=== PATIENT | female | born 1955 | race Caucasian/White ===

== ENCOUNTER → 2016-09-26 | Outpatient (CLI) | payer OTHER ==
[~2016-09-26] MED LIST: ABL/5 PO; ALBUAER2 INH; ARIP1TAB14 PO; ASPCH81X PO; ATV1 PO; BACL10TA PO; BUDE180I INH; CYM/30 PO; CYM30 PO; CYM60 PO; DICL1GEL12 TP; DULO60CA44 PO; GABA-112 PO; LAMO100T16 PO; LAMO150T PO; LEVO100T7 PO; LRS10 PO; MELO15TA10 PO; MELO15TA4 PO; MEMA1TAB4 PO; MISCCAP80 PO; NMN10 PO; OMEP20CA9 PO; OXYC-57 PO; PLQ200 PO; POTA1080 PO; RANI150T2 PO; SIMV40TA4 PO; TOPI100T20 PO; TPM100 PO; TRAM-10 PO; TRAZ100T29 PO; VITAMIN C PO; VNTHFA/IN INH; WARF2TAB PO; ZCR40 PO; ZNTT/150 PO
[2016-09-26 17:32] LABS: URINE APPEARANCE CLEAR (CLEAR); URINE BILIRUBIN NEG (NEG); URINE COLOR YELLOW; URINE EPITHELIAL CELL AUTO >30 /lpf (0-5); URINE NITRITE NEG (NEG); URINE PH 6.5 (4.5-7.5); UROBILINOGEN NEG (NEG)
[2016-09-26 17:40] LABS: MANUAL MICROSCOPIC REQUIRED? NO; REVIEW REQ? YES
== END | disposition home or self-care (01) ==
LOC: C.LABSPEC 16:36
PROVIDERS: ATTEND Family Medicine
DX: D64.9 Anemia, unspecified (principal); N39.0 Urinary tract infection, site not specified

== ENCOUNTER → 2016-09-27 | Outpatient (CLI) | payer OTHER ==
[2016-09-27 16:43] LABS: BASO % 0.3 %; BASO ABS # 0.03 K/uL (0-0.2); COMPLETE YES; HEMATOCRIT 40.3 % (37-47); IG% 0.1 %; LYMPH % 33.3 %; LYMPH ABS # 2.89 K/uL (1.2-3.4); MEAN CORPUSCULAR HEMOGLOBIN 31.6 pg (25-34); MEAN CORPUSCULAR HGB CONC 33.3 g/dl (32-36); MEAN PLATELET VOLUME 9.6 fL (7.4-10.4); MONO % 6.2 %; NEUT % 58.1 %; PLATELET COUNT 250 K/uL (130-400); RED BLOOD COUNT 4.24 M/uL (4.2-5.4); WHITE BLOOD COUNT 8.67 K/uL (4.8-10.8)
[2016-09-27 17:28] LABS: FERRITIN 28.3 ng/ml (8.0-388.0); THYROID STIMULATING HORMONE 0.595 uIu/ml (0.300-4.500)
--- NOTE | 2016-10-01 10:43 | CODING QUERY MEDICAL NECESSITY ---
SUPPORTING DIAGNOSIS NEEDED A supporting diagnosis is required for the test/procedure performed on this patient in order for us to be reimbursed by the patient's insurance. Please provide a supporting diagnosis for the following test/procedure listed below next to the test name along with your signature. *If there is no additional diagnosis for this patient that would support the following test/procedure please document that below next to the test/procedure. Test(s)/Procedure(s) that require a supporting diagnosis: DOS 09/27 * Vitamin B12 DIAGNOSIS: * Folic Acid DIAGNOSIS: Provider Signature: Date: Thank you Renée Barry Health Information Management Once completed, please kindly fax back to [phone] For questions please call [phone]
== END | disposition home or self-care (01) ==
LOC: C.LAB 15:21
PROVIDERS: ATTEND Family Medicine
DX: D64.9 Anemia, unspecified (principal); G47.19 Other hypersomnia

== ENCOUNTER → 2016-10-10 | Outpatient (CLI) | payer OTHER ==
[~2016-10-10] VITALS: Ht 160 cm; Wt 93.2 kg
[~2016-10-10] MED LIST changes: -ARIP1TAB14 PO; -ATV1 PO; -BUDE180I INH; +BUDE180I PO; -CYM30 PO; -CYM60 PO; -LAMO150T PO; -LRS10 PO; -MELO15TA4 PO; -MEMA1TAB4 PO; -POTA1080 PO; -RANI150T2 PO; -TPM100 PO; -VNTHFA/IN INH; -ZCR40 PO
[2016-10-10 11:42] VITALS: BP 118/79; PULSE 88; Ht 160 cm; Wt 93.2 kg
== END | disposition home or self-care (01) ==
LOC: C.NEUR 11:21
PROVIDERS: ATTEND Internal Medicine Pulmonary Disease
DX: G47.33 Obstructive sleep apnea (adult) (pediatric) (principal); G25.81 Restless legs syndrome

== ENCOUNTER → 2016-10-15 | Outpatient (CLI) | payer OTHER | END | disposition home or self-care (01) | LOC: C.RDSM 13:17 | PROVIDERS: ATTEND Physical Medicine & Rehabilitation Sports Medicine | DX: M25.561 Pain in right knee (principal) ==

== ENCOUNTER → 2016-10-19 | Outpatient (CLI) | payer OTHER ==
--- NOTE | 2016-10-19 08:43 | DIAGNOSTIC IMAGING REPORT ---
MRI OF THE RIGHT KNEE CLINICAL HISTORY: Osteoarthritis. Fall. COMPARISON STUDY: MRI of the right knee dated 04/25/2016. TECHNIQUE: MRI of the right knee was performed utilizing proton density, T1, and T2-weighted sequences in the axial, sagittal, coronal planes. IV contrast was not administered for this examination. The examination is degraded by motion artifact. FINDINGS: Menisci: There is degenerative tearing seen involving the body and posterior horn of the medial meniscus. The medial meniscus is medially extruded. The lateral meniscus appears Intact. Ligaments: The anterior and posterior cruciate ligaments are intact. The medial and lateral collateral ligaments are within normal limits. Extensor mechanism: The extensor mechanism is intact. Hoffa's fat pad is normal in appearance. Articular cartilage and bone: There is minimal degenerative fissuring identified in the articular cartilage along the lateral patellar facet. There is nearly full-thickness cartilage loss seen in the underlying femoral trochlea. There is degenerative thinning of the articular cartilage in the medial compartment with nearly full-thickness loss along the weightbearing surface. No reactive marrow edema is seen. There is mild (less than 50%) of thinning of the articular cartilage in the lateral compartment. There are medial marginal osteophytes. Joint effusion: There is a small to moderate joint effusion. Soft tissues: The musculature surrounding the knee joint demonstrates diffuse atrophy. No intramuscular edema is seen. A small popliteal cyst is identified and measures up to 2.6 cm. IMPRESSION: 1. There is significant degenerative tearing identified involving the body and posterior horn of the medial meniscus which is medially extruded. 2. The lateral meniscus, the cruciate ligaments, and the collateral ligaments appear intact. 3. Joint effusion and small popliteal cyst. 4. Arthritic change as above, greatest in the medial compartment. Electronically signed by: Liam Zazueta M.D. 10/19/2016 8:41 AM Dictated Date/Time: 10/19/2016 8:35 AM
== END | disposition home or self-care (01) ==
LOC: C.MRI 07:29
PROVIDERS: ATTEND Physical Medicine & Rehabilitation Sports Medicine
DX: M17.11 Unilateral primary osteoarthritis, right knee (principal)

== ENCOUNTER → 2016-11-19 | Outpatient (CLI) | payer OTHER ==
--- NOTE | 2016-11-20 06:31 | PAP/PSG TECHNICIAN REPORT ---
[facility] Hydraulic Strainer Operator Polysomnogram Report Study name: None Report date: 11/20/2016 Study date: 11/19/2016 Referring Physician: MT CARRILLO DO, DO Name: GUILLERMO NUNES Interpreting Physician: Mt Carrillo D.O. Date of : 1955 Hydraulic Strainer Operator: Debbie Puente [facility]. Sex: Female Age: 61 StudyType: PSG Weight: 303 lbs Height: 61 years, Height 5' 3" BMI: 53.67 Medications: Abilify 5 mg, Aspirin 81 mg, Baclofen 10 mg, Duloxrtine 60 mg, Duloxetine 30 mg, Lamotrigine 100 mg, Levothyroxine 100 MCG, Meloxicam 15 mg, Memantine 10 mg, Omeprazole 20 mg, Plaquenil 200 mg, Pulmicort 180 MCG, Ranitidine 150 mg, Simvastatin 40 mg, Topiramate 100 mg, Tramadol 50 mg, Trazodone 50 mg, Ventolin HFA 108 ( 90 base) Patient History 61 yr. old female here for a diagnostic sleep study. Patient complains of EDS, and loud snoring. Patients [place] Sleepiness Scale Score is 20/24. Parameters Monitored NPSG: E1-M2, E2-M1, Fp1-M2, Fp2-M1, F3-M2, F4-M2, F4-M1, C3-M2, C4-M2, C4-M1, O1-M2, O2-M2, O2-M1, T3-M2, T4-M1, P3-M2, P4-M1, CHIN1, CHIN2, HR, EKG, Legs, PFLOW, SNOR, FLOW, CFLOW, Tidal Volume, THOR, ABDO, SpO2, PLTH, CPRESS, ETCO2 Wave, ETCO2, pH Sleep Architecture Sleep Stages Time at Lights Off 10:44:27 PM STAGES Time (min.) TST (%) Time at Lights On 5:46:57 AM Wake 61.0 -- Total Recording Time (TRT) 422.50 min. N1 12.5 3 Total Sleep Period (TSP) 390.0 min. N2 148.0 41 Total Sleep Time (TST) 361.5min. N3 126.5 35 Awake Time 61.0 min. REM 74.5 21 Wake after Sleep Onset 28.5 min. Sleep Efficiency (SE) 86 % Sleep Onset Latency (COLIN) 32.5 min. Number of Stage 1 Shifts None Awakenings 14 Stage Changes 55 Number of REM periods 2 REM 74.5 21 REM Latency 157.0 min. NREM 287.0 79 Body Position Analysis Supine Right Left Side Prone Vertical Total Sleep Time (min.) 219.4 0.0 194.5 194.49 0.0 0.0 Total Sleep Time (%) 46% 0% 54% 54 0% N/A% Total Sleep Time REM (min.) 74.5 0.0 0.0 None 0.0 0.0 Total Sleep Time NREM (min.) 92.5 0.0 194.5 None 0.0 0.0 Intermittent Wake (min.) 52.4 0.0 8.6 None 0.0 0.0 Total Sleep Period (%) 48% None None None None None Arousals Myoclonus (PLM) * Events Count Index Events Count Index Spontaneous 2 0 Events Awake (PLMW) 39 38.4 Respiratory 1 0.2 Events Asleep w/ Arousal (PLMA) 8 1.3 PLM 8 1 Events Asleep w/o Arousal (PLMS) 41 6.8 Snoring 5 1 Total Asleep 49 8.1 Total 15 2 Total 88 12 Respiratory Analysis * CA OA MA CH H RERA Total Count 0 0 0 0 38 0 38 Index 0.0 0.0 0.0 0 6.3 0 6.3 Mean Duration 0.0 0.0 0.0 0.00 25.4 0.0 25.4 Longest Duration 0.0 0.0 0.0 0.00 0.0 0.0 46.0 Respiratory Event Summary Total Supine ~Supine Right Left Prone REM NREM Apneas Count 0 0 0 N/A 0 N/A 0 0 Index 0.0 0 0 N/A 0.0 N/A 0 0 Hypopneas (4% Desat) Count 38 37 1 N/A 1 N/A 11 27 Index 6.3 13.3 0 N/A 0.3 N/A 8.9 5.6 Apneas & All Hypopneas Count 38 37 1 N/A 1 N/A 11 27 Index 6.3 13 0 N/A 0 N/A 8.9 5.6 Respiratory Events (Clinical Team Lead+All Hyp+RERA) Count 38 37 1 N/A 1 N/A 11 27 Index 6.3 13 0 N/A 0.3 N/A 8.9 5.6 Respiratory Related Arousal Count 1 37 0 N/A 0 N/A 0 1 Index 0.2 0 0 N/A 0 N/A 0 0 Snoring Analysis Supine Right Left Prone REM NREM Total Snore duration 61.1 min Snores count 704 N/A 1,486 N/A 359 1,831 2,190 Snore mean duration 1.7 Sec Snores index 253 N/A 458 N/A 289.1 382.8 363.5 TST with snoring (%) 16.9% Desaturation Event Summary: Minimum %SpO2 Event Count Mean/Min/Max Duration(sec.) Desaturation Index % Time In Bed > 90 51 27.7 / 6.8 / 60.0 24.1 30.7 86 - 90 39 26.8 / 6.8 / 60.0 8.2 68.5 81 - 85 0 N/A 0.0 0.8 76 - 80 0 N/A 0.0 0.0 71 - 75 0 N/A 0.0 0.0 66 - 70 0 N/A 0.0 0.0 61 - 65 0 N/A 0.0 0.0 56 - 60 0 N/A 0.0 0.0 51 - 55 0 N/A 0.0 0.0 < 50 0 N/A 0.0 0.0 Total REM NREM Awake <50% 0.0 min. 0.0 min. 0.0 min. 0.0 min. 51 - 60% 0.0 min. 0.0 min. 0.0 min. 0.0 min. 61 - 70% 0.0 min. 0.0 min. 0.0 min. 0.0 min. 71 - 80% 0.0 min. 0.0 min. 0.0 min. 0.0 min. 81 - 90% 287.4 min. 70.2 min. 186.3 min. 30.8 min. 91 - 100% 127.1 min. 4.3 min. 100.7 min. 22.2 min. Average 89 88 89 90 Minimum SpO2 81 84 81 82 Desaturation Event Index 8.5 9.7 6.7 15.7 # Desat. Events below 89% 56 12 32 12 Time(%) with Saturation below 89% 41.3 10.8 26.6 3.9 Time(min.) with Saturation below 89% 171.2 44.8 110.2 16.2 Time (mins) REM (mins) NREM (mins) % of TST SpO2 Below 90% 44 12 N32 60.0 SpO2 Below 88% 21 0 0 22 Heart Rate Analysis Min (bpm) Max (bpm) Average (bpm) Awake 65 94 78 NREM 64 82 71 REM 63 76 71 Overall 63 82 71 Supplemental O2 Values Minimum O2 level: None Value Start Time End Time Hydraulic Strainer Operator Comments MS. Nunes slept in the right and supine positions. Cardiac arrhythmia and PLMs noted. No bruxism noted. Snoring was noted and scored as a 4 on a scale of 0 through 5. (0=no snoring, 5=snoring loud enough to be heard through a closed door or down the gaytan way) MS. Nunes awoke to use the restroom two times during the night. MS. Nunes stated, I got up less to pee. The final report will be interpreted and signed by a sleep physician. The completed physician report will then be placed in the patient medical record. Therapy (cm H2O) 0 TIB (min.) 422.5 TST (min.) 361.5 Sleep Onset (min.) 32.5 REM Onset From Sleep (min.) 157.0 Sleep Efficiency % 86 Wakefulness (%) 14 Wakefulness (min.) 61.0 NREM 1 (%) 3 NREM 1 (min.) 12.5 NREM 2 (%) 41 NREM 2 (min.) 148.0 NREM 3 (%) 35 NREM 3 (min.) 126.5 REM (%) 21 REM (min.) 74.5 # Arousals 15 Arousal Index 2 # Snore 2,190 Snore Index 363.5 AHI 6.3 AHI Supine 13 AHI Non-Supine 0 NREM AHI 5.6 REM AHI 8.9 RDI 6.3 # Obstructive Apnea 0 # Central Apnea 0 # Mixed Apnea 0 # Hypopneas 38 RERAs 0 Total Respiratory Events 39 Time Below SpO2 89% (min.) 155.0 Mean NREM SpO2 (%) 89 Mean REM SpO2 (%) 88 Mean Sleep SpO2 (%) 89 Min NREM SpO2 (%) 81 Min REM SpO2 (%) 84 Position Supine (min.) 219.4 Position Non-supine (min.) 194.5 LM Index Sleep 8.1 LM Index NREM 6.5 LM Index REM 14.5 Mean Heart Rate (bpm) 71 Min Heart Rate (bpm) 63
--- NOTE | 2016-11-22 13:49 | POLYSOMNOGRAPH REPORT ---
CLINICAL DATA: The patient is a 61-year-old female with a BMI elevated at 53.67. She has been referred by Dr. Somers. Her symptoms include snoring, disturbed nocturnal sleep, and excessive daytime somnolence. She completed the [place] sleepiness scale and had a score of 20 out of a possible 24. This was an overnight sleep study in the sleep lab. SLEEP ARCHITECTURE: The total sleep period was 390.0 minutes. Total sleep time was 361.5 minutes. The sleep efficiency was 86%. The sleep onset latency was prolonged to 32.5 minutes. The REM latency was prolonged to 157.0 minutes. There were 2 REM periods during the night. Wake after sleep onset was 28.5 minutes. Sleep consisted of stage N1 3%, stage N2 41%, stage N3 35%, and stage REM 21%. AROUSAL DATA: The patient had a total of 15 arousals including 2 spontaneous arousals, 1 respiratory arousal, 8 PLM arousals, 5 snoring arousals. The arousal index was only 2. PLM DATA: The patient had a total of 49 periodic limb movements of sleep for a PLM index of 8.1 events per hour. There were 8 periodic limb movements with arousals for a PLM arousal index of 1.3. RESPIRATORY DATA: The patient had a total of 38 respiratory events during the night, all of which were hypopneas. The apnea hypopnea index is mildly elevated at 6.3 events per hour. The longest hypopnea was 46 seconds with a mean hypopnea of 25.4 seconds. OXIMETRY DATA: The patient had an average saturation of 89%. The minimum saturation was 81%. There was a total of 21 minutes with saturations less than 88%. EKG: The patient had an underlying normal sinus rhythm. There was a modest number of PVCs throughout the night. There were no runs of couplets or V-tach. The minimum heart rate was 63 and the maximum was 94. ROCK WORKER COMMENTS: The patient slept in the right and supine positions. Cardiac arrhythmia and PLMs were noted. No bruxism noted. Snoring was noted and scored as a 4 on a scale of 0 through 5. IMPRESSION: Obstructive sleep apnea -- mild. COMMENTS: The patient had mild sleep apnea as assessed by the apnea-hypopnea index of only 6.3 events per hour. It is difficult to determine if this mild apneas accounting for her severe daytime somnolence. She is on a number of medications which could contribute to daytime somnolence including Abilify, Cymbalta, lamotrigine, topiramate, and tramadol. She had a modest number of PVCs during the study. Most of the events occurred after 4:00 a.m. and all the events occurred in the supine position. RECOMMENDATIONS: 1. Consideration is given to treatment with nasal CPAP. Although she has very mild apnea she has severe symptoms. At times, even with mild apnea patients may notice a significant improvement in daytime somnolence with treatment. 2. It is suggested that the patient initiate a weight reduction program in light of the severe elevation of body mass index at 53.67. 3. It is advised that the patient avoid sleeping in the supine position. During this study she clearly had increased events when supine. 4. The patient should be advised of the appropriate principles of sleep hygiene including having a regular sleep-wake schedule and allowing sufficient sleep time. SANDRITA
== END | disposition home or self-care (01) ==
LOC: C.NEUR 20:00
PROVIDERS: ATTEND Internal Medicine Pulmonary Disease
DX: G47.33 Obstructive sleep apnea (adult) (pediatric) (principal)

== ENCOUNTER → 2016-12-05 | Outpatient (CLI) | payer OTHER ==
[~2016-12-05] MED LIST changes: -DULO60CA44 PO
[2016-12-05 10:05] VITALS: BP 110/73; PULSE 96; Ht 160 cm
== END | disposition home or self-care (01) ==
LOC: C.NEUR 09:56
PROVIDERS: ATTEND Internal Medicine Pulmonary Disease
DX: G47.33 Obstructive sleep apnea (adult) (pediatric) (principal)

== ENCOUNTER 2016-12-26 05:16 | Inpatient (IN) | payer OTHER ==
[2016-11-30 13:20] VITALS: BMI 36.0
[2016-11-30 13:56] LABS: BASO % 0.5 %; BASO ABS # 0.03 K/uL (0-0.2); COMPLETE YES; EOS % 1.9 %; HEMATOCRIT 39.5 % (37-47); IG% 0.2 %; LYMPH % 32.9 %; LYMPH ABS # 2.13 K/uL (1.2-3.4); MEAN CELL VOLUME 96.3 fL (80-100); MEAN CORPUSCULAR HEMOGLOBIN 31.5 pg (25-34); MEAN CORPUSCULAR HGB CONC 32.7 g/dl (32-36); MEAN PLATELET VOLUME 10.1 fL (7.4-10.4); MONO % 5.4 %; NEUT % 59.1 %; PLATELET COUNT 212 K/uL (130-400); WHITE BLOOD COUNT 6.48 K/uL (4.8-10.8)
[2016-11-30 13:57] LABS: URINE APPEARANCE CLEAR (CLEAR); URINE BILIRUBIN NEG (NEG); URINE COLOR YELLOW; URINE NITRITE NEG (NEG); URINE SPECIFIC GRAVITY 1.006 (1.000-1.030); UROBILINOGEN NEG (NEG); ZZUR CULT IF INDIC CLEAN CATCH NO
--- NOTE | 2016-11-30 13:57 | PAT Medication Instructions ---
Service Date Nov 30, 2016. Current Home Medication List Albuterol (Ventolin Hfa), 1 PUFF INH Q4 PRN for Shortness of Breath Aripiprazole (Abilify), 5 MG PO HS Aspirin (Aspirin Chewable), 81 MG PO QAM Baclofen (Lioresal), 10 MG PO QID Budesonide (Inhalation) (Pulmicort Flexhaler), 1 PUFF PO AMHS Diclofenac Sodium (Topical) (Voltaren 1% Top Gel), 1 DOSE TP PRN Duloxetine Hcl (Cymbalta), 90 MG PO QAM Gabapentin (Neurontin), 100 MG PO TID Hydroxychloroquine Sulfate (Hydroxychloroquine Sulfat), 200 MG PO BID Lamotrigine (Lamictal), 300 MG PO HS Levothyroxine Sodium (Levothyroxine Sodium), 100 MCG PO QAM Meloxicam (Mobic), 15 MG PO QPM Memantine (Namenda), 10 MG PO BID Omeprazole (Prilosec), 20 MG PO QAM Probiotic Product (Probiotic), 1 TAB PO QAM Ranitidine (Zantac), 150 MG PO HS Simvastatin (Zocor), 40 MG PO HS Topiramate (Topamax), 100 MG PO BID Tramadol (Ultram), 50 MG PO BID Trazodone Hcl (Trazodone), 100 MG PO HS PRN for Sleep [Vitamin C], 1 DOSE PO QAM Medication Instructions For Your Scheduled Surgery - Check with surgeon for instructions: Meloxicam (Mobic), 15 MG PO QPM - Check with elder counselor for instructions: Hydroxychloroquine Sulfate (Hydroxychloroquine Sulfat), 200 MG PO BID - Hold the following medications 24 hours prior to surgery: Diclofenac Sodium (Topical) (Voltaren 1% Top Gel), 1 DOSE TP PRN - Hold the following medications the morning of surgery: Probiotic Product (Probiotic), 1 TAB PO QAM [Vitamin C], 1 DOSE PO QAM Baclofen (Lioresal), 10 MG PO QID - Take the following medications the morning of surgery with a sip of water: Topiramate (Topamax), 100 MG PO BID Omeprazole (Prilosec), 20 MG PO QAM Memantine (Namenda), 10 MG PO BID Levothyroxine Sodium (Levothyroxine Sodium), 100 MCG PO QAM Gabapentin (Neurontin), 100 MG PO TID Duloxetine Hcl (Cymbalta), 90 MG PO QAM Budesonide (Inhalation) (Pulmicort Flexhaler), 1 PUFF PO AMHS Aspirin (Aspirin Chewable), 81 MG PO QAM (okay per surgeon instructions) Albuterol (Ventolin Hfa), 1 PUFF INH Q4 PRN for Shortness of Breath (bring with you to hospital morning of surgery) Tramadol (Ultram), 50 MG PO BID (okay to take up to 4 hours prior to surgery if needed) - Take the following medications as scheduled the night before surgery: Trazodone Hcl (Trazodone), 100 MG PO HS PRN for Sleep Topiramate (Topamax), 100 MG PO BID Simvastatin (Zocor), 40 MG PO HS Ranitidine (Zantac), 150 MG PO HS Memantine (Namenda), 10 MG PO BID Lamotrigine (Lamictal), 300 MG PO HS Gabapentin (Neurontin), 100 MG PO TID Budesonide (Inhalation) (Pulmicort Flexhaler), 1 PUFF PO AMHS Baclofen (Lioresal), 10 MG PO QID Aripiprazole (Abilify), 5 MG PO HS Albuterol (Ventolin Hfa), 1 PUFF INH Q4 PRN for Shortness of Breath Tramadol (Ultram), 50 MG PO BID If you have any questions please call us at [phone] (Pascale Aponte PA-C) or [phone] or [phone]
[2016-11-30 13:58] LABS: MANUAL MICROSCOPIC REQUIRED? NO; REVIEW REQ? NO
[2016-11-30 14:01] LABS: INR 0.9 (0.9-1.1); PARTIAL THROMBOPLASTIN RATIO 1.1
[2016-11-30 14:23] LABS: BUN/CREATININE RATIO 20.1 (10-20); CALCIUM 8.5 mg/dl (8.5-10.1); CREATININE 0.78 mg/dl (0.60-1.20); POTASSIUM 3.9 mmol/L (3.5-5.1)
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
[2016-12-26] VITALS (9 sets, daily range): BP systolic 96–135; BP diastolic 62–88; PULSE 75–90; TEMP 36.6–37; O2SAT 93–100; Ht 160 cm; Wt 93.9 kg
[~2016-12-26] VITALS: Ht 160 cm; Wt 93.9 kg
[~2016-12-26 05:16] MED LIST changes: -ASPCH81X PO; -BUDE180I PO; -LEVO100T7 PO; -OMEP20CA9 PO; -OXYC-57 PO; -PLQ200 PO; -TRAZ100T29 PO; -WARF2TAB PO
[2016-12-26] MEDS ORDERED: ROPIVACAINE 5MG/ML 30 ML 150 MG, BUPIVACAINE/EPINEPHR 0.5% MPF 30 ML, KETOROLAC TROMETH... INFIL SCH ×7 (06:00)
[2016-12-26] MEDS ORDERED: LACTATED RINGER'S 1000ML 1,000 ML IV SCH (06:00)
[2016-12-26] MEDS ORDERED: LACTATED RINGER'S 1000ML IV SCH (06:00)
[2016-12-26] MEDS ORDERED: TRANEXAMIC ACID INJ 1,000 MG in SODIUM CHLORIDE 0.9% 100ML 100 ML IV SCH ×2 (06:00→14:30)
[2016-12-26] MEDS ORDERED: CEFAZOLIN 2000 MG/60 ML D5W 60 ML IV SCH (06:00)
[2016-12-26] MEDS ORDERED: LACTATED RINGER'S 1000ML 500 ML IV ONE (06:00)
--- NOTE | 2016-12-26 06:27 | History & Physical Bridge Note ---
H&P Re-Evaluation Bridge Note: I have examined the patient, reviewed the History & Physical and in the interval since the performance of the History & Physical I have noted the following changes of clinical significance: No changes noted
[2016-12-26] MEDS ORDERED: BUPIVACAINE 0.5 % 5 MG/1 ML PF 10ML VIAL ONE (06:32)
[2016-12-26] MEDS ORDERED: BUPIVACAINE/EPINEPHRINE 0.25% 1:200,000 30 ML VIAL ONE (06:32)
[2016-12-26] MEDS ORDERED: DEXAMETHASONE SOD INJ 4 MG/ML VIAL ONE (06:33)
[2016-12-26] MEDS ORDERED: ORTHO JOINT ANESTHETIC ONE (06:37)
[2016-12-26] MEDS ORDERED: POVIDONE-IODINE OP SOLN 30 ML BTL ONE (06:37)
[2016-12-26] MEDS ORDERED: PROPOFOL IV EMULSION 10 MG/ML 20 ML VIAL IV ONE ×2 (06:40→07:55)
[2016-12-26] MEDS ORDERED: LIDOCAINE HCL 2% 2 ML VIAL (20MG/ML) ONE (06:40)
[2016-12-26] MEDS ORDERED: FENTANYL CITRATE INJ 50 MCG/1 ML 2 ML VIAL ONE (06:41)
[2016-12-26] MEDS ORDERED: MIDAZOLAM HCL 1 MG/ML 2ML VIAL ONE ×3 (06:41→09:23)
[2016-12-26] MEDS ORDERED: ONDANSETRON INJ 2 MG/ML 2 ML VIAL ONE (07:23)
[2016-12-26] MEDS ORDERED: EpHEDrine SULFATE INJ 50 MG/ML AMP IV PRN (08:15)
[2016-12-26] MEDS ORDERED: ATROPINE SULFATE 0.1 MG/ML 5ML SYR IV PRN (08:15)
[2016-12-26] MEDS ORDERED: ONDANSETRON INJ 2 MG/ML 2 ML VIAL IV PRN ×2 (08:15→08:45)
[2016-12-26] MEDS ORDERED: FENTANYL CITRATE INJ 50 MCG/1 ML 2 ML VIAL IV PRN (08:15)
--- NOTE | 2016-12-26 08:25 | [facility] Post Operative Brief Note ---
Immediate Operative Summary Operative Date Dec 26, 2016. Pre-Operative Diagnosis Right Knee Degnerative Joint Disease Post-Operative Diagnosis Right Knee Degnerative Joint Disease Procedure(s) Performed Right Total Knee Arthroplasty Surgeon Dr. Uribe Tie Fastener Surgeon(s) GISEL Cosme Estimated Blood Loss 25 ml Findings medial disease grade 3-4/lateral grade 3 Fluids (cc crystalloids) 1200cc Specimens A. Right Knee Bone and Tissue Drains none Anesthesia spinal Complication(s) None Disposition Recovery Room / PACU
[2016-12-26] MEDS ORDERED: ACETAMINOPHEN 325 MG TAB PO PRN (08:45)
[2016-12-26] MEDS ORDERED: ACETAMINOPHEN IV 100 ML IV PRN (08:45)
[2016-12-26] MEDS ORDERED: DiphenhydrAMINE HCL 50 MG/ML VIAL IV PRN (08:45)
[2016-12-26] MEDS ORDERED: BISACODYL 10 MG SUPP PR PRN (08:45)
[2016-12-26] MEDS ORDERED: ALBUTEROL HFA 8 GM INHALER INH PRN (08:45)
[2016-12-26] MEDS ORDERED: METOCLOPRAMIDE HCL INJ 5 MG/ML 2 ML VIAL IV PRN (08:45)
--- NOTE | 2016-12-26 08:55 | OPERATIVE REPORT ---
DATE OF OPERATION: 12/26/2016 SURGEON: Dr. Uribe. RESIDENTIAL SUPPORT WORKER: Adama Gonzalez PA-C. No resident or fellow available. PREOPERATIVE DIAGNOSIS: Osteoarthritis medial compartment with recurrent synovitis of the right knee. POSTOPERATIVE DIAGNOSIS: Same. OPERATION PERFORMED: Cemented right total knee replacement. PERIOPERATIVE SITUATION: Medically cleared female with intractable knee pain, has failed conservative management including arthroscopic debridement of her knee. At this point in time, has recurrent synovitis with physical exam, x-ray and repeat MRI scan significant for medial disease. She has an extruded meniscus and advancing articular lesions. Her x-ray criteria revealed joint space narrowing and varus alignment on the medial side. OPERATION: The patient was properly identified, site verified, consent verified, 2 grams of Ancef confirmed as being given. The leg was prepped and draped in usual routine fashion. Tourniquet inflated to 300 mmHg after exsanguination of limb with a rubber Esmarch bandage. Midline exposure utilized. Parapatellar arthrotomy performed. Appropriate synovectomy and soft tissue releases performed. Observation of the medial compartment revealed grade 4 posterior half of the tibia and posterior half of the femur, extruded meniscus. The patellofemoral joint was relatively healthy. The lateral compartment had a quarter-sized area with a grade 3 lesion on the weightbearing surface of the lateral femoral condyle and in the tibial plateau. The central zone laterally was completely soft and grade 3+. The distal femur was then resected 14 mm, proximal tibia 4 mm, and the extension gap was excellent. The femur was then sized between 4 and 3, was measured 4 cut 3. Once this was all cut, the trial implant slightly rocked anteriorly, so the cutting block was reapplied and the cuts were freshened up and then the femur fit well. The tibia was then broached and reamed to a size 2.5 and a size 3 spacer, 10 mm thick was placed and the knee tracked well and was very stable in all planes including full extension, mid range flexion and full flexion. The patella was sized to a 35. Appropriate resection made, leaving about 15 mm. The peg holes were drilled and then the trial seated and tracked well. All trial implants were then removed. The wound was irrigated with Betadine, Pulsavac, injected with the Orthomix. The permanents were cemented into position. After 12 minutes, the tourniquet deflated. Bleeding points controlled. After 14 minutes, the knee flexed. Minor cement removal. The knee irrigated with Betadine. The permanent liner then seated and the knee reduced. The wound was then closed with #1 Ethibond, #1 Vicryl, 2-0 Vicryl, and stainless steel clips. Appropriate soft tissue dressing applied. ESTIMATED BLOOD LOSS: 25 mL Crystalloid 1200 mL SUMMARY OF IMPLANTS: Right femur size 3 posterior cruciate substituting, 2.5 tray, rotating platform, oval domed 3-peg patella size 35, tibial insert size 3 matching the femur, 10 mm thick, posterior cruciate substituting 2 bags of Palacos G cement. DVT prophylaxis per protocol. I attest to the content of the Intraoperative Record and any orders documented therein. Any exceptio ns are noted below.
--- NOTE | 2016-12-26 09:10 | DIAGNOSTIC IMAGING REPORT ---
RIGHT KNEE 2 VIEWS History: Right total knee arthroplasty. Degenerative arthritis. Postop. FINDINGS: The patient is status post a right total knee arthroplasty. The hardware is intact. No fracture or dislocation. Skin benji and surgical drains are in place. IMPRESSION: Right total knee arthroplasty. No evidence for hardware complication. Electronically signed by: Hong Montague M.D. 12/26/2016 9:09 AM Dictated Date/Time: 12/26/2016 9:09 AM
--- NOTE | 2016-12-26 09:32 | Anesthesiology Progress Note ---
Anesthesia Post Op Note Date & Time Dec 26, 2016 at 09:32 Vital Signs Pain Intensity: 0 Vital Signs Past 12 Hours Date Time Temp Pulse Resp B/P Pulse Ox O2 Delivery O2 Flow Rate FiO2 12/26/16 09:16 82 12 95 12/26/16 09:16 82 12 12/26/16 09:15 102/60 12/26/16 09:11 82 12 91/58 94 12/26/16 09:11 83 12 12/26/16 09:06 85 16 97 12/26/16 09:06 85 16 12/26/16 09:05 86 12 115/65 96 12/26/16 09:05 86 12 12/26/16 09:03 36.8 85 20 115/65 100 Mask 10 12/26/16 09:00 87 12 126/63 95 12/26/16 09:00 88 12 12/26/16 08:55 90 25 12/26/16 08:55 90 25 112/69 96 12/26/16 08:50 93 17 113/58 97 12/26/16 08:50 94 17 12/26/16 08:45 96 21 12/26/16 08:45 96 21 117/59 97 12/26/16 08:40 96 17 12/26/16 08:40 95 17 126/60 100 12/26/16 08:35 95 15 12/26/16 08:35 36.1 98 20 117/65 100 Mask 10 12/26/16 08:35 95 15 117/65 100 12/26/16 05:37 36.7 78 20 135/88 98 Room Air Notes Mental Status: alert / awake / arousable, participated in evaluation Pt Amnestic to Procedure: Yes Nausea / Vomiting: adequately controlled Pain: adequately controlled Airway Patency, RR, SpO2: stable & adequate BP & HR: stable & adequate Hydration State: stable & adequate Neuraxial Anesthesia: was administered, sensory block is resolving Anesthetic Complications: no major complications apparent
[2016-12-26] MEDS ORDERED: D5W AND 1/2NSS + 20MEQ KCL 1,000 ML IV SCH (11:00)
--- NOTE | 2016-12-26 11:19 | Medical Consult ---
History General Date of Service: Dec 26, 2016. Stated Complaint: Degenerative Joint Disease Right Knee HPI The patient is a 61 year old female who presents to [facility] with complaints of Degenerative Joint Disease Right Knee. The patient's primary care provider is Sally Mariano DO. Pt is s/p Total knee replacement due to failed out pt management REsting comfortably with acceptable pain control Surgical service has restarted home meds appropriately Historian: patient, other (chart) Review of Systems Constitutional: denies: chills, diaphoresis Cardiovascular: denies: chest pain, chest pressure Respiratory: denies: cough, shortness of breath Gastrointestinal: denies: diarrhea, nausea Genitourinary - Female: denies: dysuria, hematuria Musculoskeletal: reports: arthralgias, joint pain Integumentary: denies: rash, redness Neurologic: denies: dizziness, headache Psychiatric: denies: anxiety, depression Past Medical History Past Medical History: degenerative disc disease, dementia, depression, diabetes , GERD, high cholesterol, hypothyroidism, kidney stones, migraines, osteoarthritis, other Past Surgical History: lithotripsy, ureteral stent Family History Cancer (Breast, prostate) FATHER (Prostate) MOTHER (Breast) Diabetes mellitus MOTHER SISTER Gallbladder disease Hypertension FATHER Kidney disease SISTER (CKD; renal transplant) Kidney stones Social History Hx Tobacco Use In Past Year?: No Smoking Status: Former Smoker Alcohol: never Marital status: , in relationship Housing status: lives alone Occupational Status: disabled Immunizations History of Influenza Vaccine: N/A Influenza Vaccine Date: Aug 25, 2006 History of Tetanus Vaccine?: Yes Tetanus Immunization Date: January 31, 2005 History of Pneumococcal: Yes Pneumococcal Date: Jul 03, 2008 History of Hepatitis B Vaccine: Unknown Hepatitis Immunization Date: Sep 25, 2004 History of MDRO History of MDRO: No Allergies Coded Allergies: Buprenorphine (Verified Allergy, Mild, RASH WITH USE OF PATCH, 12/26/16) Cyclobenzaprine (Verified Allergy, Unknown, UNK, 12/26/16) Magnesium Hydroxide (Verified Allergy, Unknown, HIVES, 12/26/16) Ibuprofen (Verified Adverse Reaction, Severe, GI BLEED, 12/26/16) Naproxen (Verified Adverse Reaction, Severe, GI BLEED, 12/26/16) Current Medications Reported Home Medications Medications Dose Route/Sig Max Daily Dose Days Date Category Dose Instructions [Vitamin C] 1 Dose PO QAM 11/30/16 Reported LIQUID Voltaren 1% Top Gel (Diclofenac Sodium (Topical)) 1 % Gel 1 Dose TP PRN 11/30/16 Reported Neurontin (Gabapentin) 100 Mg Cap 100 Mg PO TID 11/30/16 Reported Probiotic (Probiotic Product) 1 Cap Cap 1 Tab PO QAM 11/30/16 Reported Ultram (Tramadol HCl) 50 Mg Tab 50 Mg PO BID 06/18/16 Reported Mobic (Meloxicam) 15 Mg Tab 15 Mg PO QPM 06/18/16 Reported Hydroxychloroquine Sulfat (Hydroxychloroquine Sulfate) 200 Mg Tab 200 Mg PO BID 05/01/16 Reported Pulmicort Flexhaler (Budesonide (Inhalation)) 180 Mcg/Act Inh 1 Puff PO AMHS 05/01/16 Reported Aspirin Chewable (Aspirin) 81 Mg Chew 81 Mg PO QAM 12/22/15 Reported Ventolin Hfa (Albuterol) Aers 1 Puff INH Q4 PRN 12/22/15 Reported Trazodone (Trazodone HCl) 100 Mg Tab 100 Mg PO HS PRN 12/22/15 Reported Zantac (Ranitidine HCl) 150 Mg Tab 150 Mg PO HS 12/22/15 Reported Lamictal (Lamotrigine) 100 Mg Tab 300 Mg PO HS 12/22/15 Reported Abilify (Aripiprazole) 5 Mg Tab 5 Mg PO HS 12/22/15 Reported Topamax (Topiramate) 100 Mg Tab 100 Mg PO BID 12/22/15 Reported Namenda (Memantine) 10 Mg Tab 10 Mg PO BID 12/22/15 Reported Levothyroxine Sodium 100 Mcg Tab 100 Mcg PO QAM 12/22/15 Reported Cymbalta (Duloxetine Hcl) 30 Mg Cap 90 Mg PO QAM 12/22/15 Reported take with 30 mg Lioresal (Baclofen) 10 Mg Tab 10 Mg PO QID 09/20/15 Reported Prilosec (Omeprazole) 20 Mg Cap 20 Mg PO QAM 12/08/13 Reported Zocor (Simvastatin) 40 Mg Tab 40 Mg PO HS 12/08/13 Reported Physical Physical Exam Vital Signs: Date Time Temp Pulse Resp B/P Pulse Ox O2 Delivery O2 Flow Rate FiO2 12/26/16 10:50 36.6 85 17 106/67 99 Nasal Cannula 2.0 12/26/16 10:21 36.7 89 17 102/64 100 Nasal Cannula 2.0 12/26/16 09:50 99 Nasal Cannula 2.0 12/26/16 09:50 99 Nasal Cannula 2.0 12/26/16 09:45 116/64 12/26/16 09:41 85 13 97 12/26/16 09:41 86 13 12/26/16 09:40 110/64 12/26/16 09:36 90 19 12/26/16 09:36 90 19 98 12/26/16 09:35 119/70 12/26/16 09:32 94 25 95 12/26/16 09:32 98 25 12/26/16 09:30 108/68 12/26/16 09:27 91 22 12/26/16 09:27 92 22 97 12/26/16 09:25 106/60 12/26/16 09:22 95 20 12/26/16 09:22 95 20 98 12/26/16 09:20 101/70 12/26/16 09:17 82 13 12/26/16 09:17 82 13 94 12/26/16 09:16 82 12 95 12/26/16 09:16 82 12 12/26/16 09:15 102/60 12/26/16 09:11 82 12 91/58 94 12/26/16 09:11 83 12 12/26/16 09:06 85 16 97 12/26/16 09:06 85 16 12/26/16 09:05 86 12 115/65 96 12/26/16 09:05 86 12 12/26/16 09:03 36.8 85 20 115/65 100 Mask 10 12/26/16 09:00 87 12 126/63 95 12/26/16 09:00 88 12 12/26/16 08:55 90 25 12/26/16 08:55 90 25 112/69 96 12/26/16 08:50 93 17 113/58 97 12/26/16 08:50 94 17 12/26/16 08:45 96 21 12/26/16 08:45 96 21 117/59 97 12/26/16 08:40 96 17 12/26/16 08:40 95 17 126/60 100 12/26/16 08:35 95 15 12/26/16 08:35 36.1 98 20 117/65 100 Mask 10 12/26/16 08:35 95 15 117/65 100 12/26/16 05:37 36.7 78 20 135/88 98 Room Air General Appearance: WELL-APPEARING, uncomfortable Head: NORMOCEPHALIC, ATRAUMATIC Eyes: PERRLA, EOMI Neck: SUPPLE, NO THYROMEGALY Respiratory: BREATH SOUNDS NORMAL, CLEAR TO AUSCULTATION Cardiovasular: REGULAR RATE/RHYTHM, NORMAL S1S2 Abdomen: NON TENDER, NORMAL BOWEL SOUNDS, NO REBOUND Neuro: ALERT, ORIENTED x 3 Psychiatric: NORMAL AFFECT Diagnostics Radiology Interpretation: CXR NORMAL EKG Interpretation: NORMAL EKG Impression Assessment and Plan 61 F with total knee replacement by Dr Meyer 12/26 Home medication continued for hypothyroidism, synthroid 100mcg Dementia namenda 10 Depression, cymbalta 30, abilify 5, lamictal 300 trazadone 100hs Headaches topamax 100 bid Gerd zantac and ppi
[2016-12-26] MEDS: KETOROLAC TROMETHAMINE 30 MG/ML VIAL IV. SCH ×3 (11:26→23:49)
[2016-12-26] MEDS: OXYCODONE HCL IR 5 MG TAB (IMMEDIATE RELEASE) PO PRN ×2 (12:23→21:59)
[2016-12-26] MEDS: FERROUS GLUCONATE 324 MG TAB PO SCH ×2 (12:24→18:10)
--- NOTE | 2016-12-26 13:30 | OPERATIVE REPORT ---
DATE OF OPERATION: 12/26/2016 PREOPERATIVE DIAGNOSIS: Right knee end-stage degenerative joint disease. POSTOPERATIVE DIAGNOSIS: Right knee same. PROCEDURE: Right total knee arthroplasty using DePuy implants. SURGEON: Dr. Uribe. COAL FEEDER OPERATOR: Adama Gonzalez PA-C. HISTORY OF PRESENT ILLNESS: This 61-year-old white female presented to the office with complaints of intractable right knee pain. She had previously undergone arthroscopic debridement, activity modification, physical therapy, and viscosupplementation without success. She elected to proceed with surgical intervention after being educated about potential risks and outcomes. OPERATION: The patient was administered spinal anesthetic and then taken to the operating room where she was given sedation. She was prepped and draped in the usual sterile fashion. Please see Dr. Uribe's operative report for specifics of the procedure. I was present for the entire case from initial patient positioning through final wound closure. Assistance was provided in patient positioning, tissue retraction, hemostasis, trial implant placement, final implant placement, and final wound closure. The patient was taken to the recovery room in satisfactory condition. I attest to the content of the Intraoperative Record and any orders documented therein. Any exceptio ns are noted below.
--- NOTE | 2016-12-26 13:36 | PROGRESS NOTE ---
DATE: 12/26/2016 Postop check status post right total knee replacement. At this point in time, the patient denies chest pain, shortness of breath, fever, chills, nausea, vomiting or headache. Vital signs are stable. She is afebrile. Neurovascular check, femoral sciatic nerve is excellent. Wound dressing clean, dry and intact. Postop x-rays look excellent. ASSESSMENT: Status post right total knee replacement. PT and OT today. Mobilize XOCHITL. She can do a straight leg raise and she can wiggle her toes well. She can be weightbearing as tolerated and get up and move. DVT prophylaxis per Coumadin protocol. MTDD
[2016-12-26] MEDS: MoRPHine SULFATE 4 MG/ML 1 ML CARP\\VIAL IV PRN ×3 (13:41→20:34)
[2016-12-26] MEDS: CEFAZOLIN IV 2,000 MG in DEXTROSE 5% 50ML 50 ML IV SCH ×2 (13:41→22:02)
[2016-12-26] MEDS: GABAPENTIN 100 MG CAP PO SCH ×2 (13:42→20:41)
[2016-12-26] MEDS ORDERED: WARF2TAB PO (15:22)
[2016-12-26] MEDS ORDERED: OXYC-57 PO (15:22)
[2016-12-26] MEDS ORDERED: WARFARIN SOD 5 MG TAB PO SCH (16:00)
[2016-12-26] MEDS: DOCUSATE SODIUM 100 MG CAP PO SCH (20:41)
[2016-12-26] MEDS: ARIPIprazole TAB 5 MG TAB PO SCH (20:41)
[2016-12-26] MEDS: RANITIDINE HCL 150 MG TAB PO SCH (20:41)
[2016-12-26] MEDS: TOPIRAMATE 100 MG TAB PO SCH (20:41)
[2016-12-26] MEDS: SIMVASTATIN 40 MG TAB PO SCH (20:41)
[2016-12-26] MEDS: BUDESONIDE 90 MCG INH INH SCH (20:41)
[2016-12-26] MEDS: HYDROXYCHLOROQUINE SULFATE 200 MG TAB PO SCH (20:41)
[2016-12-26] MEDS: MEMANTINE 10 MG TAB PO SCH (20:42)
[2016-12-26] MEDS: TRAZODONE HCL 100 MG TAB PO PRN (22:05)
[2016-12-27] MEDS: MoRPHine SULFATE 2 MG/ML CARP IV PRN ×2 (00:58→23:23)
[2016-12-27] MEDS: MoRPHine SULFATE 4 MG/ML 1 ML CARP\\VIAL IV PRN ×5 (02:47→17:52)
[2016-12-27 03:41] VITALS: BP 104/65; PULSE 72; TEMP 36.6; O2SAT 94
[2016-12-27] MEDS: LEVOTHYROXINE 100 MCG TAB PO SCH (05:44)
[2016-12-27] MEDS: KETOROLAC TROMETHAMINE 30 MG/ML VIAL IV. SCH (05:44)
[2016-12-27 06:23] LABS: INR 1.1 (0.9-1.1); PROTHROMBIN TIME (PATIENT) 11.6 SECONDS (9.0-12.0)
[2016-12-27 06:46] LABS: BUN/CREATININE RATIO 21.7 (10-20); CALCIUM 8.5 mg/dl (8.5-10.1); CREATININE 0.8 mg/dl (0.60-1.20); POTASSIUM 3.7 mmol/L (3.5-5.1)
[2016-12-27] MEDS: OXYCODONE HCL IR 5 MG TAB (IMMEDIATE RELEASE) PO PRN ×4 (07:27→20:25)
[2016-12-27 07:30] LABS: HEMATOCRIT 32.8 % (37-47); MEAN CELL VOLUME 93.7 fL (80-100); MEAN CORPUSCULAR HGB CONC 34.1 g/dl (32-36); MEAN PLATELET VOLUME 10.2 fL (7.4-10.4); PLATELET COUNT 213 K/uL (130-400); WHITE BLOOD COUNT 12.49 K/uL (4.8-10.8)
[2016-12-27] MEDS ORDERED: DEXAMETHASONE INJ 10 MG in SYRINGE 0 ML IV ONE (07:30)
[2016-12-27 07:34] VITALS: BP 97/65; PULSE 63; TEMP 36.5; O2SAT 95
[2016-12-27] MEDS ORDERED: ENOXAPARIN 30 MG/0.3 ML SYR SQ ONE (08:00)
--- NOTE | 2016-12-27 08:18 | PROGRESS NOTE ---
DATE: 12/27/2016 DATE: 12/27/2016. Postop day 1 status post right total knee replacement: The patient denies chest pain, shortness of breath, fever, chills, nausea, vomiting, headache. Vital signs are stable. She is afebrile. Neurovascular check is normal. Wound dressing is changed. Wound is intact. No evidence of DVT by calf exam. Hematocrit is stable in the 32 range. INR is subtherapeutic at 1.1. Chemistry is excellent. ASSESSMENT: Overall doing well. The patient is not confident to be discharged today. Will do PT, OT 2 sessions today and discharge tomorrow. Coumadin per nomogram today, 1 dose of Lovenox today.
--- NOTE | 2016-12-27 08:20 | Orthopedic Progress Note ---
Orthopedic Progress Note Date of Service Dec 27, 2016. Subjective Post OP Day: 1 Reports: feeling well, Denies: SOB, calf pain, chest pain, complaints, light headedness, nausea / vomiting Additional Notes: States she had severe pain last night, controlled currently. Objective calves soft nontender, N/V intact, splint C/D/I, capillary refill less than 2 sec., dressing C/D/I, incision C/D/I, A&O x3, toes mobile, CMS intact No active drainage this morning. Moving knee well. Has intact SLR. Date Time Temp Pulse Resp B/P Pulse Ox O2 Delivery O2 Flow Rate FiO2 12/27/16 08:02 Room Air 12/27/16 07:34 36.5 63 17 97/65 95 Room Air 12/27/16 03:41 36.6 72 16 104/65 94 Room Air 12/26/16 23:45 Room Air 12/26/16 23:20 37.0 75 18 98/62 96 Room Air 12/26/16 19:58 36.9 77 16 96/62 93 Room Air 12/26/16 16:45 Nasal Cannula 2.0 Humidified Oxygen 12/26/16 15:20 36.6 79 16 98/63 96 Nasal Cannula 2.0 Humidified Oxygen 12/26/16 12:50 37.0 90 18 115/71 94 Nasal Cannula 2.0 12/26/16 11:53 37.0 88 18 112/72 98 2.0 12/26/16 10:50 36.6 85 17 106/67 99 Nasal Cannula 2.0 12/26/16 10:21 36.7 89 17 102/64 100 Nasal Cannula 2.0 12/26/16 09:50 99 Nasal Cannula 2.0 12/26/16 09:50 99 Nasal Cannula 2.0 12/26/16 09:45 116/64 12/26/16 09:41 85 13 97 12/26/16 09:41 86 13 12/26/16 09:40 110/64 12/26/16 09:36 90 19 12/26/16 09:36 90 19 98 12/26/16 09:35 119/70 12/26/16 09:32 94 25 95 12/26/16 09:32 98 25 12/26/16 09:30 108/68 12/26/16 09:27 91 22 4/5/17 09:27 92 22 97 12/26/16 09:25 106/60 12/26/16 09:22 95 20 12/26/16 09:22 95 20 98 12/26/16 09:20 101/70 12/26/16 09:17 82 13 12/26/16 09:17 82 13 94 12/26/16 09:16 82 12 95 12/26/16 09:16 82 12 12/26/16 09:15 102/60 12/26/16 09:11 82 12 91/58 94 12/26/16 09:11 83 12 12/26/16 09:06 85 16 97 12/26/16 09:06 85 16 12/26/16 09:05 86 12 115/65 96 12/26/16 09:05 86 12 12/26/16 09:03 36.8 85 20 115/65 100 Mask 10 12/26/16 09:00 87 12 126/63 95 12/26/16 09:00 88 12 12/26/16 08:55 90 25 12/26/16 08:55 90 25 112/69 96 12/26/16 08:50 93 17 113/58 97 12/26/16 08:50 94 17 12/26/16 08:45 96 21 12/26/16 08:45 96 21 117/59 97 12/26/16 08:40 96 17 12/26/16 08:40 95 17 126/60 100 12/26/16 08:35 95 15 12/26/16 08:35 36.1 98 20 117/65 100 Mask 10 12/26/16 08:35 95 15 117/65 100 Laboratory Results 24 Hours: Test 12/27/16 05:40 Hematocrit 32.8 % Hemoglobin 11.2 g/dL Prothromb Time International Ratio 1.1 Prothrombin Time 11.6 SECONDS Assessment & Plan Assessment: Right knee post op day 1, s/p total knee arthroplasty Plan: PT/OT this morning D/C to home with home health likely tomorrow Dressing changed today by me, wound looks very good. coumadin today per nomogram continue total knee precautions with immobilizer. Discharge Planning Discharge Planning: home with home health Pain Management: Percocet DVT Prophylaxis: TEDs, SCDs, Coumadin Therapy: Physical Therapy
[2016-12-27] MEDS: BUDESONIDE 90 MCG INH INH SCH ×2 (09:03→20:36)
[2016-12-27] MEDS: DOCUSATE SODIUM 100 MG CAP PO SCH ×2 (09:04→20:38)
[2016-12-27] MEDS: MEMANTINE 10 MG TAB PO SCH ×2 (09:04→20:37)
[2016-12-27] MEDS: MULTIVITAMIN TAB PO SCH (09:04)
[2016-12-27] MEDS: ASPIRIN 81 MG ECTAB PO SCH (09:04)
[2016-12-27] MEDS: DULOXETINE (CYMBALTA) 30 MG CAP PO SCH (09:04)
[2016-12-27] MEDS: TOPIRAMATE 100 MG TAB PO SCH ×2 (09:04→20:36)
[2016-12-27] MEDS: FERROUS GLUCONATE 324 MG TAB PO SCH ×3 (09:04→17:23)
[2016-12-27] MEDS: HYDROXYCHLOROQUINE SULFATE 200 MG TAB PO SCH ×2 (09:05→20:36)
[2016-12-27] MEDS: GABAPENTIN 100 MG CAP PO SCH ×3 (09:05→20:36)
[2016-12-27] MEDS: PANTOprazole SOD 40 MG TAB PO SCH (09:06)
[2016-12-27] MEDS ORDERED: PSYLLIUM 58.6% PWD PACK S\\F PO ONE (09:52)
--- NOTE | 2016-12-27 09:57 | Progress Note ---
Subjective Date of Service: Dec 27, 2016. Subjective Pt evaluation today including: conversation w/ patient, physical exam, lab review, conversation w/ information security consultant, review of inpatient medication list Pain: knee pain PO Intake: adequate Voiding: no voiding problems patient c/o knee pain and constipation no chest pain, no shortness of breath, no nausea asks for Metamucil which I ordered no BM for a few days, discussed laxative or stool softener, she refuses said that orthopedics aware of her pain, defer to them Problem List Medical Problems: (1) Acute/Unspec Hepatitis C W/O Hepatic Coma Status: Chronic (2) Allergic reaction Status: Acute (3) Chest tightness or pressure Status: Acute (4) Dementia In Conditions W/O Behavioral Disturb Status: Chronic (5) Depressive Disorder Nec Status: Chronic (6) Disc Dis Nec/Nos-Lumbar Status: Chronic (7) Esophageal Reflux Status: Chronic (8) Hyperlipidemia Nec/Nos Status: Chronic (9) Hypothyroidism Nos Status: Chronic (10) Migraine Unspecified W/O Intractable Migraine Status: Chronic (11) Osteoarthros Nos-Unspec Status: Chronic (12) Right ureteral calculus Status: Acute (13) Tobacco Use Disorder Status: Chronic (14) Ureteral colic Status: Acute Review of Systems Constitutional: + weakness Abdomen: + constipation Musculoskeletal: + joint pain (knee) All Other Systems: Reviewed and Negative Medications Current Inpatient Medications Medications (Trade) Dose Ordered Sig/Elsa Route Start Time Stop Time Status Last Admin Dose Admin Ketorolac Tromethamine (Toradol Inj) 30 mg Q6 IV. 12/26/16 12:00 12/27/16 11:59 12/27/16 05:44 30 MG Oxycodone HCl (Roxicodone Immediate Rel Tab) 1 TABLET FOR PAIN RATING... Q4H PRN PO 12/26/16 08:45 01/09/17 08:44 12/27/16 07:27 10 MG Morphine Sulfate (MoRPHine SULFATE INJ) 2 mg Q1H PRN IV 12/26/16 08:45 01/09/17 08:44 12/27/16 00:58 2 MG Acetaminophen (Tylenol Tab) 650 mg Q6H PRN PO 12/26/16 08:45 01/25/17 08:44 Bisacodyl (Dulcolax Supp) 10 mg DAILY PRN IA 12/26/16 08:45 01/25/17 08:44 Docusate Sodium (coLACE CAP) 100 mg BID PO 12/26/16 21:00 01/25/17 20:59 12/27/16 09:04 100 MG Diphenhydramine HCl (Benadryl Inj) 25 mg Q8H PRN IV 12/26/16 08:45 01/25/17 08:44 Multivitamins (Multivitamin Tab) 1 tab QAM PO 12/27/16 09:00 01/26/17 08:59 12/27/16 09:04 1 TAB Ondansetron HCl (Zofran Inj) 4 mg Q6H PRN IV 12/26/16 08:45 01/25/17 08:44 Metoclopramide HCl (Reglan Inj) 10 mg Q6H PRN IV 12/26/16 08:45 01/25/17 08:44 Ferrous Gluconate (Ferrous Gluconate Tab) 324 mg TIDM PO 12/26/16 12:30 01/25/17 12:29 12/27/16 09:04 324 MG Pantoprazole Sodium (Protonix Tab) 40 mg QAM PO 12/27/16 09:00 01/26/17 08:59 12/27/16 09:06 40 MG Albuterol (Ventolin Hfa Inhaler) 2 puffs Q4 PRN INH 12/26/16 08:45 01/25/17 08:44 Aripiprazole (Abilify Tab) 5 mg HS PO 12/26/16 21:00 01/25/17 20:59 12/26/16 20:41 5 MG Aspirin (Ecotrin Tab) 81 mg QAM PO 12/27/16 09:00 01/26/17 08:59 12/27/16 09:04 81 MG Duloxetine HCl (Cymbalta Cap) 90 mg QAM PO 12/27/16 09:00 01/26/17 08:59 12/27/16 09:04 90 MG Gabapentin (Neurontin Cap) 100 mg TID PO 12/26/16 14:00 01/25/17 13:59 12/27/16 09:05 100 MG Hydroxychloroquine Sulfate (Plaquenil Tab) 200 mg BID PO 12/26/16 21:00 01/25/17 20:59 12/27/16 09:05 200 MG Lamotrigine (Lamictal Tab) 300 mg HS PO 12/26/16 21:00 01/25/17 20:59 12/26/16 20:41 300 MG Levothyroxine Sodium (Synthroid Tab) 100 mcg DAILYBB PO 12/27/16 06:00 01/26/17 05:59 12/27/16 05:44 100 MCG Memantine (Namenda Tab) 10 mg BID PO 12/26/16 21:00 01/25/17 20:59 12/27/16 09:04 10 MG Ranitidine HCl (zANTac TAB) 150 mg HS PO 12/26/16 21:00 01/25/17 20:59 12/26/16 20:41 150 MG Simvastatin (Zocor Tab) 40 mg HS PO 12/26/16 21:00 01/25/17 20:59 12/26/16 20:41 40 MG Topiramate (Topamax Tab) 100 mg BID PO 12/26/16 21:00 01/25/17 20:59 12/27/16 09:04 100 MG Trazodone HCl (Desyrel Tab) 100 mg HS PRN PO 12/26/16 08:45 01/25/17 08:44 12/26/16 22:05 100 MG Budesonide 2 puffs 2 puffs BID INH 12/26/16 21:00 01/25/17 20:59 12/27/16 09:03 2 PUFFS Acetaminophen (Ofirmev Iv) 100 ml @ 400 mls/hr Q8H PRN IV 12/26/16 08:45 01/25/17 08:44 Morphine Sulfate (MoRPHine SULFATE INJ) 4 mg Q1H PRN IV 12/26/16 10:00 01/09/17 09:59 12/27/16 09:12 4 MG Warfarin Sodium (Coumadin Tab) 5 mg TODAY@1000 PO 12/27/16 10:00 12/27/16 13:59 12/27/16 09:06 5 MG Objective Vital Signs Date Time Temp Pulse Resp B/P Pulse Ox O2 Delivery O2 Flow Rate FiO2 12/27/16 08:02 Room Air 12/27/16 07:34 36.5 63 17 97/65 95 Room Air 12/27/16 03:41 36.6 72 16 104/65 94 Room Air 12/26/16 23:45 Room Air 12/26/16 23:20 37.0 75 18 98/62 96 Room Air 12/26/16 19:58 36.9 77 16 96/62 93 Room Air 12/26/16 16:45 Nasal Cannula 2.0 Humidified Oxygen 12/26/16 15:20 36.6 79 16 98/63 96 Nasal Cannula 2.0 Humidified Oxygen 12/26/16 12:50 37.0 90 18 115/71 94 Nasal Cannula 2.0 12/26/16 11:53 37.0 88 18 112/72 98 2.0 12/26/16 10:50 36.6 85 17 106/67 99 Nasal Cannula 2.0 12/26/16 10:21 36.7 89 17 102/64 100 Nasal Cannula 2.0 Physical Exam General Appearance: WD/WN, no apparent distress Eyes: normal inspection, EOMI, sclerae normal ENT: normal ENT inspection, hearing grossly normal, pharynx normal Neck: supple, no adenopathy, no JVD, trachea midline Respiratory/Chest: chest non-tender, lungs clear, normal breath sounds, no respiratory distress, no accessory muscle use Cardiovascular: regular rate, rhythm, no edema, no gallop, no JVD, no murmur Abdomen: normal bowel sounds, non tender, soft, no organomegaly Extremities: no pedal edema, no calf tenderness, pelvis stable, + pertinent finding (right knee tender, immobilized) Neurologic/Psychiatric: clinical auditor II-XII nml as tested, no motor/sensory deficits, alert, normal mood/affect, oriented x 3 Skin: normal color, warm/dry, no rash Laboratory Results Last 24 Hours Test 12/27/16 05:40 White Blood Count 12.49 K/uL Red Blood Count 3.50 M/uL Hemoglobin 11.2 g/dL Hematocrit 32.8 % Mean Corpuscular Volume 93.7 fL Mean Corpuscular Hemoglobin 32.0 pg Mean Corpuscular Hemoglobin Concent 34.1 g/dl RDW Standard Deviation 46.2 fL RDW Coefficient of Variation 13.5 % Platelet Count 213 K/uL Mean Platelet Volume 10.2 fL Prothrombin Time 11.6 SECONDS Prothromb Time International Ratio 1.1 Sodium Level 143 mmol/L Potassium Level 3.7 mmol/L Chloride Level 110 mmol/L Carbon Dioxide Level 23 mmol/L Anion Gap 10.0 mmol/L Blood Urea Nitrogen 17 mg/dl Creatinine 0.80 mg/dl Est Creatinine Clear Calc Drug Dose 80.4 ml/min Estimated GFR () 92.2 Estimated GFR (Non- 79.6 BUN/Creatinine Ratio 21.7 Random Glucose 118 mg/dl Calcium Level 8.5 mg/dl Assessment and Plan 61 F with right total knee replacement by Dr Meyer 4/5 pain was bad last night, ortho aware, will make adjustments constipation, started on Metamucil, patient refuses laxative/stool softener encouraged PO intake, hydration, and increase activity as allowed good bowel sounds on exam, no pain, no distension hypothyroidism, synthroid 100mcg Dementia namenda 10 Depression, cymbalta 30, abilify 5, lamictal 300 trazadone 100hs Headaches topamax 100 bid Gerd zantac and ppi BP low normal but making adequate urine, good PO intake, no need for IV fluids currently will sign off, please contact for any acute medical issues, please continue all prior medications on discharge
[2016-12-27] MEDS ORDERED: WARFARIN SOD 5 MG TAB PO SCH (10:00)
--- NOTE | 2016-12-27 10:40 | Anesthesiology Progress Note ---
Anesthesia Post Op Note Date & Time Dec 27, 2016 at 10:40 Vital Signs Vital Signs Past 12 Hours Date Time Temp Pulse Resp B/P Pulse Ox O2 Delivery O2 Flow Rate FiO2 12/27/16 08:02 Room Air 12/27/16 07:34 36.5 63 17 97/65 95 Room Air 12/27/16 03:41 36.6 72 16 104/65 94 Room Air 12/26/16 23:45 Room Air 12/26/16 23:20 37.0 75 18 98/62 96 Room Air Notes Mental Status: alert / awake / arousable, participated in evaluation Pt Amnestic to Procedure: Yes Nausea / Vomiting: adequately controlled Pain: adequately controlled Airway Patency, RR, SpO2: stable & adequate BP & HR: stable & adequate Hydration State: stable & adequate Neuraxial Anesthesia: was administered, sensory block resolved Anesthetic Complications: no major complications apparent
[2016-12-27 11:48] VITALS: BP 101/66; PULSE 75; TEMP 37; O2SAT 95
[2016-12-27 15:20] VITALS: BP 108/72; PULSE 73; TEMP 36.8; O2SAT 96
--- NOTE | 2016-12-27 17:41 | DISCHARGE SUMMARY ---
CHIEF COMPLAINT: Right knee pain. HISTORY OF PRESENT ILLNESS: A 61-year-old female admitted for elective right total knee replacement based on progressive synovitis and recurrent pain in the right knee despite arthroscopic debridement of a partial meniscectomy. She developed significant continued erosive changes of her articular surfaces of the medial compartment and the lateral femoral condyle. She has failed conservative management including aspirations and injections with corticosteroids and viscosupplementation series At this point in time, she elected to proceed with total knee replacement. She was advised that this may not eliminated all of her pain based on her chronic pain syndromes. PAST MEDICAL HISTORY: Remarkable for fibromyalgia, sarcoidosis, depression, anxiety, elevated lipids, GERD, obesity, constipation and hypothyroidism. PAST SURGICAL HISTORY: Include partial hysterectomy, bowel resection, right and left breast biopsies, TMJ surgery, herniorrhaphy and knee arthroscopy. ALLERGIES: KNOWN TO IBUPROFEN, NAPROSYN, AND CYCLOBENZAPRINE. She does take Mobic without an issue. PREADMISSION MEDICATIONS: Include Abilify, aspirin, baclofen, duloxetine, fluoxetine, lamotrigine, Synthroid, Meloxicam, Metamucil, Namenda, Neurontin, omeprazole, Allison-Colace, Plaquenil, probiotic, Pulmicort, ranitidine, topiramate, tramadol, trazodone, Voltaren gel, and Zocor. She will discontinue any anti-inflammatory. Add p.r.n. Percocet and Coumadin to keep INR 1.8-2.2. She will be discharged on 4 mg a day. FAMILY HISTORY: Remarkable for cancer, diabetes, elevated lipids and fibromyalgia. SOCIAL HISTORY: Reveals she is unemployed. No tobacco or alcohol use. REVIEW OF SYSTEMS: Reveals no chest pain, shortness of breath, fever, chills, nausea, vomiting or headache. PHYSICAL EXAMINATION: Reveals healing incision. Neurovascular check is normal. Ambulating 80-100 feet. Range of motion 0-100 degrees. ASSESSMENT AND PLAN: Doing reasonably well with total knee replacement. Feeling a lot more comfortable and at this point in time going to be discharged tomorrow. She will have PT, OT tomorrow and be discharged at that point in time. Follow up in the office for staple removal in 2 weeks.
[2016-12-27] MEDS: ARIPIprazole TAB 5 MG TAB PO SCH (20:37)
[2016-12-27] MEDS: RANITIDINE HCL 150 MG TAB PO SCH (20:38)
[2016-12-27] MEDS: SIMVASTATIN 40 MG TAB PO SCH (20:38)
[2016-12-27 22:50] VITALS: BP 106/66; PULSE 78; TEMP 36.7; O2SAT 96
[2016-12-27] MEDS: TRAZODONE HCL 100 MG TAB PO PRN (23:23)
[2016-12-28] MEDS: OXYCODONE HCL IR 5 MG TAB (IMMEDIATE RELEASE) PO PRN ×3 (02:22→11:34)
[2016-12-28] MEDS: LEVOTHYROXINE 100 MCG TAB PO SCH (05:27)
[2016-12-28 05:54] LABS: INR 2.5 (0.9-1.1); PROTHROMBIN TIME (PATIENT) 27.9 SECONDS (9.0-12.0)
[2016-12-28 07:07] VITALS: BP 143/82; PULSE 84; TEMP 36.6; O2SAT 96
--- NOTE | 2016-12-28 07:39 | PROGRESS NOTE ---
DATE: 12/28/2016 DATE: 12/28/2016. Postop day #2 status post right total knee replacement. At this point in time the patient denies any chest pain, shortness of breath, fever, chills, nausea, vomiting or headache. She is requesting to be sent home on Roxicodone. OBJECTIVE: VITAL SIGNS: Stable. She is afebrile. EXTREMITIES: Neurovascular check femoral sciatic nerve is normal. Wound dressing is changed. Wound is clean and dry. Old drainage noted. Calves nontender. ABDOMEN: Soft, nontender. ASSESSMENT: Overall, doing well status post total knee replacement, postop day #2. Will discharge today. We will hold Coumadin today and discharged on 1 mg of Coumadin daily. Check INR on Saturday.
--- NOTE | 2016-12-28 07:41 | DISCHARGE SUMMARY ---
ADDENDUM TO DISCHARGE SUMMARY At this point in time, patient is ready for discharge on 12/29/2015. She will have her Coumadin held today and will be discharged on 1 mg for Saturday and Saturday. Check INR on Saturday. Also requesting Roxicodone. Prescriptions to be generated by the PA. Follow up in the office in 2 weeks. SANDRITA
[2016-12-28] MEDS ORDERED: WARF2TAB PO (08:19)
--- NOTE | 2016-12-28 08:20 | Discharge Instructions ---
Discharge Instructions Date of Service Dec 26, 2016. Admission Reason for Admission: Degenerative Joint Disease Right Knee Discharge Discharge Diagnosis / Problem: Right knee s/p total knee replacement Discharge Goals Goal(s): Decrease discomfort, Improve function, Increase independence Activity Recommendations Activity Limitations: as noted below Lifting Limitations: gradually increase as tolerated Exercise/Sports Limitations: until after follow-up appointment Shower/Bathe: keep incision dry Driving or Machine Use: No driving until cleared by Dr. Uribe Weightbearing Status: Right weightbearing (as tolerated) . Instructions / Follow-Up Instructions / Follow-Up New Medicine: * You will likely be taking one or more of these medications: 1. Percocet - Take, as directed, when you need it, every four to six hours to control your pain. 2. Coumadin - Thins your blood to lessen the chance of forming a blood clot. The dose of this is different for each person and is based on your blood tests that are done twice a week. * The most common side effects of pain medicine and iron are nausea and constipation. If nausea or constipation is too much of a problem or if you have any questions about your new medicines or doses, call [facility] at . We will try to help you manage these issues. VERY IMPORTANT TO READ AND REVIEW" Blood Clots and Blood Thinning Medicine: * You are given Coumadin during the immediate post-operative period to lessen the risk of blood clots forming in your legs and/or lungs. Coumadin is usually given for six weeks after surgery. * The prescription is for 2 mg tablets. At discharge, you should understand your dose and take it all at the same time every day, preferably after dinner. * You need to get your blood checked 1 - 2 times per week for six weeks or as directed. * If your dose needs to change, we will call you. Do not take your medication on the day of the blood test until we call you. Pain: * The immediate post-operative period after knee replacement surgery is often quite painful. * You are given a prescription for pain medicine. You should take it, as directed, when you need it, especially before physical therapy and before going to bed. Pain that interferes with sleep is very common and can last several months. * You will likely need pain medicine for the first four to six weeks. It will not stop all of the pain. The pain will lessen and as you feel better, you may change to milder pain medicine such as Tylenol. * The most common side effects of pain medicine are nausea and constipation, so don't take more than you need. Physical Therapy: * You will have physical therapy two or three times each week for four to six weeks after your surgery in order to regain your knee range of motion and to retrain your knee to work properly. * It is just as important to make sure you are getting your knee perfectly straight as it is to regain your knee bend. * Taking a pain pill an hour before therapy can help you have a more productive and comfortable therapy session if needed. Home Exercise: * You were shown a series of exercises (heel props, heel slides, etc.) in the hospital. Do these exercises three to four times each day including the exercises you were shown in physical therapy. Walking: * Get up and walk several times each day. For the first four weeks, try not to stand or walk for more than one hour at a time. If you do stand or walk for more than one hour, you will not hurt anything, but your knee and leg will likely swell. * As you feel comfortable, you may change from the walker or crutches to a cane and then to independent walking. SELF CARE INSTRUCTIONS AFTER TOTAL KNEE REPLACEMENT A. You may need to continue a physical therapy program after discharge from the hospital. There are several options available to you. Your doctor will assist you in selecting the best one for you. 1. An out-patient facility 2 to 3 times a week for therapy or home therapy. 2. Continue working on all exercises taught to you in the hospital. Your goals should be to increase bending of your knee to 90 degrees and beyond and to fully straighten your knee. B. You may progress at your own pace from walking with a walker or crutches to a cane; then to no assistive devices. C. Make walking a part of your daily routine. Be up as much as comfortable with rest periods throughout the day. Rest with leg elevation is very important. Use the ice wrap frequently for the first 3-4 weeks. D. There are no restrictions on activities. You may ride in a car, shop, participate in sand tester and all social activities. E. Wear the long elastic stockings (ANDIE hose) 20 hours a day for six weeks after surgery. They can be removed several times a day for laundering and for a shower. F. Do not place a pillow behind your knee when resting. A pillow at your ankle is okay. VERY IMPORTANT TO READ AND REVIEW A. Take Coumadin, Aspirin or Lovenox (blood thinning medications) as directed by your doctor. If on Coumadin, have a pro-time (blood test) drawn according to your doctor's instructions. This will tell the doctor how well the Coumadin is thinning your blood. 1. YOU WILL BE GIVEN AN ORDER AT DISCHARGE FOR PT/INR (BLOOD WORK). PLEASE HAVE THIS DONE INSTRUCTED. PLEASE CALL OUR OFFICE AFTER YOUR BLOODWORK IS COMPLETE SO WE CAN TRACK YOUR RESULTS. IF YOU ARE GOING TO OUTPATIENT PHYSICAL THERAPY, YOU WILL NEED TO GO TO OUTPATIENT TESTING TO HAVE IT DRAWN. B. There are a few signs you need to watch for after you are home. Call [facility] if you notice any of the followin. Increased severe knee pain. Some pain is expected especially when you exercise. 2. Increased swelling in your leg or knee; pain or swelling of the calf muscle in either lower leg. 3. Any fluid drainage from the incision. 4. Shortness of breath or chest pain. C. Please call [facility] at if you have any concerns or questions about your operation or recovery. The doctor or his nurse will return your call promptly. D. You must take antibiotics before dental work, bladder, bowel or other surgery. Call the office to obtain a prescription at least 2 days prior to your appointment. * CALL IF INCREASED PAIN, REDNESS, DRAINAGE OR FEVER GREATER THAT 101. * Sutures should be removed 12-14 days after surgery unless you are on chronic steriods, then it will be 14-18 days after surgery. Call your doctor if: * Temperature above 101 degrees F. * Pain not relieved by pain medicine ordered. * Increased drainage or redness from incision. * Notify your doctor with any questions or concerns. Current Hospital Diet Patient's current hospital diet: AHA Diet (Heart Healthy) Discharge Diet Recommended Diet: Regular Diet Procedures Procedures Performed: Right Total Knee Arthroplasty Pending Studies Studies pending at discharge: no Medical Emergencies . Who to Call and When: Medical Emergencies: If at any time you feel your situation is an emergency, please call 911 immediately. . Non-Emergent Contact Non-Emergency issues call your: Primary Care Provider, Surgeon Call Non-Emergent contact if: temperature is above 101, wound has increased drainage, wound has increased redness, wound has increased pain, you have any medication questions . "Provider Documentation" section prepared by Adama Gonzalez PA-C. VTE Core Measure Inpt VTE Proph given/why not?: Warfarin (Coumadin), T.E.D. Stockings, SCD's [place] Drug Monitoring Program Search Results: no issues identified
[2016-12-28] MEDS: TOPIRAMATE 100 MG TAB PO SCH (08:40)
[2016-12-28] MEDS: DOCUSATE SODIUM 100 MG CAP PO SCH (08:40)
[2016-12-28] MEDS: HYDROXYCHLOROQUINE SULFATE 200 MG TAB PO SCH (08:41)
[2016-12-28] MEDS: GABAPENTIN 100 MG CAP PO SCH (08:41)
[2016-12-28] MEDS: MULTIVITAMIN TAB PO SCH (08:41)
[2016-12-28] MEDS: FERROUS GLUCONATE 324 MG TAB PO SCH ×2 (08:41→12:30)
[2016-12-28] MEDS: DULOXETINE (CYMBALTA) 30 MG CAP PO SCH (08:41)
[2016-12-28] MEDS: ASPIRIN 81 MG ECTAB PO SCH (08:41)
[2016-12-28] MEDS: MEMANTINE 10 MG TAB PO SCH (08:41)
[2016-12-28] MEDS: PANTOprazole SOD 40 MG TAB PO SCH (08:41)
[2016-12-28] MEDS: BUDESONIDE 90 MCG INH INH SCH (08:42)
[2016-12-28] MEDS ORDERED: PSYLLIUM 58.6% PWD PACK S\\F PO SCH (09:00)
[2016-12-28 09:44] VITALS: BP 143/82; PULSE 84; TEMP 36.6; O2SAT 96
[2017-07-15] MEDS ORDERED: LEVO100T7 PO (10:13)
[2017-07-15] MEDS ORDERED: TRAZ100T29 PO (10:13)
[2017-07-15] MEDS ORDERED: ASPCH81X PO (10:14)
[2017-07-15] MEDS ORDERED: OMEP20CA9 PO (11:34)
== END 2016-12-28 13:54 | disposition home health service (06) | DRG 470 ==
LOC: ENRESERVTM → ENRESERVDT → C.ACU 05:16 → C.3E 06:22
PROVIDERS: ADMIT Physical Medicine & Rehabilitation Sports Medicine; ATTEND Physical Medicine & Rehabilitation Sports Medicine
PROC: 0SRC0J9 Replacement of Right Knee Joint with Synthetic Substitute, Cemented, Open Approach (ICD-10-PCS; principal; 2016-12-26 07:00)
DX: M17.11 Unilateral primary osteoarthritis, right knee (principal); K21.9 Gastro-esophageal reflux disease without esophagitis; E66.9 Obesity, unspecified; E03.9 Hypothyroidism, unspecified; F32.9 Major depressive disorder, single episode, unspecified; F41.9 Anxiety disorder, unspecified; E78.00 Pure hypercholesterolemia, unspecified; E78.5 Hyperlipidemia, unspecified; F03.90 Unspecified dementia, unspecified severity, without behavioral disturbance, psychotic disturbance, mood disturbance, and anxiety; M79.7 Fibromyalgia; G43.909 Migraine, unspecified, not intractable, without status migrainosus; E11.9 Type 2 diabetes mellitus without complications; G47.33 Obstructive sleep apnea (adult) (pediatric); M26.609 Unspecified temporomandibular joint disorder, unspecified side; M65.9 Synovitis and tenosynovitis, unspecified; D86.9 Sarcoidosis, unspecified; K59.00 Constipation, unspecified; Z79.82 Long term (current) use of aspirin; Z79.51 Long term (current) use of inhaled steroids; Z87.891 Personal history of nicotine dependence; Z79.1 Long term (current) use of non-steroidal anti-inflammatories (NSAID); Z68.36 Body mass index [BMI] 36.0-36.9, adult; Z79.899 Other long term (current) drug therapy; Z79.891 Long term (current) use of opiate analgesic

== ENCOUNTER → 2016-12-31 | Outpatient (CLI) | payer OTHER ==
[~2016-12-31] MED LIST changes: +ARIP1TAB14 PO; +ASPCH81X PO; +ATV1 PO; -BACL10TA PO; +BUDE180I INH; +CYM30 PO; +CYM60 PO; -DICL1GEL12 TP; +LAMO150T32 PO; +LEVO100T7 PO; +LRS10 PO; -MELO15TA10 PO; +MELO15TA4 PO; +MEMA1TAB4 PO; +OMEP20CA9 PO; +OXYC-57 PO; +PLQ200 PO; +POTA1080 PO; +RANI150T2 PO; +TPM100 PO; -TRAM-10 PO; +TRAZ100T29 PO; +VNTHFA/IN INH; +WARF2TAB PO; +ZCR40 PO
[2016-12-31 11:25] LABS: INR 1.4 (0.9-1.1); PROTHROMBIN TIME (PATIENT) 15.3 SECONDS (9.0-12.0)
== END | disposition home or self-care (01) ==
LOC: C.LABSPEC 10:47
PROVIDERS: ATTEND Physician Assistant
DX: Z51.81 Encounter for therapeutic drug level monitoring (principal); Z79.01 Long term (current) use of anticoagulants

== ENCOUNTER → 2017-02-11 | Outpatient (CLI) | payer OTHER | END | disposition home or self-care (01) | LOC: C.RDSM 12:44 | PROVIDERS: ATTEND Physical Medicine & Rehabilitation Sports Medicine | DX: M17.11 Unilateral primary osteoarthritis, right knee (principal) ==

== ENCOUNTER → 2017-04-23 | Outpatient (CLI) | payer OTHER ==
[~2017-04-23] MED LIST changes: -ARIP1TAB14 PO; -ATV1 PO; -BUDE180I INH; +BUDE180I PO; -CYM30 PO; -CYM60 PO; -LAMO150T32 PO; -LRS10 PO; -MELO15TA4 PO; -MEMA1TAB4 PO; -POTA1080 PO; -RANI150T2 PO; -TPM100 PO; -VNTHFA/IN INH; -ZCR40 PO
--- NOTE | 2017-04-23 09:12 | DIAGNOSTIC IMAGING REPORT ---
KUB CLINICAL HISTORY: N20.0 [id number] nephrocalcinosis COMPARISON STUDY: 07/20/2016 FINDINGS: Very poor visibility of the renal outlines due to extensive bowel content. Parasellar regions appear unremarkable. Multiple pelvic vascular calcifications unchanged IMPRESSION: Nondiagnostic evaluation of the kidneys due to extensive overlying fecal material. The above report was generated using voice recognition software. It may contain grammatical, syntax or spelling errors. Electronically signed by: Juancho Jacobs M.D. 04/23/2017 9:10 AM Dictated Date/Time: 04/23/2017 9:10 AM
== END | disposition home or self-care (01) ==
LOC: C.RAD 08:47
PROVIDERS: ATTEND Nurse Practitioner Adult Health
DX: N20.0 Calculus of kidney (principal)

== ENCOUNTER 2017-07-15 20:13 | Emergency (ER) | payer OTHER ==
[~2017-07-15] VITALS: Ht 160 cm; Wt 94.3 kg
[~2017-07-15 20:13] MED LIST changes: -BUDE180I PO; -OXYC-57 PO; -PLQ200 PO
[2017-07-15 20:18] VITALS: Ht 160 cm; Wt 94.3 kg
[2017-07-15] MEDS ORDERED: CYM60 PO (21:30)
[2017-07-15] MEDS ORDERED: POTA1080 PO (21:30)
[2017-07-15] MEDS ORDERED: MELO15TA4 PO (21:30)
[2017-07-15] MEDS ORDERED: MEMA1TAB4 PO (21:30)
[2017-07-15] MEDS ORDERED: RANI150T2 PO (21:30)
[2017-07-15] MEDS ORDERED: ARIP1TAB14 PO (21:30)
[2017-07-15] MEDS ORDERED: LAMO150T32 PO (21:30)
[2017-07-15] MEDS ORDERED: ZCR40 PO (21:30)
[2017-07-15] MEDS ORDERED: VNTHFA/IN INH (21:30)
[2017-07-15] MEDS ORDERED: CYM30 PO (21:30)
[2017-07-15] MEDS ORDERED: ATV1 PO (21:30)
[2017-07-15] MEDS ORDERED: LRS10 PO (21:30)
[2017-07-15] MEDS ORDERED: TPM100 PO (21:30)
[2017-07-15 22:00] VITALS: BP 110/76; PULSE 85; TEMP 36.9; O2SAT 98
[2017-07-15] MEDS ORDERED: PLQ200 PO (23:53)
[2017-07-15] MEDS ORDERED: BUDE180I INH (23:53)
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
== END 2017-07-15 22:01 | disposition home or self-care (01) ==
LOC: C.EDB 20:15 → C.EDC 22:01
DX: J02.9 Acute pharyngitis, unspecified (principal); Z86.19 Personal history of other infectious and parasitic diseases; E11.9 Type 2 diabetes mellitus without complications; K21.9 Gastro-esophageal reflux disease without esophagitis; E03.9 Hypothyroidism, unspecified; Z80.3 Family history of malignant neoplasm of breast; Z83.3 Family history of diabetes mellitus; Z82.49 Family history of ischemic heart disease and other diseases of the circulatory system; Z84.1 Family history of disorders of kidney and ureter; Z79.82 Long term (current) use of aspirin; Z79.1 Long term (current) use of non-steroidal anti-inflammatories (NSAID); Z79.891 Long term (current) use of opiate analgesic; Z72.0 Tobacco use

== ENCOUNTER → 2017-07-22 | Outpatient (CLI) | payer OTHER ==
[~2017-07-22] MED LIST changes: -ABL/5 PO; -ALBUAER2 INH; +ARIP1TAB14 PO; +ATV1 PO; +BUDE180I INH; -CYM/30 PO; +CYM30 PO; +CYM60 PO; -GABA-112 PO; -LAMO100T16 PO; +LAMO150T32 PO; +LRS10 PO; +MELO15TA4 PO; +MEMA1TAB4 PO; -MISCCAP80 PO; -NMN10 PO; +PLQ200 PO; +POTA1080 PO; +RANI150T2 PO; -SIMV40TA4 PO; -TOPI100T20 PO; +TPM100 PO; -VITAMIN C PO; +VNTHFA/IN INH; -WARF2TAB PO; +ZCR40 PO; -ZNTT/150 PO
== END | disposition home or self-care (01) ==
LOC: C.RDSM 14:12
PROVIDERS: ATTEND Physical Medicine & Rehabilitation Sports Medicine
DX: S80.01XA Contusion of right knee, initial encounter (principal); X58.XXXA Exposure to other specified factors, initial encounter

== ENCOUNTER → 2017-09-03 | Outpatient (CLI) | payer OTHER ==
[~2017-09-03] MED LIST changes: +LAMO150T PO; -LAMO150T32 PO
[2017-09-03 12:22] LABS: BASO % 0.6 %; BASO ABS # 0.04 K/uL (0-0.2); COMPLETE YES; EOS % 2.7 %; HEMATOCRIT 35.5 % (37-47); IG% 0.3 %; LYMPH % 30.6 %; LYMPH ABS # 2.05 K/uL (1.2-3.4); MEAN CELL VOLUME 92.7 fL (80-100); MEAN CORPUSCULAR HGB CONC 32.4 g/dl (32-36); MEAN PLATELET VOLUME 9.5 fL (7.4-10.4); MONO % 9.7 %; NEUT % 56.1 %; PLATELET COUNT 267 K/uL (130-400); RED BLOOD COUNT 3.83 M/uL (4.2-5.4)
[2017-09-03 13:09] LABS: ALB/GLOB RATIO 0.9 (0.9-2); ALKALINE PHOSPHATASE 124 U/L (45-117); ALT/SGPT 19 U/L (12-78); AST/SGOT 12 U/L (15-37); BLOOD UREA NITROGEN 24 mg/dl (7-18); CALCIUM 8.7 mg/dl (8.5-10.1); CARBON DIOXIDE 23 mmol/L (21-32); CHLORIDE 111 mmol/L (98-107); GLUCOSE 93 mg/dl (70-99); MAGNESIUM 2.2 mg/dl (1.8-2.4); POTASSIUM 3.8 mmol/L (3.5-5.1); SODIUM 140 mmol/L (136-145)
[2017-09-03 13:22] LABS: FERRITIN 6.9 ng/ml (8.0-388.0); THYROID STIMULATING HORMONE 0.707 uIu/ml (0.300-4.500)
== END | disposition home or self-care (01) ==
LOC: C.LAB1850 11:20
PROVIDERS: ATTEND Nurse Practitioner Family
DX: R53.83 Other fatigue (principal); E55.9 Vitamin D deficiency, unspecified

== ENCOUNTER → 2017-10-04 | Outpatient (CLI) | payer OTHER ==
--- NOTE | 2017-10-04 11:37 | DIAGNOSTIC IMAGING REPORT ---
RIGHT KNEE RADIOGRAPHS WITH COMPARISON STANDING AP RADIOGRAPH OF THE LEFT KNEE CLINICAL HISTORY: Right knee pain. COMPARISON: Right knee radiographs July 22, 2017. FINDINGS: Comparison standing AP radiograph of the left knee demonstrates no abnormality. Alignment of the total right knee arthroplasty is anatomic. There is no periprostatic fracture. No periprosthetic lucency is identified. There is a possible small right knee joint effusion. Spurring of the patella at the insertion of quadriceps is noted. IMPRESSION: 1. Status post total right knee arthroplasty. No periprosthetic fracture or lucency. 2. Possible small right knee joint effusion. Electronically signed by: Gunnar Thomas M.D. 10/04/2017 11:36 AM Dictated Date/Time: 10/04/2017 11:34 AM
== END | disposition home or self-care (01) ==
LOC: C.RDSM 11:27
PROVIDERS: ATTEND Physician Assistant
DX: R52 Pain, unspecified (principal)

== ENCOUNTER → 2017-10-10 | Outpatient (CLI) | payer OTHER ==
--- NOTE | 2017-10-10 14:37 | DIAGNOSTIC IMAGING REPORT ---
R KNEE 1 OR 2 VIEWS CLINICAL HISTORY: BILATERAL KNEE PAIN S/P FALL trauma. Pain. COMPARISON: None. DISCUSSION: The bones and joint spaces appear intact. There is no evidence of fracture, dislocation or bony disease. Patient is status post total right knee replacement. There is good contact between prosthetic and underlying bone. IMPRESSION: No acute process. Prior total right knee arthroplasty. The above report was generated using voice recognition software. It may contain grammatical, syntax or spelling errors. Electronically signed by: Juancho Jacobs M.D. 10/10/2017 2:36 PM Dictated Date/Time: 10/10/2017 2:35 PM
== END | disposition home or self-care (01) ==
LOC: C.RDSM 11:09
PROVIDERS: ATTEND Physician Assistant
DX: M25.561 Pain in right knee (principal); M25.562 Pain in left knee; Z96.651 Presence of right artificial knee joint

== ENCOUNTER 2017-10-26 22:00 | Emergency (ER) | payer OTHER ==
[~2017-10-26] VITALS: Ht 152.4 cm; Wt 99.5 kg
[2017-10-26 22:10] VITALS: TEMP 37; Ht 152.4 cm; Wt 99.5 kg
[2017-10-26] MEDS ORDERED: DiphenhydrAMINE HCL 50 MG/ML VIAL IV STA (22:22)
[2017-10-26] MEDS ORDERED: PROCHLORPERAZINE 5 MG/ML 2 ML VIAL IV STA (22:22)
[2017-10-26] MEDS ORDERED: SODIUM CHLORIDE 0.9% 1000ML 1,000 ML IV STA (22:22)
[2017-10-26] MEDS ORDERED: BIOT1CAP9 PO (23:04)
[2017-10-26] MEDS ORDERED: FERR1TAB23 PO (23:04)
[2017-10-26] MEDS ORDERED: VLTG TD (23:04)
[2017-10-26] MEDS ORDERED: CYAN100020 PO (23:04)
[2017-10-26] MEDS ORDERED: CHOLCAP5 PO (23:04)
[2017-10-26] MEDS ORDERED: TRAM-10 PO (23:04)
[2017-10-26] MEDS ORDERED: MoRPHine SULFATE 10 MG/ML CARP/VIAL IV STA (23:15)
[2017-10-26] MEDS ORDERED: DEXAMETHASONE CONC 1 MG/ML 30 ML PO STA (23:16)
[2017-10-27 00:06] VITALS: BP 106/63; PULSE 76; O2SAT 96
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
== END 2017-10-27 00:07 | disposition home or self-care (01) ==
LOC: C.EDB 22:02 → C.EDA 10-27 00:07
DX: G43.909 Migraine, unspecified, not intractable, without status migrainosus (principal); F03.90 Unspecified dementia, unspecified severity, without behavioral disturbance, psychotic disturbance, mood disturbance, and anxiety; F32.9 Major depressive disorder, single episode, unspecified; M51.86 Other intervertebral disc disorders, lumbar region; K21.9 Gastro-esophageal reflux disease without esophagitis; E78.5 Hyperlipidemia, unspecified; E03.9 Hypothyroidism, unspecified; E11.40 Type 2 diabetes mellitus with diabetic neuropathy, unspecified; M17.11 Unilateral primary osteoarthritis, right knee; F17.200 Nicotine dependence, unspecified, uncomplicated; Z87.442 Personal history of urinary calculi; Z80.3 Family history of malignant neoplasm of breast; Z80.42 Family history of malignant neoplasm of prostate; Z82.49 Family history of ischemic heart disease and other diseases of the circulatory system; Z83.3 Family history of diabetes mellitus; Z84.1 Family history of disorders of kidney and ureter; Z79.82 Long term (current) use of aspirin

== ENCOUNTER → 2017-12-05 | Outpatient (CLI) | payer OTHER ==
[~2017-12-05] MED LIST changes: -ATV1 PO; +BIOT1CAP9 PO; +CHOLCAP5 PO; +CYAN100020 PO; +FERR1TAB23 PO; +MELO-83 PO; -MELO15TA4 PO; +TRAM-10 PO; +VLTG TD
[2017-12-05 13:15] LABS: BASO % 0.1 %; BASO ABS # 0.01 K/uL (0-0.2); HEMATOCRIT 42.1 % (37-47); HEMOGLOBIN 13.7 g/dL (12.0-16.0); IG# 0.04 K/uL (0.00-0.02); LYMPH % 12.7 %; MEAN CELL VOLUME 90.7 fL (80-100); MEAN CORPUSCULAR HEMOGLOBIN 29.5 pg (25-34); MEAN CORPUSCULAR HGB CONC 32.5 g/dl (32-36); MEAN PLATELET VOLUME 9.8 fL (7.4-10.4); MONO % 2.4 %; MONO ABS # 0.25 K/uL (0.11-0.59); NEUT % 84.4 %; NEUT ABS # 8.62 K/uL (1.4-6.5); PLATELET COUNT 294 K/uL (130-400); RED CELL DISTRIBUTION WIDTH CV 14.6 % (11.5-14.5); RED CELL DISTRIBUTION WIDTH SD 48.5 fL (36.4-46.3); WHITE BLOOD COUNT 10.22 K/uL (4.8-10.8)
[2017-12-05 13:43] LABS: T3 FREE 2.82 pg/ml (2.30-4.20)
[2017-12-05 14:06] LABS: ALBUMIN 4.1 gm/dl (3.4-5.0); ALT/SGPT 28 U/L (12-78); AST/SGOT 13 U/L (15-37); BLOOD UREA NITROGEN 20 mg/dl (7-18); CARBON DIOXIDE 21 mmol/L (21-32); CREATININE 0.89 mg/dl (0.60-1.20); GLUCOSE 111 mg/dl (70-99); SODIUM 136 mmol/L (136-145)
[2017-12-05 14:14] LABS: ALKALINE PHOSPHATASE 119 U/L (45-117); CHOLESTEROL 191 mg/dl (0-200); LDL CHOLESTEROL CALCULATED 102 mg/dl; TOTAL PROTEIN 8.3 gm/dl (6.4-8.2)
[2017-12-06 06:52] LABS: HEMOGLOBIN A1C 5.7 % (4.5-5.6)
== END | disposition home or self-care (01) ==
LOC: C.LAB1850 11:43
PROVIDERS: ATTEND Nurse Practitioner Family
DX: Z79.899 Other long term (current) drug therapy (principal); E78.00 Pure hypercholesterolemia, unspecified; E03.9 Hypothyroidism, unspecified; R73.01 Impaired fasting glucose; D64.9 Anemia, unspecified; E53.8 Deficiency of other specified B group vitamins

== ENCOUNTER 2017-12-29 20:35 | Emergency (ER) | payer OTHER ==
[~2017-12-29] VITALS: Ht 157.5 cm; Wt 98.6 kg
[2017-12-29 20:41] VITALS: TEMP 36.9; Ht 157.5 cm; Wt 98.6 kg
[2017-12-29] MEDS ORDERED: SODIUM CHLORIDE 0.9% 1000ML 2,000 ML IV STA (21:01)
[2017-12-29] MEDS ORDERED: DiphenhydrAMINE HCL 50 MG/ML VIAL IV STA (21:01)
[2017-12-29] MEDS ORDERED: METOCLOPRAMIDE HCL INJ 5 MG/ML 2 ML VIAL IV STA (21:01)
[2017-12-29] MEDS ORDERED: FEXO1TAB54 PO (21:10)
[2017-12-29] MEDS ORDERED: MONT1TAB3 PO (21:10)
[2017-12-29] MEDS ORDERED: SUMA1INJ5 (21:10)
[2017-12-29] MEDS ORDERED: ARIP1TAB8 PO (21:10)
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
--- NOTE | 2017-12-29 21:19 | DIAGNOSTIC IMAGING REPORT ---
CHEST ONE VIEW PORTABLE CLINICAL HISTORY: Atypical chest pain COMPARISON STUDY: May 09, 2016 FINDINGS: The cardiac and mediastinal contours are normal. There is no evidence of focal pulmonary consolidation. There is no evidence of failure. No pleural effusions are visualized.[ Slight prominence of the basilar interstitial markings are felt to be secondary to overlying breast tissue. IMPRESSION: No active disease in the chest. Electronically signed by: Richard Stafford M.D. 12/29/2017 9:18 PM Dictated Date/Time: 12/29/2017 9:17 PM
[2017-12-29 21:40] VITALS: O2SAT 96
[2017-12-29 21:59] LABS: BASO % 0.4 %; BASO ABS # 0.03 K/uL (0-0.2); EOS % 2.9 %; HEMOGLOBIN 14.1 g/dL (12.0-16.0); IG# 0.01 K/uL (0.00-0.02); LYMPH % 36.6 %; MEAN CELL VOLUME 91.1 fL (80-100); MEAN CORPUSCULAR HEMOGLOBIN 30.6 pg (25-34); MEAN CORPUSCULAR HGB CONC 33.6 g/dl (32-36); MEAN PLATELET VOLUME 9.3 fL (7.4-10.4); MONO % 6.1 %; MONO ABS # 0.42 K/uL (0.11-0.59); NEUT % 53.9 %; NEUT ABS # 3.67 K/uL (1.4-6.5); PLATELET COUNT 238 K/uL (130-400); RED CELL DISTRIBUTION WIDTH CV 14.3 % (11.5-14.5); RED CELL DISTRIBUTION WIDTH SD 47.6 fL (36.4-46.3); WHITE BLOOD COUNT 6.83 K/uL (4.8-10.8)
[2017-12-29 22:16] LABS: ALBUMIN 3.8 gm/dl (3.4-5.0); ALT/SGPT 24 U/L (12-78); AST/SGOT 13 U/L (15-37); BLOOD UREA NITROGEN 20 mg/dl (7-18); CALCIUM 9.1 mg/dl (8.5-10.1); CARBON DIOXIDE 27 mmol/L (21-32); CREATININE 0.92 mg/dl (0.60-1.20); GLUCOSE 103 mg/dl (70-99); LIPASE 103 U/L (73-393); POTASSIUM 3.6 mmol/L (3.5-5.1); SODIUM 144 mmol/L (136-145)
[2017-12-29 22:21] LABS: ALKALINE PHOSPHATASE 117 U/L (45-117); TOTAL PROTEIN 7.6 gm/dl (6.4-8.2)
[2017-12-29] MEDS ORDERED: DEXAMETHASONE **PF** INJ 10 MG/ML VIAL IV ONE (22:45)
[2017-12-29] MEDS ORDERED: HALOPERIDOL LACTATE 5 MG/ML 1 ML VIAL IV STA (23:15)
[2017-12-30 00:15] VITALS: BP 119/73; PULSE 73; O2SAT 100
== END 2017-12-30 00:16 | disposition home or self-care (01) ==
LOC: C.EDB 20:36 → C.EDC 12-30 00:16
DX: G43.909 Migraine, unspecified, not intractable, without status migrainosus (principal); F32.9 Major depressive disorder, single episode, unspecified; K21.9 Gastro-esophageal reflux disease without esophagitis; E11.40 Type 2 diabetes mellitus with diabetic neuropathy, unspecified; E78.5 Hyperlipidemia, unspecified; D86.9 Sarcoidosis, unspecified; E03.9 Hypothyroidism, unspecified; Z87.442 Personal history of urinary calculi; M17.11 Unilateral primary osteoarthritis, right knee; Z87.891 Personal history of nicotine dependence; Z80.3 Family history of malignant neoplasm of breast; Z80.42 Family history of malignant neoplasm of prostate; Z83.3 Family history of diabetes mellitus; Z82.49 Family history of ischemic heart disease and other diseases of the circulatory system; Z84.1 Family history of disorders of kidney and ureter; Z83.79 Family history of other diseases of the digestive system; Z79.82 Long term (current) use of aspirin; Z79.899 Other long term (current) drug therapy; Z88.8 Allergy status to other drugs, medicaments and biological substances; Z88.6 Allergy status to analgesic agent

== ENCOUNTER 2018-02-07 10:02 | Emergency (ER) | payer OTHER ==
[~2018-02-07] VITALS: Ht 157.5 cm; Wt 94.1 kg
[~2018-02-07 10:02] MED LIST changes: -ARIP1TAB14 PO; +ARIP1TAB8 PO; +FEXO1TAB54 PO; +MONT1TAB3 PO; +SUMA1INJ5
[2018-02-07 10:13] VITALS: TEMP 36.8; Ht 157.5 cm; Wt 94.1 kg
[2018-02-07] MEDS ORDERED: SODIUM CHLORIDE 0.9% 1000ML 1,000 ML IV STA (10:29)
[2018-02-07] MEDS ORDERED: ONDANSETRON INJ 2 MG/ML 2 ML VIAL IV STA (10:29)
[2018-02-07] MEDS ORDERED: MoRPHine SULFATE 4 MG/ML 1 ML CARP\\VIAL IV PRN (10:30)
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
[2018-02-07 10:55] LABS: BASO % 0.2 %; BASO ABS # 0.03 K/uL (0-0.2); EOS % 0.6 %; EOS ABS # 0.08 K/uL (0-0.5); HEMATOCRIT 43.1 % (37-47); HEMOGLOBIN 14.5 g/dL (12.0-16.0); IG# 0.02 K/uL (0.00-0.02); LYMPH % 13.4 %; LYMPH ABS # 1.71 K/uL (1.2-3.4); MEAN CELL VOLUME 91.5 fL (80-100); MEAN CORPUSCULAR HEMOGLOBIN 30.8 pg (25-34); MEAN CORPUSCULAR HGB CONC 33.6 g/dl (32-36); MEAN PLATELET VOLUME 9.7 fL (7.4-10.4); MONO % 7.4 %; MONO ABS # 0.95 K/uL (0.11-0.59); NEUT % 78.2 %; NEUT ABS # 9.98 K/uL (1.4-6.5); PLATELET COUNT 208 K/uL (130-400); RED CELL DISTRIBUTION WIDTH CV 13.9 % (11.5-14.5); RED CELL DISTRIBUTION WIDTH SD 46.9 fL (36.4-46.3); WHITE BLOOD COUNT 12.77 K/uL (4.8-10.8)
[2018-02-07 11:20] LABS: ALBUMIN 3.9 gm/dl (3.4-5.0); ALKALINE PHOSPHATASE 127 U/L (45-117); ALT/SGPT 21 U/L (12-78); AST/SGOT 17 U/L (15-37); BLOOD UREA NITROGEN 25 mg/dl (7-18); CALCIUM 8.9 mg/dl (8.5-10.1); CARBON DIOXIDE 23 mmol/L (21-32); CREATININE 1.11 mg/dl (0.60-1.20); GLUCOSE 143 mg/dl (70-99); LIPASE 72 U/L (73-393); POTASSIUM 4.3 mmol/L (3.5-5.1); SODIUM 143 mmol/L (136-145); TOTAL PROTEIN 7.6 gm/dl (6.4-8.2)
--- NOTE | 2018-02-07 11:25 | DIAGNOSTIC IMAGING REPORT ---
ABDOMEN AND PELVIS CT WITHOUT CONTRAST CT DOSE: 996.35 mGycm HISTORY: Acute left lower quadrant and left-sided flank pain left flank pain TECHNIQUE: Multiaxial CT images of the abdomen and pelvis were performed without contrast. A dose lowering technique was utilized adhering to the principles of ALARA. COMPARISON STUDY: CT abdomen and pelvis 09/12/2016. FINDINGS: The lung bases are generally clear. There is no pneumatosis or pneumoperitoneum identified. Imaged inferior cardiac chambers are unremarkable. The liver, spleen, gallbladder and adrenal glands are within normal limits. At least moderate atrophy of the pancreas redemonstrated. Mild to moderate left-sided hydroureteronephrosis secondary to a 4 x 4 x 4 mm calculus of the proximal left ureter, approximately 2.0 cm distal to the ureteropelvic junction. Mild reactive left perinephric and periureteral inflammatory stranding. Decompressed urinary bladder. Punctate nonobstructing calculus of the inferior pole right kidney. Prior hysterectomy. No adnexal mass lesions. Phleboliths are seen within the pelvis. No aortic aneurysm or bulky adenopathy. There is no bowel obstruction or focal bowel wall thickening identified. Postsurgical changes of the sigmoid rectal junction with anastomotic sutures in place. Terminal ileum appears unremarkable. There is a suspected appendicolith noted without evidence of acute appendicitis. Prior ventral abdominal wall herniorrhaphy with small recurrent fat filled ventral abdominal wall hernia, diastases of approximately 1.5 cm along the midportion of the mass. Bones appear intact. Some arthrosis of the lower lumbar spine. IMPRESSION: 1. Mild to moderate left-sided hydroureteronephrosis secondary to a 4 mm calculus of the proximal left ureter, approximately 2.0 cm distal to the ureteropelvic junction. An additional punctate nonobstructing calculus involves the inferior pole right kidney. 2. At least moderate pancreatic atrophy. 3. No bowel obstruction or focal bowel wall thickening. Postoperative changes of the rectosigmoid junction. 4. Suggested appendicolith without evidence of acute appendicitis. 5. Prior ventral abdominal wall herniorrhaphy with small recurrent fat filled ventral abdominal wall hernia. Electronically signed by: Silverio Espinoza M.D. 02/07/2018 11:23 AM Dictated Date/Time: 02/07/2018 11:16 AM
[2018-02-07] MEDS ORDERED: ZOLM1TAB11 PO (11:54)
[2018-02-07] MEDS ORDERED: TAMS0.4C38 PO (12:17)
[2018-02-07] MEDS ORDERED: ONDA4TAB10 SL (12:17)
[2018-02-07] MEDS ORDERED: OXYC1TAB3 PO (12:17)
[2018-02-07 12:33] VITALS: BP 130/79; PULSE 71; O2SAT 96
== END 2018-02-07 12:35 | disposition home or self-care (01) ==
LOC: C.EDB 10:03 → C.EDC 12:35
DX: N13.2 Hydronephrosis with renal and ureteral calculous obstruction (principal); F32.9 Major depressive disorder, single episode, unspecified; K21.9 Gastro-esophageal reflux disease without esophagitis; E78.5 Hyperlipidemia, unspecified; E03.9 Hypothyroidism, unspecified; E11.40 Type 2 diabetes mellitus with diabetic neuropathy, unspecified; M19.90 Unspecified osteoarthritis, unspecified site; Z80.3 Family history of malignant neoplasm of breast; Z80.42 Family history of malignant neoplasm of prostate; Z83.3 Family history of diabetes mellitus; Z82.49 Family history of ischemic heart disease and other diseases of the circulatory system; Z84.1 Family history of disorders of kidney and ureter; Z83.79 Family history of other diseases of the digestive system; Z79.82 Long term (current) use of aspirin; Z79.899 Other long term (current) drug therapy; Z88.8 Allergy status to other drugs, medicaments and biological substances; Z88.6 Allergy status to analgesic agent

== ENCOUNTER → 2018-02-11 | Outpatient (CLI) | payer OTHER ==
[~2018-02-11] MED LIST changes: -FEXO1TAB54 PO; +ONDA4TAB10 SL; +OXYC1TAB3 PO; +TAMS0.4C38 PO; +ZOLM1TAB11 PO
--- NOTE | 2018-02-11 10:55 | DIAGNOSTIC IMAGING REPORT ---
KUB CLINICAL HISTORY: Mixed incontinence urge and stress. COMPARISON STUDY: CT of the abdomen and pelvis February 07, 2018. FINDINGS: The 4 mm left ureteral calculus shown on CT of February 07, 2018 is not identified on this exam although sensitivity is diminished given numerous phleboliths within the pelvis. No urinary calculi are identified. Bowel gas pattern is normal. IMPRESSION: Nonvisualization of the 4 mm left ureteral calculus shown on CT of February 07, 2018 although evaluation is difficult given numerous phleboliths within the pelvis. Electronically signed by: Gunnar Thomas M.D. 02/11/2018 10:54 AM Dictated Date/Time: 02/11/2018 10:49 AM
== END | disposition home or self-care (01) ==
LOC: C.RAD 10:17
PROVIDERS: ATTEND Urology
DX: N39.46 Mixed incontinence (principal)

== ENCOUNTER → 2018-05-05 | Outpatient (CLI) | payer OTHER ==
[~2018-05-05] MED LIST changes: +OXYC-737 PO; -OXYC1TAB3 PO; -TAMS0.4C38 PO
== END | disposition home or self-care (01) ==
LOC: C.RDSM 14:05
PROVIDERS: ATTEND Physical Medicine & Rehabilitation Sports Medicine
DX: M25.561 Pain in right knee (principal)

== ENCOUNTER 2020-03-22 16:29 | Inpatient (IN) ==
[2020-03-22] MEDS ORDERED: ACETAMINOPHEN 500 MG TAB PO STA (17:02)
[2020-03-22] MEDS ORDERED: MoRPHine SULFATE 4 MG/ML 1 ML CARP\\VIAL IV STA (17:02)
--- NOTE | 2020-03-22 17:07 | Emergency Department Note ---
Impression & Plan Syncope, Sarcoidosis, High serum chloride ED Provider Note NAME: GUILLERMO NUNES AGE: 65 SEX: F : 1955 ARRIVES VIA: Walk-In INFORMANT: Patient ED PROVIDER(S): Bruce Mcneill DO CHIEF COMPLAINT: Syncope HPI: Patient is a 65-year-old female with a past medical history of depression, insomnia, sarcoidosis, neuropathy who presents the ER for syncopal event. She notes that she has not been feeling well for the past 48 hours. She notes her lower legs have been feeling very weak and heavy for the past 24 hours. She notes that the best that she can describe it as of the past 48 hours she has been feeling lightheaded. She went to go to the garage and felt like the room was spinning and passed out. She does not remember anything else. After waking up she has a headache 8 out of 10 and lower midline lumbar pain which is an 8 out of 10. She describes as sharp stabbing in nature. Worse with movement. No other exacerbating or remitting factors. Denies any blood thinners. ROS: See above HPI for pertinent positives & negatives. A total of 10 systems reviewed and were otherwise negative. PAST MEDICAL HISTORY:See Below PAST SURGICAL HISTORY:See Below FAMILY HISTORY:See Below SOCIAL HISTORY:See Below HOME MEDICATIONS:See Below ALLERGIES:See Below VITALS:See Below PHYSICAL EXAMINATION: GENERAL: alert, disheveled, chronically ill-appearing, no acute distress HEAD: normal cephalic, atraumatic EYE EXAM: normal conjunctiva, PERRL and EOM's grossly intact OROPHARYNX: no exudate, no erythema, lips, buccal mucosa, and tongue normal and mucous membranes are moist NECK: supple, no nuchal rigidity, no adenopathy, non-tender CHEST: stable to compression anteriorly and posteriorly LUNGS: clear to auscultation. Normal chest wall mechanics HEART: no murmurs, S1 normal and S2 normal ABDOMEN: abdomen soft, non-tender, normo-active bowel sounds, no masses, no rebound or guarding. PELVIS: stable to compression anteriorly and posteriorly BACK: Back is symmetrical on inspection and there is no deformity, mild midline tenderness in the lower lumbar, no CVA tenderness. UPPER EXTREMITIES: full active and passive range of motion of all joints without tenderness to palpation LOWER EXTREMITIES: full active and passive range of motion of all joints without tenderness to palpation NEURO EXAM: Normal sensorium, cranial nerves II-XII intact, normal speech, no weakness of arms, no weakness of legs. No drift. [id number] intact. Jxxm-[id number] intact. Rapid alternating movements of upper extremities intact GCS: 15. MEDICAL DECISION MAKING: Patient is a 65-year-old female with extensive past medical history that presents the ER for dizziness and a syncopal event. She notes that she is having trouble walking as she is too weak. IV was established blood work was obtained. Labs show no significant leukocytosis or anemia. BMP with a slightly elevated chloride. LFTs bilirubin and troponin was negative. TSH was normal. UA with bacteria but no white cells.. This is not likely a UTI. CT head was negative. X-rays of the lumbar spine and chest were unremarkable. Patient was given IV fluids. She was updated bedside. She is completely neurologically intact. Nothing to suggest that this is a stroke. Patient was discussed with the hospitalist due to her persistent weakness, dizziness and a syncopal event. Triage Nursing notes reviewed. Prior medical records reviewed Vital Signs: reviewed and remarkable for HTN Differential diagnosis: Differential diagnosis includes etiologies such as vasovagal event, infection, hypoglycemia, electrolyte abnormalities, cardiac sources, intracerebral event, toxicologic, neurologic, as well as others were entertained. ER treatment provided: See below Diagnostics interpreted by me: ECG: Sinus rhythm rate of 72 Normal axis No PVCs Normal QTC DWI in lead III Cardiac Monitoring: An order was placed for continuous cardiac monitoring. The monitor shows a rate of 85 with sinus rhythm. Laboratory studies: As stated above and show below. Imaging studies: CT of the head shows no acute pathology Chest x-ray and x-ray of lumbar spine showed no acute fractures Consultation(s): Discussed with Dr. Kirill Ramachandran ED COURSE: Procedures: none Critical Care: None Past Med/Surg History Social History Preferred Language: [place]an Communication Ability: Effective Visual Impairment: No Limitations Hearing Ability: Normal Plastic Cutter Required: No Beliefs That Will Affect Care: None marital status: Single Current Living Situation: Alone current occupational status: unemployed and disabled Feels Safe at Home: Yes Smoking Status: Never smoker Second Hand Exposure: No ; Hx Alcohol Use: No Hx Substance Use: No Childhood Exposure to Second-Hand Smoke: Yes Dental Care, Regularly: Yes Physical Activity Frequency: Does not Exercise Seatbelt Use: always Sunscreen Use: No Allergies Allergies Allergy/AdvReac Type Severity Reaction Status Date / Time fentanyl Allergy Intermediate Rash Verified 03/22/20 18:12 magnesium hydroxide Allergy Intermediate hives Verified 03/22/20 18:12 buprenorphine Allergy Mild rash (with Verified 03/22/20 18:12 patch) cyclobenzaprine Allergy Unknown Unknown Verified 03/22/20 18:12 naproxen AdvReac Severe GI bleed Verified 03/22/20 18:12 nizatidine AdvReac Intermediate Diarrhea Verified 03/22/20 18:12 Home Meds Home Medications Medication Instructions Recorded Confirmed hydroxychloroquine [Plaquenil] 200 mg PO BID 08/08/18 03/22/20 lamotrigine [Lamictal] 300 mg PO HS 08/08/18 03/22/20 lorazepam 1 mg PO BID PRN 08/08/18 03/22/20 sumatriptan succinate 6 mg SUBCUT UD PRN 08/08/18 03/22/20 trazodone 100 mg PO HS 11/02/18 03/22/20 aspirin 81 mg PO QAM 11/05/18 03/22/20 albuterol sulfate 90 mcg/actuation 2 puff INHALATION Q6H PRN 03/16/19 03/22/20 aerosol inhaler bupropion HCl 200 mg tablet,12 hr 200 mg PO QAM ea 03/16/19 03/22/20 sustained-release brexpiprazole 2 mg tablet 2 mg PO HS 07/24/19 03/22/20 cholecalciferol (vitamin D3) 5,000 units PO QAM 08/05/19 03/22/20 rizatriptan 10 mg PO UD PRN 08/28/19 03/22/20 escitalopram oxalate 10 mg PO QAM 01/12/20 03/22/20 fluticasone furoate-vilanterol 1 inh INHALATION QAM 01/12/20 03/22/20 [Breo Ellipta] topiramate 200 mg PO BID 01/12/20 03/22/20 meloxicam 15 mg PO QAM 02/11/20 03/22/20 montelukast [Singulair] 10 mg PO HS 02/11/20 03/22/20 Previous Rx's Medication Instructions Recorded potassium citrate 10 mEq (1,080 10 meq PO TID #270 tab 06/24/19 mg) tablet,extended release baclofen 10 mg tablet 10 mg PO QID 90 Days #360 tab 09/28/19 albuterol sulfate 2.5 mg INH Q4H PRN #180 ml 11/03/19 nebulizer accessories #1 ea 11/24/19 omeprazole 40 mg capsule,delayed 40 mg PO BID #60 cap 01/04/20 release levothyroxine 88 mcg tablet 88 mcg PO QAM #90 tab 02/25/20 memantine 10 mg tablet 10 mg PO BID 30 Days #60 tab 02/25/20 simvastatin 40 mg tablet 40 mg PO HS #90 tab 02/25/20 tramadol 50 mg tablet 50 mg PO TID PRN #90 tab 03/18/20 Results & Data (ED) Vital Signs Vital Signs - 24 hr 03/22/20 16:38 03/22/20 17:41 03/22/20 18:00 Temperature 36.6 C Temperature Source Oral Pulse Rate 81 69 Pulse Rate [Apical] Pulse Rate from SpO2 Sensor 72 69 Respiratory Rate 18 16 17 Respiratory Depth Normal Blood Pressure 140/79 127/80 125/87 Blood Pressure [Right Arm] Blood Pressure Mean 99 98 100 Blood Pressure Mean [Right Arm] Pulse Oximetry 98 97 93 Oxygen Delivery Method Room Air Sepsis Recent Fever Within 48 Hours No Sepsis New/Unexplained Change in Mental Status No Sepsis Action Taken by Nursing No Action Required 03/22/20 18:30 03/22/20 20:48 Temperature Temperature Source Pulse Rate 67 Pulse Rate [Apical] 67 Pulse Rate from SpO2 Sensor Respiratory Rate 12 18 Respiratory Depth Blood Pressure 136/77 Blood Pressure [Right Arm] 144/79 H Blood Pressure Mean 85 Blood Pressure Mean [Right Arm] 100 Pulse Oximetry 93 97 Oxygen Delivery Method Room Air Sepsis Recent Fever Within 48 Hours Sepsis New/Unexplained Change in Mental Status Sepsis Action Taken by Nursing Laboratory Data Result diagrams: 03/22/20 17:12 03/22/20 17:12 Lab Results 03/22/20 03/22/20 03/22/20 Range/Units 17:12 17:12 17:12 WBC 7.24 (4.8-10.8) K/uL RBC 4.27 (4.2-5.4) M/uL Hgb 13.3 (12.0-16.0) g/dL Hct 40.8 (37-47) % MCV 95.6 (80-100) fL MCH 31.1 (25-34) pg MCHC 32.6 (32-36) g/dL RDW Std Deviation 46.1 (36.4-46.3) fL RDW Coeff of Charley 13.2 (11.5-14.5) % Plt Count 227 (130-400) K/uL MPV 9.7 (7.4-10.4) fL Immature Gran % (Auto) 0.1 % Neut % (Auto) 60.0 % Lymph % (Auto) 29.3 % [place] % (Auto) 8.3 % Eos % (Auto) 1.9 % Baso % (Auto) 0.4 % Neut # (Auto) 4.34 (1.4-6.5) K/uL Lymph # (Auto) 2.12 (1.2-3.4) K/uL [place] # (Auto) 0.60 H (0.11-0.59) K/uL Eos # (Auto) 0.14 (0-0.5) K/uL Baso # (Auto) 0.03 (0-0.2) K/uL Immature Gran # (Auto) 0.01 (0.00-0.02) K/uL RBC Morphology Unremarkable Sodium 144 (136-145) mmol/L Potassium 3.6 (3.5-5.1) mmol/L Chloride 113 H (98-107) mmol/L Carbon Dioxide 27 (21-32) mmol/L Anion Gap 4.0 (3-11) BUN 24 H (7-18) mg/dl Creatinine 0.90 (0.6-1.2) mg/dl Est Cr Clr Drug Dosing 64.8 ml/min Est GFR ( Amer) 77.8 Est GFR (Non-Af Amer) 67.1 BUN/Creatinine Ratio 27.3 H (10-20) Glucose 91 (70-99) mg/dl Calcium 9.0 (8.5-10.1) mg/dl Magnesium 2.3 (1.8-2.4) mg/dl Total Bilirubin 0.3 (0.2-1) mg/dl AST 10 L (15-37) U/L ALT 20 (12-78) U/L Alkaline Phosphatase 122 H (45-117) U/L Troponin I < 0.015 (0-0.045) ng/ml Total Protein 7.7 (6.4-8.2) gm/dl Albumin 3.7 (3.4-5.0) gm/dl Globulin 4.0 (2.5-4.0) gm/dl Albumin/Globulin Ratio 0.9 (0.9-2) TSH 1.320 (0.300-4.500) uIu/ml Urine Color Yellow Urine Appearance Clear (Clear) Urine pH 6.5 (4.5-7.5) Ur Specific [place] 1.010 (1.000-1.030) Urine Protein Negative (Negative) Urine Glucose (UA) Negative (Negative) Urine Ketones Negative (Negative) Urine Blood Trace H (Negative) Urine Nitrite Negative (Negative) Urine Bilirubin Negative (Negative) Urine Urobilinogen Negative (Negative) Ur Leukocyte Esterase Negative (Negative) Urine WBC (Auto) 1-5 (0-5) /hpf Urine RBC (Auto) 0-4 (0-4) /hpf U Hyaline Cast (Auto) 0 (0-5) /lpf U Epithel Cells (Auto) 0-5 (0-5) /lpf Urine Bacteria (Auto) 1+ H (Negative) Administered Medications Gadobutrol (Gadavist 65ml) 9 ml IV ONCE PRN PRN Reason: Interaction Checking Stop: 03/26/20 21:20 Last Admin: 03/22/20 21:21 Dose: 9 ml Documented by: [id number] Discontinued Medications Acetaminophen (Tylenol) 1,000 mg PO NOW STA Stop: 03/22/20 17:03 Last Admin: 03/22/20 17:21 Dose: 1,000 mg Documented by: [id number] Sodium Chloride (Nss 1000ml) 1,000 mls @ 999 mls/hr IV .Q1H1M RAMILA Stop: 03/22/20 18:15 Last Infusion: 03/22/20 18:28 Dose: 0 mls/hr Documented by: [id number] Admin: 03/22/20 17:21 Dose: 999 mls/hr Documented by: [id number] Morphine Sulfate (Morphine Sulfate) 4 mg IV NOW STA Stop: 03/22/20 17:03 Last Admin: 03/22/20 17:21 Dose: 4 mg Documented by: [id number] Discharge Plan Visit Data Chief Complaint: Referred by Doctor Stated Complaint: DIZZY,SYNCOPE,TALKING SLOW ED Provider: Bruce Mcneill Discharge Problem: Syncope, Sarcoidosis, High serum chloride Forms Stand Alone [facility]: [facility] Prescriptions Prescriptions: No Action potassium citrate 10 mEq (1,080 mg) tablet extended release 10 meq PO TID Qty: 270 RF: 3 albuterol sulfate 2.5 mg /3 mL (0.083 %) solution for nebulization 2.5 mg INH Q4H PRN (Reason: shortness of breath or wheezing) Qty: 180 RF: 5 omeprazole 40 mg capsule,delayed release(DR/EC) 40 mg PO BID Qty: 60 RF: 2 levothyroxine 88 mcg tablet 88 mcg PO QAM Qty: 90 RF: 1 simvastatin 40 mg tablet 40 mg PO HS Qty: 90 RF: 1 memantine 10 mg tablet 10 mg PO BID 30 Days Qty: 60 RF: 0 tramadol 50 mg tablet 50 mg PO TID PRN (Reason: pain) Qty: 90 RF: 2 bupropion HCl 200 mg tablet sustained-release 12 hr 200 mg PO QAM RF: 0 albuterol sulfate [ProAir HFA] 90 mcg/actuation HFA aerosol inhaler 2 puff INHALATION Q6H PRN (Reason: Shortness Of Breath Or Wheezing) RF: 0 (DME) nebulizer accessories Kit See Rx Instructions .ROUTE .MEDSUPPLY Qty: 1 RF: 0 baclofen 10 mg tablet 10 mg PO QID 90 Days Qty: 360 RF: 3 Rexulti 2 mg tablet 2 mg PO HS RF: 0 trazodone 100 mg tablet 100 mg PO HS RF: 0 cholecalciferol (vitamin D3) 5,000 unit capsule 5,000 units PO QAM RF: 0 lamotrigine [Lamictal] 150 mg Tablet 300 mg PO HS RF: 0 lorazepam 1 mg Tablet 1 mg PO BID PRN (Reason: Anxiety) RF: 0 hydroxychloroquine [Plaquenil] 200 mg Tablet 200 mg PO BID RF: 0 sumatriptan succinate 6 mg/0.5 mL Pen Injector 6 mg subcut UD PRN (Reason: Migraine Headache) RF: 0 aspirin 81 mg Tablet,Chewable 81 mg PO QAM RF: 0 rizatriptan 10 mg tablet 10 mg PO UD PRN (Reason: Migraine Headache) RF: 0 topiramate 200 mg tablet 200 mg PO BID RF: 0 escitalopram oxalate 5 mg tablet 10 mg PO QAM RF: 0 Breo Ellipta 200-25 mcg/dose blister with device 1 inh INHALATION QAM RF: 0 meloxicam 15 mg tablet 15 mg PO QAM RF: 0 montelukast [Singulair] 10 mg tablet 10 mg PO HS RF: 0 Discharge Problem: Syncope Qualifiers: Syncope type: unspecified Qualified Code(s): R55 - Syncope and collapse
[2020-03-22] MEDS ORDERED: SODIUM CHLORIDE 0.9% 1000ML 1,000 ML IV SCH (17:15)
[2020-03-22 17:30] LABS: Basophils # (auto) 0.03 K/uL (0-0.2); Basophils % (auto) 0.4 %; Eosinophils # (auto) 0.14 K/uL (0-0.5); Eosinophils % (auto) 1.9 %; Hematocrit (blood only) 40.8 % (37-47); Hemoglobin 13.3 g/dL (12.0-16.0); Immature Granulocytes # (auto) 0.01 K/uL (0.00-0.02); Immature Granulocytes % (auto) 0.1 %; Lymphocytes # (auto) 2.12 K/uL (1.2-3.4); Lymphocytes % (auto) 29.3 %; Mean Corpuscular Hemoglobin 31.1 pg (25-34); Mean Corpuscular Hgb Conc 32.6 g/dL (32-36); Mean Corpuscular Volume 95.6 fL (80-100); Mean Platelet Volume 9.7 fL (7.4-10.4); Monocytes % (auto) 8.3 %; Neutrophils # (auto) 4.34 K/uL (1.4-6.5); Platelet Count 227 K/uL (130-400); RDW Coefficient of Variation 13.2 % (11.5-14.5); RDW Standard Deviation 46.1 fL (36.4-46.3); Red Blood Count 4.27 M/uL (4.2-5.4); White Blood Count 7.24 K/uL (4.8-10.8)
[2020-03-22 17:47] LABS: Appearance Urine Clear (Clear); Bacteria Urine Automated 1+ (Negative); Bilirubin Urine Negative (Negative); Blood Urine Trace (Negative); Cast Urine Automated 0 /lpf (0-5); Color Urine Yellow; Epithelial Cell Urine Auto 0-5 /lpf (0-5); Glucose Urine UA Negative (Negative); Ketones Urine Negative (Negative); Leukocyte Esterase Urine Negative (Negative); Nitrite Urine Negative (Negative); Protein Urine Negative (Negative); RBC Urine Automated 0-4 /hpf (0-4); Urobilinogen Urine Negative (Negative); pH Urine 6.5 (4.5-7.5)
[2020-03-22 17:48] LABS: Alanine Aminotransferase 20 U/L (12-78); Albumin Level 3.7 gm/dl (3.4-5.0); Aspartate Aminotransferase 10 U/L (15-37); BUN Creatinine Ratio 27.3 (10-20); Blood Urea Nitrogen 24 mg/dl (7-18); Carbon Dioxide 27 mmol/L (21-32); Chloride 113 mmol/L (98-107); Creatinine Clr Calc Pharmacy 64.8 ml/min; Est GFR (African American) 77.8; Est GFR (Non-African American) 67.1; Glucose 91 mg/dl (70-99); Magnesium 2.3 mg/dl (1.8-2.4); Potassium 3.6 mmol/L (3.5-5.1); Sodium 144 mmol/L (136-145)
--- NOTE | 2020-03-22 17:49 | CT Scan Report ---
HEAD CT NONCONTRAST CT DOSE: 614.27 mGy.cm HISTORY: syncope TECHNIQUE: Multiaxial CT images of the head were performed without the use of intravenous contrast. A utomated exposure control was utilized for this study. A dose lowering technique was utilized adheri ng to the principles of ALARA. Comparison: Head CT 02/17/2020. Findings: The paranasal sinuses and mastoid air cells are clear. The calvarium and skull base are int act. The ventricles and sulci are within normal limits. There is no mass, hematoma, midline shift, or acute infarct. Left supraorbital soft tissue hematoma has decreased in size. Impression: No acute intracranial abnormality. Decrease in size in the left supraorbital soft tissue hematoma. ACT 112: Negative or not required by law. Electronically signed by: oHng Montague M.D. 03/22/2020 5:47 PM
[2020-03-22 17:53] LABS: RBC Morphology Unremarkable
[2020-03-22 17:59] LABS: Albumin Globulin Ratio 0.9 (0.9-2); Alkaline Phosphatase 122 U/L (45-117); Bilirubin,Total 0.3 mg/dl (0.2-1); Total Protein 7.7 gm/dl (6.4-8.2); Troponin I < 0.015 ng/ml (0-0.045)
--- NOTE | 2020-03-22 18:54 | XRay Report ---
LUMBAR SPINE 3 VIEWS HISTORY: Back pain. fall COMPARISON: None. FINDINGS: There is no fracture. No subluxation. The sacrum appears intact. Suture material within th e deep pelvis. Mild to moderate disc space narrowing throughout the lumbar spine. IMPRESSION: No fracture or subluxation within the lumbar spine. ACT 112: Negative or not required by law. Electronically signed by: Hong Montague M.D. 03/22/2020 6:53 PM
--- NOTE | 2020-03-22 18:56 | XRay Report ---
XR chest 1V portable HISTORY: syncope COMPARISON: Chest 03/30/2019. FINDINGS: The lungs are clear. Cardiac silhouette is normal in size. No pleural effusions. No pneumot horax. IMPRESSION: No acute process. ACT 112: Negative or not required by law. Electronically signed by: Hong Montague M.D. 03/22/2020 6:54 PM
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
[2020-03-22] MEDS ORDERED: GADOBUTROL 65ML VIAL IV PRN (21:21)
[2020-03-22] MEDS ORDERED: ACETAMINOPHEN 325 MG TAB ONE (22:23)
[2020-03-22] MEDS ORDERED: TRAMADOL HCL 50 MG TABLET ONE (22:23)
[2020-03-22] MEDS: SODIUM CHLORIDE 0.9% 1000ML 1,000 ML IV SCH (23:48)
[2020-03-23] MEDS ORDERED: ALBUTEROL HFA 8 GM INHALER INH PRN (00:58)
[2020-03-23] MEDS ORDERED: SUMAtriptan succinate 6 MG/0.5 ML VIAL SQ PRN (00:59)
[2020-03-23] MEDS: TRAZODONE HCL 100 MG TAB PO SCH ×2 (01:33→20:55)
[2020-03-23] MEDS: lamoTRIgine 100 MG TAB PO SCH ×2 (01:33→20:55)
[2020-03-23] MEDS: MEMANTINE HCL 10 MG TAB PO SCH ×3 (01:34→20:55)
[2020-03-23] MEDS: MONTELUKAST SODIUM 10 MG TABLET PO SCH ×2 (01:34→20:56)
[2020-03-23] MEDS: POTASSIUM CITRATE 10 MEQ TAB PO SCH ×4 (01:35→20:56)
[2020-03-23] MEDS: PANTOprazole 40 MG TAB PO SCH ×3 (01:35→20:55)
[2020-03-23] MEDS: SIMVASTATIN 40 MG TAB PO SCH ×2 (01:35→20:55)
[2020-03-23] MEDS: TOPIRAMATE 100 MG TAB PO SCH ×3 (01:35→20:56)
[2020-03-23] MEDS: SODIUM CHLORIDE 0.9% 1000ML 1,000 ML IV SCH ×3 (02:10→21:23)
[2020-03-23] MEDS: HYDROXYCHLOROQUINE SULFATE 200 MG TAB PO SCH ×3 (03:37→21:21)
[2020-03-23] MEDS: BACLOFEN 10 MG TAB PO SCH ×5 (03:37→21:22)
[2020-03-23] MEDS: LEVOTHYROXINE SODIUM 88 MCG TABLET PO SCH (06:05)
[2020-03-23 07:11] LABS: Lyme Ab IgG w/WB Rflx Negative (Negative)
[2020-03-23 07:40] LABS: Lyme Ab IgM w/WB Rflx Positive (Negative)
--- NOTE | 2020-03-23 07:45 | Magnetic Resonance Report ---
MR brain MS wo/w con CLINICAL HISTORY: multiple syncopal events COMPARISON STUDY: Head CT March 22, 2020. TECHNIQUE: Utilizing 1.5 Jen magnet and dedicated coil, multiplanar, multiecho imaging of the brain was performed pre and postcontrast administration according to multiple sclerosis protocol. Intraven ous injection of 9 cc of Gadavist was uneventful. FINDINGS: There are no foci of restricted diffusion to suggest acute infarct. No acute intracranial h emorrhage, midline shift or mass effect is present. Brain volume is normal for age. Ventricular syste m is unremarkable. The basilar cisterns are patent. There are no extra-axial collections. Flow-voids for the major intracranial vessels are present. There is no intracranial mass or pathologic enhanceme nt. There are multiple right matter T2 hyperintense foci, predominantly subcortical distribution. Antonio varial signal is normal. Sinuses are unremarkable. Orbits are unremarkable. IMPRESSION: 1. No acute intracranial findings. 2. No intracranial mass or pathologic enhancement. 3. Multiple white matter T2 hyperintense foci which favor small vessel disease. ACT 112: Negative or not required by law. Electronically signed by: Gunnar Thomas M.D. 03/23/2020 7:43 AM
[2020-03-23] MEDS: BuPROPion SR 100 MG TABCR PO SCH (08:05)
[2020-03-23] MEDS: ESCITALOPRAM OXALATE 10 MG TAB PO SCH (08:05)
[2020-03-23] MEDS: CHOLECALCIFEROL 1,000 UNITS 25 MCG TAB PO SCH (08:05)
[2020-03-23] MEDS: MELOXICAM 7.5 MG TAB PO SCH (08:06)
[2020-03-23] MEDS: ASPIRIN 81 MG ECTAB PO SCH (08:06)
[2020-03-23] MEDS: FLUTICASONE/VILANTEROL 200/25MCG 14 PUFFS/INHALER INH SCH (08:08)
[2020-03-23] MEDS ORDERED: DOXYCYCLINE HYCLATE 100 MG in DEXTROSE 5% 100 ML IV SCH (09:00)
[2020-03-23 09:09] LABS: Albumin Level 3.4 gm/dl (3.4-5.0); BUN Creatinine Ratio 22.9 (10-20); Calcium 8.6 mg/dl (8.5-10.1); Est GFR (African American) 100.2; Est GFR (Non-African American) 86.4; Potassium 3.6 mmol/L (3.5-5.1)
[2020-03-23 09:12] LABS: Bilirubin,Total 0.4 mg/dl (0.2-1); Globulin 3.3 gm/dl (2.5-4.0); Total Protein 6.7 gm/dl (6.4-8.2)
--- NOTE | 2020-03-23 09:36 | Neurology Consultation ---
Date of Consultation March 23, 2020 Assessment & Plan (1) Drop attack: It is not really clear if this patient experienced loss of consciousness or syncope. In fact, she denies any loss of consciousness and reports being completely aware of her fall while walking to the shed yesterday afternoon. In speaking with her, it sounds like her legs gave out from under her without warning and without associated presyncopal or syncopal symptomatology. She then crawled back to her house on her own. Her legs have been feeling weak which is a chronic problem for her and in fact she had a fall without loss of consciousness [place] market on February 11, 2020 prompting a visit to the emergency department at that time. Her symptoms could be related to lumbar spinal stenosis. Cervical spinal stenosis or cervical or thoracic myelopathy are not excluded. To what extent her previously identified sensory polyneuropathy explains her symptoms is not entirely clear but she could have an element of sensory ataxia as well. There are no clinical signs or symptoms to suggest seizure disorder at this time. She does have a moderate degree of chronic multifocal white matter hyperintensities on brain MRI probably consistent with small vessel ischemic disease. No evidence of normal pressure hydrocephalus or other significant structural disease. To what extent her brain MRI findings contribute to her clinical presentation is not entirely clear either. I would like her to have an MRI of the lumbar, thoracic, and cervical spine completed to evaluate for significant spinal stenosis or myelopathy. If she does have evidence of spinal cord demyelination would then follow-up with a lumbar puncture and additional testing for possible multiple sclerosis as queried by the admitting physician. I will also order a carotid ultrasound to evaluate vertebral artery flow and exclude a significant stenosis of either internal carotid artery. However, her symptoms are not highly suggestive of vertebrobasilar insufficiency and she has no evidence of acute stroke on MRI. Continue with topiramate and Namenda. These medications have been prescribed by Dr. Loving. I would recommend reducing her dosage of baclofen to 5 mg 4 times per day as this medication may contribute to weakness. I will make additional recommendations pending completion of the above MRIs. She will need additional outpatient follow-up with Dr. Loving after discharge. History of Present Illness Reason for Consultation: Recurrent falls (syncope?), MS? Requesting Physician: Lavon Victor MD Attending Physician: Karla Mittal MD History of Present Illness The patient is a 65-year-old female with a chief complaint of fall that occurred yesterday afternoon around 3:30. She indicates that she was walking to the shed to get a piece of wood when her leg suddenly gave out from under her. She d enies experiencing any warning signs such as dizziness, diaphoresis, vision change or vertigo prior to the episode. She denies loss of consciousness and indicates that she was awake, lying on the ground, but unable to get up on her own due to a feeling of generalized weakness, especially the legs. She indicates that she crawled back to the house on her own. The patient reports that she has been feeling off, as if she is floating, with a feeling of unsteadiness while walking for the past 2 to 3 days. She denies any associated vertigo or feeling of abnormal motion. Her symptoms are not triggered by standing up, lying back, or any particular change in position of the body or head or neck. She had presented to the emergency department 10 days ago on February 11, 2020 after a fall at a market related to tripping, without associated dizziness or syncope, but complicated by a mild contusion above the left eye. She was seen again in the emergency department on February 17, 2020 for headache. Past medical history notable for episodic migraine and cognitive dysfunction for which she has been following with Dr. Loving for several years. History also notable for chronic low back pain and fibromyalgia. Recent imaging evaluation over the past [address] of the cervical spine, facial bones,, [address], lumbar spine x-rays, and MRI of the brain have not revealed any overtly significant pathology and are described in further detail below. She has had multiple normal electrocardiograms recently. Her recent lab evaluation has been unremarkable as well. Allergies Allergy/AdvReac Type Severity Reaction Status Date / Time fentanyl Allergy Intermediate Rash Verified 03/22/20 18:12 magnesium hydroxide Allergy Intermediate hives Verified 03/22/20 18:12 buprenorphine Allergy Mild rash (with Verified 03/22/20 18:12 patch) cyclobenzaprine Allergy Unknown Unknown Verified 03/22/20 18:12 naproxen AdvReac Severe GI bleed Verified 03/22/20 18:12 nizatidine AdvReac Intermediate Diarrhea Verified 03/22/20 18:12 Home Medications Home Medications Medication Instructions Recorded Confirmed Type hydroxychloroquine [Plaquenil] 200 mg PO BID 08/08/18 03/22/20 History lamotrigine [Lamictal] 300 mg PO HS 08/08/18 03/22/20 History lorazepam 1 mg PO BID PRN 08/08/18 03/22/20 History sumatriptan succinate 6 mg SUBCUT UD PRN 08/08/18 03/22/20 History trazodone 100 mg PO HS 11/02/18 03/22/20 History aspirin 81 mg PO QAM 11/05/18 03/22/20 History albuterol sulfate 90 mcg/actuation 2 puff INHALATION Q6H PRN 03/16/19 03/22/20 History aerosol inhaler bupropion HCl 200 mg tablet,12 hr 200 mg PO QAM ea 03/16/19 03/22/20 History sustained-release potassium citrate 10 mEq (1,080 10 meq PO TID #270 tab 06/24/19 03/22/20 Rx mg) tablet,extended release brexpiprazole 2 mg tablet 2 mg PO HS 07/24/19 03/22/20 History cholecalciferol (vitamin D3) 5,000 units PO QAM 08/05/19 03/22/20 History rizatriptan 10 mg PO UD PRN 08/28/19 03/22/20 History baclofen 10 mg tablet 10 mg PO QID 90 Days #360 tab 09/28/19 03/22/20 Rx albuterol sulfate 2.5 mg INH Q4H PRN #180 ml 11/03/19 03/22/20 Rx nebulizer accessories #1 ea 11/24/19 11/24/19 Rx omeprazole 40 mg capsule,delayed 40 mg PO BID #60 cap 01/04/20 03/22/20 Rx release escitalopram oxalate 10 mg PO QAM 01/12/20 03/22/20 History fluticasone furoate-vilanterol 1 inh INHALATION QAM 01/12/20 03/22/20 History [Breo Ellipta] topiramate 200 mg PO BID 01/12/20 03/22/20 History meloxicam 15 mg PO QAM 02/11/20 03/22/20 History montelukast [Singulair] 10 mg PO HS 02/11/20 03/22/20 History levothyroxine 88 mcg tablet 88 mcg PO QAM #90 tab 02/25/20 03/22/20 Rx memantine 10 mg tablet 10 mg PO BID 30 Days #60 tab 02/25/20 03/22/20 Rx simvastatin 40 mg tablet 40 mg PO HS #90 tab 02/25/20 03/22/20 Rx tramadol 50 mg tablet 50 mg PO TID PRN #90 tab 03/18/20 03/22/20 Rx Patient History Medical History Anxiety Chronic back pain Depression Dermatitis, eczematoid (Inactive) Fibromyalgia GERD (gastroesophageal reflux disease) controlled History of kidney stones Hyperlipidemia Hypothyroidism Migraine, unspecified, not intractable, without status migrainosus (Inactive) Obesity Osteoarthritis PVCs (premature ventricular contractions) Sarcoidosis follows with [facility] (Dr. Satnam Piper)/[facility] Sleep apnea mild JADEN- unable to tolerate CPAP Temporomandibular joint disorder s/p corrective jaw procedure for TMJ/occasional clicking/no locking Surgical History H/O lithotripsy H/O nasal septoplasty History of bowel resection several years ago ? related to bowel obstruction (patient unsure) History of breast biopsy History of cataract surgery B/L History of colonoscopy History of herniorrhaphy umbilical History of partial hysterectomy History of surgery tmj corrective surgery History of total knee replacement rt Hx of lumpectomy Family History Mother Breast cancer, Onset Age: 71 Family history of reaction to anesthesia SLOW TO WAKE Family history of diabetes mellitus Father Prostate cancer Hypertension Sister Chronic kidney disease Renal transplant recipient Family history of diabetes mellitus Denies family history of Colon cancer Ovarian cancer Myocardial infarction Colorectal cancer Social History Preferred Language: Chinese Communication Ability: Effective Visual Impairment: No Limitations Hearing Ability: Normal General [employer] Supervisor Required: No Beliefs That Will Affect Care: None marital status: Single Current Living Situation: Alone current occupational status: unemployed and disabled Feels Safe at Home: Yes Smoking Status: Never smoker Second Hand Exposure: No ; Hx Alcohol Use: No Hx Substance Use: No Childhood Exposure to Second-Hand Smoke: Yes Dental Care, Regularly: Yes Physical Activity Frequency: Does not Exercise Seatbelt Use: always Sunscreen Use: No Review of Systems Constitutional: + fatigue and + daytime sleepiness; no fever and no chills Eyes: no blind spots and no diplopia Ear, Nose, Mouth, Throat: no hearing loss Respiratory: no cough and no dyspnea Cardiovascular: no chest pain and no palpitations Gastrointestinal: no nausea and no vomiting Genitourinary: + urinary incontinence Musculoskeletal: + back pain and + joint pain Integumentary: no rash and no lesions Neurologic: as per Subjective / HPI, + gait abnormality, + unsteadiness, + localized weakness, + headache(s) and + memory loss Psychiatric: + depression Hematologic / Lymphatic: no easy bleeding and no easy bruising Exam (Neuro) Constitutional: well developed and well nourished; no acute distress Eyes: normal visual das by confrontation, PERRL, normal accommodation and EOM intact bilaterally; no fundoscopic abnormality, no nystagmus and no papilledema Cardiovascular: Vessels: normal carotid upstroke; no carotid bruit Neurologic: Oriented to:: Person, Place and Time Memory: Short Term Intact and Remote Intact Attention: Span Intact and Concentration Intact Language: Naming Objects and Repeating Phrases Speech Fluency: negative Dysarthria Speech Aphasia: negative Aphasia Fund of Knowledge: Current Events, Past History and Vocabulary Cranial Nerves: Normal II (Visual das full to confrontation, visual acuity normal), III, IV, (Pupils equal round reactive to light and accommodation, eye movements normal), V (Facial sensation intact), VII (There is no facial droop or weakness), VIII (Hearing intact), IX, X (Palate elevates to midline), XI (Shoulder shrug intact) and XII (Tongue protrudes to midline) Motor Strength: Normal Lower Extremities and Normal Upper Extremities; negative Pronator Drift Motor Tone: Normal Lower Extremities and Normal Upper Extremities Muscle Bulk/Involuntary Movements: No Involuntary Movements; negative Muscle Atrophy Sensation: Light Touch Intact, Pain/Temperature Intact, Vibration Intact and Proprioception Intact Coordination: Normal and Finger-Nose Abnormal; negative Limited Balance, Dysdiadochokinesia and Heel-Samuels Abnormal Deep Tendon Reflexes: Rt Triceps: 2+, Lt Triceps: 2+, Rt Biceps: 2+, Lt Biceps: 2+, Rt Brachioradialis: 2+, Lt Brachioradialis: 2+, Rt Patellar: 2+, Lt Patellar: 2+, Rt Ankle: 2+ and Lt Ankle: 2+ Special Tests: negative Babinski Present Details: Gait not tested in the context of patient's current medical condition due to safety concerns. Patient is slow with [id number] bilaterally and consistently misses her nose with the right hand, there is no endpoint tremor or gross ataxia. She does not fix on the right with arm roll. There is no pronator drift. Results & Data ([facility]) Vital Signs (Past 12 Hours) Vital Signs Temp Pulse Pulse Pulse Resp BP BP 03/23/20 07:20 36.4 C L 69 16 111/73 03/23/20 04:15 36.3 C L 63 20 116/78 03/23/20 02:00 36.4 C L 60 16 128/82 03/23/20 01:38 76 15 132/79 03/23/20 01:00 68 15 126/77 03/23/20 00:20 36.7 C 03/23/20 00:15 67 12 132/75 03/22/20 23:30 67 21 131/76 03/22/20 23:18 127/80 03/22/20 23:00 157/76 H 03/22/20 22:30 124/93 03/22/20 22:00 152/96 H 03/22/20 21:31 18 153/89 H 03/22/20 20:48 67 18 BP Pulse Ox 03/23/20 07:20 97 03/23/20 04:15 94 03/23/20 02:00 97 03/23/20 01:38 03/23/20 01:00 03/23/20 00:20 03/23/20 00:15 96 03/22/20 23:30 98 03/22/20 23:18 97 03/22/20 23:00 93 03/22/20 22:30 03/22/20 22:00 96 03/22/20 21:31 96 03/22/20 20:48 144/79 H 97 Laboratory Results WBC 7.24, hemoglobin 13.3, hematocrit 40.8, platelet count 227, ESR 8, sodium 144, potassium 3.6, BUN 24, creatinine 0.90, glucose 91, calcium 9.0, magnesium 2.3, AST 10, ALT 20, troponin less than 0.015, TSH 1.320 Patient had a normal vitamin D level on October 08, 2019 and a normal vitamin B12 level on June 13, 2018 Diagnostic Findings MRI of the brain reveals multiple white matter T2 hyperintense foci, primarily subcortical distribution, both cerebral hemispheres, nonspecific but likely consistent with chronic cerebrovascular disease. Lumbar spine x-rays are negative for fracture or subluxation. There is moderate to space narrowing throughout the lumbar spine. A CT of the head suggest decreased size in the left supraorbital soft tissue hematoma compared with the previous study done February 17, 2020. No acute intracranial abnormality. CT of the head completed on February 16 in February 10 were both generally unremarkable and reveal an improving left supraorbital soft tissue hematoma. A CT of the face completed February 11, 2020 was negative for acute fracture. A CT of the cervical spine completed February 11, 2020 was negative for fracture or subluxation. There is multilevel to space narrowing most severe at C6-7, mild at C5-6, and moderate C7-T1. There is multilevel facet arthrosis. An MRI of the lumbar spine completed November 17, 2018 reveals moderate degenerative disc disease throughout the entire lumbar spine as well as a broad-based bulging disc at L5-S1 with minimal narrowing of the neuroforamina bilaterally. I reviewed the images as well as the radiologist's interpretation of these tests. Electrocardiogram completed March 22, 2020 reveals a normal sinus rhythm, 72 bpm. This patient has had 3 prior electrocardiograms as well, January 12, 2020, August 06, 2019, and August 11, 2018 that all revealed a normal sinus rhythm. A polysomnogram completed November 19, 2016 suggested mild obstructive sleep apnea. An EMG completed July 06, 2015 was remarkable for an underlying polyneuropathy involving predominantly sensory fibers. There was also evidence for a very mild acute lower lumbar radiculopathy on the left at that time. An EMG completed December 21, 2013 was remarkable for polyneuropathy involving predominantly sensory fibers. There was no evidence for lumbosacral radiculopathy bilaterally at that time. Dr. Loving's last clinic note from September 28, 2019 reviewed. Migraine frequency at that time less than 4 days/month. Depression stable. History of fibromyalgia noted as well. No changes in patient's medication regimen were made at that time. Coding Level of Care Code 26615 Initial In Care Lvl 3 Diagnoses Drop attack R55
--- NOTE | 2020-03-23 11:10 | Ultrasound Report ---
BILATERAL CAROTID DOPPLER STUDY HISTORY: cerebrovascular disease, drop attacks, r/o vertebrobasilar insufficiency COMPARISON: None. TECHNIQUE: Real-time, grayscale, and color Doppler sonography of the carotid arteries was performed. Imaging reviewed in the transverse and longitudinal planes. All measurements were calculated based on NASCET criteria. FINDINGS: Antegrade flow is seen in the bilateral vertebral arteries. The brachial pressures are hemodynamically similar. The peak systolic velocity within the right ICA is 96 cm/s. The right systolic ratio is 1.1. The peak systolic velocity within the left ICA is 80 cm/s. The left systolic ratio is 0.9. IMPRESSION: No hemodynamically significant stenosis seen within the carotid arteries. ACT 112: Negative or not required by law. Electronically signed by: Hong Montague M.D. 03/23/2020 11:09 AM
--- NOTE | 2020-03-23 12:08 | Magnetic Resonance Report ---
CERVICAL SPINE MRI HISTORY: Dizziness. Leg weakness. spinal stenosis, drop attacks TECHNIQUE: Multiplanar multisequence MRI of the cervical spine was performed without the use of contr ast. COMPARISON STUDY: None. FINDINGS: No fracture or subluxation within the cervical spine. Kgwz-oi-lsmkhupy facet degenerative c hanges throughout the cervical spine. Vertebral soft tissues and the C1-C2 interval are intact. The v isualized posterior fossa is unremarkable. The cervical spinal cord demonstrates a normal course, sharath iber, and signal intensity. There is moderate disc space narrowing at C6-C7 and mild disc space narro wing at C7-T1. There is a right C2-C3: No significant central canal or neural foraminal narrowing. C3-C4: No significant central canal narrowing. There is mild left-sided neural foraminal narrowing. C4-C5: No significant central canal narrowing. There is mild left-sided neural foraminal narrowing. C5-C6: Small broad-based posterior disc bulge with a focal central annular tear. This results in part ial effacement of the anterior thecal sac without cord deformity. There is mild bilateral neural fora frederick narrowing. C6-C7: No significant central canal or neural foraminal narrowing. A 5 mm left lateral ninth and sign al adjacent to the neural foramen. This is considered to be a normal variant. C7-T1: Small broad-based posterior disc bulge without significant central canal or neural foraminal n arrowing. IMPRESSION: 1. Mild degenerative changes as described above. However, no significant central canal narrowing. 2. The cervical spinal cord is normal in course, caliber, and signal intensity. ACT 112: Negative or not required by law. Electronically signed by: Hong Montague M.D. 03/23/2020 12:07 PM
--- NOTE | 2020-03-23 12:14 | Magnetic Resonance Report ---
THORACIC SPINE MRI HISTORY: Leg weakness. r/o myelopathy, drop attacks TECHNIQUE: Multiplanar multisequence MRI of the thoracic spine was performed without the use of contr ast. COMPARISON: None. FINDINGS: Mild motion artifact. No fracture or subluxation. Normal marrow signal intensity seen throughout the visualized osseous structures. Mild disc space narrowing within the upper to mid thoracic spine. No d isc herniations. No significant central canal or neural foraminal narrowing. No epidural or paraspina l abnormalities. A few small endplate osteophytes within the mid to lower thoracic spine. Slightly hy poplastic T3 and T4 vertebral bodies is likely congenital. There is partial fusion of the vertebral b odies and complete fusion of the posterior elements at this level. The thoracic spinal cord is normal and course, caliber, and signal intensity. IMPRESSION: 1. Normal thoracic spinal cord. 2. No fracture or subluxation within the thoracic spine. 3. Mild degenerative disc disease without significant central canal or neural foraminal narrowing. 4. 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 ACT 112: Negative or not required by law. Electronically signed by: Hong Montague M.D. 03/23/2020 12:13 PM
--- NOTE | 2020-03-23 12:17 | Hospitalist Progress Note ---
Date of Service March 23, 2020 Assessment & Plan (1) Weakness: * 65 yo F w/ PMH neuropathy, sarcoidosis, JADEN, hypothyroidism, fibromyalgia, depression, migraine without aura, asthma admitted for multiple syncopal events and bilateral weakness. UA negative for infection. TSH wnl. 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 Jones who does not believe findings to be very suggestive of MS * US Carotids negative for any significant stenosis * Discussed with him concerns for possible lyme as cause or neuro sarcoid given history Initially ordered Doxy IV AM 03/23 for positive lyme, but given concern for neurologic disease, will change to Rocephin 2gm IV Discussed with patient and son Liam on phone regarding LP in AM to further investigate CSF for lyme Ab's/PCR as well as ANGIE level and MS panel for completeness Spoke with Dr. 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 See above (5) Sarcoidosis: * Follows with [facility] --> most recently seen Oct [address] Piper. Lung and/or thoracic lymph node involvement per most recent note. CT Chest was free of infiltrates and PFTs without progressive changes and off all prednisone * Continue plaquenil 200 mg PO BID * Concerns for possible neuro sarcoid --> ANGIE level to be added to CSF from LP 03/24 * Continue home inhalers (6) Spondylosis of cervical region without myelopathy or radiculopathy: * Noted on imaging (7) Hypothyroidism: * Chronic. * TSH 1.320 * Continue home levothyroxine 88mcg (8) Hypercholesterolemia: * Chronic. Continue home simvastatin 40mg -- could also be contributory to weakness/fatigue. 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 Stable * Patient on omeprazole 40 mg BID as outpatient --> will be placed on protonix 40mg PO BID while inpatient (13) Major depression, recurrent: * Chronic. * Continue home Bupropion 200 mg, Escitalopram 10mg, Lamictal 300mg PO HS (14) Dementia: * Follows with Dr. Loving * Continue home memantine 10 mg PO BID (15) Elevated serum alkaline phosphatase level: * Alk phos elevated slightly at 122 on admission, now wnl (16) DVT prophylaxis: * Ordered SCDs * Chemoprophylaxis deferred for LP in AM Dispo: LP in AM Admission and Anticipated Discharge Date Admission Date: March 22, 2020 Supervising Physician Co-Signing Physician Notes PA Supervision Note: I did not personally see or examine the patient today, but I verified all meade points of GISEL Tipton's assessment and plan with the following exceptions/additions: None Subjective Patient evaluated this morning. Still with bilateral lower extremity weakness, but states she does feel slightly better. Had not worked with therapy as of yet. Somewhat conflicting stories when asked about LOC prior to admission, as patient states she was standing and the next thing she knew she was on the ground, but states she does not remember if she remembers falling. Patient admits to problems with her memory and follows with Dr. Loving for dementia. Patient states that she has been having this issue with weakness since January and had previously been in the ER for evaluation which did not show anything. Discussed that findings on imaging not consistent with MS, but could be related to positive Lyme or related to her sarcoid. Discussed obtaining an LP with patient and son Liam on speaker phone in the room (who will be out of town tomorrow and unavailable by phone until the [facility]). Patient and son agreeable. Patient is medical decision maker, but she states that if she were unable to make decisions, then it would be up to Liam at that time. Denies any fevers or chills at this time. States she does have pain in her legs, back, as well as most of her body secondary to her fibromyalgia, but that she was unable to comment if she felt like this pain was in one specific joint or just diffuse. She does admit to progressive course of weakness however and states that now when walking back her hallway at home she is needing to hold on to railing or the wall because she feels unsteady on her feet like they are going to go out on her like they did prior to admission. She states she does have a cane at home but does not typically use this device. Denies chest pain, abdominal pain, n/v, dysuria at this time. Back pain secondary to laying flat in MRI this morning and did request some of her tramadol. Mild headache which she typically takes tylenol and takes tramadol for chronic back pain. She did have concerns about follow up appointment with Dr. Loving tomorrow at 11:30 and was discussed that we will reach out to office to cancel that appointment and reschedule when she is discharged. All questions/concerns answered at this time. Review of Systems Review of Systems: All systems reviewed & are unremarkable except as noted in HPI & below Constitutional: + fatigue and + weakness Respiratory: + cough (chronic with her sarcoid) Cardiovascular: no chest pain and no palpitations Genitourinary: no dysuria and no hematuria Musculoskeletal: + back pain, + joint pain and + myalgia Neurologic: + gait abnormality, + unsteadiness, + falls, + syncope, + headache(s) and + confusion Physical Exam Constitutional: WD/WN, vitals as above no acute distress and + uncomfortable ENMT: Ears: no hearing impairment mmm Neck: trachea midline, no thyromegaly negative Brudzinski's sign and negative Kernig's sign Respiratory: normal respiratory effort; no respiratory distress and no labored breathing Auscultation: + diminished lung sounds and + crackles (fine); no rhonchi and no wheezes Cardiovascular: RRR, no murmur, no edema Gastrointestinal (Abdomen): normal bowel sounds, soft, nontender, no hepatosplenomegaly Musculoskeletal: 4/5 strength b/l LE Skin: no rashes, warm and dry Neurologic: patellar DTR's 2+ bilat, sensation intact slowed finger to nose Psychiatric: Orientation: alert, oriented to person, oriented to place and oriented to time periods of confusion with regards to recent memory Lymphatic: no cervical or axillary lymphadenopathy Results & Data Results & Data ([facility]) Vital Signs (Past 12 Hours) Vital Signs Temp Pulse Pulse Resp BP BP Pulse Ox 03/23/20 07:20 36.4 C L 69 16 111/73 97 03/23/20 04:15 36.3 C L 63 20 116/78 94 03/23/20 02:00 36.4 C L 60 16 128/82 97 03/23/20 01:38 76 15 132/79 03/23/20 01:00 68 15 126/77 03/23/20 00:20 36.7 C Laboratory Results 03/23/20 03/23/20 03/23/20 Range/Units 06:47 05:39 05:39 WBC (4.8-10.8) K/uL RBC (4.2-5.4) M/uL Hgb (12.0-16.0) g/dL Hct (37-47) % MCV (80-100) fL MCH (25-34) pg MCHC (32-36) g/dL RDW Std Deviation (36.4-46.3) fL RDW Coeff of Charley (11.5-14.5) % Plt Count (130-400) K/uL MPV (7.4-10.4) fL Immature Gran % (Auto) % Neut % (Auto) % Lymph % (Auto) % Carolina % (Auto) % Eos % (Auto) % Baso % (Auto) % Neut # (Auto) (1.4-6.5) K/uL Lymph # (Auto) (1.2-3.4) K/uL Carolina # (Auto) (0.11-0.59) K/uL Eos # (Auto) (0-0.5) K/uL Baso # (Auto) (0-0.2) K/uL Immature Gran # (Auto) (0.00-0.02) K/uL RBC Morphology ESR (0-21) mm/hr Sodium 144 (136-145) mmol/L Potassium 3.6 (3.5-5.1) mmol/L Chloride 115 H (98-107) mmol/L Carbon Dioxide 24 (21-32) mmol/L Anion Gap 4.0 (3-11) BUN 17 (7-18) mg/dl Creatinine 0.73 (0.6-1.2) mg/dl Est Cr Clr Drug Dosing 83.0 ml/min Est GFR ( Amer) 100.2 Est GFR (Non-Af Amer) 86.4 BUN/Creatinine Ratio 22.9 H (10-20) Glucose 89 (70-99) mg/dl Calcium 8.6 (8.5-10.1) mg/dl Magnesium (1.8-2.4) mg/dl Total Bilirubin 0.4 (0.2-1) mg/dl AST 10 L (15-37) U/L ALT 17 (12-78) U/L Alkaline Phosphatase 96 (45-117) U/L Troponin I (0-0.045) ng/ml Total Protein 6.7 (6.4-8.2) gm/dl Albumin 3.4 (3.4-5.0) gm/dl Globulin 3.3 (2.5-4.0) gm/dl Albumin/Globulin Ratio 1.0 (0.9-2) TSH (0.300-4.500) uIu/ml Urine Color Urine Appearance (Clear) Urine pH (4.5-7.5) Ur Specific Champion (1.000-1.030) Urine Protein (Negative) Urine Glucose (UA) (Negative) Urine Ketones (Negative) Urine Blood (Negative) Urine Nitrite (Negative) Urine Bilirubin (Negative) Urine Urobilinogen (Negative) Ur Leukocyte Esterase (Negative) Urine WBC (Auto) (0-5) /hpf Urine RBC (Auto) (0-4) /hpf U Hyaline Cast (Auto) (0-5) /lpf U Epithel Cells (Auto) (0-5) /lpf Urine Bacteria (Auto) (Negative) KAYA Screen Pending Lyme Disease IgG Ab (Negative) Lyme IgG (Western Blot) Pending Lyme IgG 18 kDa Band Pending Lyme IgG 23 kDa Band Pending Lyme IgG 28 kDa Band Pending Lyme IgG 30 kDa Band Pending Lyme IgG 39 kDa Band Pending Lyme IgG 41 kDa Band Pending Lyme IgG 45 kDa Band Pending Lyme IgG 58 kDa Band Pending Lyme IgG 66 kDa Band Pending Lyme IgG 93 kDa Band Pending Lyme IgM Ab (WB) Pending Lyme Disease IgM Ab (Negative) Lyme IgM 23 kDa Band Pending Lyme IgM 39 kDa Band Pending Lyme IgM 41 kDa Band Pending 03/23/20 03/22/20 03/22/20 Range/Units 05:39 17:12 17:12 WBC (4.8-10.8) K/uL RBC (4.2-5.4) M/uL Hgb (12.0-16.0) g/dL Hct (37-47) % MCV (80-100) fL MCH (25-34) pg MCHC (32-36) g/dL RDW Std Deviation (36.4-46.3) fL RDW Coeff of Charley (11.5-14.5) % Plt Count (130-400) K/uL MPV (7.4-10.4) fL Immature Gran % (Auto) % Neut % (Auto) % Lymph % (Auto) % Carolina % (Auto) % Eos % (Auto) % Baso % (Auto) % Neut # (Auto) (1.4-6.5) K/uL Lymph # (Auto) (1.2-3.4) K/uL Carolina # (Auto) (0.11-0.59) K/uL Eos # (Auto) (0-0.5) K/uL Baso # (Auto) (0-0.2) K/uL Immature Gran # (Auto) (0.00-0.02) K/uL RBC Morphology ESR 8 (0-21) mm/hr Sodium (136-145) mmol/L Potassium (3.5-5.1) mmol/L Chloride (98-107) mmol/L Carbon Dioxide (21-32) mmol/L Anion Gap (3-11) BUN (7-18) mg/dl Creatinine (0.6-1.2) mg/dl Est Cr Clr Drug Dosing ml/min Est GFR ( Amer) Est GFR (Non-Af Amer) BUN/Creatinine Ratio (10-20) Glucose (70-99) mg/dl Calcium (8.5-10.1) mg/dl Magnesium (1.8-2.4) mg/dl Total Bilirubin (0.2-1) mg/dl AST (15-37) U/L ALT (12-78) U/L Alkaline Phosphatase (45-117) U/L Troponin I (0-0.045) ng/ml Total Protein (6.4-8.2) gm/dl Albumin (3.4-5.0) gm/dl Globulin (2.5-4.0) gm/dl Albumin/Globulin Ratio (0.9-2) TSH (0.300-4.500) uIu/ml Urine Color Yellow Urine Appearance Clear (Clear) Urine pH 6.5 (4.5-7.5) Ur Specific Champion 1.010 (1.000-1.030) Urine Protein Negative (Negative) Urine Glucose (UA) Negative (Negative) Urine Ketones Negative (Negative) Urine Blood Trace H (Negative) Urine Nitrite Negative (Negative) Urine Bilirubin Negative (Negative) Urine Urobilinogen Negative (Negative) Ur Leukocyte Esterase Negative (Negative) Urine WBC (Auto) 1-5 (0-5) /hpf Urine RBC (Auto) 0-4 (0-4) /hpf U Hyaline Cast (Auto) 0 (0-5) /lpf U Epithel Cells (Auto) 0-5 (0-5) /lpf Urine Bacteria (Auto) 1+ H (Negative) KAYA Screen Lyme Disease IgG Ab Negative (Negative) Lyme IgG (Western Blot) Lyme IgG 18 kDa Band Lyme IgG 23 kDa Band Lyme IgG 28 kDa Band Lyme IgG 30 kDa Band Lyme IgG 39 kDa Band Lyme IgG 41 kDa Band Lyme IgG 45 kDa Band Lyme IgG 58 kDa Band Lyme IgG 66 kDa Band Lyme IgG 93 kDa Band Lyme IgM Ab (WB) Lyme Disease IgM Ab Positive A (Negative) Lyme IgM 23 kDa Band Lyme IgM 39 kDa Band Lyme IgM 41 kDa Band 03/22/20 03/22/20 Range/Units 17:12 17:12 WBC 7.24 (4.8-10.8) K/uL RBC 4.27 (4.2-5.4) M/uL Hgb 13.3 (12.0-16.0) g/dL Hct 40.8 (37-47) % MCV 95.6 (80-100) fL MCH 31.1 (25-34) pg MCHC 32.6 (32-36) g/dL RDW Std Deviation 46.1 (36.4-46.3) fL RDW Coeff of Charley 13.2 (11.5-14.5) % Plt Count 227 (130-400) K/uL MPV 9.7 (7.4-10.4) fL Immature Gran % (Auto) 0.1 % Neut % (Auto) 60.0 % Lymph % (Auto) 29.3 % Carolina % (Auto) 8.3 % Eos % (Auto) 1.9 % Baso % (Auto) 0.4 % Neut # (Auto) 4.34 (1.4-6.5) K/uL Lymph # (Auto) 2.12 (1.2-3.4) K/uL Carolina # (Auto) 0.60 H (0.11-0.59) K/uL Eos # (Auto) 0.14 (0-0.5) K/uL Baso # (Auto) 0.03 (0-0.2) K/uL Immature Gran # (Auto) 0.01 (0.00-0.02) K/uL RBC Morphology Unremarkable ESR (0-21) mm/hr Sodium 144 (136-145) mmol/L Potassium 3.6 (3.5-5.1) mmol/L Chloride 113 H (98-107) mmol/L Carbon Dioxide 27 (21-32) mmol/L Anion Gap 4.0 (3-11) BUN 24 H (7-18) mg/dl Creatinine 0.90 (0.6-1.2) mg/dl Est Cr Clr Drug Dosing 64.8 ml/min Est GFR ( Amer) 77.8 Est GFR (Non-Af Amer) 67.1 BUN/Creatinine Ratio 27.3 H (10-20) Glucose 91 (70-99) mg/dl Calcium 9.0 (8.5-10.1) mg/dl Magnesium 2.3 (1.8-2.4) mg/dl Total Bilirubin 0.3 (0.2-1) mg/dl AST 10 L (15-37) U/L ALT 20 (12-78) U/L Alkaline Phosphatase 122 H (45-117) U/L Troponin I < 0.015 (0-0.045) ng/ml Total Protein 7.7 (6.4-8.2) gm/dl Albumin 3.7 (3.4-5.0) gm/dl Globulin 4.0 (2.5-4.0) gm/dl Albumin/Globulin Ratio 0.9 (0.9-2) TSH 1.320 (0.300-4.500) uIu/ml Urine Color Urine Appearance (Clear) Urine pH (4.5-7.5) Ur Specific Champion (1.000-1.030) Urine Protein (Negative) Urine Glucose (UA) (Negative) Urine Ketones (Negative) Urine Blood (Negative) Urine Nitrite (Negative) Urine Bilirubin (Negative) Urine Urobilinogen (Negative) Ur Leukocyte Esterase (Negative) Urine WBC (Auto) (0-5) /hpf Urine RBC (Auto) (0-4) /hpf U Hyaline Cast (Auto) (0-5) /lpf U Epithel Cells (Auto) (0-5) /lpf Urine Bacteria (Auto) (Negative) KAYA Screen Lyme Disease IgG Ab (Negative) Lyme IgG (Western Blot) Lyme IgG 18 kDa Band Lyme IgG 23 kDa Band Lyme IgG 28 kDa Band Lyme IgG 30 kDa Band Lyme IgG 39 kDa Band Lyme IgG 41 kDa Band Lyme IgG 45 kDa Band Lyme IgG 58 kDa Band Lyme IgG 66 kDa Band Lyme IgG 93 kDa Band Lyme IgM Ab (WB) Lyme Disease IgM Ab (Negative) Lyme IgM 23 kDa Band Lyme IgM 39 kDa Band Lyme IgM 41 kDa Band Diagnostic Findings MRI BRAIN IMPRESSION: 1. No acute intracranial findings. 2. No intracranial mass or pathologic enhancement. 3. Multiple white matter T2 hyperintense foci which favor small vessel disease. MRI Cervical Spine IMPRESSION: 1. Mild degenerative changes as described above. However, no significant central canal narrowing. 2. The cervical spinal cord is normal in course, caliber, and signal intensity. MRI Lumbar Spine IMPRESSION: 1. Mild degenerative disc disease as described above most pronounced at the L5- S1 level where there is mild bilateral neural foraminal narrowing. 2. No significant central canal narrowing. 3. No fracture or subluxation. MRI Thoracic Spine IMPRESSION: 1. Normal thoracic spinal cord. 2. No fracture or subluxation within the thoracic spine. 3. Mild degenerative disc disease without significant central canal or neural foraminal narrowing. 4. 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 Bilateral Carotid Doppler IMPRESSION: No hemodynamically significant stenosis seen within the carotid arteries. PG Care Time/CCT Total # of Minutes Spent Total Time Spent with Patient: Total time spent is greater than 50% in coordination of care (as documented) at patient's floor/unit and/or counseling patient: Prolonged Care Time Prolonged Care Time: Yes Total Prolonged Care Time: 135 Coding Level of Care Code 85496 Subseq Hosp Care Lvl 3 (25 - SIGNIFICANT, SEPARATELY IDENTIFIABLE ) Diagnoses Weakness R53.1 Drop attack R55 Lyme disease A69.20 Syncope R55 Syncope type: unspecified Sarcoidosis D86.9 Spondylosis of cervical region without myelopathy or radiculopathy M47.812 Hypothyroidism E03.9 Hypothyroidism type: acquired Hypercholesterolemia E78.00 Fibromyalgia M79.7 Common migraine without aura G43.009 Asthma with COPD J44.9 Gastro-esophageal reflux disease without esophagitis K21.9 Major depression, recurrent F33.9 Dementia F03.90 Elevated serum alkaline phosphatase level R74.8 DVT prophylaxis Z29.9 Additional Codes Prolonged Care Time - Prolonged Care Time: Yes ([id number]) (1) Hypothyroidism Hypothyroidism type: acquired Qualified Code(s): E03.9 - Hypothyroidism, unspecified (2) Syncope Syncope type: unspecified Qualified Code(s): R55 - Syncope and collapse
--- NOTE | 2020-03-23 13:18 | Magnetic Resonance Report ---
LUMBAR SPINE MRI HISTORY: spinal stenosis, drop attacks TECHNIQUE: Multiplanar multisequence MRI of the lumbar spine was performed without the use of contras t. COMPARISON: Lumbar spine MRI 11/17/2018. FINDINGS: For the purpose of the report the L5-S1 disc space will be located on axial image . No fracture or subluxation within the lumbar spine. Mild disc space narrowing throughout the lumbar s pine, unchanged. This is most pronounced at the L4-5 level. The conus terminates at the L1-L2 disc sp checo level. Paraspinal soft tissues are unremarkable. Subcentimeter T2 hyperintense lesion within the left kidney favors a cyst but is incompletely characterized on this noncontrast study. L1-L2: No significant central canal or neural foraminal narrowing. L2-L3: No significant central canal or neural foraminal narrowing. L3-L4: No significant central canal or neural foraminal narrowing. L4-L5: Small broad-based posterior disc bulge without significant central canal or neural foraminal n arrowing. There is a tiny left paracentral focal annular tear. L5-S1: Small broad-based posterior disc bulge without significant central canal narrowing. There is m ild bilateral neural foraminal narrowing, unchanged. IMPRESSION: 1. Mild degenerative disc disease as described above most pronounced at the L5-S1 level where there i s mild bilateral neural foraminal narrowing. 2. No significant central canal narrowing. 3. No fracture or subluxation. ACT 112: Negative or not required by law. Electronically signed by: Hong Montague M.D. 03/23/2020 1:16 PM
[2020-03-23] MEDS: TRAMADOL HCL 50 MG TABLET PO PRN (14:02)
--- NOTE | 2020-03-23 14:33 | Electrocardiogram Report ---
Test Reason : Blood Pressure : / mmHG Vent. Rate : 072 BPM Atrial Rate : 072 BPM P-R Int : 188 ms QRS Dur : 084 ms QT Int : 420 ms P-R-T Axes : 044 001 029 degrees QTc Int : 459 ms Normal sinus rhythm Normal ECG When compared with ECG of 12-JAN-2020 10:24, No significant change was found Confirmed by James Lowery ([id number]) on 03/23/2020 2:33:10 PM Referred By: REFERRED SELF Confirmed By:James Lowery
[2020-03-23] MEDS: ACETAMINOPHEN 325 MG TAB PO PRN (16:33)
[2020-03-23] MEDS: cefTRIAXone SODIUM 2,000 MG in DEXTROSE 5% 50 ML IV SCH (18:54)
--- NOTE | 2020-03-23 23:37 | Billing Data ---
Date of Service March 23, 2020 Coding Level of Care Code 44695 Initial Inpt Care Lvl 3
[2020-03-24] MEDS: ACETAMINOPHEN 325 MG TAB PO PRN (05:17)
[2020-03-24] MEDS: LEVOTHYROXINE SODIUM 88 MCG TABLET PO SCH (05:18)
[2020-03-24] MEDS: SODIUM CHLORIDE 0.9% 1000ML 1,000 ML IV SCH (05:18)
[2020-03-24 05:50] LABS: Basophils # (auto) 0.02 K/uL (0-0.2); Basophils % (auto) 0.4 %; Eosinophils # (auto) 0.13 K/uL (0-0.5); Eosinophils % (auto) 2.4 %; Hemoglobin 11.9 g/dL (12.0-16.0); Immature Granulocytes # (auto) 0.01 K/uL (0.00-0.02); Immature Granulocytes % (auto) 0.2 %; Lymphocytes # (auto) 1.88 K/uL (1.2-3.4); Mean Corpuscular Hemoglobin 31.4 pg (25-34); Mean Corpuscular Hgb Conc 33.1 g/dL (32-36); Neutrophils # (auto) 2.99 K/uL (1.4-6.5); Platelet Count 168 K/uL (130-400); RDW Coefficient of Variation 13.3 % (11.5-14.5); RDW Standard Deviation 45.9 fL (36.4-46.3); Red Blood Count 3.79 M/uL (4.2-5.4); White Blood Count 5.53 K/uL (4.8-10.8)
[2020-03-24 06:10] LABS: INR 1.1 (0.9-1.1); Partial Thromboplastin Ratio 0.9; Partial Thromboplastin Time 24.8 Seconds (21.0-31.0); Prothrombin Time 11.1 Seconds (9.0-12.0)
[2020-03-24 06:27] LABS: Albumin Level 3.1 gm/dl (3.4-5.0); BUN Creatinine Ratio 20.9 (10-20); Calcium 8.5 mg/dl (8.5-10.1); Creatinine Clr Calc Pharmacy 73.9 ml/min; Est GFR (Non-African American) 75.1; Potassium 3.8 mmol/L (3.5-5.1)
[2020-03-24 06:29] LABS: Bilirubin,Total 0.3 mg/dl (0.2-1); Globulin 3.2 gm/dl (2.5-4.0); Total Protein 6.3 gm/dl (6.4-8.2)
[2020-03-24] MEDS: ASPIRIN 81 MG ECTAB PO SCH (07:56)
[2020-03-24] MEDS: ESCITALOPRAM OXALATE 10 MG TAB PO SCH (07:56)
[2020-03-24] MEDS: MEMANTINE HCL 10 MG TAB PO SCH ×2 (07:56→21:48)
[2020-03-24] MEDS: MELOXICAM 7.5 MG TAB PO SCH (07:57)
[2020-03-24] MEDS: POTASSIUM CITRATE 10 MEQ TAB PO SCH ×3 (07:57→21:44)
[2020-03-24] MEDS: TOPIRAMATE 100 MG TAB PO SCH ×2 (07:57→22:24)
[2020-03-24] MEDS: BuPROPion SR 100 MG TABCR PO SCH (07:58)
[2020-03-24] MEDS: CHOLECALCIFEROL 1,000 UNITS 25 MCG TAB PO SCH (07:58)
[2020-03-24] MEDS: BACLOFEN 10 MG TAB PO SCH ×4 (08:00→21:47)
[2020-03-24] MEDS: FLUTICASONE/VILANTEROL 200/25MCG 14 PUFFS/INHALER INH SCH (08:03)
--- NOTE | 2020-03-24 08:44 | Neurology Progress Note ---
Date of Service March 24, 2020 Assessment & Plan (1) Drop attack: This patient has had a few falls recently with the most recent fall prompting her current hospitalization. She did not sustain any injuries with this recent fall, however and there was no associated loss of consciousness, presyncopal symptoms, or signs or symptoms suggestive of seizure activity. It is possible that her recent falls and feeling of generalized weakness could in part be related to baclofen which she has been taking 4 times per day for generalized musculoskeletal pain. I did recommend reducing the dosage of this medication to 5 mg 4 times per day yesterday. She does report feeling modestly improved this morning. Whether or not this medication adjustment is responsible for improvement thus far cannot really be determined. She does report that she was diagnosed with sarcoidosis by specialist at [place] several years ago although does not recall ever having a biopsy completed. I am not really convinced that she has FLEET DISPATCH MANAGER sarcoid as her brain MRI findings are quite nonspecific and could simply be related to cerebrovascular disease or her history of migraine. I did suggest completion of the lumbar puncture today to include an MS panel as well as testing for FLEET DISPATCH MANAGER Lyme and a CSF ANGIE level. She is also currently receiving ceftriaxone as empiric coverage for possible FLEET DISPATCH MANAGER Lyme disease on the basis of a positive serum IgM. The serum Lyme IgG was negative. Acute Lyme disease is possible. Follow-up with results of Lyme Western blot. Would also consider placement of a PICC line to continue with ceftriaxone after discharge for empiric treatment of possible FLEET DISPATCH MANAGER Lyme disease. Admission and Anticipated Discharge Date Admission Date: March 23, 2020 Subjective Follow-up for weakness/drop attacks The patient continues to complain of a feeling of weakness, especially affecting the legs with some associated muscle soreness, no numbness. She does admit that her weakness has been improving, however and she has been able to stand up out of the bed and walk to the commode with assistance. She continues to deny experiencing significant dizziness. No vertigo, diplopia, or dysarthria. The patient continues to deny experiencing loss of consciousness prior to this most recent hospitalization and denies any loss of consciousness associated with the episode 1 week [place] where [place] She denies a history of recurrent syncope. She denies a history of epilepsy or seizure disorder. She reports that she was diagnosed with sarcoidosis several years ago by a specialist at [place] based on the presence of a thoracic cavity granuloma but does not recall having a biopsy completed. As described previously, she has a history of episodic migraine, generalized musculoskeletal pain/fibromyalgia, and nonspecific cognitive dysfunction for which she has been following with Dr. Loving and is prescribed topiramate, sumatriptan, and baclofen. I did suggest reducing her dosage of baclofen yesterday as this medication may contribute to her feeling of generalized weakness. She did complete the requested complete spinal MRIs including cervical, thoracic, and lumbar spine yesterday. She also completed the requested carotid Doppler. I reviewed the images and radiologist's interpretation of these tests. In summary, there is no evidence of a significant spinal cord lesion or evidence of spinal demyelinating disease. No evidence of significant spinal stenosis. She does have a chronic degenerated L5-S1 disc which results in mild bilateral neural foraminal narrowing but without associated central canal stenosis. The carotid Doppler is unremarkable and reveals antegrade flow for both vertebral arteries and no hemodynamically significant stenosis within either carotid artery. Review of Systems Constitutional: + fatigue Neurologic: as per Subjective / HPI, + gait abnormality and + generalized weakness; no loss of sensation, no tremor(s), no abnormal movements, no seizure- like activity and no syncope Results & Data ([facility]) Vital Signs (Past 12 Hours) Vital Signs Temp Pulse Pulse Resp BP Pulse Ox 03/24/20 08:04 36.8 C 66 17 126/79 95 03/24/20 04:35 36.6 C 71 18 128/79 94 03/24/20 00:39 64 03/23/20 23:07 36.7 C 70 16 134/82 94 03/23/20 20:30 36.8 C 70 16 128/74 94 Laboratory Results Recent labs of note: ESR 8, hemoglobin A1c 5.5, CK 74, TSH 1.320, vitamin B12 level 411, vitamin D level 37.3. Exam (Neuro) Physical Exam: The patient is alert and attentive. She exhibits a normal spontaneous speech pattern. Eye movements are intact. There is no nystagmus. There is no facial droop. Strength is normal for all 4 limbs proximally and distally. There is no foot drop. Patient is able to stand up out of bed on her own. Station normal. Deep tendon reflexes are 2+ for the arms and legs bilaterally. There is no spasticity. There are no tremors or other abnormal movements. Coding Level of Care Code 27875 Subseq Hosp Care Lvl 2 Diagnoses Drop attack R55
[2020-03-24] MEDS: RIZATRIPTAN BENZOATE 10 MG TAB PO PRN ×2 (08:47→11:08)
[2020-03-24] MEDS: HYDROXYCHLOROQUINE SULFATE 200 MG TAB PO SCH ×2 (08:48→22:23)
[2020-03-24] MEDS: PANTOprazole 40 MG TAB PO SCH ×2 (08:48→21:48)
[2020-03-24] MEDS: ONDANSETRON INJ 2 MG/ML 2 ML VIAL IV PRN (08:52)
--- NOTE | 2020-03-24 09:43 | Fluoroscopy Report ---
FLUOROSCOPICALLY GUIDED LUMBAR PUNCTURE CLINICAL HISTORY: possible neurosarcoid vs neurogenic lyme. Dizziness. FLUOROSCOPY TIME: 0.2 minutes. A single fluoroscopic spot image of the lumbar spine submitted. PROCEDURE: The procedure, risks and benefits were discussed with the patient including the risk of s chepe headache, bleeding and infection. The patient agreed to the procedure and informed written cons ent was obtained. The procedure was performed by Dr. Montague following a timeout. The left L4-L5 in terlaminar space was targeted. Skin overlying the space was prepped and draped in the usual sterile f ashion and local anesthesia was achieved with 1% lidocaine. Under intermittent fluoroscopic guidance, a 20-gauge x 4.75 in. Sprotte needle was inserted into the thecal sac. A total of 10 cc of clear, co lorless cerebral spinal fluid was obtained and spread amongst 4 vials. The patient tolerated the proc edure well. There were no immediate complications. The specimens were sent to the laboratory at the r equest of the referring physician. IMPRESSION: Successful fluoroscopic guided lumbar puncture with removal of 10 cc of clear, colorless cerebral spinal fluid. No immediate complications. ACT 112: Negative or not required by law. Electronically signed by: Hong Montague M.D. 03/24/2020 9:42 AM
[2020-03-24 10:08] LABS: CSF Glucose 61 mg/dl (40-70)
[2020-03-24 10:12] LABS: Appearance CSF Clear; CSF Count Tube # 3; CSF Xanthrochromic No xanthochromia; Color CSF Colorless; Red Blood Cell CSF (A) 0 /uL (0-); Red Blood Cell CSF (B) 0 /uL (0-); White Blood Cell CSF (A) 2 /uL (0-5); White Blood Cell CSF (B) 0 /uL (0-5)
--- NOTE | 2020-03-24 10:42 | Hospitalist Progress Note ---
Date of Service March 24, 2020 Assessment & Plan (1) Weakness: * 65 yo F w/ PMH neuropathy, sarcoidosis, JADEN, hypothyroidism, fibromyalgia, depression, migraine without aura, asthma admitted for multiple syncopal events and bilateral weakness. UA negative for infection. TSH wnl. Trop <0.015 * Neurology consulted -- appreciate assistance Rec for possibly reducing dosage of baclofen to 5mg QID vs 10mg QID [employer] [employer]ER * CT Head negative for acute process --> MRI with multiple white matter T2 hyperintense foci, favoring small vessel disease For concerns of MS, Cervical/Lumbar/Thoracic spine MRI were completed -- discussed with Dr. Jones who does not believe findings to be very suggestive of MS * US Carotids negative for any significant stenosis * Discussed with him concerns for possible lyme as cause or neuro sarcoid given history Initially ordered Doxy IV AM 03/23 for positive lyme, but given concern for neurologic disease, will change to Rocephin 2gm IV Discussed with patient and son Liam on phone regarding LP in AM to further investigate CSF for lyme Ab's/PCR as well as ANGIE level and MS panel for completeness, although sarcoid unlikely given imaging Spoke with Dr. Montague from radiology. Coag labs prior to procedure * PT/OT evaluations -- please continue while inpatient --> recommending possible acute rehab s/p LP this morning with radiology -- Clear, colorless. WBC 2, RBC 0, Glucose 61, Total protein 32.9 -- Pending CSF testing for MS, ANGIE, Lyme Per neurology, would consider PICC line with continuation of ceftriaxone after discharge to empirically treat for SLOT TAG INSERTER lyme -- I discussed this with CM. Will continue discussion with patient tomorrow (2) Drop attack: * Unclear if LOC or syncope given patients history * See above -- does have history of sensory polyneuropathy (3) Lyme disease: * IgM positive, IgG negative * Initially ordered doxy as above and switched to Rocephin for neurological disease (4) Syncope: * Unclear if drop attack vs syncope. See above. US carotids negative (5) Sarcoidosis: * Follows with [facility] --> most recently seen Oct [address] Piper. Lung and/or thoracic lymph node involvement per most recent note. CT Chest was free of infiltrates and PFTs without progressive changes and off all prednisone * Continue plaquenil 200 mg PO BID * Concerns for possible neuro sarcoid (although unlikely per neuro given imaging) --> ANGIE level to be added to CSF from LP 03/24 * Continue home inhalers (6) Spondylosis of cervical region without myelopathy or radiculopathy: * Noted on imaging (7) Hypothyroidism: * Chronic. * TSH 1.320 * Continue home levothyroxine 88mcg (8) Hypercholesterolemia: * Chronic. Continue home simvastatin 40mg. 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 Stable * Patient on omeprazole 40 mg BID as outpatient --> will be placed on protonix 40mg PO BID while inpatient (13) Major depression, recurrent: * Chronic. * Continue home Bupropion 200 mg, Escitalopram 10mg, Lamictal 300mg PO HS (14) Dementia: * Follows with Dr. Loving * Continue home memantine 10 mg PO BID (15) Elevated serum alkaline phosphatase level: * Alk phos elevated slightly at 122 on admission, now wnl (16) Headache: * hx migraines. * possibly related to rexulti 2mg PO HS -- non-formulary and did not receive since admission --> friend brought in to be given tonight (17) DVT prophylaxis: * Ordered SCDs * Chemoprophylaxis deferred for LP in AM Dispo: possible discharge tomorrow -- need to discuss PICC/IV abx, possible acute rehab Admission and Anticipated Discharge Date Admission Date: March 23, 2020 Supervising Physician Co-Signing Physician Notes PA Supervision Note: I did not personally see or examine the patient today, but I verified all meade points of GISEL Tipton's assessment and plan with the following exceptions/additions: None Subjective Patient evaluated this morning following LP. She states she has pain in her back from lying flat typically but that it is worse today. She has a mild headache, located throughout. History of migraines and requesting medication at this time. Admits to some nausea and mild improvement with zofran. Weakness minimally improved but difficult to say given currently having to lie flat. Denies visual changes, fevers, chills, chest pain, shortness of breath, dysuria at this time. Upon revisiting room, nausea much improved. Patient currently on bedpan. Continuing to treat with IV rocephin for possible neuro-lyme. Patient states son tyler not available until after 7 and that he should be available tomorrow. Per nursing, patient with headache later in afternoon requesting imitrex. Patient previously on rexulti but had not had it since admission. Friend bringing in tonight for use. Review of Systems Review of Systems: All systems reviewed & are unremarkable except as noted in HPI & below Physical Exam Constitutional: WD/WN, vitals as above no acute distress and + uncomfortable ENMT: Ears: no hearing impairment Neck: trachea midline, no thyromegaly negative Kernig's sign Respiratory: normal respiratory effort; no respiratory distress and no labored breathing Auscultation: + diminished lung sounds and + crackles (fine); no rhonchi and no wheezes Cardiovascular: RRR, no murmur, no edema Gastrointestinal (Abdomen): normal bowel sounds, soft, nontender, no hepatosplenomegaly Musculoskeletal: Head/Neck/Chest: normocephalic and head atraumatic 5/5 throughout although unable to test all areas given patient s/p LP and lying flat Skin: no rashes, warm and dry Neurologic: patellar DTR's 2+ bilat, sensation intact Psychiatric: Orientation: alert, oriented to person, oriented to place and oriented to time Lymphatic: no cervical or axillary lymphadenopathy Results & Data Results & Data ([facility]) Vital Signs (Past 12 Hours) Vital Signs Temp Pulse Pulse Resp BP Pulse Ox 03/24/20 08:04 36.8 C 66 17 126/79 95 03/24/20 04:35 36.6 C 71 18 128/79 94 03/24/20 00:39 64 03/23/20 23:07 36.7 C 70 16 134/82 94 Laboratory Results 03/24/20 03/24/20 03/24/20 Range/Units 11:20 09:28 09:28 WBC (4.8-10.8) K/uL RBC (4.2-5.4) M/uL Hgb (12.0-16.0) g/dL Hct (37-47) % MCV (80-100) fL MCH (25-34) pg MCHC (32-36) g/dL RDW Std Deviation (36.4-46.3) fL RDW Coeff of Charley (11.5-14.5) % Plt Count (130-400) K/uL MPV (7.4-10.4) fL Immature Gran % (Auto) % Neut % (Auto) % Lymph % (Auto) % [place] % (Auto) % Eos % (Auto) % Baso % (Auto) % Neut # (Auto) (1.4-6.5) K/uL Lymph # (Auto) (1.2-3.4) K/uL [place] # (Auto) (0.11-0.59) K/uL Eos # (Auto) (0-0.5) K/uL Baso # (Auto) (0-0.2) K/uL Immature Gran # (Auto) (0.00-0.02) K/uL PT (9.0-12.0) Seconds INR (0.9-1.1) APTT (21.0-31.0) Seconds PTT Ratio Sodium (136-145) mmol/L Potassium (3.5-5.1) mmol/L Chloride (98-107) mmol/L Carbon Dioxide (21-32) mmol/L Anion Gap (3-11) BUN (7-18) mg/dl Creatinine (0.6-1.2) mg/dl Est Cr Clr Drug Dosing ml/min Est GFR ( Amer) Est GFR (Non-Af Amer) BUN/Creatinine Ratio (10-20) Glucose (70-99) mg/dl Calcium (8.5-10.1) mg/dl Total Bilirubin (0.2-1) mg/dl AST (15-37) U/L ALT (12-78) U/L Alkaline Phosphatase (45-117) U/L Total Creatine Kinase (26-192) U/L Total Protein (6.4-8.2) gm/dl Albumin (3.4-5.0) gm/dl Globulin (2.5-4.0) gm/dl Albumin/Globulin Ratio (0.9-2) Fld Lyme DNA (PCR) Pending CSF Appearance CSF Color Xanthrochromic CSF WBC (0-5) /uL CSF RBC (0-) /uL CSF Cell Count Tube # CSF Mononuclear WBCs % % CSF Chemistry Tube # CSF Glucose (40-70) mg/dl CSF Total Protein 32.9 (15-45) mg/dl CSF Albumin Pending CSF IgG Pending CSF IgG Index Pending CSF IgG Synthesis Rate Pending CSF Myelin Basic Protein Pending CSF IgG Oligoclonal Bnd Pending CSF Lyme IgG (Immblot) Pending Cancelled CSF Lyme IgG Bands Det Pending Cancelled CSF Lyme IgM (Immblot) Pending Cancelled CSF Lyme IgM Bands Det Pending Cancelled IgG Pending Albumin (MARVIN) Pending KAYA Screen (NEGATIVE) Lyme Specimen Source Pending Lyme IgG (Western Blot) (NEGATIVE) Lyme IgG 18 kDa Band Lyme IgG 23 kDa Band Lyme IgG 28 kDa Band Lyme IgG 30 kDa Band Lyme IgG 39 kDa Band Lyme IgG 41 kDa Band Lyme IgG 45 kDa Band Lyme IgG 58 kDa Band Lyme IgG 66 kDa Band Lyme IgG 93 kDa Band Lyme IgM Ab (WB) (NEGATIVE) Lyme IgM 23 kDa Band Lyme IgM 39 kDa Band Lyme IgM 41 kDa Band Miscellaneous Test 2 03/24/20 03/24/20 03/24/20 Range/Units 09:28 09:28 09:28 WBC (4.8-10.8) K/uL RBC (4.2-5.4) M/uL Hgb (12.0-16.0) g/dL Hct (37-47) % MCV (80-100) fL MCH (25-34) pg MCHC (32-36) g/dL RDW Std Deviation (36.4-46.3) fL RDW Coeff of Charley (11.5-14.5) % Plt Count (130-400) K/uL MPV (7.4-10.4) fL Immature Gran % (Auto) % Neut % (Auto) % Lymph % (Auto) % [place] % (Auto) % Eos % (Auto) % Baso % (Auto) % Neut # (Auto) (1.4-6.5) K/uL Lymph # (Auto) (1.2-3.4) K/uL [place] # (Auto) (0.11-0.59) K/uL Eos # (Auto) (0-0.5) K/uL Baso # (Auto) (0-0.2) K/uL Immature Gran # (Auto) (0.00-0.02) K/uL PT (9.0-12.0) Seconds INR (0.9-1.1) APTT (21.0-31.0) Seconds PTT Ratio Sodium (136-145) mmol/L Potassium (3.5-5.1) mmol/L Chloride (98-107) mmol/L Carbon Dioxide (21-32) mmol/L Anion Gap (3-11) BUN (7-18) mg/dl Creatinine (0.6-1.2) mg/dl Est Cr Clr Drug Dosing ml/min Est GFR ( Amer) Est GFR (Non-Af Amer) BUN/Creatinine Ratio (10-20) Glucose (70-99) mg/dl Calcium (8.5-10.1) mg/dl Total Bilirubin (0.2-1) mg/dl AST (15-37) U/L ALT (12-78) U/L Alkaline Phosphatase (45-117) U/L Total Creatine Kinase (26-192) U/L Total Protein (6.4-8.2) gm/dl Albumin (3.4-5.0) gm/dl Globulin (2.5-4.0) gm/dl Albumin/Globulin Ratio (0.9-2) Fld Lyme DNA (PCR) CSF Appearance Clear CSF Color Colorless Xanthrochromic No xanthochromia CSF WBC 2 (0-5) /uL CSF RBC 0 (0-) /uL CSF Cell Count Tube # 3 CSF Mononuclear WBCs % % CSF Chemistry Tube # 1 CSF Glucose 61 (40-70) mg/dl CSF Total Protein (15-45) mg/dl CSF Albumin CSF IgG CSF IgG Index CSF IgG Synthesis Rate CSF Myelin Basic Protein CSF IgG Oligoclonal Bnd CSF Lyme IgG (Immblot) CSF Lyme IgG Bands Det CSF Lyme IgM (Immblot) CSF Lyme IgM Bands Det IgG Albumin (MARVIN) KAYA Screen (NEGATIVE) Lyme Specimen Source Lyme IgG (Western Blot) (NEGATIVE) Lyme IgG 18 kDa Band Lyme IgG 23 kDa Band Lyme IgG 28 kDa Band Lyme IgG 30 kDa Band Lyme IgG 39 kDa Band Lyme IgG 41 kDa Band Lyme IgG 45 kDa Band Lyme IgG 58 kDa Band Lyme IgG 66 kDa Band Lyme IgG 93 kDa Band Lyme IgM Ab (WB) (NEGATIVE) Lyme IgM 23 kDa Band Lyme IgM 39 kDa Band Lyme IgM 41 kDa Band Miscellaneous Test 2 Pending 03/24/20 03/24/20 03/24/20 Range/Units 05:30 05:30 05:30 WBC 5.53 (4.8-10.8) K/uL RBC 3.79 L (4.2-5.4) M/uL Hgb 11.9 L (12.0-16.0) g/dL Hct 36.0 L (37-47) % MCV 95.0 (80-100) fL MCH 31.4 (25-34) pg MCHC 33.1 (32-36) g/dL RDW Std Deviation 45.9 (36.4-46.3) fL RDW Coeff of Charley 13.3 (11.5-14.5) % Plt Count 168 (130-400) K/uL MPV 10.0 (7.4-10.4) fL Immature Gran % (Auto) 0.2 % Neut % (Auto) 54.0 % Lymph % (Auto) 34.0 % [place] % (Auto) 9.0 % Eos % (Auto) 2.4 % Baso % (Auto) 0.4 % Neut # (Auto) 2.99 (1.4-6.5) K/uL Lymph # (Auto) 1.88 (1.2-3.4) K/uL [place] # (Auto) 0.50 (0.11-0.59) K/uL Eos # (Auto) 0.13 (0-0.5) K/uL Baso # (Auto) 0.02 (0-0.2) K/uL Immature Gran # (Auto) 0.01 (0.00-0.02) K/uL PT 11.1 (9.0-12.0) Seconds INR 1.1 (0.9-1.1) APTT 24.8 (21.0-31.0) Seconds PTT Ratio 0.9 Sodium 144 (136-145) mmol/L Potassium 3.8 (3.5-5.1) mmol/L Chloride 119 H (98-107) mmol/L Carbon Dioxide 22 (21-32) mmol/L Anion Gap 3.0 (3-11) BUN 17 (7-18) mg/dl Creatinine 0.82 (0.6-1.2) mg/dl Est Cr Clr Drug Dosing 73.9 ml/min Est GFR ( Amer) 87.0 Est GFR (Non-Af Amer) 75.1 BUN/Creatinine Ratio 20.9 H (10-20) Glucose 98 (70-99) mg/dl Calcium 8.5 (8.5-10.1) mg/dl Total Bilirubin 0.3 (0.2-1) mg/dl AST 9 L (15-37) U/L ALT 15 (12-78) U/L Alkaline Phosphatase 91 (45-117) U/L Total Creatine Kinase 74 (26-192) U/L Total Protein 6.3 L (6.4-8.2) gm/dl Albumin 3.1 L (3.4-5.0) gm/dl Globulin 3.2 (2.5-4.0) gm/dl Albumin/Globulin Ratio 1.0 (0.9-2) Fld Lyme DNA (PCR) CSF Appearance CSF Color Xanthrochromic CSF WBC (0-5) /uL CSF RBC (0-) /uL CSF Cell Count Tube # CSF Mononuclear WBCs % % CSF Chemistry Tube # CSF Glucose (40-70) mg/dl CSF Total Protein (15-45) mg/dl CSF Albumin CSF IgG CSF IgG Index CSF IgG Synthesis Rate CSF Myelin Basic Protein CSF IgG Oligoclonal Bnd CSF Lyme IgG (Immblot) CSF Lyme IgG Bands Det CSF Lyme IgM (Immblot) CSF Lyme IgM Bands Det IgG Albumin (MARVIN) KAYA Screen (NEGATIVE) Lyme Specimen Source Lyme IgG (Western Blot) (NEGATIVE) Lyme IgG 18 kDa Band Lyme IgG 23 kDa Band Lyme IgG 28 kDa Band Lyme IgG 30 kDa Band Lyme IgG 39 kDa Band Lyme IgG 41 kDa Band Lyme IgG 45 kDa Band Lyme IgG 58 kDa Band Lyme IgG 66 kDa Band Lyme IgG 93 kDa Band Lyme IgM Ab (WB) (NEGATIVE) Lyme IgM 23 kDa Band Lyme IgM 39 kDa Band Lyme IgM 41 kDa Band Miscellaneous Test 2 03/23/20 03/23/20 Range/Units 05:39 05:39 WBC (4.8-10.8) K/uL RBC (4.2-5.4) M/uL Hgb (12.0-16.0) g/dL Hct (37-47) % MCV (80-100) fL MCH (25-34) pg MCHC (32-36) g/dL RDW Std Deviation (36.4-46.3) fL RDW Coeff of Charley (11.5-14.5) % Plt Count (130-400) K/uL MPV (7.4-10.4) fL Immature Gran % (Auto) % Neut % (Auto) % Lymph % (Auto) % [place] % (Auto) % Eos % (Auto) % Baso % (Auto) % Neut # (Auto) (1.4-6.5) K/uL Lymph # (Auto) (1.2-3.4) K/uL [place] # (Auto) (0.11-0.59) K/uL Eos # (Auto) (0-0.5) K/uL Baso # (Auto) (0-0.2) K/uL Immature Gran # (Auto) (0.00-0.02) K/uL PT (9.0-12.0) Seconds INR (0.9-1.1) APTT (21.0-31.0) Seconds PTT Ratio Sodium (136-145) mmol/L Potassium (3.5-5.1) mmol/L Chloride (98-107) mmol/L Carbon Dioxide (21-32) mmol/L Anion Gap (3-11) BUN (7-18) mg/dl Creatinine (0.6-1.2) mg/dl Est Cr Clr Drug Dosing ml/min Est GFR ( Amer) Est GFR (Non-Af Amer) BUN/Creatinine Ratio (10-20) Glucose (70-99) mg/dl Calcium (8.5-10.1) mg/dl Total Bilirubin (0.2-1) mg/dl AST (15-37) U/L ALT (12-78) U/L Alkaline Phosphatase (45-117) U/L Total Creatine Kinase (26-192) U/L Total Protein (6.4-8.2) gm/dl Albumin (3.4-5.0) gm/dl Globulin (2.5-4.0) gm/dl Albumin/Globulin Ratio (0.9-2) Fld Lyme DNA (PCR) CSF Appearance CSF Color Xanthrochromic CSF WBC (0-5) /uL CSF RBC (0-) /uL CSF Cell Count Tube # CSF Mononuclear WBCs % % CSF Chemistry Tube # CSF Glucose (40-70) mg/dl CSF Total Protein (15-45) mg/dl CSF Albumin CSF IgG CSF IgG Index CSF IgG Synthesis Rate CSF Myelin Basic Protein CSF IgG Oligoclonal Bnd CSF Lyme IgG (Immblot) CSF Lyme IgG Bands Det CSF Lyme IgM (Immblot) CSF Lyme IgM Bands Det IgG Albumin (MARVIN) KAYA Screen NEGATIVE (NEGATIVE) Lyme Specimen Source Lyme IgG (Western Blot) NEGATIVE (NEGATIVE) Lyme IgG 18 kDa Band NON-REACTIVE Lyme IgG 23 kDa Band NON-REACTIVE Lyme IgG 28 kDa Band NON-REACTIVE Lyme IgG 30 kDa Band NON-REACTIVE Lyme IgG 39 kDa Band NON-REACTIVE Lyme IgG 41 kDa Band NON-REACTIVE Lyme IgG 45 kDa Band NON-REACTIVE Lyme IgG 58 kDa Band NON-REACTIVE Lyme IgG 66 kDa Band NON-REACTIVE Lyme IgG 93 kDa Band NON-REACTIVE Lyme IgM Ab (WB) NEGATIVE (NEGATIVE) Lyme IgM 23 kDa Band REACTIVE A Lyme IgM 39 kDa Band NON-REACTIVE Lyme IgM 41 kDa Band NON-REACTIVE Miscellaneous Test 2 Diagnostic Findings FLUOROSCOPICALLY GUIDED LUMBAR PUNCTURE IMPRESSION: Successful fluoroscopic guided lumbar puncture with removal of 10 cc of clear, colorless cerebral spinal fluid. No immediate complications. PG Care Time/CCT Total # of Minutes Spent Total Time Spent with Patient: Total time spent is greater than 50% in coordination of care (as documented) at patient's floor/unit and/or counseling patient: Coding Level of Care Code 34967 Subseq Hosp Care Lvl 3 Diagnoses Weakness R53.1 Drop attack R55 Lyme disease A69.20 Syncope R55 Syncope type: unspecified Sarcoidosis D86.9 Spondylosis of cervical region without myelopathy or radiculopathy M47.812 Hypothyroidism E03.9 Hypothyroidism type: acquired Hypercholesterolemia E78.00 Fibromyalgia M79.7 Common migraine without aura G43.009 Asthma with COPD J44.9 Gastro-esophageal reflux disease without esophagitis K21.9 Major depression, recurrent F33.9 Dementia F03.90 Elevated serum alkaline phosphatase level R74.8 Headache R51 DVT prophylaxis Z29.9 (1) Hypothyroidism Hypothyroidism type: acquired Qualified Code(s): E03.9 - Hypothyroidism, unspecified (2) Syncope Syncope type: unspecified Qualified Code(s): R55 - Syncope and collapse
[2020-03-24] MEDS: LORazepam 1 MG TAB PO PRN (11:07)
[2020-03-24 11:24] LABS: Anti Nuclear Antibody Screen NEGATIVE (NEGATIVE)
[2020-03-24 12:43] LABS: CSF Chemistry Tube # 1
[2020-03-24] MEDS: TRAMADOL HCL 50 MG TABLET PO PRN (12:57)
[2020-03-24 16:39] LABS: 18KDIGG Band NON-REACTIVE; 23KDIGG Band NON-REACTIVE; 23KDIGM Band REACTIVE; 28KDIGG Band NON-REACTIVE; 30KDIGG Band NON-REACTIVE; 39KDIGG Band NON-REACTIVE; 39KDIGM Band NON-REACTIVE; 41KDIGG Band NON-REACTIVE; 41KDIGM Band NON-REACTIVE; 45KDIGG Band NON-REACTIVE; 58KDIGG Band NON-REACTIVE; 66KDIGG Band NON-REACTIVE; 93KDIGG Band NON-REACTIVE; Lyme Antibodies, WB IgG NEGATIVE (NEGATIVE); Lyme Antibodies, WB IgM NEGATIVE (NEGATIVE)
[2020-03-24] MEDS: POLYETHYLENE (MIRALAX) 17 GM PACK PO PRN (17:55)
[2020-03-24] MEDS: cefTRIAXone SODIUM 2,000 MG in DEXTROSE 5% 50 ML IV SCH (18:11)
[2020-03-24] MEDS ORDERED: BREXPIPRAZOLE PO SCH (21:00)
[2020-03-24] MEDS: lamoTRIgine 100 MG TAB PO SCH (21:48)
[2020-03-24] MEDS: MONTELUKAST SODIUM 10 MG TABLET PO SCH (21:48)
[2020-03-24] MEDS: SIMVASTATIN 40 MG TAB PO SCH (21:48)
[2020-03-24] MEDS: TRAZODONE HCL 100 MG TAB PO SCH (21:48)
[2020-03-24] MEDS: BREXPIPRAZOLE PO SCH (22:24)
[2020-03-25] MEDS: ACETAMINOPHEN 325 MG TAB PO PRN (00:01)
[2020-03-25] MEDS: TRAMADOL HCL 50 MG TABLET PO PRN (02:33)
[2020-03-25] MEDS: LEVOTHYROXINE SODIUM 88 MCG TABLET PO SCH (05:50)
[2020-03-25 06:31] LABS: Hematocrit (blood only) 40.1 % (37-47); Hemoglobin 12.6 g/dL (12.0-16.0); Mean Corpuscular Hemoglobin 30.4 pg (25-34); Mean Corpuscular Hgb Conc 31.4 g/dL (32-36); Mean Corpuscular Volume 96.9 fL (80-100); Mean Platelet Volume 9.9 fL (7.4-10.4); Platelet Count 199 K/uL (130-400); RDW Coefficient of Variation 13.2 % (11.5-14.5); RDW Standard Deviation 46.3 fL (36.4-46.3); Red Blood Count 4.14 M/uL (4.2-5.4); White Blood Count 6.09 K/uL (4.8-10.8)
[2020-03-25 07:04] LABS: Calcium 8.9 mg/dl (8.5-10.1); Creatinine Clr Calc Pharmacy 59.8 ml/min; Est GFR (Non-African American) 61.3; Potassium 3.8 mmol/L (3.5-5.1)
[2020-03-25] MEDS: FLUTICASONE/VILANTEROL 200/25MCG 14 PUFFS/INHALER INH SCH (08:41)
[2020-03-25] MEDS: POTASSIUM CITRATE 10 MEQ TAB PO SCH ×3 (08:41→20:47)
[2020-03-25] MEDS: BuPROPion SR 100 MG TABCR PO SCH (08:42)
[2020-03-25] MEDS: PANTOprazole 40 MG TAB PO SCH ×2 (08:42→20:44)
[2020-03-25] MEDS: ASPIRIN 81 MG ECTAB PO SCH (08:42)
[2020-03-25] MEDS: MELOXICAM 7.5 MG TAB PO SCH (08:42)
[2020-03-25] MEDS: BACLOFEN 10 MG TAB PO SCH ×4 (08:42→20:40)
[2020-03-25] MEDS: TOPIRAMATE 100 MG TAB PO SCH ×2 (08:42→20:46)
[2020-03-25] MEDS: MEMANTINE HCL 10 MG TAB PO SCH ×2 (08:42→20:41)
[2020-03-25] MEDS: ESCITALOPRAM OXALATE 10 MG TAB PO SCH (08:42)
[2020-03-25] MEDS: CHOLECALCIFEROL 1,000 UNITS 25 MCG TAB PO SCH (08:42)
[2020-03-25] MEDS: HYDROXYCHLOROQUINE SULFATE 200 MG TAB PO SCH ×2 (08:46→20:54)
--- NOTE | 2020-03-25 10:04 | Hospitalist Progress Note ---
Date of Service March 25, 2020 Assessment & Plan (1) Weakness: * 65 yo F w/ PMH neuropathy, sarcoidosis, JADEN, hypothyroidism, fibromyalgia, depression, migraine without aura, asthma admitted for multiple syncopal events and bilateral weakness. UA negative for infection. TSH wnl. Trop <0.015 * Neurology consulted -- appreciate assistance. 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 Jones who does not believe findings to be very suggestive of MS * US Carotids negative for any significant stenosis * Discussed with him concerns for possible lyme as cause or neuro sarcoid given history s/p LP on 03/24 * CSF Clear, colorless. WBC 2, RBC 0, Glucose 61, Total protein 32.9 * Pending CSF testing for MS, ANGIE, Lyme * Initially ordered Doxy IV AM 03/23 for positive lyme, but given concern for neurologic disease, changed to Rocephin 2gm IV --> although WB technically negative, CSF lyme still not back --> will continue IV Rocephin for now and transition to DOxy PO at discharge if negative PT/OT -- continue while inpatient (2) Drop attack: * Unclear if LOC or syncope given patients history * See above -- does have history of sensory polyneuropathy --> will need outpatient follow up with her Neurologist, Dr. Loving (3) Lyme disease: * IgM positive, IgG negative however only band 23 positive on WB * Initially ordered doxy as above and switched to Rocephin for neurological disease. See above (4) Syncope: * Unclear if drop attack vs syncope. See above. US carotids negative (5) Sarcoidosis: * Follows with [facility] --> most recently seen Oct [address] Piper. Lung and/or thoracic lymph node involvement per most recent note. CT Chest was free of infiltrates and PFTs without progressive changes and off all prednisone * Continue plaquenil 200 mg PO BID * Concerns for possible neuro sarcoid (although unlikely per neuro given imaging) --> ANGIE level to be added to CSF from LP 03/24 * Continue home inhalers (6) Spondylosis of cervical region without myelopathy or radiculopathy: * Noted on imaging (7) Hypothyroidism: * Chronic. * TSH 1.320 * Continue home levothyroxine 88mcg (8) Hypercholesterolemia: * Chronic. Continue home simvastatin 40mg. CK 74 (9) Fibromyalgia: * Chronic * Continue home tramadol 50 mg PO TID PRN, baclofen 10 mg PO QID --> decreased baclofen per neurology to 5mg PO QID. 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 Stable * Patient on omeprazole 40 mg BID as outpatient --> on protonix 40mg PO BID while inpatient (13) Major depression, recurrent: * Chronic. * Continue home Bupropion 200 mg, Escitalopram 10mg, Lamictal 300mg PO HS (14) Dementia: * Follows with Dr. Loving * Continue home memantine 10 mg PO BID (15) Elevated serum alkaline phosphatase level: * Alk phos elevated slightly at 122 on admission, now wnl (16) Headache: * hx migraines. * possibly related to rexulti 2mg PO HS -- non-formulary and did not receive since admission --> friend brought in to be given tonight * IMPROVED -- no longer with "migraine", but dull headache (17) DVT prophylaxis: * Ordered SCDs * Chemoprophylaxis deferred in setting of recent LP Dispo: possible discharge home with home PT and PO Doxy pending CSF results Admission and Anticipated Discharge Date Admission Date: March 23, 2020 Supervising Physician Co-Signing Physician Notes GISEL Supervision Note: I did not personally see or examine the patient today, but I verified all meade points of GISEL Tipton's assessment and plan with the following exceptions/additions: None Subjective Patient evaluated this morning. No further migraine. Mild headache tolerable with PO medications but would like extra dose of baclofen if possible. Feeling much better today. Requesting to have activity upgraded so that she can get up out of bed by herself. Comfortable with walker and states she has one at home. (Although per CM she did not have rolling walker and rx provided). Discussed findings of blood lyme test and that we may be able to discharge her on oral antibiotics but we will wait for final testing from CSF. Patient requested something for BM and would like to have heart monitor discontinued if possible. Discussed that her heart rate had been 60-70s on monitor in a normal rhythm and that we will discontinue at this time. Patient would like to return home and resume PT through [facility]" which she had previously been set up with. She feels hopeful that she will feel ready for discharge tomorrow. Denies fevers, chills, chest pain, shortness of breath, abdominal pain, n/v at this time. Review of Systems Review of Systems: All systems reviewed & are unremarkable except as noted in HPI & below Physical Exam Constitutional: WD/WN, vitals as above comfortable; no acute distress ENMT: Ears: no hearing impairment Neck: trachea midline, no thyromegaly negative Brudzinski's sign and negative Kernig's sign Respiratory: normal respiratory effort; no respiratory distress and no labored breathing Auscultation: + diminished lung sounds and + crackles (fine); no rhonchi and no wheezes Cardiovascular: RRR, no murmur, no edema Gastrointestinal (Abdomen): normal bowel sounds, soft, nontender, no hepatosplenomegaly Musculoskeletal: Head/Neck/Chest: normocephalic and head atraumatic Skin: no rashes, warm and dry Neurologic: patellar DTR's 2+ bilat, sensation intact Psychiatric: Orientation: alert, oriented to person, oriented to place and oriented to time Lymphatic: no cervical or axillary lymphadenopathy Results & Data Results & [facility] ([facility]) Vital Signs (Past 12 Hours) Vital Signs Temp Pulse Pulse Resp BP Pulse Ox 03/25/20 09:15 62 03/25/20 07:30 36.5 C 69 17 111/74 95 03/25/20 07:13 62 03/25/20 04:40 70 03/25/20 03:39 36.6 C 68 18 102/68 94 03/24/20 23:43 36.9 C 65 20 113/76 92 Laboratory Results 03/25/20 03/25/20 03/24/20 Range/Units 05:41 05:41 11:20 WBC 6.09 (4.8-10.8) K/uL RBC 4.14 L (4.2-5.4) M/uL Hgb 12.6 (12.0-16.0) g/dL Hct 40.1 (37-47) % MCV 96.9 (80-100) fL MCH 30.4 (25-34) pg MCHC 31.4 L (32-36) g/dL RDW Std Deviation 46.3 (36.4-46.3) fL RDW Coeff of Charley 13.2 (11.5-14.5) % Plt Count 199 (130-400) K/uL MPV 9.9 (7.4-10.4) fL Sodium 144 (136-145) mmol/L Potassium 3.8 (3.5-5.1) mmol/L Chloride 114 H (98-107) mmol/L Carbon Dioxide 28 (21-32) mmol/L Anion Gap 2.0 L (3-11) BUN 19 H (7-18) mg/dl Creatinine 0.97 (0.6-1.2) mg/dl Est Cr Clr Drug Dosing 59.8 ml/min Est GFR ( Amer) 71.0 Est GFR (Non-Af Amer) 61.3 BUN/Creatinine Ratio 20.0 (10-20) Glucose 96 (70-99) mg/dl Calcium 8.9 (8.5-10.1) mg/dl Fld Lyme DNA (PCR) Pending CSF Appearance CSF Color Xanthrochromic CSF WBC (0-5) /uL CSF RBC (0-) /uL CSF Cell Count Tube # CSF Mononuclear WBCs % % CSF Chemistry Tube # CSF Glucose (40-70) mg/dl CSF Total Protein (15-45) mg/dl CSF Albumin Pending CSF IgG Pending CSF IgG Index Pending CSF IgG Synthesis Rate Pending CSF Myelin Basic Protein Pending CSF IgG Oligoclonal Bnd Pending CSF Lyme IgG (Immblot) Pending CSF Lyme IgG Bands Det Pending CSF Lyme IgM (Immblot) Pending CSF Lyme IgM Bands Det Pending IgG Pending Albumin (MARVIN) Pending KAYA Screen (NEGATIVE) Lyme Specimen Source Pending Lyme IgG (Western Blot) (NEGATIVE) Lyme IgG 18 kDa Band Lyme IgG 23 kDa Band Lyme IgG 28 kDa Band Lyme IgG 30 kDa Band Lyme IgG 39 kDa Band Lyme IgG 41 kDa Band Lyme IgG 45 kDa Band Lyme IgG 58 kDa Band Lyme IgG 66 kDa Band Lyme IgG 93 kDa Band Lyme IgM Ab (WB) (NEGATIVE) Lyme IgM 23 kDa Band Lyme IgM 39 kDa Band Lyme IgM 41 kDa Band 03/24/20 03/24/20 03/24/20 Range/Units 09:28 09:28 09:28 WBC (4.8-10.8) K/uL RBC (4.2-5.4) M/uL Hgb (12.0-16.0) g/dL Hct (37-47) % MCV (80-100) fL MCH (25-34) pg MCHC (32-36) g/dL RDW Std Deviation (36.4-46.3) fL RDW Coeff of Charley (11.5-14.5) % Plt Count (130-400) K/uL MPV (7.4-10.4) fL Sodium (136-145) mmol/L Potassium (3.5-5.1) mmol/L Chloride (98-107) mmol/L Carbon Dioxide (21-32) mmol/L Anion Gap (3-11) BUN (7-18) mg/dl Creatinine (0.6-1.2) mg/dl Est Cr Clr Drug Dosing ml/min Est GFR ( Amer) Est GFR (Non-Af Amer) BUN/Creatinine Ratio (10-20) Glucose (70-99) mg/dl Calcium (8.5-10.1) mg/dl Fld Lyme DNA (PCR) CSF Appearance Clear CSF Color Colorless Xanthrochromic No xanthochromia CSF WBC 2 (0-5) /uL CSF RBC 0 (0-) /uL CSF Cell Count Tube # 3 CSF Mononuclear WBCs % % CSF Chemistry Tube # 1 CSF Glucose 61 (40-70) mg/dl CSF Total Protein 32.9 (15-45) mg/dl CSF Albumin CSF IgG CSF IgG Index CSF IgG Synthesis Rate CSF Myelin Basic Protein CSF IgG Oligoclonal Bnd CSF Lyme IgG (Immblot) CSF Lyme IgG Bands Det CSF Lyme IgM (Immblot) CSF Lyme IgM Bands Det IgG Albumin (MARVIN) KAYA Screen (NEGATIVE) Lyme Specimen Source Lyme IgG (Western Blot) (NEGATIVE) Lyme IgG 18 kDa Band Lyme IgG 23 kDa Band Lyme IgG 28 kDa Band Lyme IgG 30 kDa Band Lyme IgG 39 kDa Band Lyme IgG 41 kDa Band Lyme IgG 45 kDa Band Lyme IgG 58 kDa Band Lyme IgG 66 kDa Band Lyme IgG 93 kDa Band Lyme IgM Ab (WB) (NEGATIVE) Lyme IgM 23 kDa Band Lyme IgM 39 kDa Band Lyme IgM 41 kDa Band 03/23/20 03/23/20 Range/Units 05:39 05:39 WBC (4.8-10.8) K/uL RBC (4.2-5.4) M/uL Hgb (12.0-16.0) g/dL Hct (37-47) % MCV (80-100) fL MCH (25-34) pg MCHC (32-36) g/dL RDW Std Deviation (36.4-46.3) fL RDW Coeff of Charley (11.5-14.5) % Plt Count (130-400) K/uL MPV (7.4-10.4) fL Sodium (136-145) mmol/L Potassium (3.5-5.1) mmol/L Chloride (98-107) mmol/L Carbon Dioxide (21-32) mmol/L Anion Gap (3-11) BUN (7-18) mg/dl Creatinine (0.6-1.2) mg/dl Est Cr Clr Drug Dosing ml/min Est GFR ( Amer) Est GFR (Non-Af Amer) BUN/Creatinine Ratio (10-20) Glucose (70-99) mg/dl Calcium (8.5-10.1) mg/dl Fld Lyme DNA (PCR) CSF Appearance CSF Color Xanthrochromic CSF WBC (0-5) /uL CSF RBC (0-) /uL CSF Cell Count Tube # CSF Mononuclear WBCs % % CSF Chemistry Tube # CSF Glucose (40-70) mg/dl CSF Total Protein (15-45) mg/dl CSF Albumin CSF IgG CSF IgG Index CSF IgG Synthesis Rate CSF Myelin Basic Protein CSF IgG Oligoclonal Bnd CSF Lyme IgG (Immblot) CSF Lyme IgG Bands Det CSF Lyme IgM (Immblot) CSF Lyme IgM Bands Det IgG Albumin (MARVIN) KAYA Screen NEGATIVE (NEGATIVE) Lyme Specimen Source Lyme IgG (Western Blot) NEGATIVE (NEGATIVE) Lyme IgG 18 kDa Band NON-REACTIVE Lyme IgG 23 kDa Band NON-REACTIVE Lyme IgG 28 kDa Band NON-REACTIVE Lyme IgG 30 kDa Band NON-REACTIVE Lyme IgG 39 kDa Band NON-REACTIVE Lyme IgG 41 kDa Band NON-REACTIVE Lyme IgG 45 kDa Band NON-REACTIVE Lyme IgG 58 kDa Band NON-REACTIVE Lyme IgG 66 kDa Band NON-REACTIVE Lyme IgG 93 kDa Band NON-REACTIVE Lyme IgM Ab (WB) NEGATIVE (NEGATIVE) Lyme IgM 23 kDa Band REACTIVE A Lyme IgM 39 kDa Band NON-REACTIVE Lyme IgM 41 kDa Band NON-REACTIVE PG Care Time/CCT Total # of Minutes Spent Total Time Spent with Patient: Total time spent is greater than 50% in coordination of care (as documented) at patient's floor/unit and/or counseling patient: Coding Level of Care Code 13803 Subseq Hosp Care Lvl 3 Diagnoses Weakness R53.1 Drop attack R55 Lyme disease A69.20 Syncope R55 Syncope type: unspecified Sarcoidosis D86.9 Spondylosis of cervical region without myelopathy or radiculopathy M47.812 Hypothyroidism E03.9 Hypothyroidism type: acquired Hypercholesterolemia E78.00 Fibromyalgia M79.7 Common migraine without aura G43.009 Asthma with COPD J44.9 Gastro-esophageal reflux disease without esophagitis K21.9 Major depression, recurrent F33.9 Dementia F03.90 Elevated serum alkaline phosphatase level R74.8 Headache R51 DVT prophylaxis Z29.9 (1) Hypothyroidism Hypothyroidism type: acquired Qualified Code(s): E03.9 - Hypothyroidism, unspecified (2) Syncope Syncope type: unspecified Qualified Code(s): R55 - Syncope and collapse
[2020-03-25] MEDS ORDERED: BACLOFEN 10 MG TAB PO STA (10:20)
[2020-03-25] MEDS: DOCUSATE SODIUM/SENNA 50/8.6MG TAB PO SCH (10:51)
[2020-03-25] MEDS: LORazepam 1 MG TAB PO PRN (15:39)
[2020-03-25] MEDS: RIZATRIPTAN BENZOATE 10 MG TAB PO PRN (16:17)
[2020-03-25] MEDS: cefTRIAXone SODIUM 2,000 MG in DEXTROSE 5% 50 ML IV SCH (16:55)
[2020-03-25] MEDS ORDERED: bisacodyL 5 MG TABEC PO ONE (17:50)
[2020-03-25] MEDS: lamoTRIgine 100 MG TAB PO SCH (20:41)
[2020-03-25] MEDS: MONTELUKAST SODIUM 10 MG TABLET PO SCH (20:42)
[2020-03-25] MEDS: TRAZODONE HCL 100 MG TAB PO SCH (20:43)
[2020-03-25] MEDS: BREXPIPRAZOLE PO SCH (20:45)
[2020-03-25] MEDS: SIMVASTATIN 40 MG TAB PO SCH (20:47)
[2020-03-26] MEDS: ALBUTEROL 0.083% NEBU SOLN 3 ML VIAL INH PRN ×2 (03:13→11:15)
[2020-03-26] MEDS: LEVOTHYROXINE SODIUM 88 MCG TABLET PO SCH (05:26)
[2020-03-26 07:40] LABS: BUN Creatinine Ratio 23.3 (10-20); Creatinine Clr Calc Pharmacy 60.4 ml/min; Est GFR (African American) 71.9; Est GFR (Non-African American) 62.1; Potassium 3.7 mmol/L (3.5-5.1)
[2020-03-26] MEDS: POTASSIUM CITRATE 10 MEQ TAB PO SCH ×3 (08:21→20:22)
[2020-03-26] MEDS: CHOLECALCIFEROL 1,000 UNITS 25 MCG TAB PO SCH (08:21)
[2020-03-26] MEDS: FLUTICASONE/VILANTEROL 200/25MCG 14 PUFFS/INHALER INH SCH (08:21)
[2020-03-26] MEDS: MEMANTINE HCL 10 MG TAB PO SCH ×2 (08:21→20:24)
[2020-03-26] MEDS: ESCITALOPRAM OXALATE 10 MG TAB PO SCH (08:22)
[2020-03-26] MEDS: ASPIRIN 81 MG ECTAB PO SCH (08:22)
[2020-03-26] MEDS: DOCUSATE SODIUM/SENNA 50/8.6MG TAB PO SCH (08:22)
[2020-03-26] MEDS: MELOXICAM 7.5 MG TAB PO SCH (08:22)
[2020-03-26] MEDS: BACLOFEN 10 MG TAB PO SCH ×4 (08:22→20:24)
[2020-03-26] MEDS: BuPROPion SR 100 MG TABCR PO SCH (08:22)
[2020-03-26] MEDS: PANTOprazole 40 MG TAB PO SCH ×2 (08:23→20:19)
[2020-03-26] MEDS: TOPIRAMATE 100 MG TAB PO SCH ×2 (08:23→20:13)
[2020-03-26] MEDS: HYDROXYCHLOROQUINE SULFATE 200 MG TAB PO SCH ×2 (08:32→20:14)
[2020-03-26] MEDS: SODIUM CHLORIDE 0.9% 1000ML 1,000 ML IV SCH ×2 (14:26→21:47)
[2020-03-26] MEDS: ONDANSETRON INJ 2 MG/ML 2 ML VIAL IV PRN (14:26)
[2020-03-26] MEDS: POLYETHYLENE (MIRALAX) 17 GM PACK PO PRN (14:36)
[2020-03-26] MEDS ORDERED: BACLOFEN 10 MG TAB PO ONE (16:24)
[2020-03-26] MEDS ORDERED: MAGNESIUM HYDROXIDE SUSP 30 ML UDC PO PRN (16:36)
--- NOTE | 2020-03-26 16:41 | Hospitalist Progress Note ---
Date of Service March 26, 2020 Assessment & Plan (1) Weakness: Improving * 65 yo F w/ PMH neuropathy, sarcoidosis, JADEN, hypothyroidism, fibromyalgia, depression, migraine without aura, asthma admitted for multiple syncopal events and bilateral weakness. UA negative for infection. TSH wnl. Trop <0.015 * Neurology consulted -- appreciate assistance. 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 Jones who does not believe findings to be very suggestive of MS. Also with possibility of sarcoid but not conclusive on imaging. Lyme possible despite negarti * US Carotids negative for any significant stenosis * Discussed with him concerns for possible lyme as cause or neuro sarcoid given history s/p LP on 03/24 * CSF Clear, colorless. WBC 2, RBC 0, Glucose 61, Total protein 32.9 * Initially ordered Doxy IV AM 03/23 for positive lyme, but given concern for neurologic disease, changed to Rocephin 2gm IV --> although WB technically negative, CSF lyme still not back --> will continue IV Rocephin for now and transition to DOxy PO at discharge if negative * Pending CSF testing for MS, ANGIE, Lyme --> PCR lyme not to be back until Saturday, immunoblot on Saturday per turnaround times for [facility]/those specific studies -- consider discharge on IV with switch to doxy if negative vs sending on doxy and awaiting results as patient would prefer to avoid IV abx if possible Some dizziness when standing today --> Orthostatic vitals ordered: * Lying 117/75, Sitting 103/69, Standing 91/62 * Ordered additional IVF for now, BUN/Cr slightly elevated at 23.3 and mm dry this afternoon * Repeat in AM PT/OT -- please continue while inpatient (2) Drop attack: * Unclear if LOC or syncope given patients history * See above -- does have history of sensory polyneuropathy --> will need outpatient follow up with her Neurologist, Dr. Loving (3) Lyme disease: * IgM positive, IgG negative however only band 23 positive on WB * Initially ordered doxy as above and switched to Rocephin for neurological disease. See above (4) Syncope: * Unclear if drop attack vs syncope. See above. US carotids negative (5) Sarcoidosis: * Follows with [facility] --> most recently seen Oct [address] Piper. Lung and/or thoracic lymph node involvement per most recent note. CT Chest was free of infiltrates and PFTs without progressive changes and off all prednisone * Continue plaquenil 200 mg PO BID * Concerns for possible neuro sarcoid (although unlikely per neuro given imaging) --> ANGIE level to be added to CSF from LP 03/24, pending * Continue home inhalers (6) Spondylosis of cervical region without myelopathy or radiculopathy: * Noted on imaging (7) Hypothyroidism: * Chronic. * TSH 1.320 * Continue home levothyroxine 88mcg (8) Hypercholesterolemia: * Chronic. Continue home simvastatin 40mg. CK 74 (9) Fibromyalgia: * Chronic * Continue home tramadol 50 mg PO TID PRN, baclofen 10 mg PO QID --> decreased baclofen per neurology to 5mg PO QID. Did have to have 1x dose 03/24 5mg and will order additional 5mg today * Patient may need Baclofen 5mg QID with additional 5mg prn as outpatient to prevent increased weakness but still keeping muscle spasms/pain under control (10) Common migraine without aura: * Continue home rizatriptan 10mg PO prn (11) Asthma with COPD: * also with sarcoidosis as above * Continue home albuterol prn, Breo QAM * No SOB reported -- currently 97% on RA (12) Gastro-esophageal reflux disease without esophagitis: * Chronic. Stable * Patient on omeprazole 40 mg BID as outpatient --> on protonix 40mg PO BID while inpatient (13) Major depression, recurrent: * Chronic. * Continue home Bupropion 200 mg, Escitalopram 10mg, Lamictal 300mg PO HS (14) Dementia: * Follows with Dr. Loving * Continue home memantine 10 mg PO BID (15) Elevated serum alkaline phosphatase level: * Alk phos elevated slightly at 122 on admission, now wnl (16) Headache: * hx migraines. * possibly related to rexulti 2mg PO HS -- non-formulary and had not receive since admission --> friend brought in and resumed on 03/24 * IMPROVED -- no longer with "migraine", but dull headache (17) Constipation: * Reported no BM --> receiving miralax, added senna. Passing gas, +BS on exam * Given prune juice personally, will also add milk of mag * Continue to monitor (18) DVT prophylaxis: * Ordered SCDs * Chemoprophylaxis deferred in setting of recent LP Dispo: possible discharge home with home PT and PO Doxy pending CSF results Admission and Anticipated Discharge Date Admission Date: March 23, 2020 Supervising Physician Co-Signing Physician Notes GISEL Supervision Note: I did not personally see or examine the patient today, but I verified all meade points of GISEL Tipton's assessment and plan with the following exceptions/additions: None Subjective Patient evaluated this morning. States her leg weakness/unsteadiness is about the same today but improved from when she got to the hospital. Still without BM and would like prune juice but not if she is going home today. Discussed that labs not back yet on CSF Lyme and that we will continue IV for now prior to discharging home with possible PO doxycycline as patient would like to avoid IV antibiotics if possible. Patient with no headache this morning but did start to have one later in the afternoon. 1x dose of baclofen helpful yesterday since we decreased home dose from 10mg QID to 5mg QID to help with weakness. Ordered K-pad but was brought faulty machine. Asked nursing to obtain new one. 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 Will order additional dose of baclofen today to see if she gets additional relief for neck spasms. Denies any fevers or chills this morning but states she felt chills this afternoon. No chest pain, shortness of breath, abdominal pain (although with constipation). No nausea this morning but later with headache did have some nausea and requested imitrex. Discussed orthostatic vitals and giving additional IVF today with possible discharge tomorrow with home PT through her previously established [facility] Discussed that I provided case management department with script for wheeled walker as per our discussion yesterday she has a walker at home but without wheels. All questions/concerns addressed at this time. Review of Systems Review of Systems: All systems reviewed & are unremarkable except as noted in HPI & below Physical Exam Constitutional: WD/WN, vitals as above no acute distress ENMT: Ears: no hearing impairment dry mm Neck: trachea midline, no thyromegaly negative Brudzinski's sign and negative Kernig's sign Respiratory: normal respiratory effort; no respiratory distress and no labored breathing Auscultation: + diminished lung sounds; no crackles, no rhonchi and no wheezes Cardiovascular: RRR, no murmur, no edema Gastrointestinal (Abdomen): normal bowel sounds, soft, nontender, no hepatosplenomegaly Musculoskeletal: Head/Neck/Chest: normocephalic and head atraumatic Skin: no rashes, warm and dry Neurologic: patellar DTR's 2+ bilat, sensation intact Psychiatric: Orientation: alert, oriented to person, oriented to place and oriented to time Lymphatic: no cervical or axillary lymphadenopathy Results & Data Results & Data ([facility]) Vital Signs (Past 12 Hours) Vital Signs Temp Pulse Resp BP BP Pulse Ox 03/26/20 15:00 36.8 C 72 18 110/73 97 03/26/20 11:17 76 18 94 03/26/20 11:00 37.2 C 80 18 98/63 L 90 03/26/20 08:16 36.7 C 70 16 95/58 L 95 Laboratory Results 03/26/20 Range/Units 06:49 Sodium 144 (136-145) mmol/L Potassium 3.7 (3.5-5.1) mmol/L Chloride 113 H (98-107) mmol/L Carbon Dioxide 25 (21-32) mmol/L Anion Gap 6.0 (3-11) BUN 23 H (7-18) mg/dl Creatinine 0.96 (0.6-1.2) mg/dl Est Cr Clr Drug Dosing 60.4 ml/min Est GFR ( Amer) 71.9 Est GFR (Non-Af Amer) 62.1 BUN/Creatinine Ratio 23.3 H (10-20) Glucose 102 H (70-99) mg/dl Calcium 9.0 (8.5-10.1) mg/dl PG Care Time/CCT Total # of Minutes Spent Total Time Spent with Patient: Total time spent is greater than 50% in coordination of care (as documented) at patient's floor/unit and/or counseling patient: Coding Level of Care Code 27397 Subseq Hosp Care Lvl 3 Diagnoses Weakness R53.1 Drop attack R55 Lyme disease A69.20 Syncope R55 Syncope type: unspecified Sarcoidosis D86.9 Spondylosis of cervical region without myelopathy or radiculopathy M47.812 Hypothyroidism E03.9 Hypothyroidism type: acquired Hypercholesterolemia E78.00 Fibromyalgia M79.7 Common migraine without aura G43.009 Asthma with COPD J44.9 Gastro-esophageal reflux disease without esophagitis K21.9 Major depression, recurrent F33.9 Dementia F03.90 Elevated serum alkaline phosphatase level R74.8 Headache R51 Constipation K59.00 DVT prophylaxis Z29.9 (1) Hypothyroidism Hypothyroidism type: acquired Qualified Code(s): E03.9 - Hypothyroidism, unspecified (2) Syncope Syncope type: unspecified Qualified Code(s): R55 - Syncope and collapse
[2020-03-26] MEDS: cefTRIAXone SODIUM 2,000 MG in DEXTROSE 5% 50 ML IV SCH (16:58)
[2020-03-26] MEDS: TRAMADOL HCL 50 MG TABLET PO PRN (20:14)
[2020-03-26] MEDS: TRAZODONE HCL 100 MG TAB PO SCH (20:16)
[2020-03-26] MEDS: SIMVASTATIN 40 MG TAB PO SCH (20:16)
[2020-03-26] MEDS: MONTELUKAST SODIUM 10 MG TABLET PO SCH (20:17)
[2020-03-26] MEDS: lamoTRIgine 100 MG TAB PO SCH (20:18)
[2020-03-26] MEDS: BREXPIPRAZOLE PO SCH (20:22)
[2020-03-26] MEDS: ALBUTEROL HFA 8 GM INHALER INH PRN (22:42)
[2020-03-27] MEDS: LEVOTHYROXINE SODIUM 88 MCG TABLET PO SCH (05:30)
[2020-03-27] MEDS: SODIUM CHLORIDE 0.9% 1000ML 1,000 ML IV SCH (05:34)
[2020-03-27] MEDS: FLUTICASONE/VILANTEROL 200/25MCG 14 PUFFS/INHALER INH SCH (07:31)
[2020-03-27] MEDS: ESCITALOPRAM OXALATE 10 MG TAB PO SCH (07:35)
[2020-03-27] MEDS: BACLOFEN 10 MG TAB PO SCH ×4 (07:35→20:31)
[2020-03-27] MEDS: ASPIRIN 81 MG ECTAB PO SCH (07:35)
[2020-03-27] MEDS: MELOXICAM 7.5 MG TAB PO SCH (07:36)
[2020-03-27] MEDS: PANTOprazole 40 MG TAB PO SCH ×2 (07:36→20:30)
[2020-03-27] MEDS: MEMANTINE HCL 10 MG TAB PO SCH ×2 (07:36→20:29)
[2020-03-27] MEDS: TOPIRAMATE 100 MG TAB PO SCH ×2 (07:37→20:32)
[2020-03-27] MEDS: DOCUSATE SODIUM/SENNA 50/8.6MG TAB PO SCH (07:37)
[2020-03-27] MEDS: BuPROPion SR 100 MG TABCR PO SCH (07:37)
[2020-03-27] MEDS: CHOLECALCIFEROL 1,000 UNITS 25 MCG TAB PO SCH (07:37)
[2020-03-27] MEDS: POTASSIUM CITRATE 10 MEQ TAB PO SCH ×3 (07:37→20:34)
[2020-03-27] MEDS: HYDROXYCHLOROQUINE SULFATE 200 MG TAB PO SCH ×2 (07:48→20:26)
[2020-03-27] MEDS: POLYETHYLENE (MIRALAX) 17 GM PACK PO PRN (07:48)
[2020-03-27] MEDS: POLYETHYLENE (MIRALAX) 17 GM PACK PO SCH (10:10)
[2020-03-27 10:12] LABS: BUN Creatinine Ratio 20.8 (10-20); Calcium 8.5 mg/dl (8.5-10.1); Creatinine Clr Calc Pharmacy 64.4 ml/min; Est GFR (African American) 77.8; Est GFR (Non-African American) 67.1
[2020-03-27] MEDS: TRAMADOL HCL 50 MG TABLET PO PRN ×2 (10:22→20:26)
[2020-03-27 10:23] LABS: Hematocrit (blood only) 37.9 % (37-47); Hemoglobin 12.3 g/dL (12.0-16.0); Mean Corpuscular Hemoglobin 31.1 pg (25-34); Mean Corpuscular Volume 95.9 fL (80-100); Mean Platelet Volume 9.6 fL (7.4-10.4); Platelet Count 182 K/uL (130-400); RDW Coefficient of Variation 13.1 % (11.5-14.5); RDW Standard Deviation 46.1 fL (36.4-46.3); Red Blood Count 3.95 M/uL (4.2-5.4); White Blood Count 6.22 K/uL (4.8-10.8)
[2020-03-27 10:29] LABS: Mean Corpuscular Hgb Conc 32.5 g/dL (32-36)
[2020-03-27] MEDS ORDERED: MAGNESIUM CITRATE 296 ML/BTL PO STA (12:51)
[2020-03-27] MEDS ORDERED: BACLOFEN 10 MG TAB PO PRN (12:52)
[2020-03-27] MEDS: LIDOCAINE 5% 1 PATCH TD SCH (14:16)
--- NOTE | 2020-03-27 14:43 | Hospitalist Progress Note ---
Date of Service March 27, 2020 Assessment & Plan (1) Weakness: Improving * 65 yo F w/ PMH neuropathy, sarcoidosis, JADEN, hypothyroidism, fibromyalgia, depression, migraine without aura, asthma admitted for multiple syncopal events and bilateral weakness. UA negative for infection. TSH wnl. Trop <0.015 * Neurology consulted -- appreciate assistance. Reduced dosage of baclofen to 5mg QID vs 10mg QID [place] * CT Head negative for acute process --> MRI with multiple white matter T2 hyperintense foci, favoring small vessel disease * For concerns of MS, Cervical/Lumbar/Thoracic spine MRI were completed -- discussed with Dr. Jones who does not believe findings to be very suggestive of MS. Also with possibility of sarcoid but not conclusive on imaging. Lyme possible despite negarti * US Carotids negative for any significant stenosis * Discussed with him concerns for possible lyme as cause or neuro sarcoid given history s/p LP on 03/24 * CSF Clear, colorless. WBC 2, RBC 0, Glucose 61, Total protein 32.9 * Initially ordered Doxy IV AM 03/23 for positive lyme, but given concern for neurologic disease, changed to Rocephin 2gm IV --> although WB technically negative, CSF lyme still not back --> will continue IV Rocephin for now and transition to Doxy PO on Saturday if negative * Pending CSF testing for MS, ANGIE, Lyme --> PCR lyme not to be back until Saturday, immunoblot on Saturday per turnaround times for [facility]/those specific studies Some dizziness when standing on 03/26 --> Orthostatic vitals ordered: * Lying 117/75, Sitting 103/69, Standing 91/62. Given IVF. 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 Loving (3) Lyme disease: * IgM positive, IgG negative however only band 23 positive on WB * Initially ordered doxy as above and switched to Rocephin for neurological disease. See above (4) Syncope: * Unclear if drop attack vs syncope. See above. US carotids negative (5) Sarcoidosis: * Follows with [facility] --> most recently seen Oct [address] Piper. Lung and/or thoracic lymph node involvement per most recent note. CT Chest was free of infiltrates and PFTs without progressive changes and off all prednisone * Continue plaquenil 200 mg PO BID * Concerns for possible neuro sarcoid (although unlikely per neuro given imaging) --> ANGIE level to be added to CSF from LP 03/24, pending * Continue home inhalers (6) Spondylosis of cervical region without myelopathy or radiculopathy: * Noted on imaging (7) Hypothyroidism: * Chronic. * TSH 1.320 * Continue home levothyroxine 88mcg (8) Hypercholesterolemia: * Chronic. Continue home simvastatin 40mg. CK 74 (9) Fibromyalgia: * Chronic * Continue home tramadol 50 mg PO TID PRN, baclofen 10 mg PO QID --> decreased baclofen per neurology to 5mg PO QID. Did have to have 1x dose 03/24 5mg and will order additional 5mg today * Patient may need Baclofen 5mg QID with additional 5mg prn as outpatient to prevent increased weakness but still keeping muscle spasms/pain under control * Will add lidocaine patch to neck for muscle spasms * Continue to monitor (10) Common migraine without aura: * Continue home rizatriptan 10mg PO prn (11) Asthma with COPD: * also with sarcoidosis as above * Continue home albuterol prn, Breo QAM * No SOB reported -- currently 96% on RA (12) Gastro-esophageal reflux disease without esophagitis: * Chronic. Stable * Patient on omeprazole 40 mg BID as outpatient --> on protonix 40mg PO BID while inpatient (13) Major depression, recurrent: * Chronic. * Continue home Bupropion 200 mg, Escitalopram 10mg, Lamictal 300mg PO HS (14) Dementia: * Follows with Dr. Loving * Continue home memantine 10 mg PO BID (15) Elevated serum alkaline phosphatase level: * Alk phos elevated slightly at 122 on admission, now wnl (16) Headache: * hx migraines. * possibly related to rexulti 2mg PO HS -- non-formulary and had not receive si nce admission --> friend brought in and resumed on 03/24 * RESOLVED -- no further headache. Only with reported paraspinal muscle tenderness (17) Constipation: * Reported no BM --> receiving miralax, added senna. * Given prune juice personally, will also add milk of mag * Given some mag citrate today -- active bowel sounds this afternoon on exam * Continue to monitor -- may need to add suppository if unsuccessful with above (18) DVT prophylaxis: * Ordered SCDs * Chemoprophylaxis deferred in setting of recent LP -- will order lovenox today Dispo: possible discharge home with home PT and PO Doxy pending CSF results Admission and Anticipated Discharge Date Admission Date: March 23, 2020 Supervising Physician Co-Signing Physician Notes PA Supervision Note: I did not personally see or examine the patient today, but I verified all meade points of GISEL Tipton's assessment and plan with the following exceptions/additions: None Subjective Patient evaluated this morning. Feeling slightly better but still without a bowel movement. Passing gas. Will add additional agent to see if we can get her bowels moving today. Has been ambulating with wheeled walker. She states she does have some increased strength but that it is difficult to stand for extended periods of time without feeling weak. Discussed waiting for testing to result tomorrow prior to switching to oral antibiotics. Patient agreeable to this plane. She states she does not have a headache today but does note some discomfort in her neck. Still did not get heating pad. Discussed that we will trial a lidocaine patch and additional baclofen as needed to see if we can achieve a balance of pain control while trying to avoid increased weakness/falls. Plans for discharge tomorrow with home health through [facility]. Rx to [facility] for wheeled walker. Denies fevers, chills, cp, sob, abd pain, n/v at this time. Review of Systems Review of Systems: All systems reviewed & are unremarkable except as noted in HPI & below Physical Exam Constitutional: WD/WN, vitals as above no acute distress ENMT: Ears: no hearing impairment paraspinal muscles tender to palpation minimally Neck: trachea midline, no thyromegaly negative Brudzinski's sign and negative Kernig's sign Respiratory: normal respiratory effort; no respiratory distress and no labored breathing Auscultation: + diminished lung sounds; no rhonchi and no wheezes Cardiovascular: RRR, no murmur, no edema Gastrointestinal (Abdomen): Inspection/Auscultation: + abdomen distended and normal bowel sounds Percussion/Palpation: abdomen nontender, no guarding and abdomen not rigid Musculoskeletal: Head/Neck/Chest: normocephalic and head atraumatic strength equal bilaterally Skin: no rashes, warm and dry Neurologic: patellar DTR's 2+ bilat, sensation intact Psychiatric: Orientation: alert, oriented to person, oriented to place and oriented to time Lymphatic: no cervical or axillary lymphadenopathy Results & Data Results & Data ([facility]) Vital Signs (Past 12 Hours) Vital Signs Temp Pulse Resp BP Pulse Ox 03/27/20 11:00 36.5 C 59 L 18 134/72 96 03/27/20 07:06 36.7 C 66 18 116/75 96 Laboratory Results 03/27/20 03/27/20 03/27/20 Range/Units 10:13 09:36 09:36 WBC 6.22 Cancelled RBC 3.95 L Cancelled Hgb 12.3 Cancelled Hct 37.9 Cancelled MCV 95.9 Cancelled MCH 31.1 Cancelled MCHC 32.5 Cancelled RDW Std Deviation 46.1 Cancelled RDW Coeff of Charley 13.1 Cancelled Plt Count 182 Cancelled MPV 9.6 Cancelled Absolute Nucleated RBC Cancelled Nucleated RBC % (auto) Cancelled Platelet Estimate Cancelled Sodium 142 (136-145) mmol/L Potassium 4.0 (3.5-5.1) mmol/L Chloride 115 H (98-107) mmol/L Carbon Dioxide 22 (21-32) mmol/L Anion Gap 6.0 (3-11) BUN 19 H (7-18) mg/dl Creatinine 0.90 (0.6-1.2) mg/dl Est Cr Clr Drug Dosing 64.4 ml/min Est GFR ( Amer) 77.8 Est GFR (Non-Af Amer) 67.1 BUN/Creatinine Ratio 20.8 H (10-20) Glucose 102 H (70-99) mg/dl Calcium 8.5 (8.5-10.1) mg/dl PG Care Time/CCT Total # of Minutes Spent Total Time Spent with Patient: Total time spent is greater than 50% in coordination of care (as documented) at patient's floor/unit and/or counseling patient: Coding Level of Care Code 88888 Subseq Hosp Care Lvl 3 Diagnoses Weakness R53.1 Drop attack R55 Lyme disease A69.20 Syncope R55 Syncope type: unspecified Sarcoidosis D86.9 Spondylosis of cervical region without myelopathy or radiculopathy M47.812 Hypothyroidism E03.9 Hypothyroidism type: acquired Hypercholesterolemia E78.00 Fibromyalgia M79.7 Common migraine without aura G43.009 Asthma with COPD J44.9 Gastro-esophageal reflux disease without esophagitis K21.9 Major depression, recurrent F33.9 Dementia F03.90 Elevated serum alkaline phosphatase level R74.8 Headache R51 Constipation K59.00 DVT prophylaxis Z29.9 (1) Hypothyroidism Hypothyroidism type: acquired Qualified Code(s): E03.9 - Hypothyroidism, unspecified (2) Syncope Syncope type: unspecified Qualified Code(s): R55 - Syncope and collapse
[2020-03-27] MEDS: cefTRIAXone SODIUM 2,000 MG in DEXTROSE 5% 50 ML IV SCH (16:36)
[2020-03-27] MEDS: ALBUTEROL HFA 8 GM INHALER INH PRN (16:39)
[2020-03-27] MEDS: BREXPIPRAZOLE PO SCH (20:26)
[2020-03-27] MEDS: TRAZODONE HCL 100 MG TAB PO SCH (20:28)
[2020-03-27] MEDS: lamoTRIgine 100 MG TAB PO SCH (20:28)
[2020-03-27] MEDS: MONTELUKAST SODIUM 10 MG TABLET PO SCH (20:31)
[2020-03-27] MEDS: SIMVASTATIN 40 MG TAB PO SCH (20:33)
[2020-03-27] MEDS: LORazepam 1 MG TAB PO PRN (23:35)
[2020-03-28] MEDS: LEVOTHYROXINE SODIUM 88 MCG TABLET PO SCH (05:25)
[2020-03-28 06:22] LABS: BUN Creatinine Ratio 20.7 (10-20); Calcium 8.7 mg/dl (8.5-10.1); Creatinine Clr Calc Pharmacy 64.6 ml/min; Est GFR (African American) 77.8; Est GFR (Non-African American) 67.1; Potassium 4.1 mmol/L (3.5-5.1)
[2020-03-28] MEDS: ASPIRIN 81 MG ECTAB PO SCH (08:36)
[2020-03-28] MEDS: POTASSIUM CITRATE 10 MEQ TAB PO SCH ×3 (08:36→21:43)
[2020-03-28] MEDS: BuPROPion SR 100 MG TABCR PO SCH (08:36)
[2020-03-28] MEDS: DOCUSATE SODIUM/SENNA 50/8.6MG TAB PO SCH (08:37)
[2020-03-28] MEDS: TOPIRAMATE 100 MG TAB PO SCH ×2 (08:37→21:40)
[2020-03-28] MEDS: CHOLECALCIFEROL 1,000 UNITS 25 MCG TAB PO SCH (08:37)
[2020-03-28] MEDS: MELOXICAM 7.5 MG TAB PO SCH (08:37)
[2020-03-28] MEDS: ESCITALOPRAM OXALATE 10 MG TAB PO SCH (08:37)
[2020-03-28] MEDS: FLUTICASONE/VILANTEROL 200/25MCG 14 PUFFS/INHALER INH SCH (08:38)
[2020-03-28] MEDS: MEMANTINE HCL 10 MG TAB PO SCH ×2 (08:38→21:42)
[2020-03-28] MEDS: BACLOFEN 10 MG TAB PO SCH ×4 (08:38→21:41)
[2020-03-28] MEDS: POLYETHYLENE (MIRALAX) 17 GM PACK PO SCH (08:38)
[2020-03-28] MEDS: PANTOprazole 40 MG TAB PO SCH ×2 (08:38→21:40)
[2020-03-28] MEDS: ENOXAPARIN INJ 40 MG/0.4 ML SYR SQ SCH (08:39)
[2020-03-28] MEDS: LIDOCAINE 5% 1 PATCH TD SCH (08:39)
[2020-03-28] MEDS: HYDROXYCHLOROQUINE SULFATE 200 MG TAB PO SCH ×2 (08:46→21:46)
--- NOTE | 2020-03-28 11:04 | Neurology Progress Note ---
Date of Service March 28, 2020 Assessment & Plan (1) Weakness: (2) Polyneuropathy: (3) Common migraine without aura: (4) Fibromyalgia: (5) Depressive disorder, not elsewhere classified: (6) Dementia: Patient has weakness and myalgias with tenderness in her legs bilaterally. This gives her a gait disturbance. She has a known history of polyneuropathy involving predominantly sensory fibers and a longstanding diagnosis of fibromyalgia. She has a significant depressive disorder and some mild underlying dementia. Migraines have been a significant problem in the past. Overall, she has myalgia and weakness in a proximal greater than distal pattern. Although I cannot exclude myopathy I suspect fibromyalgia on top of her underlying neuropathy is responsible. Excess baclofen could make her legs feel weak also and this has been cut back to 5 mg 4 times daily. Recommendations: 1. I would like to do EMG and nerve conduction study on both legs and 1 arm as an outpatient. We will look for myopathy versus other. 2. Continue with baclofen 5 mg 4 times a day. 3. If not already obtained, check a CK and aldolase. Overall, I spent a total of 25 minutes with this case including review of records, direct evaluation patient at bedside, and discussion of the case with the patient at bedside as well as Dr. Mcgarry, including differential diagnosis and treatment options. Admission and Anticipated Discharge Date Admission Date: March 23, 2020 Subjective Patient still feels that her legs are weak and that her proximal muscles are tender. She was out walking with a walker this morning with physical therapy. Patient had MRIs of her brain, cervical, thoracic, and lumbar spine. All of these showed no acute changes and some nonspecific degenerative changes. Lumbar puncture showed 2 white cells in 30 to protein. CSF shows no growth so far. Special protein studies are pending. Laboratory studies show no other significant abnormalities. She is afebrile and blood pressures 114/75. Results & Data ([facility]) Vital Signs (Past 12 Hours) Vital Signs Temp Pulse Resp BP Pulse Ox 03/28/20 07:00 36.8 C 72 18 114/75 98 Exam (Neuro) Physical Exam: She is awake and alert. Speech is without aphasia or dysarthria. Mood is reasonable and affect is appropriate. Thought processes are intact to conversation. Extraocular eye muscles are intact without nystagmus. There is no facial droop. Tongue is midline. With outstretched arms there is no drift. There is no ataxia with [id number] testing. Motor strength is 4+/5 proximally distally in the arms bilaterally. Strength is 4/5 proximally and distally in the legs bilaterally. There is giveaway weakness on exam. She is mildly tender to palpation in her biceps and triceps. She has considerable tenderness in her quadriceps and gastrocnemius muscles to palpation. PG Care Time/CCT Total # of Minutes Spent Total Time Spent with Patient: Total time spent is greater than 50% in coordination of care (as documented) at patient's floor/unit and/or counseling patient: Coding Level of Care Code 76571 Subseq Hosp Care Lvl 2 Diagnoses Weakness R53.1 Polyneuropathy G62.9 Common migraine without aura G43.009 Fibromyalgia M79.7 Depressive disorder, not elsewhere classified F32.9 Dementia F03.90 Time Spent (min) 25
[2020-03-28] MEDS: TRAMADOL HCL 50 MG TABLET PO PRN (13:31)
[2020-03-28] MEDS: cefTRIAXone SODIUM 2,000 MG in DEXTROSE 5% 50 ML IV SCH (16:45)
--- NOTE | 2020-03-28 21:37 | Hospitalist Progress Note ---
Date of Service March 28, 2020 Assessment & Plan (1) Weakness: Improving * 65 yo F w/ PMH neuropathy, sarcoidosis, JADEN, hypothyroidism, fibromyalgia, depression, migraine without aura, asthma admitted for multiple syncopal events and bilateral weakness. UA negative for infection. TSH wnl. Trop <0.015 * Neurology consulted -- appreciate assistance. Reduced dosage of baclofen to 5mg QID vs 10mg QID [place] * CT Head negative for acute process --> MRI with multiple white matter T2 hyperintense foci, favoring small vessel disease * For concerns of MS, Cervical/Lumbar/Thoracic spine MRI were completed -- discussed with Dr. Jones who does not believe findings to be very suggestive of MS. Also with possibility of sarcoid but not conclusive on imaging. Lyme possible despite negarti * US Carotids negative for any significant stenosis * Discussed with him concerns for possible lyme as cause or neuro sarcoid given history s/p LP on 03/24 * CSF Clear, colorless. WBC 2, RBC 0, Glucose 61, Total protein 32.9 * Initially ordered Doxy IV AM 03/23 for positive lyme, but given concern for neurologic disease, changed to Rocephin 2gm IV --> although WB technically negative, CSF lyme still not back --> will continue IV Rocephin for now and transition to Doxy PO on Saturday if negative * Pending CSF testing for MS, ANGIE, Lyme --> PCR lyme not to be back until Saturday, immunoblot on Saturday per turnaround times for [facility]/those specific studies Some dizziness when standing on 03/26 --> Orthostatic vitals ordered: * Lying 117/75, Sitting 103/69, Standing 91/62. Given IVF. Symptoms resolved but will repeat orthostatic vitals this afternoon PT/OT -- please continue while inpatient Likely discharge on 03/29, discussed with Neuro, can likely be discharged on oral antibiotics: doxy. Hoping lyme from CSF is back, but Neuro believes this WILL be negative. (2) Drop attack: * Unclear if LOC or syncope given patients history * See above -- does have history of sensory polyneuropathy --> will need outpatient follow up with her Neurologist, Dr. Loving (3) Lyme disease: * IgM positive, IgG negative however only band 23 positive on WB * Initially ordered doxy as above and switched to Rocephin for neurological disease. See above (4) Syncope: * Unclear if drop attack vs syncope. See above. US carotids negative (5) Sarcoidosis: * Follows with [facility] --> most recently seen Oct [address] Piper. Lung and/or thoracic lymph node involvement per most recent note. CT Chest was free of infiltrates and PFTs without progressive changes and off all prednisone * Continue plaquenil 200 mg PO BID * Concerns for possible neuro sarcoid (although unlikely per neuro given imaging) --> ANGIE level to be added to CSF from LP 03/24, pending * Continue home inhalers (6) Spondylosis of cervical region without myelopathy or radiculopathy: * Noted on imaging (7) Hypothyroidism: * Chronic. * TSH 1.320 * Continue home levothyroxine 88mcg (8) Hypercholesterolemia: * Chronic. Continue home simvastatin 40mg. CK 74 (9) Fibromyalgia: * Chronic * Continue home tramadol 50 mg PO TID PRN, baclofen 10 mg PO QID --> decreased baclofen per neurology to 5mg PO QID. Did have to have 1x dose 03/24 5mg and will order additional 5mg today * Patient may need Baclofen 5mg QID with additional 5mg prn as outpatient to prevent increased weakness but still keeping muscle spasms/pain under control * Will add lidocaine patch to neck for muscle spasms * Continue to monitor (10) Common migraine without aura: * Continue home rizatriptan 10mg PO prn (11) Asthma with COPD: * also with sarcoidosis as above * Continue home albuterol prn, Breo QAM * No SOB reported -- currently 96% on RA (12) Gastro-esophageal reflux disease without esophagitis: * Chronic. Stable * Patient on omeprazole 40 mg BID as outpatient --> on protonix 40mg PO BID while inpatient (13) Major depression, recurrent: * Chronic. * Continue home Bupropion 200 mg, Escitalopram 10mg, Lamictal 300mg PO HS (14) Dementia: * Follows with Dr. Loving * Continue home memantine 10 mg PO BID (15) Elevated serum alkaline phosphatase level: * Alk phos elevated slightly at 122 on admission, now wnl (16) Headache: * hx migraines. * possibly related to rexulti 2mg PO HS -- non-formulary and had not receive since admission --> friend brought in and resumed on 03/24 * RESOLVED -- no further headache. Only with reported paraspinal muscle tenderness (17) Constipation: * Reported no BM --> receiving miralax, added senna. * Given prune juice personally, will also add milk of mag * Given some mag citrate today -- active bowel sounds this afternoon on exam * Continue to monitor -- may need to add suppository if unsuccessful with above (18) DVT prophylaxis: * Ordered SCDs * Chemoprophylaxis deferred in setting of recent LP -- will order lovenox today Dispo: possible discharge home with home PT and PO Doxy pending CSF results Admission and Anticipated Discharge Date Admission Date: March 23, 2020 Subjective 65 yo female reports she is having lower extremity pain after being seen by Neuro. She reports her pain has been on and off since she has been here. She describes it as moderate "cramping" pain. Patient reports less weakness today. Review of Systems Review of Systems: All systems reviewed & are unremarkable except as noted in HPI & below Physical Exam Physical Exam: Constitutional: WD/WN, vitals as above no acute distress ENMT: Ears: no hearing impairment paraspinal muscles tender to palpation minimally Neck: trachea midline, no thyromegaly negative Brudzinski's sign and negative Kernig's sign Respiratory: normal respiratory effort; no respiratory distress and no labored breathing Auscultation: + diminished lung sounds; no rhonchi and no wheezes Cardiovascular: RRR, no murmur, no edema Gastrointestinal (Abdomen): Inspection/Auscultation: + abdomen distended and normal bowel sounds Percussion/Palpation: abdomen nontender, no guarding and abdomen not rigid Musculoskeletal: Head/Neck/Chest: normocephalic and head atraumatic strength equal bilaterally Skin: no rashes, warm and dry Neurologic: patellar DTR's 2+ bilat, sensation intact Psychiatric: Orientation: alert, oriented to person, oriented to place and oriented to time Lymphatic: no cervical or axillary lymphadenopathy Results & Data Results & Data ([facility] [place]) Vital Signs (Past 12 Hours) Vital Signs Temp Pulse Resp BP BP Pulse Ox 03/28/20 15:35 37.0 C 76 18 103/67 95 03/28/20 11:00 36.8 C 88 18 126/76 97 PG Care Time/CCT Total # of Minutes Spent Total Time Spent with Patient: Total time spent is greater than 50% in coordination of care (as documented) at patient's floor/unit and/or counseling patient: Coding Level of Care Code 54677 Subseq Hosp Care Lvl 3 Diagnoses Weakness R53.1 Drop attack R55 Lyme disease A69.20 Syncope R55 Syncope type: unspecified Sarcoidosis D86.9 Spondylosis of cervical region without myelopathy or radiculopathy M47.812 Hypothyroidism E03.9 Hypothyroidism type: acquired Hypercholesterolemia E78.00 Fibromyalgia M79.7 Common migraine without aura G43.009 Asthma with COPD J44.9 Gastro-esophageal reflux disease without esophagitis K21.9 Major depression, recurrent F33.9 Dementia F03.90 Elevated serum alkaline phosphatase level R74.8 Headache R51 Constipation K59.00 DVT prophylaxis Z29.9 Time Spent (min) 35 Comment chart review (1) Hypothyroidism Hypothyroidism type: acquired Qualified Code(s): E03.9 - Hypothyroidism, unspecified (2) Syncope Syncope type: unspecified Qualified Code(s): R55 - Syncope and collapse
[2020-03-28] MEDS: lamoTRIgine 100 MG TAB PO SCH (21:39)
[2020-03-28] MEDS: TRAZODONE HCL 100 MG TAB PO SCH (21:42)
[2020-03-28] MEDS: MONTELUKAST SODIUM 10 MG TABLET PO SCH (21:42)
[2020-03-28] MEDS: BREXPIPRAZOLE PO SCH (21:42)
[2020-03-28] MEDS: SIMVASTATIN 40 MG TAB PO SCH (21:43)
[2020-03-29] MEDS: TRAMADOL HCL 50 MG TABLET PO PRN (01:55)
[2020-03-29] MEDS: ALBUTEROL HFA 8 GM INHALER INH PRN (02:18)
[2020-03-29] MEDS: LEVOTHYROXINE SODIUM 88 MCG TABLET PO SCH (05:50)
[2020-03-29] MEDS: ESCITALOPRAM OXALATE 10 MG TAB PO SCH (09:11)
[2020-03-29] MEDS: DOCUSATE SODIUM/SENNA 50/8.6MG TAB PO SCH (09:11)
[2020-03-29] MEDS: POTASSIUM CITRATE 10 MEQ TAB PO SCH ×2 (09:11→13:55)
[2020-03-29] MEDS: MELOXICAM 7.5 MG TAB PO SCH (09:12)
[2020-03-29] MEDS: BuPROPion SR 100 MG TABCR PO SCH (09:12)
[2020-03-29] MEDS: CHOLECALCIFEROL 1,000 UNITS 25 MCG TAB PO SCH (09:12)
[2020-03-29] MEDS: ASPIRIN 81 MG ECTAB PO SCH (09:12)
[2020-03-29] MEDS: TOPIRAMATE 100 MG TAB PO SCH (09:13)
[2020-03-29] MEDS: BACLOFEN 10 MG TAB PO SCH ×2 (09:13→13:55)
[2020-03-29] MEDS: PANTOprazole 40 MG TAB PO SCH (09:13)
[2020-03-29] MEDS: LIDOCAINE 5% 1 PATCH TD SCH (09:14)
[2020-03-29] MEDS: POLYETHYLENE (MIRALAX) 17 GM PACK PO SCH (09:14)
[2020-03-29] MEDS: MEMANTINE HCL 10 MG TAB PO SCH (09:14)
[2020-03-29] MEDS: FLUTICASONE/VILANTEROL 200/25MCG 14 PUFFS/INHALER INH SCH (09:15)
[2020-03-29] MEDS: ENOXAPARIN INJ 40 MG/0.4 ML SYR SQ SCH (09:15)
[2020-03-29] MEDS: HYDROXYCHLOROQUINE SULFATE 200 MG TAB PO SCH (10:59)
--- NOTE | 2020-03-29 18:54 | Discharge Summary ---
Date of Service March 29, 2020 Principal Diagnosis lyme Discharge Exam gen aao pleasant nad heent nc at mmm breathing unlabored no accessory muscles good effort skin no rashes no pallor or icterus neuro no focal deficits slow but steady gait w walker Discharge Data Allergies Allergy/AdvReac Type Severity Reaction Status Date / Time fentanyl Allergy Intermediate Rash Verified 03/22/20 18:12 magnesium hydroxide Allergy Intermediate hives Verified 03/22/20 18:12 buprenorphine Allergy Mild rash (with Verified 03/22/20 18:12 patch) cyclobenzaprine Allergy Unknown Unknown Verified 03/22/20 18:12 naproxen AdvReac Severe GI bleed Verified 03/22/20 18:12 nizatidine AdvReac Intermediate Diarrhea Verified 03/22/20 18:12 Consultations 03/22/20 19:17 ED Decision to Admit Stat 03/23/20 00:47 Consult Neurology Routine Ordered Studies 03/22/20 17:02 CT head/brain wo con Stat 03/22/20 20:20 MR brain MS wo/w con Stat 03/23/20 09:36 MR cervical spine wo con Routine MR lumbar spine wo con Routine MR thoracic spine wo con Routine 03/23/20 10:30 US carotid doppler BI Routine 03/24/20 07:22 FL lumbar puncture diagnostic Routine Hospital Course (1) Weakness: Improving * 65 yo F w/ PMH neuropathy, sarcoidosis, JADEN, hypothyroidism, fibromyalgia, depression, migraine without aura, asthma admitted for multiple syncopal events and bilateral weakness. UA negative for infection. TSH wnl. Trop <0.015 * CT Head negative for acute process --> MRI with multiple white matter T2 hyperintense foci, favoring small vessel disease * For concerns of MS, Cervical/Lumbar/Thoracic spine MRI were completed -- neurology consulted - does not believe findings to be very suggestive of MS. Also with possibility of sarcoid but not conclusive on imaging. Lyme possible --only 1 IgM positive but we are in a VERY endemic area for this. treat as such. * US Carotids negative for any significant stenosis * CSF Clear, colorless. WBC 2, RBC 0, Glucose 61, Total protein 32.9 * CSF for lyme still pending - was on ceftriaxone x6 days, but now safe/stable for discharge - anticipate [employer] lyme being negative, but if positive pt aware of need for completing course w IV instead - she is comfortable with this being "work in progress" as she goes home * finish course for presumed lyme w doxycycline. . (2) Drop attack: * Unclear if LOC or syncope given patients history * See above -- does have history of sensory polyneuropathy --> will need outpatient follow up with her Neurologist, Dr. Loving (3) Lyme disease: * IgM positive, IgG negative however only band 23 positive on WB * Initially ordered doxy as above and switched to Rocephin for neurological disease. See above (4) Syncope: * Unclear if drop attack vs syncope. See above. (5) Sarcoidosis: * Follows with [facility] --> most recently seen Oct [address] Piper. Lung and/or thoracic lymph node involvement per most recent note. CT Chest was free of infiltrates and PFTs without progressive changes and off all prednisone * Continue plaquenil 200 mg PO BID * Concerns for possible neuro sarcoid (although unlikely per neuro given imaging) --> ANGIE level to be added to CSF from LP 03/24, pending * Continue home inhalers (6) Spondylosis of cervical region without myelopathy or radiculopathy: * Noted on imaging (7) Hypothyroidism: * Chronic. * TSH 1.320 * Continue home levothyroxine 88mcg (8) Hypercholesterolemia: * Chronic. Continue home simvastatin 40mg. 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 Stable * Patient on omeprazole 40 mg BID as outpatient --> on protonix 40mg PO BID while inpatient (13) Major depression, recurrent: * Chronic. * Continue home Bupropion 200 mg, Escitalopram 10mg, Lamictal 300mg PO HS (14) Dementia: * Follows with Dr. Loving * Continue home memantine 10 mg PO BID (15) Elevated serum alkaline phosphatase level: * Alk phos elevated slightly at 122 on admission, now wnl (16) Headache: * hx migraines. (17) Constipation: * outpt f/u (18) DVT prophylaxis: Total Time Total Time Spent Total Time Spent (In Minutes): >30 Discharge Plan Discharge Items Patient Disposition: Home - Self-Care Reason For Visit: SYNCOPE Discharge Diagnosis: weakness, lyme (see below) Activity: Resume your previous activity Non-emergency contact: Primary Care Provider and Neurologist Call non-emergency contact if: you have any medication questions and your symptoms worsen Follow-up/Referrals: Jose Luis Loving MD [Physician] - 04/13/20 1:30 pm (Please, follow up at Dr. Loving's office with his associate, Gissell Davenport PA-C, on SaturdayApril 13 at 1:30 pm. *The office is located at [address] [place] [address] in [place]. If you need to change this appointment, call their office at [phone].) Niall Fields III, CRNP [Primary Care Provider] - 04/05/20 9:15 am (Please, follow up with Niall BEAVER on SaturdayApril 05 at 9:15 am. *If you need to change this appointment, call the office at [phone].) Diet: Regular Addtl Attending Provider Instructions: lyme -fortunately lyme is generally fairly easy to treat. you've had almost a week of the IV ceftriaxone, to ensure that we treat this through, we'll finish out treatment with 14 days of doxycycline 100mg twice a day - next dose tonight. as we discussed, the main side effect to watch for with doxycyline (especially this time of year) is that it can make you more sun sensitive -- sometimes even 15 minutes could lead to a blistering sunburn -- so definitely wear sunblock/protective clothing/etc. it also is occassionally a little nauseating - if that's the case it's OK to take with food -as we discussed, there is a lot of "myth and urban legend" that comes with lyme - most of it is not at all true. that said, there is one entity - post lyme syndrome - that appears to have some validity - it's mostly manifest as joint pains/aches that just seem to take a while to go away after the lyme has resolved - i only bring this up because i unfortunately do see a reasonable number of people who find there way to dangerous regimens like chronic/indefinite antibiotics/etc and i always like to try to separate "fact from fiction" to keep people safe from less proven or scientific thoughts that are out there. even though it's highly unlikely to occur, should you have anything that looks like post-lyme, some people will occasionally use plaquenil to treat it (which you're already on) and most everyone gets better on their own - it just takes time. -take the doxycycline 100mg twice a day next dose tonight -follow up with Dr Loving -your lyme study on the spinal tap fluid is still pending - on the very remote chance this comes back positive, we would need to arrange another few weeks of the IV rocephin (the same antibiotic you've been on here) - but if that's needed we'll work on getting that set up. Pending Studies at Discharge: Yes (lyme test on [employer]) Stand-Alone Forms: My [facility] Expressions, Smoking Cessation Medications and DC Order Prescriptions: New doxycycline hyclate 100 mg capsule 100 mg PO BID 14 Days Qty: 28 RF: 0 Continued potassium citrate 10 mEq (1,080 mg) tablet extended release 10 meq PO TID Qty: 270 RF: 3 albuterol sulfate 2.5 mg /3 mL (0.083 %) solution for nebulization 2.5 mg INH Q4H PRN (Reason: shortness of breath or wheezing) Qty: 180 RF: 5 omeprazole 40 mg capsule,delayed release(DR/EC) 40 mg PO BID Qty: 60 RF: 2 levothyroxine 88 mcg tablet 88 mcg PO QAM Qty: 90 RF: 1 simvastatin 40 mg tablet 40 mg PO HS Qty: 90 RF: 1 memantine 10 mg tablet 10 mg PO BID 30 Days Qty: 60 RF: 0 tramadol 50 mg tablet 50 mg PO TID PRN (Reason: pain) Qty: 90 RF: 2 bupropion HCl 200 mg tablet sustained-release 12 hr 200 mg PO QAM RF: 0 albuterol sulfate [ProAir HFA] 90 mcg/actuation HFA aerosol inhaler 2 puff INHALATION Q6H PRN (Reason: Shortness Of Breath Or Wheezing) RF: 0 (DME) nebulizer accessories Kit See Rx Instructions .ROUTE .MEDSUPPLY Qty: 1 RF: 0 baclofen 10 mg tablet 10 mg PO QID 90 Days Qty: 360 RF: 3 Rexulti 2 mg tablet 2 mg PO HS RF: 0 trazodone 100 mg tablet 100 mg PO HS RF: 0 cholecalciferol (vitamin D3) 5,000 unit capsule 5,000 units PO QAM RF: 0 lamotrigine [Lamictal] 150 mg Tablet 300 mg PO HS RF: 0 lorazepam 1 mg Tablet 1 mg PO BID PRN (Reason: Anxiety) RF: 0 hydroxychloroquine [Plaquenil] 200 mg Tablet 200 mg PO BID RF: 0 sumatriptan succinate 6 mg/0.5 mL Pen Injector 6 mg subcut UD PRN (Reason: Migraine Headache) RF: 0 aspirin 81 mg Tablet,Chewable 81 mg PO QAM RF: 0 rizatriptan 10 mg tablet 10 mg PO UD PRN (Reason: Migraine Headache) RF: 0 topiramate 200 mg tablet 200 mg PO BID RF: 0 escitalopram oxalate 5 mg tablet 10 mg PO QAM RF: 0 Breo Ellipta 200-25 mcg/dose blister with device 1 inh INHALATION QAM RF: 0 meloxicam 15 mg tablet 15 mg PO QAM RF: 0 montelukast [Singulair] 10 mg tablet 10 mg PO HS RF: 0 Discharge Orders: Discharge Order (Routine); Ordered 03/29/20 Ordered By: Bruce Eisenberg Admission Data Admit Date/Time: 03/23/20 17:30 Attending Provider: Bruce Eisenberg Admit Provider: Kayleigh Doll Primary Care Provider: Niall Fields III Other Providers: Kirill Chaudhari ; Callum Jones ; Tod Mcgarry Other Interventions: Discharge Summary Assessment (RN) Last Done: 03/29/20 14:07 DC Date/Time DO NOT enter until pt leaves facility: 03/29/20 14:41 Coding Level of Care Code D/C Day Management >30 mins Diagnoses Weakness R53.1 Drop attack R55 Lyme disease A69.20 Syncope R55 Syncope type: unspecified Sarcoidosis D86.9 Spondylosis of cervical region without myelopathy or radiculopathy M47.812 Hypothyroidism E03.9 Hypothyroidism type: acquired Hypercholesterolemia E78.00 Fibromyalgia M79.7 Common migraine without aura G43.009 Asthma with COPD J44.9 Gastro-esophageal reflux disease without esophagitis K21.9 Major depression, recurrent F33.9 Dementia F03.90 Elevated serum alkaline phosphatase level R74.8 Headache R51 Constipation K59.00 DVT prophylaxis Z29.9
[2020-04-01 15:45] LABS: Albumin 3.8 g/dL (3.2-4.6); IgG CSF 1.4 mg/dL (0.8-7.7); IgG Index, CSF 0.43 (<0.66); IgG Serum 831 mg/dL (600-1540); Lyme DNA PCR CSF or Synovial Not detected (Not Detected); Lyme DNA Source CSF; Lyme IgG Band Pattern CSF DNR; Lyme IgG CSF NO BANDS DETECTED; Lyme IgM Band Pattern CSF DNR; Lyme IgM CSF NO BANDS DETECTED; Myelin Basic Protein <2.0 mcg/L (2.0-4.0); Synthesis Rate, IgG CSF -3.5 mg/24 h (-9.9-3.3)
== END 2020-03-29 14:41 | disposition home or self-care (01) | DRG 641 ==
LOC: ED 16:29 → EDINP 16:29 → SUATTDRO 20:34 → EDINP 23:17 → 2N 03-23 02:25 → SUATTDRO 03-23 17:30

== ENCOUNTER 2024-10-04 10:02 | Observation (INO) ==
--- NOTE | 2024-10-04 10:12 | Emergency Department Note ---
Impression & Plan Hydroureteronephrosis, Ureteral colic, Acute left flank pain, Hematuria ED Provider Note NAME: GUILLERMO NUNES AGE: 69 SEX: F : 1955 ARRIVES VIA: Ambulance INFORMANT: Patient, nursing report ED PROVIDER(S): Lei Patterson MD CHIEF COMPLAINT: Flank pain MEDICAL DECISION MAKING: Patient presents due to concern for left-sided flank pain. IV was established and blood work was obtained. Patient was ordered IV morphine and IV Zofran. CT abdomen pelvis performed. No clinic sign patient with a normal white count H&H and platelet count. The patient's kidney function is unremarkable. Mild elevation in glucose at 135 nonfasting and not DKA. Urinalysis does show blood but no signs of obvious infection. Urine WBCs noted but no other signs. Patient CT abdomen pelvis does show proximal ureteral stone with associated hydroureteronephrosis. Patient was informed of the findings. Did receive additional IV morphine. Upon subsequent reassessment the patient was still having intractable pain did not think that she would be suitable for home at this time. Given this I did consider escalation of care and admission for pain control. As such I did speak the on-call hospitalist service. Patient was ordered additional IV morphine 4 mg IV Tylenol as well as IV fluids. Patient was admitted to medicine service by Dr. Storm. Discussion w/ other healthcare providers: Amira Baptiste PA-C and Dr. Storm inpatient medicine service Prior /Outside records reviewed: None Differential diagnosis: Renal colic, UTI, pyelonephritis, appendicitis, diverticulitis, strain, sprain, fracture among others were considered. Diagnostics, as interpreted by me: ECG: Normal sinus rhythm, rate of 72, normal intervals, normal axis no ST elevations. Cardiac monitoring: An order was placed for continuous cardiac monitoring. The monitor shows a rate of 72 with sinus rhythm. Patient was placed on pulse oximetry Medical decision rules: None Imaging studies: I informally interpreted the patient's CT abdomen pelvis does show a left-sided ureteral stone with formal report to follow. HPI: Patient presents due to concern for left-sided flank pain. The patient states that he is in the left flank and abdomen beginning around 2300 last evening. Patient states that was his bed is 10 out of 10 but has improved to 7 out of 10 after receiving Toradol and Zofran prior to arrival. The patient states she has had associated nausea but no vomiting. Prior history of kidney stones but states that this was so long ago that is unsure as to whether or not the symptoms are similar. Patient denies any chest pains or shortness of breath no upper respiratory symptoms cough or fever. Patient denies any dysuria or hematuria no hematochezia. PAST MEDICAL HISTORY: See Below PAST SURGICAL HISTORY: See Below SOCIAL HISTORY: See Below HOME MEDICATIONS: See Below ALLERGIES: See Below VITALS: See Below PHYSICAL EXAMINATION: GENERAL: NAD, non-toxic. EYE EXAM: Normal conjunctiva. PERRL, no anisocoria and EOM's grossly intact w/o pain. OROPHARYNX: Moist mucus membranes, grossly normal dentition. NECK: Trachea midline, no stridor. LUNGS: Clear to auscultation. Normal chest wall mechanics. HEART: NSR, no MRG. ABDOMEN: Abdomen soft, non-tender, no masses, no rebound or guarding. BACK: Left-sided CVA TTP. SKIN: No rashes and no bruising. UPPER EXTREMITIES: Upper extremities are grossly normal. LOWER EXTREMITIES: Grossly normal, no edema. NEURO EXAM: A&O x3, cranial nerves II-XII grossly intact, normal speech, moves all 4 extremities. 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) Sarcoidosis (Chronic) Restless legs syndrome (Chronic) Polyneuropathy (Chronic) Osteoarthrosis, unspecified whether generalized or localized, forearm (Chronic) Obstructive sleep apnea of adult (Chronic) Non-allergic rhinitis (Chronic) Nasal septal deviation (Chronic) Multilevel degenerative disc disease (Chronic) Mixed incontinence urge and stress (Chronic) Major depression, recurrent (Chronic) Insomnia (Chronic) Hypothyroidism (Chronic) Hypertrophy of nasal turbinates (Chronic) Hypercholesterolemia (Chronic) Gastro-esophageal reflux disease without esophagitis (Chronic) Fibromyalgia (Chronic) Depressive disorder, not elsewhere classified (Chronic) Common migraine without aura (Chronic) Chronic sinusitis (Chronic) Asthma with COPD (Chronic) Anemia (Chronic) Allergic conjunctivitis (Chronic) Dementia Elevated serum alkaline phosphatase level Headache Constipation Lumbosacral radiculopathy Breast pain Urinary incontinence Migraine without aura, not intractable, without status migrainosus Nephrolithiasis Prediabetes Obstructive sleep apnea Asthma Cough Hypersomnolence disorder, with medical condition, persistent, moderate Urinary symptom or sign Lower extremity weakness Arthralgia of multiple joints Muscle spasm Lower back pain Medical History Migraines REASON FOR MEDICATION/DENIES HX SEIZURES Poor historian Mild early onset Alzheimer's dementia ? details/ dr peterson Overactive bladder Asthma seasonal/no current meds for Dyspnea on exertion COVID-19 hx 2021 Mild cognitive impairment PVCs (premature ventricular contractions) Obesity Chronic back pain Temporomandibular joint disorder s/p corrective jaw procedure for TMJ/occasional clicking/no locking Sleep apnea mild JADEN- unable to tolerate CPAP Migraine, unspecified, not intractable, without status migrainosus History of kidney stones Osteoarthritis Hyperlipidemia Anxiety GERD (gastroesophageal reflux disease) controlled Sarcoidosis [place] [facility] (Dr. Satnam Piper[place] [place] Fibromyalgia Depression Hypothyroidism Surgical History History of colonoscopy History of cataract surgery B/L H/O nasal septoplasty H/O lithotripsy History of surgery tmj corrective surgery History of bowel resection several years ago ? related to bowel obstruction (patient unsure) History of herniorrhaphy umbilical History of total knee replacement rt Hx of lumpectomy History of breast biopsy History of partial hysterectomy ~1984. No oophorectomy Family History Mother Breast cancer, Onset Age: 71 Family history of reaction to anesthesia SLOW TO WAKE Family history of diabetes mellitus Father Prostate cancer Hypertension Sister Chronic kidney disease Renal transplant recipient Family history of diabetes mellitus Denies family history of Colon cancer Ovarian cancer Myocardial infarction Colorectal cancer Social History Smoking Status: Never smoker Second Hand Exposure: No; Do You Dip or Chew Tobacco: No; Hx Alcohol Use: No Hx Substance Use: No Preferred Language: Icelandic Communication Ability: Effective Communication Ability Comment: EARLY [employer] APPROPRIATE FOR PAT PHONE. 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: No Beliefs That Will Affect Care: None marital status: / Current Living Situation: Alone Current Living Situation Comment: AND DOG current occupational status: unemployed and disabled How many Children do You have: 3 Feels Safe at Home: Yes Childhood Exposure to Second-Hand Smoke: Yes Diet: regular caffeine: No during the past year weight has: decreased > 10 lbs Dental Care, Regularly: Yes Physical Activity Frequency: Does not Exercise Seatbelt Use: always Sunscreen Use: No Assistive Devices: None Allergies Allergies Allergy/AdvReac Type Severity Reaction Status Date / Time buprenorphine Allergy Unknown rash (with Verified 09/17/24 11:15 patch) cyclobenzaprine Allergy Unknown Unknown Verified 09/17/24 11:15 fentanyl Allergy Unknown Rash Verified 09/17/24 11:15 magnesium hydroxide Allergy Unknown hives Verified 09/17/24 11:15 ezetimibe [From Zetia] AdvReac Intermediate Headache Verified 09/17/24 11:15 naproxen AdvReac Unknown GI bleed Verified 09/17/24 11:15 nizatidine AdvReac Unknown pt not sure Verified 09/17/24 11:15 SANDERS Allergy Intermediate HIVES Uncoded 09/17/24 11:15 Home Meds Home Medications Medication Instructions Recorded Confirmed lorazepam 1 mg tablet 1 mg PO BID PRN Anxiety 08/08/18 10/04/24 desvenlafaxine succinate 50 mg 50 mg PO DAILY 05/28/24 10/04/24 tablet,extended release 24 hr (Pristiq) bupropion HCl 300 mg 24 hr tablet, 300 mg PO QAM 10/04/24 10/04/24 extended release rimegepant 75 mg disintegrating 75 mg PO .COMPLEX PRN Migraine 10/04/24 10/04/24 tablet (Nurtec ODT) Headache trazodone 300 mg tablet 300 mg PO HS 10/04/24 10/04/24 Previous Rx's Medication Instructions Recorded azelastine 137 mcg (0.1 %) nasal 2 spray intranasal BID PRN allergy 03/11/23 spray symptoms #30 mL fluticasone propionate 50 2 spray intranasal DAILY #16 grams 03/11/23 mcg/actuation nasal spray,suspension ipratropium bromide 21 mcg (0.03 2 spray intranasal BID #30 mL 03/11/23 %) nasal spray famotidine 20 mg tablet 20 mg PO QPM #30 tabs 03/13/23 brexpiprazole 3 mg tablet (Rexulti) 3 mg PO HS #30 tabs 08/22/23 lamotrigine 150 mg tablet 300 mg (2 x 150 mg) PO HS #90 tabs 08/22/23 (Lamictal) memantine 10 mg tablet 10 mg PO BID 90 days #180 tabs 11/25/23 topiramate 200 mg tablet 200 mg PO BID 90 days #180 tabs 11/25/23 tramadol 50 mg tablet 50 mg PO TID PRN pain #90 tabs 12/16/23 Prolia 60 mg/mL subcutaneous 60 mg subcut ONCE #1 mL 12/20/23 syringe (denosumab) cyanocobalamin (vitamin B-12) 1,000 mcg PO DAILY #90 caps 01/08/24 1,000 mcg capsule aspirin 81 mg chewable tablet 81 mg PO QAM #90 tabs 04/01/24 cholecalciferol (vitamin D3) 125 5,000 unit PO QAM #90 caps 04/01/24 mcg (5,000 unit) capsule montelukast 10 mg tablet 10 mg PO HS #90 tabs 04/01/24 omeprazole 40 mg capsule,delayed 40 mg PO BID #180 caps 04/01/24 release potassium citrate 10 mEq (1,080 10 meq PO TID #270 tabs 04/01/24 mg) tablet,extended release levothyroxine 137 mcg tablet 137 mcg PO DAILY #90 tabs 07/20/24 (Synthroid) albuterol sulfate 90 mcg/actuation See Rx Instructions inhalation 09/14/24 aerosol inhaler (Ventolin HFA) .COMPLEX PRN shortness of breath or wheezing #8.5 grams Results & Data (ED) Vital Signs Vital Signs - 24 hr 10/04/24 10:11 10/04/24 10:11 10/04/24 10:18 Temperature 37.4 C Temperature Source Oral Pulse Rate 72 65 Pulse Rate [Left Finger] Respiratory Rate 20 Respiratory Effort / Characteristics Non-Labored Non-Labored Respiratory Depth Normal Normal Respiratory Pattern Blood Pressure 131/73 Blood Pressure [Left Arm] Blood Pressure Mean 92 Blood Pressure Mean [Left Arm] Pulse Oximetry 94 Oxygen Delivery Method Room Air Sepsis Recent Fever Within 48 Hours No Sepsis New/Unexplained Change in Mental Status No Sepsis Action Taken by Nursing No Action Required 10/04/24 10:48 10/04/24 11:58 10/04/24 13:00 Temperature Temperature Source Pulse Rate Pulse Rate [Left Finger] 62 61 Respiratory Rate 18 16 Respiratory Effort / Characteristics Non-Labored Spontaneous Non-Labored Respiratory Depth Normal Normal Respiratory Pattern Regular Blood Pressure Blood Pressure [Left Arm] 143/97 H 143/97 H Blood Pressure Mean Blood Pressure Mean [Left Arm] 112 112 Pulse Oximetry 97 95 Oxygen Delivery Method Room Air Room Air Room Air Sepsis Recent Fever Within 48 Hours Sepsis New/Unexplained Change in Mental Status Sepsis Action Taken by Nursing 10/04/24 13:27 10/04/24 13:35 10/04/24 14:50 Temperature Temperature Source Pulse Rate Pulse Rate [Left Finger] 62 69 Respiratory Rate 18 18 Respiratory Effort / Characteristics Non-Labored Non-Labored Respiratory Depth Normal Normal Respiratory Pattern Blood Pressure Blood Pressure [Left Arm] 132/70 148/81 H 126/66 Blood Pressure Mean Blood Pressure Mean [Left Arm] 90 103 86 Pulse Oximetry 94 98 Oxygen Delivery Method Room Air Room Air Sepsis Recent Fever Within 48 Hours Sepsis New/Unexplained Change in Mental Status Sepsis Action Taken by Longterm Medications Current Medication List: was personally reviewed by me Laboratory Data Attestation: I reviewed the patient's lab results. 10/04/24 10:20 10/04/24 10:20 Lab Results 10/04/24 10/04/24 Range/Units 10:20 14:26 WBC 8.28 (4.8-10.8) K/ul RBC 4.35 (4.20-5.40) M/uL Hgb 14.0 (12.0-16.0) g/dl Hct 41.6 (37.0-47.0) % MCV 95.6 (80.0-100.0) fL MCH 32.2 (25.0-34.0) pg MCHC 33.7 (32.0-36.0) g/dL RDW Std Deviation 42.9 (36.4-46.3) fL RDW Coeff of Charley 12.2 (11.5-14.5) % Plt Count 224 (130-400) K/uL MPV 9.9 (9.4-12.4) fL Immature Gran % (Auto) 0.4 % Neut % (Auto) 76.7 % Lymph % (Auto) 16.4 % Dukes % (Auto) 5.3 % Eos % (Auto) 0.7 % Baso % (Auto) 0.5 % Neut # (Auto) 6.35 (1.40-6.50) K/uL Lymph # (Auto) 1.36 (1.20-3.40) K/uL Dukes # (Auto) 0.44 (0.11-0.59) K/uL Eos # (Auto) 0.06 (0.00-0.50) K/uL Baso # (Auto) 0.04 (0.00-0.20) K/uL Immature Gran # (Auto) 0.03 (0.01-0.20) K/uL Sodium 142 (136-145) mmol/L Potassium 3.9 (3.5-5.1) mmol/L Chloride 111 H (98-107) mmol/L Carbon Dioxide 25 (21-32) mmol/L Anion Gap 6 (3-11) BUN 17 (6-23) mg/dl Creatinine 0.90 (0.6-1.2) mg/dl Est Cr Clr Drug Dosing 56.6 ml/min eGFR 69.20 BUN/Creatinine Ratio 18.9 (10-20) Glucose 135 H (70-99(Fasting)) mg/dl Calcium 9.0 (8.6-10.3) mg/dl Total Bilirubin 0.3 (0.2-1.0) mg/dl AST 12 L (13-39) U/L ALT 10 (7-52) U/L Alkaline Phosphatase 69 (34-104) U/L Troponin I High Sens 7.1 (0-14) pg/ml Total Protein 7.1 (6.0-8.3) gm/dl Albumin 4.3 (3.4-5.0) gm/dl Globulin 2.8 (2.5-4.0) gm/dl Albumin/Globulin Ratio 1.5 (0.9-2) Lipase 4 L (11-82) U/L Urine Color Yellow Urine Appearance Clear (Clear) Urine pH 7.0 (4.5-7.5) Ur Specific [place] > 1.045 H (1.000-1.030) Urine Protein Negative (Negative) Urine Glucose (UA) Negative (Negative) Urine Ketones Negative (Negative) Urine Blood Trace H (Negative) Urine Nitrite Negative (Negative) Urine Bilirubin Negative (Negative) Urine Urobilinogen Negative (Negative) Ur Leukocyte Esterase Negative (Negative) Urine WBC (Auto) 6-10 H (0-5) /hpf Urine RBC (Auto) 11-20 H (0-2) /hpf U Hyaline Cast (Auto) 0-2 (0-2) /lpf U Epithel Cells (Auto) 0-2 (0-2) /hpf Urine Bacteria (Auto) None Seen (None Seen) Administered Medications Sodium Chloride (Nss) 1,000 mls @ 80 mls/hr IV .[id number] RAMILA Stop: 10/05/24 13:59 Last Admin: 10/04/24 14:17 Dose: 80 mls/hr Documented By: YOANA Discontinued Medications Cefazolin Sodium (Cefazolin 2,000 Mg/15 Ml Iv Push) Confirm Administered Dose 2,000 mg IV .STK-MED ONE Stop: 10/04/24 14:16 Last Admin: 10/04/24 14:17 Dose: Not Given Documented By: YOANA Acetaminophen (Ofirmev) 1,000 mg in 100 mls @ 400 mls/hr IV NOW STA Stop: 10/04/24 13:38 Last Infusion: 10/04/24 13:50 Dose: Infused Documented By: Admin: 10/04/24 13:33 Dose: 400 mls/hr Documented By: MANDO Sodium Chloride (Nss) 500 mls @ 999 mls/hr IV .Q31M ONE Stop: 10/04/24 13:54 Last Infusion: 10/04/24 14:12 Dose: Infused Documented By: Admin: 10/04/24 13:33 Dose: 999 mls/hr Documented By: MANDO Cefazolin Sodium (Ancef 2000mg) 2,000 mg in 15 mls @ 3.75 mls/min IV PREOP ONE; Protocol Stop: 10/04/24 14:05 Last Admin: 10/04/24 14:17 Dose: 3.75 mls/min Documented By: YOANA Ioversol (Optiray 320 100ml) 94 ml IV ONCE ONE Stop: 10/04/24 11:19 Last Admin: 10/04/24 11:18 Dose: 94 ml Documented By: MARGUERITEK Morphine Sulfate (Morphine Sulfate 4 Mg/Ml 1 Ml Carp\Vial) 4 mg IV NOW STA Stop: 10/04/24 10:31 Last Admin: 10/04/24 10:41 Dose: 4 mg Documented By: MMG Morphine Sulfate (Morphine Sulfate 4 Mg/Ml 1 Ml Carp\Vial) 4 mg IV NOW STA Stop: 10/04/24 11:52 Last Admin: 10/04/24 12:00 Dose: 4 mg Documented By: NRB Morphine Sulfate (Morphine Sulfate 4 Mg/Ml 1 Ml Carp\Vial) 4 mg IV NOW STA Stop: 10/04/24 13:25 Last Admin: 10/04/24 13:33 Dose: 4 mg Documented By: MMG Ondansetron HCl (Ondansetron Inj 2 Mg/Ml 2 Ml Vial) 4 mg IV NOW STA Stop: 10/04/24 10:31 Last Admin: 10/04/24 10:41 Dose: 4 mg Documented By: MMG Ondansetron HCl (Ondansetron Inj 2 Mg/Ml 2 Ml Vial) 4 mg IV NOW STA Stop: 10/04/24 11:51 Last Admin: 10/04/24 11:59 Dose: 4 mg Documented By: NRB Tamsulosin HCl (Tamsulosin Hcl 0.4 Mg Cap) 0.4 mg PO NOW ONE Stop: 10/04/24 13:25 Last Admin: 10/04/24 13:33 Dose: 0.4 mg Documented By: MMG Imaging Data Radiologist's Impression: Abdomen/Pelvis CT 10/04/24 10:31 CT abd pelvis IV con only CLINICAL HISTORY: LLQ and b/l flank pain TECHNIQUE: Helical axial images of the abdomen and pelvis were obtained and displayed. Automated dose lowering techniques and/or adjustment according to patient size were utilized for this exam. This exam was performed with intravenous contrast. CT DOSE: 904.37 mGy.cm COMPARISON: Comparison is made to CT abdomen pelvis 11/08/2022 FINDINGS: Lower chest: No acute abnormality. Liver: Unremarkable. No focal lesions are seen. Gallbladder and biliary tree: No calcified gallstones. Normal caliber wall. No intra- or extrahepatic biliary ductal dilation. Pancreas: Fatty replacement of the pancreas is seen. Spleen: Unremarkable. Adrenals: Unremarkable. Kidneys and ureters: A 5 mm obstructive stone is seen in the small left ureter with associated hydroureter or hydronephrosis. Renal hypodensities are seen which are too small to characterize but favored to represent cysts. Bladder: Limited evaluation due to underdistention. Reproductive organs: Unremarkable. Bowel: The appendix is normal. A duodenal diverticulum is seen. Lymph nodes Retroperitoneal: Unremarkable. Pelvic: Unremarkable. Mesenteric: Unremarkable. Peritoneum: Normal. Vessels: Unremarkable. Abdominal wall: Fat-containing midline hernia is seen. Bones: Degenerative changes in the visualized spine. IMPRESSION: There is an obstructive left proximal ureteral stone with associated hydroureter and hydronephrosis. No right-sided stone seen. ACT 112: Negative or not required by law. Electronically signed by: Satnam Ramey M.D. 10/04/2024 11:41 AM Discharge Plan Visit Data Chief Complaint: Flank Pain Stated Complaint: FLANK PAIN ED Provider: Lei Patterson Discharge Problem: Hydroureteronephrosis, Ureteral colic, Acute left flank pain, Hematuria Patient Disposition: Admitted As Inpatient Discharge Instructions Interventions: ED Discharge Assessment Last Done: 10/04/24 14:54 Forms Stand Alone Forms: [facility] Prescriptions Prescriptions: No Action desvenlafaxine succinate [Pristiq] 50 mg tablet extended release 24 hr 50 mg PO DAILY ipratropium bromide 21 mcg (0.03 %) spray,non-aerosol 2 spray intranasal BID Qty: 30 6RF Rx Instructions: administer into each nostril azelastine 137 mcg (0.1 %) aerosol,spray 2 spray intranasal BID PRN (Reason: allergy symptoms) Qty: 30 11RF Rx Instructions: administer into each nostril fluticasone propionate 50 mcg/actuation spray,suspension 2 spray intranasal DAILY Qty: 16 11RF Rx Instructions: administer into each nostril famotidine 20 mg tablet 20 mg PO QPM Qty: 30 6RF Rexulti 3 mg tablet 3 mg PO HS Qty: 30 5RF lamotrigine [Lamictal] 150 mg tablet 300 mg PO HS Qty: 90 0RF tramadol 50 mg tablet 50 mg PO TID PRN (Reason: pain) Qty: 90 2RF Prolia 60 mg/mL syringe 60 mg subcut ONCE Qty: 1 1RF Rx Instructions: inject every 180 days Buy and Bill Auth# [id number] From 12/19/23-12/18/24 cyanocobalamin (vitamin B-12) 1,000 mcg capsule 1,000 mcg PO DAILY Qty: 90 3RF potassium citrate 10 mEq (1,080 mg) tablet extended release 10 meq PO TID Qty: 270 3RF montelukast 10 mg tablet 10 mg PO HS Qty: 90 3RF Rx Instructions: TAKE 1 TABLET BY MOUTH AT BEDTIME aspirin 81 mg tablet,chewable 81 mg PO QAM Qty: 90 3RF Rx Instructions: TAKE 1 TABLET BY MOUTH ONCE DAILY AT NOON omeprazole 40 mg capsule,delayed release(DR/EC) 40 mg PO BID Qty: 180 3RF Rx Instructions: TAKE ONE CAPSULE BY MOUTH TWICE DAILY cholecalciferol (vitamin D3) 125 mcg (5,000 unit) capsule 5,000 unit PO QAM Qty: 90 3RF Rx Instructions: TAKE 1 CAPSULE BY MOUTH ONCE DAILY IN THE MORNING levothyroxine [Synthroid] 137 mcg tablet 137 mcg PO DAILY Qty: 90 3RF albuterol sulfate [Ventolin HFA] 90 mcg/actuation HFA aerosol inhaler See Rx Instructions inhalation .COMPLEX PRN (Reason: shortness of breath or wheezing) Qty: 8.5 2RF Rx Instructions: 1-2 INH 4-6 PRN; memantine 10 mg tablet 10 mg PO BID 90 Days Qty: 180 3RF topiramate 200 mg tablet 200 mg PO BID 90 Days Qty: 180 3RF lorazepam 1 mg Tablet 1 mg PO BID PRN (Reason: Anxiety) trazodone 300 mg tablet 300 mg PO HS bupropion HCl 300 mg tablet extended release 24 hr 300 mg PO QAM Nurtec ODT 75 mg tablet,disintegrating 75 mg PO .COMPLEX PRN (Reason: Migraine Headache) Rx Instructions: 75 mg PO ONCE A DAY PRN. MAX DOSE 1 PER 24 HOURS; Referrals Referrals: Niall Fields III, CRNP [Primary Care Provider] - Discharge Problem: Hematuria Qualifiers: Hematuria type: other microscopic Qualified Code(s): R31.29 - Other microscopic hematuria
[2024-10-04] MEDS: MoRPHine SULFATE 4 MG/ML 1 ML CARP\\VIAL IV STA ×3 (10:41→13:33)
[2024-10-04] MEDS: ONDANSETRON INJ 2 MG/ML 2 ML VIAL IV STA ×2 (10:41→11:59)
[2024-10-04 10:44] LABS: Basophils # (auto) 0.04 K/uL (0.00-0.20); Basophils % (auto) 0.5 %; Eosinophils # (auto) 0.06 K/uL (0.00-0.50); Eosinophils % (auto) 0.7 %; Hematocrit (blood only) 41.6 % (37.0-47.0); Immature Granulocytes # (auto) 0.03 K/uL (0.01-0.20); Immature Granulocytes % (auto) 0.4 %; Lymphocytes # (auto) 1.36 K/uL (1.20-3.40); Lymphocytes % (auto) 16.4 %; Mean Corpuscular Hemoglobin 32.2 pg (25.0-34.0); Mean Corpuscular Hgb Conc 33.7 g/dL (32.0-36.0); Mean Corpuscular Volume 95.6 fL (80.0-100.0); Mean Platelet Volume 9.9 fL (9.4-12.4); Monocytes # (auto) 0.44 K/uL (0.11-0.59); Monocytes % (auto) 5.3 %; Neutrophils # (auto) 6.35 K/uL (1.40-6.50); Neutrophils % (auto) 76.7 %; Platelet Count 224 K/uL (130-400); RDW Coefficient of Variation 12.2 % (11.5-14.5); RDW Standard Deviation 42.9 fL (36.4-46.3); Red Blood Count 4.35 M/uL (4.20-5.40); White Blood Count 8.28 K/ul (4.8-10.8)
[2024-10-04 11:02] LABS: Albumin Globulin Ratio 1.5 (0.9-2); Albumin Level 4.3 gm/dl (3.4-5.0); BUN Creatinine Ratio 18.9 (10-20); Bilirubin,Total 0.3 mg/dl (0.2-1.0); Creatinine Clr Calc Pharmacy 56.6 ml/min; Globulin 2.8 gm/dl (2.5-4.0); Potassium 3.9 mmol/L (3.5-5.1); Total Protein 7.1 gm/dl (6.0-8.3)
[2024-10-04 11:06] LABS: Troponin I High Sensitivity 7.1 pg/ml (0-14)
[2024-10-04] MEDS: OPTIRAY 320 100ml IV ONE (11:18)
--- NOTE | 2024-10-04 11:43 | CT Scan Report ---
CT abd pelvis IV con only CLINICAL HISTORY: LLQ and b/l flank pain TECHNIQUE: Helical axial images of the abdomen and pelvis were obtained and displayed. Automated dose lowering techniques and/or adjustment according to patient size were utilized for this exam. This e xam was performed with intravenous contrast. CT DOSE: 904.37 mGy.cm COMPARISON: Comparison is made to CT abdomen pelvis 11/08/2022 FINDINGS: Lower chest: No acute abnormality. Liver: Unremarkable. No focal lesions are seen. Gallbladder and biliary tree: No calcified gallstones. Normal caliber wall. No intra- or extrahepatic biliary ductal dilation. Pancreas: Fatty replacement of the pancreas is seen. Spleen: Unremarkable. Adrenals: Unremarkable. Kidneys and ureters: A 5 mm obstructive stone is seen in the small left ureter with associated hydrou reter or hydronephrosis. Renal hypodensities are seen which are too small to characterize but favored to represent cysts. Bladder: Limited evaluation due to underdistention. Reproductive organs: Unremarkable. Bowel: The appendix is normal. A duodenal diverticulum is seen. Lymph nodes Retroperitoneal: Unremarkable. Pelvic: Unremarkable. Mesenteric: Unremarkable. Peritoneum: Normal. Vessels: Unremarkable. Abdominal wall: Fat-containing midline hernia is seen. Bones: Degenerative changes in the visualized spine. IMPRESSION: There is an obstructive left proximal ureteral stone with associated hydroureter and hydronephrosis. No right-sided stone seen. ACT 112: Negative or not required by law. Electronically signed by: Satnam Ramey M.D. 10/04/2024 11:41 AM
[2024-10-04] MEDS: SODIUM CHLORIDE 0.9% 500 ML IV ONE (13:33)
[2024-10-04] MEDS: TAMSULOSIN HCL 0.4 MG CAP PO ONE (13:33)
[2024-10-04] MEDS: ACETAMINOPHEN 1,000 MG/100 ML VIAL IV STA (13:33)
--- NOTE | 2024-10-04 13:51 | History & Physical Report ---
Date of Service October 04, 2024 Assessment & Plan (1) Left ureteral calculus: Plan: This is a 69-year-old female with past medical history of constipation, nephrolithiasis, back pain, allergic conjunctivitis, anemia, asthma, COPD who presented to the emergency department on 10/04/2024 with a chief complaint of flank pain. CBC without leukocytosis BMP w/ stable electrolytes and renal function CTAP with 5 mm obstructive left proximal ureteral stone with associated hydroureter and hydronephrosis. No right sided stone seen urinalysis pending, await collection prior to starting antibiotics s/p 500 IV NSS bolus s/p Flomax given in ED Pain control with Tylenol and Morphine Zofran prn for antiemetics urology consulted, appreciate recommendations. - maintain NPO status pending this consultation. 1L NSS @ 80ml/hr AM CBC, BMP Plan Chronic conditions: Asthma/COPD: continue inhalers, montelukast Mental health: bupropion, lamotrigine, lorazepam prn insomnia: trazodone GERD: PPI Hypothyroidism: levothyroxine. Code status: full code Disposition: medical hold DVT prophylaxis pending urology evaluation. Case was discussed with Dr. Storm at time of admission. History of Present Illness Primary Care Provider: Niall Fields III, SARANYA This is a 69-year-old female with past medical history of constipation, nephrolithiasis, back pain, allergic conjunctivitis, anemia, asthma, COPD who presented to the emergency department on 10/04/2024 with a chief complaint of flank pain. The patient was seen and examined at bedside. Patient reports that yesterday evening she started to develop left lower quadrant abdominal pain and left flank pain. States that it has been persistent. She admits to feeling nauseous but denies any vomiting. States that she does have a history of constipation has not had a bowel movement yet today. She denies any urinary frequency, urgency, burning, or hematuria. She has not urinated since presenting to the ED. She does report that the morphine that was given to her was helpful but short lasting. She notes that the Zofran took away her feeling of nauseousness. She denies any chest pain, shortness of breath, or lower extremity edema. Denies fevers or chills. patient reports she has not ate anything since yesterday evening. Reports she did not take her AM medications this morning. While in the emergency department she did undergo a CBC that was unremarkable and a stable BMP. She had a CT scan that did show a 5 mm obstructive left proxi mal ureteral stone with associated hydroureter and hydronephrosis. Allergies Allergy/AdvReac Type Severity Reaction Status Date / Time troy Allergy Intermediate Hives Verified 10/04/24 15:38 buprenorphine Allergy Unknown rash (with Verified 09/17/24 11:15 patch) cyclobenzaprine Allergy Unknown Unknown Verified 09/17/24 11:15 fentanyl Allergy Unknown Rash Verified 09/17/24 11:15 magnesium hydroxide Allergy Unknown hives Verified 09/17/24 11:15 ezetimibe [From Zetia] AdvReac Intermediate Headache Verified 09/17/24 11:15 naproxen AdvReac Unknown GI bleed Verified 09/17/24 11:15 nizatidine AdvReac Unknown pt not sure Verified 09/17/24 11:15 Home Medications Medication Instructions Recorded Confirmed Type lorazepam 1 mg tablet 1 mg PO BID PRN Anxiety 08/08/18 10/04/24 History azelastine 137 mcg (0.1 %) nasal 2 spray intranasal BID PRN allergy 03/11/23 10/04/24 Rx spray symptoms #30 mL fluticasone propionate 50 2 spray intranasal DAILY #16 grams 03/11/23 10/04/24 Rx mcg/actuation nasal spray,suspension ipratropium bromide 21 mcg (0.03 2 spray intranasal BID #30 mL 03/11/23 10/04/24 Rx %) nasal spray famotidine 20 mg tablet 20 mg PO QPM #30 tabs 03/13/23 10/04/24 Rx brexpiprazole 3 mg tablet (Rexulti) 3 mg PO HS #30 tabs 08/22/23 10/04/24 Rx lamotrigine 150 mg tablet 300 mg (2 x 150 mg) PO HS #90 tabs 08/22/23 10/04/24 Rx (Lamictal) memantine 10 mg tablet 10 mg PO BID 90 days #180 tabs 11/25/23 10/04/24 Rx topiramate 200 mg tablet 200 mg PO BID 90 days #180 tabs 11/25/23 10/04/24 Rx tramadol 50 mg tablet 50 mg PO TID PRN pain #90 tabs 12/16/23 10/04/24 Rx Prolia 60 mg/mL subcutaneous 60 mg subcut ONCE #1 mL 12/20/23 10/04/24 Rx syringe (denosumab) cyanocobalamin (vitamin B-12) 1,000 mcg PO DAILY #90 caps 01/08/24 10/04/24 Rx 1,000 mcg capsule aspirin 81 mg chewable tablet 81 mg PO QAM #90 tabs 04/01/24 10/04/24 Rx cholecalciferol (vitamin D3) 125 5,000 unit PO QAM #90 caps 04/01/24 10/04/24 Rx mcg (5,000 unit) capsule montelukast 10 mg tablet 10 mg PO HS #90 tabs 04/01/24 10/04/24 Rx omeprazole 40 mg capsule,delayed 40 mg PO BID #180 caps 04/01/24 10/04/24 Rx release potassium citrate 10 mEq (1,080 10 meq PO TID #270 tabs 04/01/24 10/04/24 Rx mg) tablet,extended release desvenlafaxine succinate 50 mg 50 mg PO DAILY 05/28/24 10/04/24 History tablet,extended release 24 hr (Pristiq) levothyroxine 137 mcg tablet 137 mcg PO DAILY #90 tabs 07/20/24 10/04/24 Rx (Synthroid) albuterol sulfate 90 mcg/actuation See Rx Instructions inhalation 09/14/24 10/04/24 Rx aerosol inhaler (Ventolin HFA) .COMPLEX PRN shortness of breath or wheezing #8.5 grams bupropion HCl 300 mg 24 hr tablet, 300 mg PO QAM 10/04/24 10/04/24 History extended release rimegepant 75 mg disintegrating 75 mg PO .COMPLEX PRN Migraine 10/04/24 10/04/24 History tablet (Nurtec ODT) Headache trazodone 300 mg tablet 300 mg PO HS 10/04/24 10/04/24 History Past Med/Surg History Problem List Hematuria (Acute) Acute left flank pain (Acute) Ureteral colic (Acute) Hydroureteronephrosis (Acute) Left ureteral calculus Osteoporosis Lumbar facet joint syndrome Chronic cough reason for upcoming procedure Chronic rhinitis Allergic rhinitis Esophageal dysphagia Neuropathy (Chronic) Right knee DJD (Chronic) Vitamin D deficiency (Chronic) Tobacco use disorder (Chronic) 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) Sarcoidosis (Chronic) Restless legs syndrome (Chronic) Polyneuropathy (Chronic) Osteoarthrosis, unspecified whether generalized or localized, forearm (Chronic) Obstructive sleep apnea of adult (Chronic) Non-allergic rhinitis (Chronic) Nasal septal deviation (Chronic) Multilevel degenerative disc disease (Chronic) Mixed incontinence urge and stress (Chronic) Major depression, recurrent (Chronic) Insomnia (Chronic) Hypothyroidism (Chronic) Hypertrophy of nasal turbinates (Chronic) Hypercholesterolemia (Chronic) Gastro-esophageal reflux disease without esophagitis (Chronic) Fibromyalgia (Chronic) Depressive disorder, not elsewhere classified (Chronic) Common migraine without aura (Chronic) Chronic sinusitis (Chronic) Asthma with COPD (Chronic) Anemia (Chronic) Allergic conjunctivitis (Chronic) Dementia Elevated serum alkaline phosphatase level Headache Constipation Lumbosacral radiculopathy Breast pain Urinary incontinence Migraine without aura, not intractable, without status migrainosus Nephrolithiasis Prediabetes Obstructive sleep apnea Asthma Cough Hypersomnolence disorder, with medical condition, persistent, moderate Urinary symptom or sign Lower extremity weakness Arthralgia of multiple joints Muscle spasm Lower back pain Medical History Migraines REASON FOR MEDICATION/DENIES HX SEIZURES Poor historian Mild early onset Alzheimer's dementia ? details/ dr peterson Overactive bladder Asthma seasonal/no current meds for Dyspnea on exertion COVID-19 hx 2021 Mild cognitive impairment PVCs (premature ventricular contractions) Obesity Chronic back pain Temporomandibular joint disorder s/p corrective jaw procedure for TMJ/occasional clicking/no locking Sleep apnea mild JADEN- unable to tolerate CPAP Migraine, unspecified, not intractable, without status migrainosus History of kidney stones Osteoarthritis Hyperlipidemia Anxiety GERD (gastroesophageal reflux disease) controlled Sarcoidosis follows with [facility] (Dr. Satnam Piper)/[facility] pulmonary Fibromyalgia Depression Hypothyroidism Surgical History History of colonoscopy History of cataract surgery B/L H/O nasal septoplasty H/O lithotripsy History of surgery tmj corrective surgery History of bowel resection several years ago ? related to bowel obstruction (patient unsure) History of herniorrhaphy umbilical History of total knee replacement rt Hx of lumpectomy History of breast biopsy History of partial hysterectomy ~1984. No oophorectomy Family History Mother Breast cancer, Onset Age: 71 Family history of reaction to anesthesia SLOW TO WAKE Family history of diabetes mellitus Father Prostate cancer Hypertension Sister Chronic kidney disease Renal transplant recipient Family history of diabetes mellitus Denies family history of Colon cancer Ovarian cancer Myocardial infarction Colorectal cancer Social History Smoking Status: Former smoker Second Hand Exposure: No; Do You Dip or Chew Tobacco: No; Hx Alcohol Use: No Hx Substance Use: No Preferred Language: Belarusian Communication Ability: Effective Communication Ability Comment: EARLY [employer] APPROPRIATE FOR PAT PHONE. 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 Visual Impairment: No Limitations Hearing Ability: Normal Phlebotomist Supervisor/Instructor Required: No Beliefs That Will Affect Care: None marital status: / Current Living Situation: Alone Current Living Situation Comment: [facility] DOG current occupational status: unemployed and disabled How many Children do You have: 3 Feels Safe at Home: Yes Safety Concerns: Feels Safe At This Time Childhood Exposure to Second-Hand Smoke: Yes Diet: regular caffeine: No during the past year weight has: decreased > 10 lbs Dental Care, Regularly: Yes Physical Activity Frequency: Does not Exercise Seatbelt Use: always Sunscreen Use: No Assistive Devices: Denture - Upper Assistive Devices Comment: Has partial upper but did not bring. Physical Exam Constitutional: WD/WN, vitals as above Eyes: PERRL, conjunctivae normal, anicteric sclerae Respiratory: normal respiratory effort, lungs clear to auscultation Cardiovascular: RRR, no murmur, no edema Gastrointestinal (Abdomen): +LLQ tenderness. + BS. + CVA tenderness on left side Psychiatric: A+Ox3, euthymic affect Results & Data Results & Data Vital Signs (Past 12 Hours) Vital Signs Temp Pulse Pulse Resp BP BP Pulse Ox 10/04/24 13:27 132/70 10/04/24 13:00 61 16 143/97 H 95 10/04/24 11:58 62 18 143/97 H 97 10/04/24 10:48 10/04/24 10:18 65 10/04/24 10:11 37.4 C 72 20 131/73 94 O2 Del Method 10/04/24 13:27 10/04/24 13:00 Room Air 10/04/24 11:58 Room Air 10/04/24 10:48 Room Air 10/04/24 10:18 10/04/24 10:11 Room Air Supervising Physician Co-Signing Physician Notes I personally saw and examined the patient. I independently reviewed the labs, imaging, problem list, medication list, past medical history and family history. I verified all meade points and agree with Amira Calzada PA-C with the following exceptions and/or additions: 69 year old presents to the ER with left sided flank and abdominal pain. No urinary frequency, dysuria prior to this. O/E HS RRR, no murmurs, Chest CTAB, left sided abdominal pain on palpation, left CVA tenderness A/P Obstructive left proximal ureteral stone - a/p post ureteral stent insertion, IV fluids, pain medication PG Care Time/CCT Total # of Minutes Spent Total Time Spent with Patient: Total time spent is greater than 50% in coordination of care (as documented) at patient's floor/unit and/or counseling patient: Coding Level of Care Code 06473 INT INP/OBS CARE 2/55MIN Diagnoses Left ureteral calculus N20.1
[2024-10-04] MEDS: SODIUM CHLORIDE 0.9% 1,000 ML IV SCH (14:17)
[2024-10-04] MEDS: ceFAZolin 2000MG 2,000 MG/15 ML SYR IV ONE (14:17)
[2024-10-04] MEDS: ceFAZolin 2,000 MG/15 ML IV PUSH IV ONE (14:17)
[2024-10-04 14:45] LABS: Appearance Urine Clear (Clear); Bacteria Urine Automated None Seen (None Seen); Bilirubin Urine Negative (Negative); Blood Urine Trace (Negative); Cast Urine Automated 0-2 /lpf (0-2); Color Urine Yellow; Epithelial Cell Urine Auto 0-2 /hpf (0-2); Glucose Urine UA Negative (Negative); Ketones Urine Negative (Negative); Leukocyte Esterase Urine Negative (Negative); Nitrite Urine Negative (Negative); Protein Urine Negative (Negative); Specific Gravity Urine > 1.045 (1.000-1.030); Urobilinogen Urine Negative (Negative)
--- NOTE | 2024-10-04 15:09 | Anesthesiology Consultation ---
Date of Service October 04, 2024 Assessment & Plan Chart Review Chart Review: Acceptable Risk for Surgery and Patient NOT seen in Pre Admission Testing Consults Requested none ASA [id number] Proposed Anesthesia Anesthesia Type: MAC History Surgery Operation Date: 10/04/24 14:05 Proposed Procedures p Cystoscopy Retrograde(Left) - Shar Peña MD s Ureteral Stent Insertion/Removal(Left) - Shar Peña MD Height/Weight Height: 5 ft 2 in Weight: 76.8 kg Allergies Allergy/AdvReac Type Severity Reaction Status Date / Time buprenorphine Allergy Unknown rash (with Verified 09/17/24 11:15 patch) cyclobenzaprine Allergy Unknown Unknown Verified 09/17/24 11:15 fentanyl Allergy Unknown Rash Verified 09/17/24 11:15 magnesium hydroxide Allergy Unknown hives Verified 09/17/24 11:15 ezetimibe [From Zetia] AdvReac Intermediate Headache Verified 09/17/24 11:15 naproxen AdvReac Unknown GI bleed Verified 09/17/24 11:15 nizatidine AdvReac Unknown pt not sure Verified 09/17/24 11:15 SANDERS Allergy Intermediate HIVES Uncoded 09/17/24 11:15 Medications Home Medications Medication Instructions Recorded Confirmed Last Taken lorazepam 1 mg tablet 1 mg PO BID PRN Anxiety 08/08/18 10/04/24 05/08/21 azelastine 137 mcg (0.1 %) nasal 2 spray intranasal BID PRN allergy 03/11/23 10/04/24 Unknown spray symptoms #30 mL fluticasone propionate 50 2 spray intranasal DAILY #16 grams 03/11/23 10/04/24 10/03/24 mcg/actuation nasal spray,suspension ipratropium bromide 21 mcg (0.03 2 spray intranasal BID #30 mL 03/11/23 10/04/24 10/03/24 %) nasal spray famotidine 20 mg tablet 20 mg PO QPM #30 tabs 03/13/23 10/04/24 10/03/24 brexpiprazole 3 mg tablet (Rexulti) 3 mg PO HS #30 tabs 08/22/23 10/04/24 10/03/24 lamotrigine 150 mg tablet 300 mg (2 x 150 mg) PO HS #90 tabs 08/22/23 10/04/24 10/03/24 (Lamictal) memantine 10 mg tablet 10 mg PO BID 90 days #180 tabs 11/25/23 10/04/24 10/03/24 topiramate 200 mg tablet 200 mg PO BID 90 days #180 tabs 11/25/23 10/04/24 10/03/24 tramadol 50 mg tablet 50 mg PO TID PRN pain #90 tabs 12/16/23 10/04/24 Unknown Prolia 60 mg/mL subcutaneous 60 mg subcut ONCE #1 mL 12/20/23 10/04/24 Unknown syringe (denosumab) cyanocobalamin (vitamin B-12) 1,000 mcg PO DAILY #90 caps 01/08/24 10/04/24 10/03/24 1,000 mcg capsule aspirin 81 mg chewable tablet 81 mg PO QAM #90 tabs 04/01/24 10/04/24 10/03/24 cholecalciferol (vitamin D3) 125 5,000 unit PO QAM #90 caps 04/01/24 10/04/24 10/03/24 mcg (5,000 unit) capsule montelukast 10 mg tablet 10 mg PO HS #90 tabs 04/01/24 10/04/24 10/03/24 omeprazole 40 mg capsule,delayed 40 mg PO BID #180 caps 04/01/24 10/04/24 10/03/24 release potassium citrate 10 mEq (1,080 10 meq PO TID #270 tabs 04/01/24 10/04/24 10/03/24 mg) tablet,extended release desvenlafaxine succinate 50 mg 50 mg PO DAILY 05/28/24 10/04/24 10/03/24 tablet,extended release 24 hr (Pristiq) levothyroxine 137 mcg tablet 137 mcg PO DAILY #90 tabs 07/20/24 10/04/24 10/03/24 (Synthroid) albuterol sulfate 90 mcg/actuation See Rx Instructions inhalation 09/14/24 10/04/24 Unknown aerosol inhaler (Ventolin HFA) .COMPLEX PRN shortness of breath or wheezing #8.5 grams bupropion HCl 300 mg 24 hr tablet, 300 mg PO QAM 10/04/24 10/04/24 10/03/24 extended release rimegepant 75 mg disintegrating 75 mg PO .COMPLEX PRN Migraine 10/04/24 10/04/24 Unknown tablet (Nurtec ODT) Headache trazodone 300 mg tablet 300 mg PO HS 10/04/24 10/04/24 10/03/24 Active Medications Generic Name Dose Route Start Last Admin Trade Name Georgette PRN Reason Stop Dose Admin Sodium Chloride 1,000 mls @ 80 mls/hr 10/04/24 14:00 10/04/24 14:17 Nss IV 10/05/24 13:59 80 mls/hr .[id number] RAMILA Administration Past Medical History Medical History Migraines REASON FOR MEDICATION/DENIES HX SEIZURES Poor historian Mild early onset Alzheimer's dementia ? details/ dr peterson Overactive bladder Asthma seasonal/no current meds for Dyspnea on exertion COVID-19 hx 2021 Mild cognitive impairment PVCs (premature ventricular contractions) Obesity Chronic back pain Temporomandibular joint disorder s/p corrective jaw procedure for TMJ/occasional clicking/no locking Sleep apnea mild JADEN- unable to tolerate CPAP Migraine, unspecified, not intractable, without status migrainosus History of kidney stones Osteoarthritis Hyperlipidemia Anxiety GERD (gastroesophageal reflux disease) controlled Sarcoidosis follows with [facility] (Dr. Satnam Piper)/[facility] pulmonary Fibromyalgia Depression Hypothyroidism ASCVD Ao RLS + tobacco Exercise / Class Metabolic Activity III < 4 Walking/Shop/Light housework Past Family History Family History Mother Breast cancer, Onset Age: 71 Family history of reaction to anesthesia SLOW TO WAKE Family history of diabetes mellitus Father Prostate cancer Hypertension Sister Chronic kidney disease Renal transplant recipient Family history of diabetes mellitus Denies family history of Colon cancer Ovarian cancer Myocardial infarction Colorectal cancer Past Surgical History Surgical History History of colonoscopy History of cataract surgery B/L H/O nasal septoplasty H/O lithotripsy History of surgery tmj corrective surgery History of bowel resection several years ago ? related to bowel obstruction (patient unsure) History of herniorrhaphy umbilical History of total knee replacement rt Hx of lumpectomy History of breast biopsy History of partial hysterectomy ~1984. No oophorectomy Past Anesthesia History No Hx of Anesthesia Complications and No Family Hx of Anesthesia Complications History of PONV No Hx of PONV and No Hx of Motion Sickness Social History Smoking Status: Former smoker Do You Dip or Chew Tobacco: No Hx Alcohol Use: No Hx Substance Use: No substance use type: does not use Physical Exam Vital Signs Last Vital Signs Temp 37.4 C 10/04/24 10:11 Pulse 71 10/04/24 14:54 Resp 18 10/04/24 14:54 BP 126/66 10/04/24 14:54 Pulse Ox 98 10/04/24 14:54 O2 Del Method Room Air 10/04/24 14:54 Testing Laboratory Results 10/04/24 10:20 10/04/24 10:20 Urine Color Yellow 10/04/24 14:26 Urine Appearance Clear (Clear) 10/04/24 14:26 Urine pH 7.0 (4.5-7.5) 10/04/24 14:26 Ur Specific Pioneer > 1.045 (1.000-1.030) H 10/04/24 14:26 Urine Protein Negative (Negative) 10/04/24 14:26 Urine Glucose (UA) Negative (Negative) 10/04/24 14:26 Urine Ketones Negative (Negative) 10/04/24 14:26 Urine Nitrite Negative (Negative) 10/04/24 14:26 Ur Leukocyte Esterase Negative (Negative) 10/04/24 14:26 Urine WBC (Auto) 6-10 /hpf (0-5) H 10/04/24 14:26 Urine RBC (Auto) 11-20 /hpf (0-2) H 10/04/24 14:26 U Hyaline Cast (Auto) 0-2 /lpf (0-2) 10/04/24 14:26 U Epithel Cells (Auto) 0-2 /hpf (0-2) 10/04/24 14:26 Urine Bacteria (Auto) None Seen (None Seen) 10/04/24 14:26 Electrocardiogram Date: 10/04/24 Findings: + NSR @ (@ 72;? anter. infarct,age /) Chest X-Ray Date: 08/10/22 Findings: + NAD and + atherosclerosis of thoracic aorta Stress Test Date: 10/24/22 Type: DSE Findings: + WNL and + did not achieved max HR (83%) Resting EF: > 70% hyperdynamic Resting LV Function: normal Resting RWMA: + none Valvular Disease: no significant valvular disease Grade 1 DD
--- NOTE | 2024-10-04 15:19 | Urology Consultation ---
Date of Consultation October 04, 2024 Assessment & Plan (1) Hydroureteronephrosis: (2) Left ureteral calculus: Plan 69-year-old female who was admitted due to left flank pain. Independently reviewed his CT scan which shows a 7 mm left proximal obstructing ureteral calculus. Plan to go to the OR for cystoscopy, left retrograde pyelogram and left ureteral stent placement. Explained that she will need a separate procedure to have the stone treated Consent obtained and patient marked Ancef to the OR History of Present Illness History of Present Illness 69-year-old female who was admitted due to left flank pain. Independently reviewed his CT scan which shows a 7 mm left proximal obstructing ureteral calculus. She is afebrile with stable vitals. Labs show white count of 8.2, creatinine of 0.9 and urinalysis that showed 6-10 WBCs and 11-20 RBCs. She is a previous patient of Dr. Marlow's. Allergies Allergy/AdvReac Type Severity Reaction Status Date / Time troy Allergy Intermediate Hives Verified 10/04/24 15:38 buprenorphine Allergy Unknown rash (with Verified 09/17/24 11:15 patch) cyclobenzaprine Allergy Unknown Unknown Verified 09/17/24 11:15 fentanyl Allergy Unknown Rash Verified 09/17/24 11:15 magnesium hydroxide Allergy Unknown hives Verified 09/17/24 11:15 ezetimibe [From Zetia] AdvReac Intermediate Headache Verified 09/17/24 11:15 naproxen AdvReac Unknown GI bleed Verified 09/17/24 11:15 nizatidine AdvReac Unknown pt not sure Verified 09/17/24 11:15 Home Medications Medication Instructions Recorded Confirmed Type lorazepam 1 mg tablet 1 mg PO BID PRN Anxiety 08/08/18 10/04/24 History azelastine 137 mcg (0.1 %) nasal 2 spray intranasal BID PRN allergy 03/11/23 10/04/24 Rx spray symptoms #30 mL fluticasone propionate 50 2 spray intranasal DAILY #16 grams 03/11/23 10/04/24 Rx mcg/actuation nasal spray,suspension ipratropium bromide 21 mcg (0.03 2 spray intranasal BID #30 mL 03/11/23 10/04/24 Rx %) nasal spray famotidine 20 mg tablet 20 mg PO QPM #30 tabs 03/13/23 10/04/24 Rx brexpiprazole 3 mg tablet (Rexulti) 3 mg PO HS #30 tabs 08/22/23 10/04/24 Rx lamotrigine 150 mg tablet 300 mg (2 x 150 mg) PO HS #90 tabs 08/22/23 10/04/24 Rx (Lamictal) memantine 10 mg tablet 10 mg PO BID 90 days #180 tabs 11/25/23 10/04/24 Rx topiramate 200 mg tablet 200 mg PO BID 90 days #180 tabs 11/25/23 10/04/24 Rx tramadol 50 mg tablet 50 mg PO TID PRN pain #90 tabs 12/16/23 10/04/24 Rx Prolia 60 mg/mL subcutaneous 60 mg subcut ONCE #1 mL 12/20/23 10/04/24 Rx syringe (denosumab) cyanocobalamin (vitamin B-12) 1,000 mcg PO DAILY #90 caps 01/08/24 10/04/24 Rx 1,000 mcg capsule aspirin 81 mg chewable tablet 81 mg PO QAM #90 tabs 04/01/24 10/04/24 Rx cholecalciferol (vitamin D3) 125 5,000 unit PO QAM #90 caps 04/01/24 10/04/24 Rx mcg (5,000 unit) capsule montelukast 10 mg tablet 10 mg PO HS #90 tabs 04/01/24 10/04/24 Rx omeprazole 40 mg capsule,delayed 40 mg PO BID #180 caps 04/01/24 10/04/24 Rx release potassium citrate 10 mEq (1,080 10 meq PO TID #270 tabs 04/01/24 10/04/24 Rx mg) tablet,extended release desvenlafaxine succinate 50 mg 50 mg PO DAILY 05/28/24 10/04/24 History tablet,extended release 24 hr (Pristiq) levothyroxine 137 mcg tablet 137 mcg PO DAILY #90 tabs 07/20/24 10/04/24 Rx (Synthroid) albuterol sulfate 90 mcg/actuation See Rx Instructions inhalation 09/14/24 10/04/24 Rx aerosol inhaler (Ventolin HFA) .COMPLEX PRN shortness of breath or wheezing #8.5 grams bupropion HCl 300 mg 24 hr tablet, 300 mg PO QAM 10/04/24 10/04/24 History extended release rimegepant 75 mg disintegrating 75 mg PO .COMPLEX PRN Migraine 10/04/24 10/04/24 History tablet (Nurtec ODT) Headache trazodone 300 mg tablet 300 mg PO HS 10/04/24 10/04/24 History Patient History Medical History Migraines REASON FOR MEDICATION/DENIES HX SEIZURES Poor historian Mild early onset Alzheimer's dementia ? details/ dr peterson Overactive bladder Asthma seasonal/no current meds for Dyspnea on exertion COVID-19 hx 2021 Mild cognitive impairment PVCs (premature ventricular contractions) Obesity Chronic back pain Temporomandibular joint disorder s/p corrective jaw procedure for TMJ/occasional clicking/no locking Sleep apnea mild JADEN- unable to tolerate CPAP Migraine, unspecified, not intractable, without status migrainosus History of kidney stones Osteoarthritis Hyperlipidemia Anxiety GERD (gastroesophageal reflux disease) controlled Sarcoidosis follows with [facility] (Dr. Satnam Piper)/[facility] pulmonary Fibromyalgia Depression Hypothyroidism Surgical History History of colonoscopy History of cataract surgery B/L H/O nasal septoplasty H/O lithotripsy History of surgery tmj corrective surgery History of bowel resection several years ago ? related to bowel obstruction (patient unsure) History of herniorrhaphy umbilical History of total knee replacement rt Hx of lumpectomy History of breast biopsy History of partial hysterectomy ~1984. No oophorectomy Family History Mother Breast cancer, Onset Age: 71 Family history of reaction to anesthesia SLOW TO WAKE Family history of diabetes mellitus Father Prostate cancer Hypertension Sister Chronic kidney disease Renal transplant recipient Family history of diabetes mellitus Denies family history of Colon cancer Ovarian cancer Myocardial infarction Colorectal cancer Social History Smoking Status: Former smoker Second Hand Exposure: No; Do You Dip or Chew Tobacco: No; Hx Alcohol Use: No Hx Substance Use: No Preferred Language: Ukrainian Communication Ability: Effective Communication Ability Comment: EARLY [employer] APPROPRIATE FOR PAT PHONE. 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 Visual Impairment: No Limitations Hearing Ability: Normal Operator Receptionist Required: No Beliefs That Will Affect Care: None marital status: / Current Living Situation: Alone Current Living Situation Comment: AND DOG current occupational status: unemployed and disabled How many Children do You have: 3 Feels Safe at Home: Yes Childhood Exposure to Second-Hand Smoke: Yes Diet: regular caffeine: No during the past year weight has: decreased > 10 lbs Dental Care, Regularly: Yes Physical Activity Frequency: Does not Exercise Seatbelt Use: always Sunscreen Use: No Assistive Devices: None Physical Exam Physical Exam: General: Alert and oriented, no acute distress HEENT: Normocephalic, mucous membranes moist Pulmonary: Nonlabored respirations Abdomen: Nondistended Extremities: Moves all 4 spontaneously Neuro: No gross deficits Skin: Warm, dry, no rashes noted Results & Data Vital Signs (Past 12 Hours) Vital Signs Temp Pulse Pulse Resp BP BP Pulse Ox 10/04/24 14:54 71 18 126/66 98 10/04/24 14:50 69 18 126/66 98 10/04/24 13:35 62 18 148/81 H 94 10/04/24 13:27 132/70 10/04/24 13:00 61 16 143/97 H 95 10/04/24 11:58 62 18 143/97 H 97 10/04/24 10:48 10/04/24 10:18 65 10/04/24 10:11 37.4 C 72 20 131/73 94 O2 Del Method 10/04/24 14:54 Room Air 10/04/24 14:50 Room Air 10/04/24 13:35 Room Air 10/04/24 13:27 10/04/24 13:00 Room Air 10/04/24 11:58 Room Air 10/04/24 10:48 Room Air 10/04/24 10:18 10/04/24 10:11 Room Air PG Care Time/CCT Total # of Minutes Spent Total Time Spent with Patient: Total time spent is greater than 50% in coordination of care (as documented) at patient's floor/unit and/or counseling patient: Coding Level of Care Code 37614 INT INP/OBS CARE 2/55MIN Diagnoses Hydroureteronephrosis N13.30 Left ureteral calculus N20.1
[2024-10-04] MEDS ORDERED: LORazepam 1 MG TAB PO PRN (15:33)
[2024-10-04] MEDS ORDERED: ACETAMINOPHEN 1,000 MG/100 ML VIAL IV PRN (15:33)
[2024-10-04] MEDS ORDERED: AZELASTINE HCL 0.1% NASAL 200 SPRAYS/27,400 MCG BTL NAE PRN (15:33)
[2024-10-04] MEDS ORDERED: ALBUTEROL HFA 8 GM INHALER INH PRN (15:33)
[2024-10-04] MEDS: MoRPHine SULFATE 2 MG/ML CARP IV PRN (16:04)
[2024-10-04] MEDS ORDERED: ePHEDrine sulfate 50 MG/ML AMP IV PRN (16:22)
[2024-10-04] MEDS ORDERED: ATROPINE SULFATE 0.1 MG/ML 10ML SYR IV PRN (16:22)
[2024-10-04] MEDS ORDERED: fentaNYL citrate PF 100 MCG/2 ML VIAL IV PRN (16:22)
[2024-10-04] MEDS ORDERED: NALOXONE HCL 0.4 MG/1 ML VIAL/CARP IV PRN (16:22)
[2024-10-04] MEDS ORDERED: ONDANSETRON INJ 2 MG/ML 2 ML VIAL IV PRN (16:22)
[2024-10-04] MEDS ORDERED: PROMETHAZINE HCL 6.25 MG in SODIUM CHLORIDE 0.9% 50 ML IV PRN (16:22)
[2024-10-04] MEDS ORDERED: FLUMAZENIL 0.1 MG/1 ML 10 ML VIAL IV PRN (16:22)
--- NOTE | 2024-10-04 16:24 | Communication Note ---
Date of Service: October 04, 2024 Reaction to FENTANYL patch hive,not to iv fentanyl
[2024-10-04] MEDS ORDERED: PROPOFOL IV EMULSION 10 MG/ML 20 ML VIAL IV ONE (16:25)
[2024-10-04] MEDS ORDERED: MIDAZOLAM HCL 1 MG/ML 2ML VIAL ONE (16:27)
[2024-10-04] MEDS ORDERED: fentaNYL citrate PF 100 MCG/2 ML VIAL ONE (16:28)
--- NOTE | 2024-10-04 17:00 | Operative Report ---
PG Post Operative Report Pre & Post Diagnosis Left ureteral calculus Operation Date: 10/04/24 14:05 <No data on this case meets the specified criteria> Left ureteral calculus I identified the patient and participated in the time-out.: Yes Procedure Cystoscopy, left retrograde pyelogram with radiographic interpretation, left stent placement Operation Date: 10/04/24 14:05 <No data on this case meets the specified criteria> Surgeon Shar Peña MD Geothermal Hvac Technician None Estimated Blood Loss 0 Findings See Below Moderate left hydro, stent in good position Specimens None Drains 6x24 L stent Anesthesia Type MAC Complications none Indications 60 yo F with left proximal obstructing stone and intractable pain Description of Procedure After informed consent was obtained, the patient was transported operative suite. MAC anesthesia was induced. The patient was placed in dorsal lithotomy position prepped and draped in a sterile fashion. They received preoperative Ancef for antibiotic prophylaxis. An appropriate surgical timeout was performed. A 22 Slovak rigid scope was inserted per urethra into the bladder. Chamberlain cystoscopy revealed no stones or lesions. I turned my attention the left u reteral orifice and intubated this with a 5 Slovak open-ended catheter. A left retrograde pyelogram was shot which showed moderate hydronephrosis. A sensor wire was advanced into the kidney and confirmed fluoroscopically. A 6 Slovak by 24 cm left ureteral stent was deployed with a good proximal coil in the renal pelvis and a good distal coil noted in the bladder. These were confirmed fluoroscopically and under direct visualization, respectively. The bladder was emptied and the scope was removed. This concluded the end of the case. All counts were correct at the end of the case. I was present, scrubbed, and actively participated for the entirety of the procedure. I attest to the content of the Intraoperative Record and any orders documented therein. Any exceptions are noted below.
[2024-10-04] MEDS: DIATRIZOATE MEGLUMINE 30% 100ML VIAL INSTIL PRN (17:09)
--- NOTE | 2024-10-04 17:42 | Anesthesiology Progress Note ---
Date of Service October 04, 2024 Anesthesia Post Procedure Vital Signs Vital Signs: Temp Pulse Pulse Pulse Resp BP BP 10/04/24 17:35 61 12 10/04/24 17:25 36.6 C 62 18 10/04/24 17:15 60 13 10/04/24 17:05 36 C L 67 15 10/04/24 15:33 37.0 C 96 H 18 107/66 10/04/24 14:54 71 18 126/66 10/04/24 14:50 69 18 126/66 10/04/24 13:35 62 18 148/81 H 10/04/24 13:27 132/70 10/04/24 13:00 61 16 143/97 H 10/04/24 11:58 62 18 143/97 H 10/04/24 10:48 10/04/24 10:18 65 10/04/24 10:11 37.4 C 72 20 131/73 BP Pulse Ox O2 Del Method O2 Flow Rate 10/04/24 17:35 92/56 L 98 Room Air 10/04/24 17:25 93/51 L 96 Room Air 10/04/24 17:15 94/49 L 96 Room Air 10/04/24 17:05 96/52 L 100 Nasal Cannula 4 10/04/24 15:33 96 Room Air 10/04/24 14:54 98 Room Air 10/04/24 14:50 98 Room Air 10/04/24 13:35 94 Room Air 10/04/24 13:27 10/04/24 13:00 95 Room Air 10/04/24 11:58 97 Room Air 10/04/24 10:48 Room Air 10/04/24 10:18 10/04/24 10:11 94 Room Air Pain Intensity Left Flank: Pain Intensity: 2 Transfer of Care Handoff Completed per policy Notes Mental Status: alert / awake / arousable Patient Amnestic to Procedure: Yes Nausea / Vomiting: adequately controlled Pain: adequately controlled Airway Patency, RR, SpO2: stable & adequate BP & HR: stable & adequate Hydration State: stable & adequate Anesthetic Complications: no major complications apparent
[2024-10-04] MEDS: MoRPHine SULFATE 4 MG/ML 1 ML CARP\\VIAL IV PRN (18:34)
[2024-10-04] MEDS: ONDANSETRON INJ 2 MG/ML 2 ML VIAL IV PRN (21:05)
[2024-10-04] MEDS: SODIUM CHLORIDE 0.9% 1,000 ML IV ONE (21:05)
[2024-10-04] MEDS: MEMANTINE HCL 10 MG TAB PO SCH (21:16)
[2024-10-04] MEDS: MONTELUKAST SODIUM 10 MG TABLET PO SCH (21:16)
[2024-10-04] MEDS: FAMOTIDINE 20 MG TAB PO SCH (21:16)
[2024-10-04] MEDS: lamoTRIgine 100 MG TAB PO SCH (21:16)
[2024-10-04] MEDS: PANTOprazole 40 MG TAB PO SCH (21:16)
[2024-10-04] MEDS: IPRATROPIUM BROMIDE NASAL SPRAY 0.06% 15ML NAE SCH (21:17)
[2024-10-04] MEDS: TOPIRAMATE 100 MG TAB PO SCH (21:17)
[2024-10-04] MEDS: traZODone HCL 100 MG TAB PO SCH (21:17)
[2024-10-05] MEDS: LEVOTHYROXINE SODIUM 137 MCG TABLET PO SCH (05:51)
--- NOTE | 2024-10-05 06:02 | Electrocardiogram Report ---
Test Reason : Blood Pressure : */* mmHG Vent. Rate : 72 BPM Atrial Rate : 72 BPM P-R Int : 188 ms QRS Dur : 76 ms QT Int : 400 ms P-R-T Axes : 43 27 56 degrees QTcB Int : 438 ms Normal sinus rhythm Cannot rule out Anterior infarct , age undetermined Abnormal ECG When compared with ECG of 08-Nov-2022 16:16, T wave amplitude has decreased in Anterior leads Confirmed by William Ahn ([id number]) on 10/05/2024 6:02:10 AM Referred By: REFERRED SELF Confirmed By: William Ahn
--- NOTE | 2024-10-05 06:36 | Fluoroscopy Report ---
FL retrograde includes kub CLINICAL HISTORY: Cystoleft-sided cystourethrogram COMPARISON STUDY: CT 10/04/2024 FLUOROSCOPY TIME: 8.2 seconds FLUOROSCOPY IMAGES: 1 EXPOSURE DOSE: 1.81 mGy FINDINGS: Proximal portion of a left ureteral stent appears to be within satisfactory positioning. Di stal portion was not imaged. Mild left-sided hydronephrosis. IMPRESSION: Fluoroscopic assistance as above. ACT 112: Negative or not required by law. Electronically signed by: Rakesh Espinoza M.D. 10/05/2024 6:34 AM
--- NOTE | 2024-10-05 07:47 | Hospitalist Progress Note ---
Date of Service October 05, 2024 Assessment & Plan (1) Hydroureteronephrosis: (2) Left ureteral calculus: Admission and Anticipated Discharge Date Admission Date: October 04, 2024 Results & Data Results & Data Vital Signs (Past 12 Hours) Vital Signs Temp Pulse Resp BP Pulse Ox O2 Del Method 10/05/24 07:42 37.8 C H 76 16 100/64 93 Room Air 10/05/24 06:00 37.1 C 76 18 98/62 L 93 Room Air 10/05/24 02:00 37.4 C 69 18 95/62 L 93 Room Air 10/04/24 21:30 36.6 C 65 18 96/64 L 99 Room Air 10/04/24 20:30 36.5 C 67 18 97/55 L 98 Room Air
[2024-10-05] MEDS: ASPIRIN 81 MG CHEW PO SCH (08:05)
[2024-10-05] MEDS: FLUTICASONE PROPIONATE NA SPR 16 GM BTL NAE SCH (08:06)
[2024-10-05] MEDS: POLYETHYLENE (MIRALAX) 17 GM PACK PO SCH (08:17)
[2024-10-05 08:22] LABS: Hematocrit (blood only) 32.3 % (37.0-47.0); Hemoglobin 10.5 g/dl (12.0-16.0); Mean Corpuscular Hemoglobin 31.8 pg (25.0-34.0); Mean Corpuscular Hgb Conc 32.5 g/dL (32.0-36.0); Mean Corpuscular Volume 97.9 fL (80.0-100.0); Mean Platelet Volume 9.8 fL (9.4-12.4); Platelet Count 168 K/uL (130-400); RDW Coefficient of Variation 12.6 % (11.5-14.5); RDW Standard Deviation 45.3 fL (36.4-46.3); White Blood Count 5.69 K/ul (4.8-10.8)
[2024-10-05 08:35] LABS: BUN Creatinine Ratio 15.2 (10-20); Calcium 7.2 mg/dl (8.6-10.3); Creatinine Clr Calc Pharmacy 64.5 ml/min; Potassium 3.4 mmol/L (3.5-5.1)
[2024-10-05] MEDS: buPROPion XL 300 MG TABCR PO SCH (08:57)
[2024-10-05] MEDS: POTASSIUM CHLORIDE CRTAB 20 MEQ TABCR PO STA (08:57)
--- NOTE | 2024-10-05 08:57 | Urology Progress Note ---
Date of Service October 05, 2024 Assessment & Plan (1) Left ureteral calculus: (2) Hydroureteronephrosis: Plan: - Pt POD#1 s/p cystoscopy and left ureteral stent placement with Dr. Peña - Doing well, progressing as expected - Afebrile, lab work reviewed - creatinine 0.79, no leukocytosis - Tolerating left ureteral stent with mild bother - Okay to d/c from perspective when medically stable - Recommend d/c with course Tamsulosin, prn Pyridium, prn oxybutynin, and prn pain medication for stent management - Expected clinical course reviewed, all questions answered - Will arrange outpatient follow-up with our service to set up definitive stone management - will sign off Admission and Anticipated Discharge Date Admission Date: October 04, 2024 Subjective Patient seen and examined at bedside this morning. She is awake and ambulating from the bathroom. No acute issues overnight. She reports some left flank discomfort. Voiding spontaneously without difficulty. No hematuria. Denies nausea, vomiting, fever or chills. Review of Systems Constitutional: as per Subjective / HPI Genitourinary: as per Subjective / HPI Physical Exam Constitutional: well developed and well nourished; no acute distress Respiratory: normal respiratory effort; no respiratory distress and no labored breathing Gastrointestinal (Abdomen): Inspection/Auscultation: abdomen normal to inspection Musculoskeletal: Head/Neck/Chest: normocephalic Neurologic: moves all extremities and awake Psychiatric: Orientation: alert and oriented x 3 Results & Data Vital Signs (Past 12 Hours) Vital Signs Temp Pulse Resp BP Pulse Ox O2 Del Method 10/05/24 07:42 37.8 C H 76 16 100/64 93 Room Air 10/05/24 06:00 37.1 C 76 18 98/62 L 93 Room Air 10/05/24 02:00 37.4 C 69 18 95/62 L 93 Room Air 10/04/24 21:30 36.6 C 65 18 96/64 L 99 Room Air PG Care Time/CCT Total # of Minutes Spent Total Time Spent with Patient: Total time spent is greater than 50% in coordination of care (as documented) at patient's floor/unit and/or counseling patient: Coding Level of Care Code 28887 SUB INP/OBS CARE 10/17MIN Diagnoses Left ureteral calculus N20.1 Hydroureteronephrosis N13.30
--- NOTE | 2024-10-05 09:20 | Hospitalist Progress Note ---
Date of Service October 05, 2024 Assessment & Plan (1) Left ureteral calculus: (2) Hydroureteronephrosis: Plan Nancy Daniel is a 69-year-old female with past medical history of constipation, nephrolithiasis, back pain, allergic conjunctivitis, anemia, asthma, COPD who presented to the emergency department on 10/04/2024 with a chief complaint of flank pain. #Left ureteral calculus #Hydroureteronephrosis - CBC/BMP on admission WNL - No signs/symptoms of UTI - CT abdomen and pelvis: 5 mm obstructive stone in the left ureter with hydroureter and hydronephrosis - 500 NSS IV bolus in ED with tamsulosin - NSS maintenance 80 mls/hr - Pain controlled with acetaminophen (1000 mg, TID PRN) and morphine (2 or 4 mg Q3h PRN) - Ondansetron 4mg QID PRN for nausea - Urology (Dr. Shar Peña) completed a left ureteral stent placement -- Post-Op Day 1: tolerated procedure well, progressing as expected, afebrile, no leukocytosis -- When medically stable, urology will sign off -- Recommendations on discharge: tamsulosin, PRN phenazopyridine, PRN oxybutyni n, PRN pain medication for stent, and out-patient follow-up #Left Flank Pain (Possibly Musculoskeletal) - Attending physician, Dr. Eisenberg, noted thoracic paraspinal tightness likely contributing to the persistent flank pain - 1 g IV magnesium for muscle relaxation - Topical diclofenac QID PRN for pain relief - PT/OT ordered - Ambulation encouraged #Chronic conditions - Asthma/COPD: continue inhalers, montelukast - Mental health: bupropion, lamotrigine, lorazepam prn - Insomnia: trazodone - GERD: PPI - Hypothyroidism: levothyroxine Code status: full code Disposition: medical DVT prophylaxis: pending urology okay Admission and Anticipated Discharge Date Admission Date: October 04, 2024 Supervising Physician Co-Signing Physician Notes I personally examined the patient and verified all meade points of history and exam, discussed case, and agree with decision making with Dr Rivera and Mariela Martini MS4 Ongoing left-sided flank pain. Does not change with urination. Seems to be worse with movement. Vitals noted, in general she is awake and alert pleasant but very fatigued. Breathing unlabored no accessory muscle use good effort. Skin without rashes pallor or icterus. Neuro without focal deficits. Musculoskeletal shows minimal CVA tenderness to percussion but a lot of paraspinal tenderness reproducible to palpation in the region. Gentle direct myofascial triedpatient was not able to relax well enough for her to have a meaningful impact. Ureterolithiasisstatus post cystoscopy and stenting. Stable for discharge from this standpoint. Flank paingiven her exam and historyI suspect this is actually more muscular at this point. Probably a viscerosomatic reflex from the kidney/ureteral pain, but at this point much more muscular in origin. Attempted gentle OMT. Will give IV mag, topical diclofenac. Encouraged activity. Hopefully home soon one-time low-grade tempseems to be asymptomatic from an infection standpoint. Continue to follow. Anemianonspecific, no signs of blood loss. Follow/possibly even simply follow-up as an outpatient abnormal thyroid labsas an outpatient, but once she is no longer acutely ill, follow-up lab work would be warranted as an outpatient. TSH has been slowly trending down and free T4 slowly trending upT4 still in a normal range, but Synthroid dose may need to be adjusted given low TSH Subjective Nancy Daniel was seen at bedside. She said that she tolerated the surgery well with only mid flank discomfort. She states that she has no fever, chills, pain with urination, and does have urgency (this is a chronic issue with overactive bladder per Nancy). She mentions that she has lower left quadrant pain, but it is less severe in intensity, though still has a sharp quality. She was curious about the next steps. We discussed that with the stent placed and IV fluids onboard, we are waiting for the stone to pass. In the absence of fever, chills, WBC bump, we will likely be able to discharge her. Otherwise, we will also follow the recommendations of urology. Other than this, she had no further questions, comments, or concerns. Nancy was seen this afternoon after the initiation of topical diclofenac and IV magnesium. She states that she is feeling relaxed, but otherwise her left lower quadrant pain radiating to her left flank is still present without an appreciable change in intensity. We discussed that she appears medically stable and could leave today, but she wanted to defer until tomorrow to monitor her pain during this admission. Otherwise, she has no further updates. Review of Systems Review of Systems: Per HPI Physical Exam Constitutional: Lying comfortably in bed In no apparent distress Eating breakfast during encounter Respiratory: Lungs are clear to ascultation No rhonchi, wheezes, or crackles appreciated No accessory respiratory muscle use Rate and depth of respiration appropriate Conversational without difficulty Cardiovascular: Regular rate and rhythm No rubs, murmurs or gallops S1 and S2 appreciated Gastrointestinal (Abdomen): Normoactive bowel sounds No organomegaly appreciated Tenderness to palpation of the LLQ Results & Data Results & Data Vital Signs (Past 12 Hours) Vital Signs Temp Pulse Resp BP Pulse Ox O2 Del Method 10/05/24 07:42 37.8 C H 76 16 100/64 93 Room Air 10/05/24 06:00 37.1 C 76 18 98/62 L 93 Room Air 10/05/24 02:00 37.4 C 69 18 95/62 L 93 Room Air 10/04/24 21:30 36.6 C 65 18 96/64 L 99 Room Air
[2024-10-05] MEDS ORDERED: MAG SULFATE 50% 1GM/2ML VIAL IV ONE (10:46)
[2024-10-05] MEDS: MAGNESIUM SULFATE / D5W 1 GM/100 ML BAG IV SCH (11:24)
[2024-10-05] MEDS: DICLOFENAC SOD 1% GEL 100 GM TUBE EXT SCH (14:02)
--- NOTE | 2024-10-05 18:48 | Billing Data ---
Date of Service October 05, 2024 Coding Level of Care Code 39476 SUB INP/OBS CARE MIN
[2024-10-05 20:30] VITALS: PULSE 72
[2024-10-05] MEDS: TAMSULOSIN HCL 0.4 MG CAP PO SCH (20:43)
[2024-10-06 07:56] VITALS: BP 98/64; RESP 16; TEMP 99.9; O2SAT 95
[2024-10-06 10:19] LABS: Basophils # (auto) 0.01 K/uL (0.00-0.20); Basophils % (auto) 0.2 %; Eosinophils # (auto) 0.14 K/uL (0.00-0.50); Eosinophils % (auto) 2.2 %; Hematocrit (blood only) 33.2 % (37.0-47.0); Immature Granulocytes # (auto) 0.01 K/uL (0.01-0.20); Immature Granulocytes % (auto) 0.2 %; Lymphocytes # (auto) 2.03 K/uL (1.20-3.40); Lymphocytes % (auto) 32.5 %; Mean Corpuscular Hemoglobin 32.1 pg (25.0-34.0); Mean Corpuscular Hgb Conc 33.1 g/dL (32.0-36.0); Mean Corpuscular Volume 96.8 fL (80.0-100.0); Mean Platelet Volume 9.4 fL (9.4-12.4); Monocytes # (auto) 0.46 K/uL (0.11-0.59); Monocytes % (auto) 7.4 %; Neutrophils # (auto) 3.59 K/uL (1.40-6.50); Neutrophils % (auto) 57.5 %; Platelet Count 168 K/uL (130-400); RDW Coefficient of Variation 12.5 % (11.5-14.5); RDW Standard Deviation 44.7 fL (36.4-46.3); Red Blood Count 3.43 M/uL (4.20-5.40); White Blood Count 6.24 K/ul (4.8-10.8)
[2024-10-06 10:37] LABS: BUN Creatinine Ratio 10.7 (10-20); C Reactive Protein 1.39 mg/dl (0-0.5); Calcium 7.8 mg/dl (8.6-10.3); Creatinine Clr Calc Pharmacy 60.6 ml/min
[2024-10-06] MEDS: KETOROLAC 30 MG/ML VIAL IV ONE (11:27)
--- NOTE | 2024-10-06 12:42 | Discharge Summary ---
Date of Service October 06, 2024 Admission HPI Per Admitting Provider This is a 69-year-old female with past medical history of constipation, nephrolithiasis, back pain, allergic conjunctivitis, anemia, asthma, COPD who presented to the emergency department on 10/04/2024 with a chief complaint of flank pain. The patient was seen and examined at bedside. Patient reports that yesterday evening she started to develop left lower quadrant abdominal pain and left flank pain. States that it has been persistent. She admits to feeling nauseous but denies any vomiting. States that she does have a history of constipation has not had a bowel movement yet today. She denies any urinary frequency, urgency, burning, or hematuria. She has not urinated since presenting to the ED. She does report that the morphine that was given to her was helpful but short lasting. She notes that the Zofran took away her feeling of nauseousness. She denies any chest pain, shortness of breath, or lower extremity edema. Denies fevers or chills. patient reports she has not ate anything since yesterday evening. Reports she did not take her AM medications this morning. While in the emergency department she did undergo a CBC that was unremarkable and a stable BMP. She had a CT scan that did show a 5 mm obstructive left proximal ureteral stone with associated hydroureter and hydronephrosis. Admission Exam Per Admitting Provider GENERAL: NAD, non-toxic. EYE EXAM: Normal conjunctiva. PERRL, no anisocoria and EOM's grossly intact w/o pain. OROPHARYNX: Moist mucus membranes, grossly normal dentition. NECK: Trachea midline, no stridor. LUNGS: Clear to auscultation. Normal chest wall mechanics. HEART: NSR, no MRG. ABDOMEN: Abdomen soft, non-tender, no masses, no rebound or guarding. BACK: Left-sided CVA TTP. SKIN: No rashes and no bruising. UPPER EXTREMITIES: Upper extremities are grossly normal. LOWER EXTREMITIES: Grossly normal, no edema. NEURO EXAM: A&O x3, cranial nerves II-XII grossly intact, normal speech, moves all 4 extremities. Principal Diagnosis Left ureteral calculus with resultant hydroureteronephrosis Discharge Exam Constitutional Lying comfortably in bed In no apparent distress Respiratory Lungs are clear to ascultation bilaterally No wheezes, rhochi, or crackles appreciated Respiratory rate and effort appropriate Conversational without shortness of breath Cardiovascular Regular rate and rhythm No rubs, murmurs or gallops S1 and S2 appreciated Gastrointestinal (Abdomen) Normoactive bowel sounds No organomegaly appreciated Tenderness to palpation of the LLQ Discharge Data Allergies Allergy/AdvReac Type Severity Reaction Status Date / Time troy Allergy Intermediate Hives Verified 10/04/24 15:38 buprenorphine Allergy Unknown rash (with Verified 09/17/24 11:15 patch) cyclobenzaprine Allergy Unknown Unknown Verified 09/17/24 11:15 fentanyl Allergy Unknown Rash Verified 09/17/24 11:15 magnesium hydroxide Allergy Unknown hives Verified 09/17/24 11:15 ezetimibe [From Zetia] AdvReac Intermediate Headache Verified 09/17/24 11:15 naproxen AdvReac Unknown GI bleed Verified 09/17/24 11:15 nizatidine AdvReac Unknown pt not sure Verified 09/17/24 11:15 Consultations 10/04/24 13:27 ED Decision to Admit Stat 10/04/24 13:34 Consult Urology Routine Procedures Performed Operation Date: 10/04/24 14:05 Actual Procedures p Ureteral Stent Insertion, Cystoscopy Retrograde(Left) - Shar Peañ MD Ordered Studies 10/04/24 10:31 CT abd pelvis IV con only Stat 10/04/24 14:10 FL retrograde includes kub Routine Hospital Course (1) Hydroureteronephrosis: (2) Left ureteral calculus: (3) Acute left flank pain: Yahaira Daniel is a 69-year-old female with past medical history of constipation, nephrolithiasis, back pain, allergic conjunctivitis, anemia, asthma, COPD who presented to the emergency department on 10/04/2024 with a chief complaint of flank pain. #Left ureteral calculus #Hydroureteronephrosis - CBC/BMP on admission WNL - No signs/symptoms of UTI - CT abdomen and pelvis: 5 mm obstructive stone in the left ureter with hydroureter and hydronephrosis - 500 NSS IV bolus in ED with tamsulosin - NSS maintenance 80 mls/hr - Pain controlled with acetaminophen (1000 mg, TID PRN) and morphine (2 or 4 mg Q3h PRN) - Ondansetron 4mg QID PRN for nausea - Urology (Dr. Shar Peña) completed a left ureteral stent placement -- Post-Op Day 1: tolerated procedure well, progressing as expected, afebrile, no leukocytosis -- Recommendations: tamsulosin, PRN phenazopyridine, PRN oxybutynin, PRN pain medication for stent, and out-patient follow-up - Discharged with oxycodone 5 mg PRN QID + diclofenac gel PRN QID for pain - Urology discharged with Azo Urinary Pain Relief 99.5 mg TID PRN + Tamsulosin 0.4 mg at bedtime + follow-up for ureterolithiasis #Left Flank Pain (Possibly Musculoskeletal) - Attending physician, Dr. Eisenberg, noted thoracic paraspinal tightness likely contributing to the persistent flank pain - 1 g IV magnesium for muscle relaxation - Topical diclofenac QID PRN for pain relief -- Continue topical diclofenac with oral oxycodone (per above) on discharge - Ambulation encouraged #Chronic conditions - Asthma/COPD: continue inhalers, montelukast - Mental health: bupropion, lamotrigine, lorazepam prn - Insomnia: trazodone - GERD: PPI - Hypothyroidism: levothyroxine Total Time Total Time Spent Total Time Spent (In Minutes): >45 minutes spent in patient encounter and discharge planning Discharge Plan Discharge Items Patient Disposition: Home - Self-Care Reason For Visit: FLANK PAIN Discharge Diagnosis: left kidney stone Activity: Per Instructions section Non-emergency contact: Primary Care Provider and Urologist Call non-emergency contact if: you have any medication questions, your pain is not controlled and your pain is worsening Follow-up/Referrals: Niall Fields III, CRNP [Primary Care Provider] - 10/09/24 9:40 am Shar Peña MD [Physician] - 10/13/24 10:00 am Diet: Regular Addtl Attending Provider Instructions: You were admitted to the hospital for left flank pain and found to have a kidney stone. You were treated with a ureteral stent placed on your left side. A discharge summary will be sent to your primary care physician to ensure continuity of care. Please bring this discharge summary with you to your next office appointment so that your provider can review it at that time. Medications: Your medication list has been reviewed and reconciled upon discharge to ensure accuracy and continuity of care. An updated list of all your medications is included with your hospital discharge paperwork. Please review this list closely and make note of any changes to your medications. - You should take tamsulosin, 1 pill, each night. This helps facilitate stone passage, but you will ultimately need urologic intervention. - You may take pyridium as needed for urinary pain/burning. You may take the oxycodone 5 mg tablet as needed for back/flank pain up to 4x per day. - You have also been sent diclofenac gel that you make apply 4x per day for back/flank pain. This works similar to ibuprofen but is topical so it has less side effects. Follow up appointments: - Make a follow up appointment with your PCP within the next week. It is very important that you follow up with them shortly after discharge from the hospital. - You will also need to follow up with urology for definitive stone management. - Keep all of your follow up appointments as already scheduled. If you cannot make an appointment, notify your provider. CONTACT YOUR PRIMARY CARE PROVIDER if you experience any of the following: - Difficulty following your treatment plan - Difficulty taking any of your medications CALL 911 OR GO TO THE EMERGENCY DEPARTMENT if you experience any of the following: - Fevers (>100F) or chills/rigors - Sudden, severe abdominal pain or nausea/vomiting - Severe chest pain or chest pain that radiates to your jaw or arm - Sudden, severe shortness of breath or difficulty breathing Pending Studies at Discharge: No Stand-Alone Forms: My [facility] [employer], Smoking Cessation Medications and DC Order Prescriptions: New tamsulosin 0.4 mg Capsule 0.4 mg PO HS Qty: 30 0RF Azo Urinary Pain Relief 99.5 mg tablet 99.5 mg PO Q8H PRN (Reason: urinary pain) Qty: 20 0RF oxycodone 5 mg tablet 5 mg PO Q6H PRN (Reason: pain) Qty: 7 0RF diclofenac sodium [Voltaren Arthritis Pain] 1 % gel 4 g topical QID Qty: 100 0RF Rx Instructions: Apply to back/flank area of pain Continued desvenlafaxine succinate [Pristiq] 50 mg tablet extended release 24 hr 50 mg PO DAILY ipratropium bromide 21 mcg (0.03 %) spray,non-aerosol 2 spray intranasal BID Qty: 30 6RF Rx Instructions: administer into each nostril azelastine 137 mcg (0.1 %) aerosol,spray 2 spray intranasal BID PRN (Reason: allergy symptoms) Qty: 30 11RF Rx Instructions: administer into each nostril fluticasone propionate 50 mcg/actuation spray,suspension 2 spray intranasal DAILY Qty: 16 11RF Rx Instructions: administer into each nostril famotidine 20 mg tablet 20 mg PO QPM Qty: 30 6RF Rexulti 3 mg tablet 3 mg PO HS Qty: 30 5RF lamotrigine [Lamictal] 150 mg tablet 300 mg PO HS Qty: 90 0RF tramadol 50 mg tablet 50 mg PO TID PRN (Reason: pain) Qty: 90 2RF Prolia 60 mg/mL syringe 60 mg subcut ONCE Qty: 1 1RF Rx Instructions: inject every 180 days Marisabel Auth# [id number] From 12/19/23-12/18/24 cyanocobalamin (vitamin B-12) 1,000 mcg capsule 1,000 mcg PO DAILY Qty: 90 3RF potassium citrate 10 mEq (1,080 mg) tablet extended release 10 meq PO TID Qty: 270 3RF montelukast 10 mg tablet 10 mg PO HS Qty: 90 3RF Rx Instructions: TAKE 1 TABLET BY MOUTH AT BEDTIME aspirin 81 mg tablet,chewable 81 mg PO QAM Qty: 90 3RF Rx Instructions: TAKE 1 TABLET BY MOUTH ONCE DAILY AT NOON omeprazole 40 mg capsule,delayed release(DR/EC) 40 mg PO BID Qty: 180 3RF Rx Instructions: TAKE ONE CAPSULE BY MOUTH TWICE DAILY cholecalciferol (vitamin D3) 125 mcg (5,000 unit) capsule 5,000 unit PO QAM Qty: 90 3RF Rx Instructions: TAKE 1 CAPSULE BY MOUTH ONCE DAILY IN THE MORNING levothyroxine [Synthroid] 137 mcg tablet 137 mcg PO DAILY Qty: 90 3RF albuterol sulfate [Ventolin HFA] 90 mcg/actuation HFA aerosol inhaler See Rx Instructions inhalation .COMPLEX PRN (Reason: shortness of breath or wheezing) Qty: 8.5 2RF Rx Instructions: 1-2 INH 4-6 PRN; memantine 10 mg tablet 10 mg PO BID 90 Days Qty: 180 3RF topiramate 200 mg tablet 200 mg PO BID 90 Days Qty: 180 3RF lorazepam 1 mg Tablet 1 mg PO BID PRN (Reason: Anxiety) trazodone 300 mg tablet 300 mg PO HS bupropion HCl 300 mg tablet extended release 24 hr 300 mg PO QAM Nurtec ODT 75 mg tablet,disintegrating 75 mg PO .COMPLEX PRN (Reason: Migraine Headache) Rx Instructions: 75 mg PO ONCE A DAY PRN. MAX DOSE 1 PER 24 HOURS; Discharge Orders: Discharge Order (Routine); Ordered 10/06/24 Ordered By: Silvino Camejo/Other Patient Handouts: ED Kidney Stone with Pain Admission Data Admit Date/Time: 10/04/24 13:35 Attending Provider: Bruce Eisenberg Admit Provider: Amira Calzada Primary Care Provider: Niall Fields III Other Providers: Jose Storm; David Ramesh; Radha Vasquez; Liam Easley; Ruma Gardiner; Amelia Garcia; Claus Holm; Fabiana Hart; Rodger Somers; Ayah Larose; Shar Peña Other Interventions: Discharge Summary Assessment (RN) Last Done: 10/06/24 09:15 Supervising Physician Co-Signing Physician Notes Chart reviewed, and case discussed with Dr Rivera and Mariela Martini MS4 case discussed multiple times with resident physician and medical student. Lab work sent and reviewed by resident and myself. Discussed patient's overall situation today. Was clear that it was safe for patient to be discharged to [facility]. Order for discharge entered by resident physician at my instruction, and while I intended to see patient shortly thereafter, unfortunately other situations throughout the hospital pulled me in different directions and by the time I was able to see her she had physically left the building. Fortunately she sounded to be quite stable to both resident and student review and felt up to getting home. Ureterolithiasisstatus post cystoscopy and stenting. Stable for discharge from this standpoint. Flank paingiven her exam and history was likely predominantly muscular a viscerosomatic reflex from kidney/ureteral pain. Sounds to have improved enough that she felt safe going home today. Short course of oxycodone to assist with pain as she transitions to home. low-grade temp No urinary infection symptoms, no infectious signs or symptoms, UA without bacteria. Suspect this is all situational/procedural. Obviously return with any worsening of symptoms Anemianonspecific, no signs of blood loss. Hemoglobin stable. Outpatient follow-up abnormal thyroid labsas an outpatient, but once she is no longer acutely ill, follow-up lab work would be warranted as an outpatient. TSH has been slowly trending down and free T4 slowly trending upT4 still in a normal range, but Synthroid dose may need to be adjusted given low TSH urology, PCP both in the next few weeks
--- NOTE | 2024-10-06 18:23 | Billing Data ---
Date of Service October 06, 2024 Coding Level of Care Code 63885 IN/OBS DISCH 30 MIN/LESS
== END 2024-10-06 12:34 | disposition home or self-care (01) ==
LOC: 3W 10:02 → ED 10:02 → SUATTDRO 13:35 → 3W 14:54

== ENCOUNTER 2025-02-01 16:00 | Observation (INO) ==
[2025-02-01 16:51] LABS: Basophils # (auto) 0.04 K/uL (0.00-0.20); Basophils % (auto) 0.6 %; Eosinophils # (auto) 0.12 K/uL (0.00-0.50); Eosinophils % (auto) 1.8 %; Hematocrit (blood only) 38.2 % (37.0-47.0); Hemoglobin 12.7 g/dl (12.0-16.0); Immature Granulocytes # (auto) 0.02 K/uL (0.01-0.20); Immature Granulocytes % (auto) 0.3 %; Lymphocytes % (auto) 38.8 %; Mean Corpuscular Hgb Conc 33.2 g/dL (32.0-36.0); Mean Corpuscular Volume 96.2 fL (80.0-100.0); Mean Platelet Volume 9.7 fL (9.4-12.4); Monocytes # (auto) 0.57 K/uL (0.11-0.59); Monocytes % (auto) 8.5 %; Neutrophils # (auto) 3.35 K/uL (1.40-6.50); Platelet Count 189 K/uL (130-400); RDW Coefficient of Variation 11.4 % (11.5-14.5); RDW Standard Deviation 40.2 fL (36.4-46.3); Red Blood Count 3.97 M/uL (4.20-5.40)
[2025-02-01 17:18] LABS: BUN Creatinine Ratio 29.4 (10-20); Creatinine Clr Calc Pharmacy 74.4 ml/min
[2025-02-01 17:20] LABS: D Dimer 380 ug/L FEU (0-500); Partial Thromboplastin Time 27 Seconds (21-31); Prothrombin Time 10.4 Seconds (9.0-12.0)
[2025-02-01 17:22] LABS: Troponin I High Sensitivity 5.1 pg/ml (0-14)
--- NOTE | 2025-02-01 17:41 | XRay Report ---
Clinical History: Chest pain Technique: A frontal view of the chest was obtained Findings: There are no confluent pulmonary infiltrates. The heart size is within normal limits. No pleural effusion or pneumothorax is seen. There is no definite pulmonary nodule. No fracture is noted. No foreign body is seen Impression: No active disease Electronically signed by Quinton Vines 02-01-2025 5:23 PM
[2025-02-01] MEDS: ASPIRIN 81 MG CHEW PO STA (18:11)
[2025-02-01] MEDS: NITROGLYCERIN SL 0.4 MG/TAB TAB SL STA (18:19)
[2025-02-01] MEDS: SODIUM CHLORIDE 0.9% 1,000 ML IV SCH (18:22)
--- NOTE | 2025-02-01 19:37 | History & Physical Report ---
Date of Service February 01, 2025 Assessment & Plan (1) Chest pain: (2) Constipation: Plan 70-year-old female PMHx COPD/asthma, insomnia, GERD, hypothyroidism, migraine, depression, dementia, and neuropathy/radiculopathies presenting for onset of SOB and chest pain starting at 0700 the day of arrival. ED evaluation reveals no leukocytosis, stable H&H; normal PT/INR; D-dimer 380; CMP WNL with exception of BUN/creatinine ratio 29.4; troponin 5.1, pending repeat; lipase 13; CXR without acute findings; EKG NSR at 73 bpm.; Provided with 1L NSS, nitroglycerin 0.4 mg SL, and aspirin 324 mg p.o. in ED. #Chest pain Chest pain starting at 0700 the day of arrival, associated with shortness of breath and some nausea. No calf tenderness or size discrepancies. Low suspicion for PE or ACS at this time, however given duration of symptoms + ongoing chest discomfort that is pleuritic in nature, patient admitted to hospital for observation. ? GI source given some epigastric tenderness with deep palpation. Continue medications for GERD. - CBC, PT/INR, CMP without acute findings; lipase WNL; TSH pending - Troponin 5.1, pending repeat - D-dimer 380 - EKG NSR at 73 bpm and without ischemic changes - CXR without acute findings - Stress echo 10/2022 negative, with hyperdynamic LV systolic function, mild concentric LVH, trace MR, and EF >70%; pending repeat echo - Lipids 09/2024 total 267, LDL 169, HDL 42, TG 282; on rosuvastatin 5 mg p.o. -- increased to high intensity dosing of 20mg - A1c 12/2023 at 5.4% - Continue cardiac monitoring - Continue ASA daily #Constipation Last BM day of arrival, was not normal consistency per pt; unsure last normal BM. - MiraLAX prn, adjust regimen as necessary #COPD/asthma- Ventolin - continue #MDD/insomnia- Brexpiprazole, bupropion, desvenlafaxine, lamotrigine, lorazepam as needed; trazodone - continue #GERD- Famotidine, omeprazole - continue #Migraine- Ajovy monthly, rimegepant as needed, topiramate (weaning off topiramate per neurology note 11/23/2024) - continue daily meds #Hypothyroidism- Pending TSH; Levothyroxine - continue #Allergies- Montelukast, ipratropium bromide nasal spray, azelastine nasal spray - continue #Dementia- Memantine - continue #OP- Prolia q6mo Dispo: Admit, med/tele VTE Prophylaxis: Lovenox This document was dictated utilizing [employer]. Please excuse any grammatical errors that may be secondary to use of this software. Admission and Anticipated Discharge Date Admission Date: 02/01/2025 History of Present Illness Chief Complaint: Chest pain Primary Care Provider: Niall Fields III, A R [employer]LE[employer] REP 70-year-old female PMHx COPD/asthma, insomnia, GERD, hypothyroidism, migraine, depression, dementia, and neuropathy/radiculopathies presenting for onset of SOB and chest pain starting at 0700 the day of arrival. Patient states that she awoke the morning of arrival with bilateral chest pain. States that it was a 10 out of 10 on the pain scale and was a heaviness in her chest on both sides. Reports it did radiate to her back with the same sensation, but did not radiate to her arms or neck. She had some SOB with the onset of the chest pain, but no associated coughing. Had nausea whenever this began, but no vomiting. Admits to some constipation at baseline, most recent bowel movement was the day of arrival but it was not normal consistency for patient. Unsure of when her last normal bowel movement was. States that her current pain is a 4 out of 10 on the pain scale and is present when she takes a deep breath but otherwise she is comfortable. She is not having any dizziness, syncope, lightheadedness. She does occasionally get edema in bilateral lower extremities. Reports that she gets migraines at baseline, and is admitting to a mild headache and posterior head following administration of nitroglycerin. Patient requested Dilaudid. Overall denying palpitations, vomiting/diarrhea, numbness/tingling, weakness, or fever/chills. No additional URI symptoms. Has never had this happen before. ED evaluation reveals no leukocytosis, stable H&H; normal PT/INR; D-dimer 380; CMP WNL with exception of BUN/creatinine ratio 29.4; troponin 5.1, pending repeat; lipase 13; CXR without acute findings; EKG NSR at 73 bpm.; Provided with 1L NSS, nitroglycerin 0.4 mg SL, and aspirin 324 mg p.o. in ED. Please see Dr. Wynn's attestation for adjustments/additions to treatment plan. Allergies Allergy/AdvReac Type Severity Reaction Status Date / Time troy Allergy Intermediate Hives Verified 02/01/25 18:19 buprenorphine Allergy Unknown rash (with Verified 02/01/25 18:19 patch) cyclobenzaprine Allergy Unknown Unknown Verified 02/01/25 18:19 fentanyl Allergy Unknown Rash Verified 02/01/25 18:19 magnesium hydroxide Allergy Unknown hives Verified 02/01/25 18:19 ezetimibe [From Zetia] AdvReac Intermediate Headache Verified 02/01/25 18:19 naproxen AdvReac Unknown GI bleed Verified 02/01/25 18:19 nizatidine AdvReac Unknown pt not sure Verified 02/01/25 18:19 Home Medications Medication Instructions Recorded Confirmed Type lorazepam 1 mg tablet 1 mg PO BID PRN Anxiety 08/08/18 02/01/25 History azelastine 137 mcg (0.1 %) nasal 2 spray intranasal BID PRN allergy 03/11/23 02/01/25 Rx spray symptoms #30 mL ipratropium bromide 21 mcg (0.03 2 spray intranasal BID #30 mL 03/11/23 02/01/25 Rx %) nasal spray brexpiprazole 3 mg tablet (Rexulti) 3 mg PO HS #30 tabs 08/22/23 02/01/25 Rx lamotrigine 150 mg tablet 300 mg (2 x 150 mg) PO HS #90 tabs 08/22/23 02/01/25 Rx (Lamictal) aspirin 81 mg chewable tablet 81 mg PO QAM #90 tabs 04/01/24 02/01/25 Rx cholecalciferol (vitamin D3) 125 5,000 unit PO QAM #90 caps 04/01/24 02/01/25 Rx mcg (5,000 unit) capsule montelukast 10 mg tablet 10 mg PO HS #90 tabs 04/01/24 02/01/25 Rx omeprazole 40 mg capsule,delayed 40 mg PO BID #180 caps 04/01/24 02/01/25 Rx release potassium citrate 10 mEq (1,080 10 meq PO TID #270 tabs 04/01/24 02/01/25 Rx mg) tablet,extended release desvenlafaxine succinate 50 mg 50 mg PO DAILY 05/28/24 02/01/25 History tablet,extended release 24 hr (Pristiq) bupropion HCl 300 mg 24 hr tablet, 300 mg PO QAM 10/04/24 02/01/25 History extended release trazodone 300 mg tablet 300 mg PO HS 10/04/24 02/01/25 History memantine 10 mg tablet 10 mg PO BID 90 days #180 tabs 10/13/24 02/01/25 Rx topiramate 200 mg tablet 200 mg PO BID 90 days #180 tabs 10/13/24 02/01/25 Rx albuterol sulfate 90 mcg/actuation 1 - 2 puff inhalation UD PRN 10/20/24 02/01/25 History aerosol inhaler (Ventolin HFA) shortness of breath or wheezing levothyroxine 137 mcg tablet 137 mcg PO QAM 10/20/24 02/01/25 History (Synthroid) rimegepant 75 mg disintegrating 75 mg PO UD PRN Migraine Headache 11/23/24 02/01/25 Rx tablet (Nurtec ODT) #9 tabs cyanocobalamin (vitamin B-12) 1,000 mcg PO DAILY #90 caps 01/05/25 02/01/25 Rx 1,000 mcg capsule denosumab 60 mg/mL subcutaneous 60 mg subcut .EVERY 6 MONTHS 02/01/25 02/01/25 History syringe (Prolia) famotidine 20 mg tablet 20 mg PO QPM 02/01/25 02/01/25 History fluticasone propionate 50 2 spray intranasal DAILY 02/01/25 02/01/25 History mcg/actuation nasal spray,suspension fremanezumab-vfrm 225 mg/1.5 mL 225 mg subcut MONTHLY 02/01/25 02/01/25 History subcutaneous auto-injector (Ajovy) rosuvastatin 5 mg tablet 5 mg PO QPM 02/01/25 02/01/25 History Past Med/Surg History Problem List (Updated 02/01/25 @ 20:16 by Sebastien Butt PA-C) Chest pain Hydroureteronephrosis (Acute) Left ureteral calculus Osteoporosis Lumbar facet joint syndrome Chronic rhinitis Allergic rhinitis Esophageal dysphagia Chronic cough reason for upcoming procedure Lower back pain Muscle spasm Arthralgia of multiple joints Lower extremity weakness Urinary symptom or sign Hypersomnolence disorder, with medical condition, persistent, moderate Cough Asthma Obstructive sleep apnea Prediabetes Nephrolithiasis Migraine without aura, not intractable, without status migrainosus Urinary incontinence Breast pain Lumbosacral radiculopathy Constipation Headache Elevated serum alkaline phosphatase level Dementia Allergic conjunctivitis (Chronic) Anemia (Chronic) Asthma with COPD (Chronic) Chronic sinusitis (Chronic) Common migraine without aura (Chronic) Depressive disorder, not elsewhere classified (Chronic) Fibromyalgia (Chronic) Gastro-esophageal reflux disease without esophagitis (Chronic) Hypercholesterolemia (Chronic) Hypertrophy of nasal turbinates (Chronic) Hypothyroidism (Chronic) Insomnia (Chronic) Major depression, recurrent (Chronic) Mixed incontinence urge and stress (Chronic) Multilevel degenerative disc disease (Chronic) Nasal septal deviation (Chronic) Non-allergic rhinitis (Chronic) Obstructive sleep apnea of adult (Chronic) Osteoarthrosis, unspecified whether generalized or localized, forearm (Chronic) Polyneuropathy (Chronic) Restless legs syndrome (Chronic) Sarcoidosis (Chronic) 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) Tobacco use disorder (Chronic) Vitamin D deficiency (Chronic) Right knee DJD (Chronic) Neuropathy (Chronic) Medical History Spondylosis of cervical region without myelopathy or radiculopathy ROM is limited to left side RLS (restless legs syndrome) Neuropathy Multilevel degenerative disc disease Mixed incontinence urge and stress Lumbar facet joint syndrome Lumbosacral radiculopathy Lower extremity weakness Insomnia History of dysphagia Chronic sinusitis Chronic rhinitis Chronic cough History of anemia Allergic rhinitis Migraines REASON FOR MEDICATION/DENIES HX SEIZURES Poor historian Mild early onset Alzheimer's dementia ? details/ dr peterson Overactive bladder Asthma seasonal/ prn inh Dyspnea on exertion COVID-19 hx 2021, no residual symptoms Mild cognitive impairment PVCs (premature ventricular contractions) hx Obesity Chronic back pain Temporomandibular joint disorder s/p corrective jaw procedure for TMJ/occasional clicking/no locking Sleep apnea mild JADEN- unable to tolerate CPAP Migraine, unspecified, not intractable, without status migrainosus History of kidney stones Osteoarthritis Hyperlipidemia Anxiety GERD (gastroesophageal reflux disease) controlled Sarcoidosis follows with [facility] (Dr. Satnam Piper)/[facility] [place] Fibromyalgia Depression Hypothyroidism Surgical History S/P cystoscopy with ureteral stent placement History of colonoscopy History of cataract surgery B/L H/O nasal septoplasty H/O lithotripsy History of surgery tmj corrective surgery>"not able to open her mouth very wide" History of bowel resection several years ago ? related to bowel obstruction (patient unsure) History of herniorrhaphy umbilical History of total knee replacement rt Hx of lumpectomy History of breast biopsy History of partial hysterectomy ~1984. No oophorectomy Family History Mother Breast cancer, Onset Age: 71 Family history of reaction to anesthesia SLOW TO WAKE Family history of diabetes mellitus Father Prostate cancer Hypertension Sister Chronic kidney disease Renal transplant recipient Family history of diabetes mellitus Denies family history of Colon cancer Ovarian cancer Myocardial infarction Colorectal cancer Social History Smoking Status: Never smoker Tobacco Type: Declines Second Hand Exposure: Yes (hx as child); Do You Dip or Chew Tobacco: No; Hx Alcohol Use: No Hx Substance Use: No Preferred Language: Faroese Communication Ability: Effective Communication Ability Comment: EARLY [employer] APPROPRIATE FOR PAT PHONE. 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 Justice Required: No Beliefs That Will Affect Care: None marital status: / Current Living Situation: Alone Current Living Situation Comment: AND DOG current occupational status: unemployed and disabled How many Children do You have: 3 Feels Safe at Home: Yes Childhood Exposure to Second-Hand Smoke: Yes Diet: regular caffeine: No during the past year weight has: decreased > 10 lbs Dental Care, Regularly: Yes Physical Activity Frequency: Does not Exercise Seatbelt Use: always Sunscreen Use: No Assistive Devices: Other Review of Systems Review of Systems: All systems reviewed & are unremarkable except as noted in Subjective Physical Exam Physical Exam: General: No acute distress Skin: Warm and dry Head: Normocephalic, atraumatic Eyes: PERRL, conjunctivae clear, sclera non-icteric ENT: External ear and ear canal without swelling; nose atraumatic; good dentition, tongue normal appearance, pharynx normal Neck: Supple, no LAD Cardio: RRR, no M/G/R, S1 and S2 normal; no tenderness to palpation of chest Resp: No respiratory distress, Lungs CTA in all lobes bilaterally, no wheezes, rales, or rhonchi Abdomen: Soft, symmetric, very mild tenderness epigastric region with deep palpation; No masses or hepatosplenomegaly; Bowel sounds normoactive MSK: No deformities; pulses palpable and equal; trace piting edema BLE, no calf size discrepancy. Neuro: Awake, alert; Sensation intact bilaterally; CN grossly intact Psych: Flat affect; good judgement and insight. Results & Data Results & Data Vital Signs (Past 12 Hours) Vital Signs Temp Pulse Pulse Resp BP BP Pulse Ox 02/01/25 18:00 74 20 119/79 96 02/01/25 16:39 80 16 96 02/01/25 16:31 69 02/01/25 16:05 96 02/01/25 16:05 36.7 C 72 16 108/60 96 O2 Del Method 02/01/25 18:00 Room Air 02/01/25 16:39 Room Air 02/01/25 16:31 02/01/25 16:05 Room Air 02/01/25 16:05 Room Air Laboratory Results 02/01/25 16:08 WBC 6.70 RBC 3.97 L Hgb 12.7 Hct 38.2 MCV 96.2 MCH 32.0 MCHC 33.2 RDW Std Deviation 40.2 RDW Coeff of Charley 11.4 L Plt Count 189 MPV 9.7 Immature Gran % (Auto) 0.3 Neut % (Auto) 50.0 Lymph % (Auto) 38.8 Bollinger % (Auto) 8.5 Eos % (Auto) 1.8 Baso % (Auto) 0.6 Neut # (Auto) 3.35 Lymph # (Auto) 2.60 Bollinger # (Auto) 0.57 Eos # (Auto) 0.12 Baso # (Auto) 0.04 Immature Gran # (Auto) 0.02 PT 10.4 INR 1.0 APTT 27 PTT Ratio 1.0 D-Dimer 380 Sodium 141 Potassium 4.0 Chloride 105 Carbon Dioxide 32 Anion Gap 4 BUN 20 Creatinine 0.68 Est Cr Clr Drug Dosing 74.4 eGFR 93.63 BUN/Creatinine Ratio 29.4 H Glucose 95 Calcium 9.0 Troponin I High Sens 5.1 Lipase 13 Diagnostic Findings Chest X-Ray 02/01/25 16:39 Clinical History: Chest pain Technique: A frontal view of the chest was obtained Findings: There are no confluent pulmonary infiltrates. The heart size is within normal limits. No pleural effusion or pneumothorax is seen. There is no definite pulmonary nodule. No fracture is noted. No foreign body is seen Impression: No active disease Electronically signed by Quinton Vines 02-01-2025 5:23 PM Medications Administered 1L NSS Nitroglycerin 0.4 mg SL Aspirin 324 mg p.o. ECG Additional Comments: NSR 73 bpm, MT 178, QT/QTc 4/445, QRS 82, PRT 20/-10/19 Code Status & VTE Plan Code Status Full Supervising Physician Co-Signing Physician Notes Patient seen and examined, chart reviewed, case discussed with RONDA Butt I agree with assessment plan as document above. In brief, patient is 70-year-old female history of COPD/asthma, GERD presenting with acute onset of shortness of breath and chest pain which started today at 0700 hrs. Patient reports the chest pain is midsternal and pleuritic in nature. She received fluid, nitro, aspirin in the ER. Still with ongoing pain. Requesting Dilaudid at this time On physical exam she is resting comfortably in bed, no acute distress Skinwarm, dry, intact, no rash or lesions HEENTmoist mucous membranes, neck supple, no JVD Heart+ S1, S2, regular, no murmurs/rubs/gallops. Reproducible pain with chest wall palpation LungsCTA anteriorly, no rales/rhonchi/wheezes Abdomenpositive bowel sounds, soft, nontender, nondistended Extremitieswarm, Well-perfused Labs and images reviewed. Significant for normal WBC count, normal H/H, normal electrolytes and renal function. Lipase is within normal limits. Troponin =5.1--> 5.2 Assessment/plan 70-year-old female presenting with pleuritic chest pain, shortness of breath EKG and troponin are unremarkable thus far Observation to medical Pain control with Tylenol, Lidoderm patch, can add NSAIDs if needed Will increase Crestor Remainder as above PG Care Time/CCT Total # of Minutes Spent Total Time Spent with Patient: Total time spent is greater than 50% in coordination of care (as documented) at patient's floor/unit and/or counseling patient: Coding Level of Care Code 24820 INT INP/OBS CARE 375MIN Diagnoses Chest pain R07.9 Constipation K59.00
[2025-02-01] MEDS: LIDOCAINE 5% 1 PATCH TD STA (21:06)
[2025-02-01] MEDS: ACETAMINOPHEN 500 MG TAB PO STA (21:06)
[2025-02-01] MEDS: KETOROLAC TROMETHAMINE 15 MG/ML VIAL IV ONE (21:06)
[2025-02-01 21:41] LABS: Troponin I High Sensitivity 5.2 pg/ml (0-14)
--- NOTE | 2025-02-01 21:49 | Emergency Department Note ---
History of Present Illness General Chief Complaint: Shortness of Breath/Dyspnea Stated Complaint: SOB Time Seen by Provider: 02/01/25 16:18 History of Present Illness Provider Complaint: chest pain Onset (ago): day(s) 1 Duration: intermittent Onset: during rest Pain Location: left chest and right chest Severity: moderate Maximum Pain Intensity: 7 Current Pain Intensity: 7 Quality: + tightness Relieved By: + nothing Exacerbated By: + nothing Context: no recent illness, no recent surgery, no recent immobilization, no recent travel, no trauma/injury, no new medications or no history of DVT/PE Associated symptoms: no nausea, no vomiting, no dyspnea, no palpitations, no fever, no cough or no leg swelling Treatments prior to arrival: aspirin Home Medications Medication Instructions Recorded Confirmed Type lorazepam 1 mg tablet 1 mg PO BID PRN Anxiety 08/08/18 02/01/25 History azelastine 137 mcg (0.1 %) nasal 2 spray intranasal BID PRN allergy 03/11/23 02/01/25 Rx spray symptoms #30 mL ipratropium bromide 21 mcg (0.03 2 spray intranasal BID #30 mL 03/11/23 02/01/25 Rx %) nasal spray brexpiprazole 3 mg tablet (Rexulti) 3 mg PO HS #30 tabs 08/22/23 02/01/25 Rx lamotrigine 150 mg tablet 300 mg (2 x 150 mg) PO HS #90 tabs 08/22/23 02/01/25 Rx (Lamictal) aspirin 81 mg chewable tablet 81 mg PO QAM #90 tabs 04/01/24 02/01/25 Rx cholecalciferol (vitamin D3) 125 5,000 unit PO QAM #90 caps 04/01/24 02/01/25 Rx mcg (5,000 unit) capsule montelukast 10 mg tablet 10 mg PO HS #90 tabs 04/01/24 02/01/25 Rx omeprazole 40 mg capsule,delayed 40 mg PO BID #180 caps 04/01/24 02/01/25 Rx release potassium citrate 10 mEq (1,080 10 meq PO TID #270 tabs 04/01/24 02/01/25 Rx mg) tablet,extended release desvenlafaxine succinate 50 mg 50 mg PO DAILY 05/28/24 02/01/25 History tablet,extended release 24 hr (Pristiq) bupropion HCl 300 mg 24 hr tablet, 300 mg PO QAM 10/04/24 02/01/25 History extended release trazodone 300 mg tablet 300 mg PO HS 10/04/24 02/01/25 History memantine 10 mg tablet 10 mg PO BID 90 days #180 tabs 10/13/24 02/01/25 Rx topiramate 200 mg tablet 200 mg PO BID 90 days #180 tabs 10/13/24 02/01/25 Rx albuterol sulfate 90 mcg/actuation 1 - 2 puff inhalation UD PRN 10/20/24 02/01/25 History aerosol inhaler (Ventolin HFA) shortness of breath or wheezing levothyroxine 137 mcg tablet 137 mcg PO QAM 10/20/24 02/01/25 History (Synthroid) rimegepant 75 mg disintegrating 75 mg PO UD PRN Migraine Headache 11/23/24 02/01/25 Rx tablet (Nurtec ODT) #9 tabs cyanocobalamin (vitamin B-12) 1,000 mcg PO DAILY #90 caps 01/05/25 02/01/25 Rx 1,000 mcg capsule denosumab 60 mg/mL subcutaneous 60 mg subcut .EVERY 6 MONTHS 02/01/25 02/01/25 History syringe (Prolia) famotidine 20 mg tablet 20 mg PO QPM 02/01/25 02/01/25 History fluticasone propionate 50 2 spray intranasal DAILY 02/01/25 02/01/25 History mcg/actuation nasal spray,suspension fremanezumab-vfrm 225 mg/1.5 mL 225 mg subcut MONTHLY 02/01/25 02/01/25 History subcutaneous auto-injector (Ajovy) rosuvastatin 5 mg tablet 5 mg PO QPM 02/01/25 02/01/25 History Allergies Allergy/AdvReac Type Severity Reaction Status Date / Time troy Allergy Intermediate Hives Verified 02/01/25 18:19 buprenorphine Allergy Unknown rash (with Verified 02/01/25 18:19 patch) cyclobenzaprine Allergy Unknown Unknown Verified 02/01/25 18:19 fentanyl Allergy Unknown Rash Verified 02/01/25 18:19 magnesium hydroxide Allergy Unknown hives Verified 02/01/25 18:19 ezetimibe [From Zetia] AdvReac Intermediate Headache Verified 02/01/25 18:19 naproxen AdvReac Unknown GI bleed Verified 02/01/25 18:19 nizatidine AdvReac Unknown pt not sure Verified 02/01/25 18:19 Past Med/Surg History Problem List (Updated 02/01/25 @ 21:49 by Silvino Garcia MD) Chest pain (Acute) Hydroureteronephrosis (Acute) Left ureteral calculus Osteoporosis Lumbar facet joint syndrome Chronic rhinitis Allergic rhinitis Esophageal dysphagia Chronic cough reason for upcoming procedure Lower back pain Muscle spasm Arthralgia of multiple joints Lower extremity weakness Urinary symptom or sign Hypersomnolence disorder, with medical condition, persistent, moderate Cough Asthma Obstructive sleep apnea Prediabetes Nephrolithiasis Migraine without aura, not intractable, without status migrainosus Urinary incontinence Breast pain Lumbosacral radiculopathy Constipation Headache Elevated serum alkaline phosphatase level Dementia Allergic conjunctivitis (Chronic) Anemia (Chronic) Asthma with COPD (Chronic) Chronic sinusitis (Chronic) Common migraine without aura (Chronic) Depressive disorder, not elsewhere classified (Chronic) Fibromyalgia (Chronic) Gastro-esophageal reflux disease without esophagitis (Chronic) Hypercholesterolemia (Chronic) Hypertrophy of nasal turbinates (Chronic) Hypothyroidism (Chronic) Insomnia (Chronic) Major depression, recurrent (Chronic) Mixed incontinence urge and stress (Chronic) Multilevel degenerative disc disease (Chronic) Nasal septal deviation (Chronic) Non-allergic rhinitis (Chronic) Obstructive sleep apnea of adult (Chronic) Osteoarthrosis, unspecified whether generalized or localized, forearm (Chronic) Polyneuropathy (Chronic) Restless legs syndrome (Chronic) Sarcoidosis (Chronic) 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) Tobacco use disorder (Chronic) Vitamin D deficiency (Chronic) Right knee DJD (Chronic) Neuropathy (Chronic) Medical History Spondylosis of cervical region without myelopathy or radiculopathy ROM is limited to left side RLS (restless legs syndrome) Neuropathy Multilevel degenerative disc disease Mixed incontinence urge and stress Lumbar facet joint syndrome Lumbosacral radiculopathy Lower extremity weakness Insomnia History of dysphagia Chronic sinusitis Chronic rhinitis Chronic cough History of anemia Allergic rhinitis Migraines REASON FOR MEDICATION/DENIES HX SEIZURES Poor historian Mild early onset Alzheimer's dementia ? 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 Satnam Piper)/[facility] pulmonary Fibromyalgia Depression Hypothyroidism Surgical History S/P cystoscopy with ureteral stent placement History of colonoscopy History of cataract surgery B/L H/O nasal septoplasty H/O lithotripsy History of surgery tmj corrective surgery>"not able to open her mouth very wide" History of bowel resection several years ago ? related to bowel obstruction (patient unsure) History of herniorrhaphy umbilical History of total knee replacement rt Hx of lumpectomy History of breast biopsy History of partial hysterectomy ~1984. No oophorectomy Family History Mother Breast cancer, Onset Age: 71 Family history of reaction to anesthesia SLOW TO WAKE Family history of diabetes mellitus Father Prostate cancer Hypertension Sister Chronic kidney disease Renal transplant recipient Family history of diabetes mellitus Denies family history of Colon cancer Ovarian cancer Myocardial infarction Colorectal cancer Social History Smoking Status: Never smoker Tobacco Type: Declines Second Hand Exposure: Yes (hx as child); Do You Dip or Chew Tobacco: No; Hx Alcohol Use: No Hx Substance Use: No Preferred Language: Bolivian Communication Ability: Effective Communication Ability Comment: EARLY [employer] APPROPRIATE FOR PAT PHONE. 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: No Beliefs That Will Affect Care: None marital status: / Current Living Situation: Alone Current Living Situation Comment: [facility] DOG current occupational status: unemployed and disabled How many Children do You have: 3 Feels Safe at Home: Yes Childhood Exposure to Second-Hand Smoke: Yes Diet: regular caffeine: No during the past year weight has: decreased > 10 lbs Dental Care, Regularly: Yes Physical Activity Frequency: Does not Exercise Seatbelt Use: always Sunscreen Use: No Assistive Devices: Other Physical Exam Vital Signs Vital Signs - 24 hr 02/01/25 16:05 02/01/25 16:05 02/01/25 16:31 Temperature 36.7 C Temperature Source Oral Pulse Rate 72 69 Pulse Rate [Apical] Pulse Rhythm Pulse Rhythm [Apical] Pulse Strength [Apical] Respiratory Rate 16 Respiratory Effort / Characteristics Non-Labored Spontaneous Respiratory Depth Normal Respiratory Pattern Regular Blood Pressure 108/60 Blood Pressure [Right Arm] Blood Pressure Mean 76 Blood Pressure Mean [Right Arm] Blood Pressure Position Lying Blood Pressure Position [Right Arm] Pulse Oximetry 96 96 Oxygen Delivery Method Room Air Room Air Sepsis Recent Fever Within 48 Hours No Sepsis New/Unexplained Change in Mental Status No Sepsis Action Taken by Nursing No Action Required 02/01/25 16:39 02/01/25 18:00 02/01/25 20:00 Temperature Temperature Source Pulse Rate 80 Pulse Rate [Apical] 74 70 Pulse Rhythm Regular Pulse Rhythm [Apical] Regular Regular Pulse Strength [Apical] Normal Normal Respiratory Rate 16 20 18 Respiratory Effort / Characteristics Non-Labored Spontaneous Non-Labored Spontaneous Respiratory Depth Normal Normal Respiratory Pattern Regular Regular Blood Pressure Blood Pressure [Right Arm] 119/79 116/73 Blood Pressure Mean Blood Pressure Mean [Right Arm] 92 87 Blood Pressure Position Blood Pressure Position [Right Arm] Lying Lying Pulse Oximetry 96 96 96 Oxygen Delivery Method Room Air Room Air Room Air Sepsis Recent Fever Within 48 Hours Sepsis New/Unexplained Change in Mental Status Sepsis Action Taken by Nursing 02/01/25 20:10 Temperature Temperature Source Pulse Rate 69 Pulse Rate [Apical] Pulse Rhythm Pulse Rhythm [Apical] Pulse Strength [Apical] Respiratory Rate Respiratory Effort / Characteristics Respiratory Depth Respiratory Pattern Blood Pressure Blood Pressure [Right Arm] Blood Pressure Mean Blood Pressure Mean [Right Arm] Blood Pressure Position Blood Pressure Position [Right Arm] Pulse Oximetry Oxygen Delivery Method Sepsis Recent Fever Within 48 Hours Sepsis New/Unexplained Change in Mental Status Sepsis Action Taken by Nursing Physical Exam GENERAL: oriented to person, place, and time. appears well-developed and well- nourished. HENT: Exam performed. - Head: Normocephalic and atraumatic. EYES: Conjunctivae and EOM are normal. Right eye exhibits no discharge. Left eye exhibits no discharge. No scleral icterus. NECK: Normal range of motion. Neck supple. No JVD present. CV: Normal rate, regular rhythm, normal heart sounds and intact distal pulses. There is no peripheral edema. Palpable radial pulses bue. PULM/CHEST: Effort normal and breath sounds normal. No respiratory distress. No stridor. no wheezes. no rales. ABD: The abdomen is soft. There is no tenderness. NEURO: Motor and sensation grossly intact. SKIN: Skin is warm and dry. He is not diaphoretic. PSYCH: normal mood and affect. Behavior is normal. Judgment and thought content normal. Course Course 1618: The patient was evaluated in room C9. A complete history and physical exam was performed Cardiac monitoring: An order was placed for continuous cardiac monitoring. The monitor shows a rate of 70 with sinus rhythm interpreted by me 1800: Vital signs stable. Labs and imaging are unremarkable including negative D-dimer troponin chest x-ray and EKG. Patient will be admitted for chest pain rule out ACS. Administered Medications Sodium Chloride (Nss) 1,000 mls @ 125 mls/hr IV .Q8H RAMILA Stop: 02/04/25 17:59 Last Admin: 02/01/25 18:22 Dose: 125 mls/hr Documented By: JOVANNA Discontinued Medications Acetaminophen (Acetaminophen 500 Mg Tab) 1,000 mg PO NOW STA Stop: 02/01/25 20:04 Last Admin: 02/01/25 21:06 Dose: 1,000 mg Documented By: JOVANNA Aspirin (Aspirin 81 Mg Chew) 324 mg PO NOW STA Stop: 02/01/25 18:00 Last Admin: 02/01/25 18:11 Dose: Not Given Documented By: JOVANNA Ketorolac Tromethamine (Ketorolac Tromethamine 15 Mg/Ml Vial) 15 mg IV NOW ONE Stop: 02/01/25 20:43 Last Admin: 02/01/25 21:06 Dose: 15 mg Documented By: JOVANNA Lidocaine (Lidocaine 5% 1 Patch) 1 patch TD NOW STA Stop: 02/01/25 20:43 Last Admin: 02/01/25 21:06 Dose: 1 patch Documented By: JOVANNA Nitroglycerin (Nitroglycerin Sl 0.4 Mg/Tab Tab) 0.4 mg SL NOW STA Stop: 02/01/25 18:00 Last Admin: 02/01/25 18:19 Dose: 0.4 mg Documented By: JOVANNA Medical Decision Making Laboratory Data Attestation: I reviewed the patient's lab results. 02/01/25 16:08 02/01/25 16:08 Labs: Lab Results 02/01/25 02/01/25 Range/Units 16:08 21:03 WBC 6.70 (4.8-10.8) K/ul RBC 3.97 L (4.20-5.40) M/uL Hgb 12.7 (12.0-16.0) g/dl Hct 38.2 (37.0-47.0) % MCV 96.2 (80.0-100.0) fL MCH 32.0 (25.0-34.0) pg MCHC 33.2 (32.0-36.0) g/dL RDW Std Deviation 40.2 (36.4-46.3) fL RDW Coeff of Charley 11.4 L (11.5-14.5) % Plt Count 189 (130-400) K/uL MPV 9.7 (9.4-12.4) fL Immature Gran % (Auto) 0.3 % Neut % (Auto) 50.0 % Lymph % (Auto) 38.8 % [place] % (Auto) 8.5 % Eos % (Auto) 1.8 % Baso % (Auto) 0.6 % Neut # (Auto) 3.35 (1.40-6.50) K/uL Lymph # (Auto) 2.60 (1.20-3.40) K/uL [place] # (Auto) 0.57 (0.11-0.59) K/uL Eos # (Auto) 0.12 (0.00-0.50) K/uL Baso # (Auto) 0.04 (0.00-0.20) K/uL Immature Gran # (Auto) 0.02 (0.01-0.20) K/uL PT 10.4 (9.0-12.0) Seconds INR 1.0 (0.9-1.1) APTT 27 (21-31) Seconds PTT Ratio 1.0 D-Dimer 380 (0-500) ug/L FEU Sodium 141 (136-145) mmol/L Potassium 4.0 (3.5-5.1) mmol/L Chloride 105 (98-107) mmol/L Carbon Dioxide 32 (21-32) mmol/L Anion Gap 4 (3-11) BUN 20 (6-23) mg/dl Creatinine 0.68 (0.6-1.2) mg/dl Est Cr Clr Drug Dosing 74.4 ml/min eGFR 93.63 BUN/Creatinine Ratio 29.4 H (10-20) Glucose 95 (70-99(Fasting)) mg/dl Calcium 9.0 (8.6-10.3) mg/dl Troponin I High Sens 5.1 5.2 (0-14) pg/ml Lipase 13 (11-82) U/L Imaging Data Chest x-ray: Attestation: I personally reviewed and interpreted this imaging study as follows: My impression: Chest x-ray negative. Airway clear. No pneumothorax. No consolidation. No cardiomegaly or cephalization.. No free air under the diaphragm. No fractures of the skeletal structures. Radiologist's impression: Chest X-Ray 02/01/25 16:39 Clinical History: Chest pain Technique: A frontal view of the chest was obtained Findings: There are no confluent pulmonary infiltrates. The heart size is within normal limits. No pleural effusion or pneumothorax is seen. There is no definite pulmonary nodule. No fracture is noted. No foreign body is seen Impression: No active disease Electronically signed by Quinton Vines 02-01-2025 5:23 PM ECG Data Attestation: I personally reviewed and interpreted this ECG as follows: Indication: chest pain Rate (beats per minute): 73 Rhythm: normal sinus Findings: no ST depression, no ST elevation or no prolonged QT MDM Narrative 1618: The patient was evaluated in room C9. A complete history and physical exam was performed Cardiac monitoring: An order was placed for continuous cardiac monitoring. The monitor shows a rate of 70 with sinus rhythm interpreted by me 1800: Vital signs stable. Labs and imaging are unremarkable including negative D-dimer troponin chest x-ray and EKG. Patient will be admitted for chest pain rule out ACS. Impression & Plan Chest pain Discharge Plan Visit Data Chief Complaint: Shortness of Breath/Dyspnea Stated Complaint: SOB ED Provider: Silvino Garcia Discharge Problem: Chest pain Patient Disposition: Admitted As Inpatient Condition: Fair Forms Stand Alone Forms: My [facility] Prescriptions Prescriptions: No Action desvenlafaxine succinate [Pristiq] 50 mg tablet extended release 24 hr 50 mg PO DAILY ipratropium bromide 21 mcg (0.03 %) spray,non-aerosol 2 spray intranasal BID Qty: 30 6RF Rx Instructions: otc/no fill history unable to verify administer into each nostril azelastine 137 mcg (0.1 %) aerosol,spray 2 spray intranasal BID PRN (Reason: allergy symptoms) Qty: 30 11RF Rx Instructions: administer into each nostril otc/no fill history unable to verify Rexulti 3 mg tablet 3 mg PO HS Qty: 30 5RF lamotrigine [Lamictal] 150 mg tablet 300 mg PO HS Qty: 90 0RF potassium citrate 10 mEq (1,080 mg) tablet extended release 10 meq PO TID Qty: 270 3RF montelukast 10 mg tablet 10 mg PO HS Qty: 90 3RF Rx Instructions: TAKE 1 TABLET BY MOUTH AT BEDTIME aspirin 81 mg tablet,chewable 81 mg PO QAM Qty: 90 3RF Rx Instructions: TAKE 1 TABLET BY MOUTH ONCE DAILY AT NOON omeprazole 40 mg capsule,delayed release(DR/EC) 40 mg PO BID Qty: 180 3RF Rx Instructions: TAKE ONE CAPSULE BY MOUTH TWICE DAILY cholecalciferol (vitamin D3) 125 mcg (5,000 unit) capsule 5,000 unit PO QAM Qty: 90 3RF Rx Instructions: TAKE 1 CAPSULE BY MOUTH ONCE DAILY IN THE MORNING memantine 10 mg tablet 10 mg PO BID 90 Days Qty: 180 3RF topiramate 200 mg tablet 200 mg PO BID 90 Days Qty: 180 3RF cyanocobalamin (vitamin B-12) 1,000 mcg capsule 1,000 mcg PO DAILY Qty: 90 3RF Nurtec ODT 75 mg tablet,disintegrating 75 mg PO UD PRN (Reason: Migraine Headache) Qty: 9 5RF Rx Instructions: 75 mg PO ONCE A DAY PRN. MAX DOSE 1 PER 24 HOURS; filled 11/23/24 lorazepam 1 mg Tablet 1 mg PO BID PRN (Reason: Anxiety) trazodone 300 mg tablet 300 mg PO HS bupropion HCl 300 mg tablet extended release 24 hr 300 mg PO QAM levothyroxine [Synthroid] 137 mcg tablet 137 mcg PO QAM albuterol sulfate [Ventolin HFA] 90 mcg/actuation HFA aerosol inhaler 1 - 2 puff inhalation UD PRN (Reason: shortness of breath or wheezing) Rx Instructions: 1-2 INH 4-6 PRN; Dereck Autoinjector 225 mg/1.5 mL auto-injector 225 mg subcut MONTHLY Rx Instructions: last filled 12/14 28 day supply famotidine 20 mg tablet 20 mg PO QPM Rx Instructions: 20mg po qpm. otc/no fill history unable to verify fluticasone propionate 50 mcg/actuation spray,suspension 2 spray intranasal DAILY Rx Instructions: 2 spray intranasal daily. administer into each nostril otc/no fill history unable to verify Prolia 60 mg/mL syringe 60 mg subcut .EVERY 6 MONTHS Rx Instructions: 60mg subcut once. No fill history unable to verify rosuvastatin 5 mg tablet 5 mg PO QPM Referrals Referrals: Niall Fields III, CRNP [Primary Care Provider] -
[2025-02-01 21:50] LABS: Thyroid Stimulating Hormone 0.108 uIu/ml (0.300-4.500)
[2025-02-01] MEDS ORDERED: LORazepam 1 MG TAB PO PRN (22:10)
[2025-02-01] MEDS ORDERED: ONDANSETRON INJ 2 MG/ML 2 ML VIAL IV PRN (22:10)
[2025-02-01] MEDS ORDERED: AZELASTINE HCL 0.1% NASAL 200 SPRAYS/27,400 MCG BTL PRN (22:10)
[2025-02-01] MEDS ORDERED: POLYETHYLENE (MIRALAX) 17 GM PACK PO PRN (22:10)
[2025-02-01] MEDS ORDERED: ALBUTEROL HFA 8 GM INHALER INH PRN (22:10)
[2025-02-01] MEDS: MoRPHine SULFATE 2 MG/ML CARP IV STA (22:58)
[2025-02-01] MEDS: POTASSIUM CITRATE 10 MEQ TAB PO SCH (23:29)
[2025-02-01] MEDS: ENOXAPARIN INJ 40 MG/0.4 ML SYR SQ SCH (23:30)
[2025-02-01] MEDS: PANTOprazole 40 MG TAB PO SCH (23:30)
[2025-02-01] MEDS: traZODone HCL 100 MG TAB PO SCH (23:30)
[2025-02-01] MEDS: FAMOTIDINE 20 MG TAB PO SCH (23:30)
[2025-02-01] MEDS: TOPIRAMATE 100 MG TAB PO SCH (23:30)
[2025-02-01] MEDS: MEMANTINE HCL 10 MG TAB PO SCH (23:30)
[2025-02-01] MEDS: MONTELUKAST SODIUM 10 MG TABLET PO SCH (23:30)
[2025-02-01] MEDS: lamoTRIgine 100 MG TAB PO SCH (23:30)
[2025-02-01] MEDS: IPRATROPIUM BROMIDE NASAL SPRAY 0.03% 30 ML SCH (23:31)
[2025-02-02 04:21] VITALS: RESP 18
[2025-02-02] MEDS: LEVOTHYROXINE SODIUM 137 MCG TABLET PO SCH (06:10)
[2025-02-02] MEDS: ACETAMINOPHEN 325 MG TAB PO PRN (06:30)
[2025-02-02] MEDS: KETOROLAC TROMETHAMINE 15 MG/ML VIAL IV ONE (08:21)
[2025-02-02] MEDS: ASPIRIN 81 MG ECTAB PO SCH (08:25)
[2025-02-02] MEDS: buPROPion XL 300 MG TABCR PO SCH (08:26)
[2025-02-02] MEDS: FLUTICASONE PROPIONATE NA SPR 16 GM BTL SCH (08:26)
[2025-02-02] MEDS: ROSUVASTATIN CALCIUM 20 MG TAB PO SCH (08:26)
--- NOTE | 2025-02-02 10:22 | XCELERA ---
[id number]
--- NOTE | 2025-02-02 10:42 | Electrocardiogram Report ---
Test Reason : Blood Pressure : */* mmHG Vent. Rate : 73 BPM Atrial Rate : 73 BPM P-R Int : 178 ms QRS Dur : 82 ms QT Int : 404 ms P-R-T Axes : 20 -1 27 degrees QTcB Int : 445 ms Normal sinus rhythm Normal ECG When compared with ECG of 11-Oct-2024 16:20, Nonspecific T wave abnormality no longer evident in Anterior leads Confirmed by David Perez ([id number] on 02/02/2025 10:42:24 AM Referred By: REFERRED SELF Confirmed By: David Perez
[2025-02-02 11:10] VITALS: BP 101/66; TEMP 98.2; O2SAT 95
--- NOTE | 2025-02-02 11:43 | Discharge Summary ---
Discharge Summary Date of Service February 02, 2025 Principal Dx & Hospital Course #1 = Principal Diagnosis (1) Chest pain: (2) Constipation: Plan 70-year-old female PMHx COPD/asthma, insomnia, GERD, hypothyroidism, migraine, depression, dementia, and neuropathy/radiculopathies presenting for onset of SOB and chest pain starting at 0700 the day of arrival. ED evaluation reveals no leukocytosis, stable H&H; normal PT/INR; D-dimer 380; CMP WNL with exception of BUN/creatinine ratio 29.4; troponin 5.1, pending repeat; lipase 13; CXR without acute findings; EKG NSR at 73 bpm.; Provided with 1L NSS, nitroglycerin 0.4 mg SL, and aspirin 324 mg p.o. in ED. #Chest pain Chest pain starting at 0700 the day of arrival, associated with shortness of breath and some nausea. No calf tenderness or size discrepancies. Low suspicion for PE or ACS at this time, however given duration of symptoms + ongoing chest discomfort that is pleuritic in nature, patient admitted to hospital for observation Chest pain resolved 02/02 Continue Lidocaine patch on discharge, suspect costochondritis given physical examination Avoid NSAIDs due to hx of GI bleeding w/ naproxen Troponin negative x 2; D-Dimer negative @ 380 Stress echo 11/15 -> negative Echo 02/02 -> EF 60-65%; no significant valvular heart disease. Lipids 10/17 - total 267; LDL 169; HDL 42; TG 282 -rosuvastatin increased to high intensity dosing of 20mg ASA daily #Constipation Last BM day of arrival, was not normal consistency per pt; unsure last normal BM. Continue Miralax prn #COPD/asthma- Ventolin - continue #MDD/insomnia- Brexpiprazole, bupropion, desvenlafaxine, lamotrigine, lorazepam as needed; trazodone - continue #GERD- Famotidine, omeprazole - continue #Migraine- Ajovy monthly, rimegepant as needed, topiramate (weaning off topiramate per neurology note 11/23/2024) - continue daily meds #Hypothyroidism- Levothyroxine - continue #Allergies- Montelukast, ipratropium bromide nasal spray, azelastine nasal spray - continue #Dementia- Memantine - continue #OP- Prolia q6mo Updated son via phone 02/02 w/ discharge instructions. Admission HPI Per Admitting Provider 70-year-old female PMHx COPD/asthma, insomnia, GERD, hypothyroidism, migraine, depression, dementia, and neuropathy/radiculopathies presenting for onset of SOB and chest pain starting at 0700 the day of arrival. Patient states that she awoke the morning of arrival with bilateral chest pain. States that it was a 10 out of 10 on the pain scale and was a heaviness in her chest on both sides. Reports it did radiate to her back with the same sensation, but did not radiate to her arms or neck. She had some SOB with the onset of the chest pain, but no associated coughing. Had nausea whenever this began, but no vomiting. Admits to some constipation at baseline, most recent bowel movement was the day of arrival but it was not normal consistency for patient. Unsure of when her last normal bowel movement was. States that her current pain is a 4 out of 10 on the pain scale and is present when she takes a deep breath but otherwise she is comfortable. She is not having any dizziness, syncope, lightheadedness. She does occasionally get edema in bilateral lower extremities. Reports that she gets migraines at baseline, and is admitting to a mild headache and posterior head following administration of nitroglycerin. Patient requested Dilaudid. Overall denying palpitations, vomiting/diarrhea, numbness/tingling, weakness, or fever/chills. No additional URI symptoms. Has never had this happen before. ED evaluation reveals no leukocytosis, stable H&H; normal PT/INR; D-dimer 380; CMP WNL with exception of BUN/creatinine ratio 29.4; troponin 5.1, pending repeat; lipase 13; CXR without acute findings; EKG NSR at 73 bpm.; Provided with 1L NSS, nitroglycerin 0.4 mg SL, and aspirin 324 mg p.o. in ED. Please see Dr. Wynn's attestation for adjustments/additions to treatment plan. Discharge Exam General: no acute distress; non-toxic appearing; well-nourished; cooperative HEENT: normocephalic, atraumatic; no scleral icterus; PERRLA w/ EOMs intact; vision and hearing grossly intact Skin: warm, dry without signs of tenting; no cyanosis; no rashes, bruising, lesions, or erythema noted CV: RRR; S1/S2 normal; no murmurs/rubs/gallops Lungs: no acute respiratory distress; symmetrical chest wall expansion; clear breath sounds across all lung das w/o adventitious sounds; no wheezing ABD: Soft, NTP; BS present; no rebound/guarding; no distention MSK: no edema noted in the LEs b/l, nonerythematous Neuro: A&Ox3; normal mood and affect; fluent speech; no focal deficits; sensation grossly intact in the LEs b/l Discharge Plan Discharge Items Patient Disposition: Home - Self-Care Reason For Visit: CP Discharge Diagnosis: Costochondritis Condition on Discharge: Fair Activity: Resume your previous activity Non-emergency contact: Primary Care Provider Call non-emergency contact if: you have any medication questions and your symptoms worsen Follow-up/Referrals: Niall Fields III, CRNP [Primary Care Provider] - 02/09/25 9:20 am Diet: Heart Healthy Addtl Attending Provider Instructions: Ms. Daniel, Zafar were recently admitted to the hospital for observation regarding chest pain. You had a negative cardiac workup including cardiac enzymes, EKG, and an echocardiogram. You were found to have pain when palpating your chest which is consistent with a diagnosis of costochondritis. Please see recommendations below regarding your discharge. Please use a Lidocaine patch daily. Please leave on for 12 hours and remove for 12 hours at the site of pain. You may also use Tylenol 1000mg every 8 hours as needed for pain as well. Your cholesterol levels were found to be elevated - Your Rosuvastatin has been increased. You may resume the remainder of your outpatient medications. Please follow up with your PCP within 1-2 weeks for continued care. If you develop any severe chest pain, shortness of breath, or fever please report back to the ER for further care. Sincerely, Amira Calzada PA-C Pending Studies at Discharge: No Stand-Alone Forms: My [facility], Smoking Cessation Medications and DC Order Prescriptions: New rosuvastatin 20 mg Tablet 20 mg PO QAM Qty: 30 0RF lidocaine 5 % adhesive patch,medicated 1 patch topical DAILY Qty: 30 0RF Rx Instructions: leave on most painful area for up to 12 hrs Continued desvenlafaxine succinate [Pristiq] 50 mg tablet extended release 24 hr 50 mg PO DAILY ipratropium bromide 21 mcg (0.03 %) spray,non-aerosol 2 spray intranasal BID Qty: 30 6RF Rx Instructions: otc/no fill history unable to verify administer into each nostril azelastine 137 mcg (0.1 %) aerosol,spray 2 spray intranasal BID PRN (Reason: allergy symptoms) Qty: 30 11RF Rx Instructions: administer into each nostril otc/no fill history unable to verify Rexulti 3 mg tablet 3 mg PO HS Qty: 30 5RF lamotrigine [Lamictal] 150 mg tablet 300 mg PO HS Qty: 90 0RF potassium citrate 10 mEq (1,080 mg) tablet extended release 10 meq PO TID Qty: 270 3RF montelukast 10 mg tablet 10 mg PO HS Qty: 90 3RF Rx Instructions: TAKE 1 TABLET BY MOUTH AT BEDTIME aspirin 81 mg tablet,chewable 81 mg PO QAM Qty: 90 3RF Rx Instructions: TAKE 1 TABLET BY MOUTH ONCE DAILY AT NOON omeprazole 40 mg capsule,delayed release(DR/EC) 40 mg PO BID Qty: 180 3RF Rx Instructions: TAKE ONE CAPSULE BY MOUTH TWICE DAILY cholecalciferol (vitamin D3) 125 mcg (5,000 unit) capsule 5,000 unit PO QAM Qty: 90 3RF Rx Instructions: TAKE 1 CAPSULE BY MOUTH ONCE DAILY IN THE MORNING memantine 10 mg tablet 10 mg PO BID 90 Days Qty: 180 3RF topiramate 200 mg tablet 200 mg PO BID 90 Days Qty: 180 3RF cyanocobalamin (vitamin B-12) 1,000 mcg capsule 1,000 mcg PO DAILY Qty: 90 3RF Nurtec ODT 75 mg tablet,disintegrating 75 mg PO UD PRN (Reason: Migraine Headache) Qty: 9 5RF Rx Instructions: 75 mg PO ONCE A DAY PRN. MAX DOSE 1 PER 24 HOURS; filled 11/23/24 lorazepam 1 mg Tablet 1 mg PO BID PRN (Reason: Anxiety) trazodone 300 mg tablet 300 mg PO HS bupropion HCl 300 mg tablet extended release 24 hr 300 mg PO QAM levothyroxine [Synthroid] 137 mcg tablet 137 mcg PO QAM albuterol sulfate [Ventolin HFA] 90 mcg/actuation HFA aerosol inhaler 1 - 2 puff inhalation UD PRN (Reason: shortness of breath or wheezing) Rx Instructions: 1-2 INH 4-6 PRN; Ajovy Autoinjector 225 mg/1.5 mL auto-injector 225 mg subcut MONTHLY Rx Instructions: last filled 12/14 28 day supply famotidine 20 mg tablet 20 mg PO QPM Rx Instructions: 20mg po qpm. otc/no fill history unable to verify fluticasone propionate 50 mcg/actuation spray,suspension 2 spray intranasal DAILY Rx Instructions: 2 spray intranasal daily. administer into each nostril otc/no fill history unable to verify Prolia 60 mg/mL syringe 60 mg subcut .EVERY 6 MONTHS Rx Instructions: 60mg subcut once. No fill history unable to verify Discontinued rosuvastatin 5 mg tablet 5 mg PO QPM Discharge Orders: Discharge Order (Routine); Ordered 02/02/25 Ordered By: Amira Calzada Admission Data Admit Date/Time: 02/01/25 20:03 Attending Provider: Karla Mittal Admit Provider: Laurie Wynn Primary Care Provider: Niall Fields III Other Providers: Karla Mittal Other Interventions: Discharge Summary Assessment (RN) Last Done: 02/02/25 13:03 Hospital Stay Data Consultations 02/01/25 18:01 ED Decision to Admit Stat Pending Results Patient Have Any Pending Studies at Discharge: No Discharge Instructions Given to Patient (Per Discharging Provider) Zafar Veloz were recently admitted to the hospital for observation regarding chest pain. You had a negative cardiac workup including cardiac enzymes, EKG, and an echocardiogram. You were found to have pain when palpating your chest which is consistent with a diagnosis of costochondritis. Please see recommendations below regarding your discharge. Please use a Lidocaine patch daily. Please leave on for 12 hours and remove for 12 hours at the site of pain. You may also use Tylenol 1000mg every 8 hours as needed for pain as well. Your cholesterol levels were found to be elevated - Your Rosuvastatin has been increased. You may resume the remainder of your outpatient medications. Please follow up with your PCP within 1-2 weeks for continued care. If you develop any severe chest pain, shortness of breath, or fever please report back to the ER for further care. Sincerely, Amira Calzada PA-C Supervising Physician Co-Signing Physician Notes PA Supervision Note: I did not personally see or examine the patient today, but I verified all meade points of GISEL Calzada's assessment and plan with the following exceptions/additions: None Total Time Total Time Spent Total Time Spent (In Minutes): 35 Total Time Includes: Examination of the Patient, Discharge Planning and Medication Reconciliation Coding Level of Care Code 05366 INP/OBS DISCH >30 MIN Diagnoses Chest pain R07.9 Constipation K59.00
[2025-02-02 13:05] VITALS: PULSE 80
[2025-02-02] MEDS: LIDOCAINE 5% 1 PATCH TD STA (13:43)
--- NOTE | 2025-02-02 17:34 | Electrocardiogram Report ---
Test Reason : Blood Pressure : */* mmHG Vent. Rate : 65 BPM Atrial Rate : 65 BPM P-R Int : 188 ms QRS Dur : 84 ms QT Int : 416 ms P-R-T Axes : 48 12 40 degrees QTcB Int : 432 ms Normal sinus rhythm Normal ECG When compared with ECG of 01-Feb-2025 16:06, No significant change was found Confirmed by David Perez ([id number]) on 02/02/2025 5:33:56 PM Referred By: REFERRED SELF Confirmed By: David Perez
== END 2025-02-02 13:47 | disposition home or self-care (01) ==
LOC: ED 16:00 → 2N 16:00 → SUATTDRO 20:03 → 2N 22:09
DX: G47.00 Insomnia, unspecified; R07.9 Chest pain, unspecified; G43.909 Migraine, unspecified, not intractable, without status migrainosus; Z79.82 Long term (current) use of aspirin; F03.90 Unspecified dementia, unspecified severity, without behavioral disturbance, psychotic disturbance, mood disturbance, and anxiety; Z88.5 Allergy status to narcotic agent; K59.00 Constipation, unspecified; Z79.890 Hormone replacement therapy; E03.9 Hypothyroidism, unspecified; Z79.899 Other long term (current) drug therapy; J44.9 Chronic obstructive pulmonary disease, unspecified; Z88.8 Allergy status to other drugs, medicaments and biological substances; K21.9 Gastro-esophageal reflux disease without esophagitis